=== PATIENT | female | born 1940 | race Caucasian/White ===

== ENCOUNTER → 2016-11-30 | Outpatient (CLI) | payer MEDICARE, OTHER ==
--- NOTE | 2016-12-02 19:01 | US ---
EXAMINATION TYPE: US MSK right foot DATE OF EXAM: 11/30/2016 1:47 PM COMPARISON: None available CLINICAL HISTORY: 76-year-old female, evaluate for Soft tissue mass M79.9. Additional history provided by the steam flattener: Golf ball sized obvious mass on the plantar surface of her foot, situated between the 2-4th MT. Pt states it has been there for 4 yrs and was drained abo ut 1 1/2 yrs ago. 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 TECHNIQUE: TARGETED SONOGRAPHIC EXAMINATION ALONG THE plantar aspect of the right forefoot midfoot ta rgeting the visible and palpable mass. FINDINGS: At the site of palpable abnormality centered within the subcutaneous tissues is a lobulated, heteroge neously hypoechoic lesion that shows some peripheral and internal vascularity extending from just lara p to the skin surface to the third flexor tendon. This measures up to 1.0 cm thick during transducer compression, 2.9 cm wide, and 3.0 cm AP dimension. Removing transducer pressure shows some internal c ystic spaces which obliterate with transducer pressure. The flexor tendon overlying moves freely of t his lesion. Extension from the overlying third MTP joint is not identified. IMPRESSION: Heterogeneous lobulated mass within the plantar subcutaneous tissues below the third MTP joint. This measures 2.9 x 3.0 cm and some internal cystic spaces flatten with transducer pressure. This extends to the level of the third flexor tendon which moves independently of this lesion. Internal vascularit y is present. The exact etiology is uncertain. Some benign differential considerations include giant cell tumor of the tendon sheath, nodular fasciitis, and inflammation-induced lesions. The possibilit y of a small sarcoma cannot entirely be excluded.
== END | disposition home or self-care (01) ==
LOC: RADUSWWP 12:59
PROVIDERS: ATTEND Podiatrist Foot & Ankle Surgery
DX: R22.42 Localized swelling, mass and lump, left lower limb (principal)

== ENCOUNTER 2016-12-22 16:46 | Inpatient (IN) | payer MEDICARE, OTHER ==
[~2016-12-22 16:46] MED LIST: METHOTREXATE SODIUM 2.5 MG TAB PO SCH
[2016-12-22] MEDS ORDERED: methylPREDNISolone SOD SUCCI 125 MG/2 ML VIAL IV STA (17:47)
[2016-12-22] MEDS ORDERED: LORazepam 2 MG/ML SYRINGE IV STA (17:47)
--- NOTE | 2016-12-22 17:50 | ED ---
SOB HPI - General Chief Complaint: Shortness of Breath Stated Complaint: Difficulty Breathing-Sent by Time Seen by Provider: 12/22/16 17:32 Source: patient, family, RN notes reviewed Mode of arrival: wheelchair Limitations: no limitations - History of Present Illness Initial Comments: This is a 76-year-old female with a history of bronchiectasis and chronic shortness of breath who states she went on a drive today with her in which he got back from 4:00 she started developing increasing shortness of breath. She denies any fevers chills or sweats. She feels dry she does complain some left-sided chest pain and increases with deep breathing or movements. She states she normally has exertional chest pain shortness of breath this is just worsening usual today. MD Complaint: shortness of breath - Related Data Home Medications Medication Instructions Recorded Confirmed ALPRAZolam [Xanax] 0.25 mg PO TID PRN 12/22/16 12/22/16 Acetaminophen Tab [Tylenol Tab] 650 mg PO Q6H PRN 12/22/16 12/22/16 Apixaban [Eliquis] 5 mg PO BID 12/22/16 12/22/16 Atenolol 100 mg PO DAILY 12/22/16 12/22/16 Atorvastatin [Lipitor] 20 mg PO DAILY 12/22/16 12/22/16 Benzonatate [Tessalon Perles] 100 mg PO TID PRN 12/22/16 12/22/16 Brinzolamide/Brimonidine Tart 1 drop BOTH EYES DAILY 12/22/16 12/22/16 [Simbrinza 1%-0.2% Eye Drops] Calcium Citrate 500 mg PO DAILY 12/22/16 12/22/16 Cholecalciferol [Vitamin D3] 1,000 unit PO DAILY 12/22/16 12/22/16 Citalopram Hydrobromide [CeleXA] 40 mg PO DAILY 12/22/16 12/22/16 Dicyclomine [Bentyl] 10 mg PO BID 12/22/16 12/22/16 Fluocinolone Body Oil 1 applic TOPICAL HS PRN 12/22/16 12/22/16 Folic Acid 1 mg PO BID 12/22/16 12/22/16 Levothyroxine Sodium [Synthroid] 75 mcg PO DAILY 12/22/16 12/22/16 Methotrexate Sodium [Methotrexate] 10 mg PO WE 12/22/16 12/22/16 Pantoprazole Sodium [Protonix] 40 mg PO AC-BID 12/22/16 12/22/16 Zolpidem [Ambien] 10 mg PO HS 12/22/16 12/22/16 hydrALAZINE HCL [Apresoline] 25 mg PO QAM 12/22/16 12/22/16 Allergies Allergy/AdvReac Type Severity Reaction Status Date / Time morphine AdvReac Hallucinati Verified 12/22/16 17:53 ons Review of Systems ROS Statement: Those systems with pertinent positive or pertinent negative responses have been documented in the HPI. ROS Other: All systems not noted in ROS Statement are negative. Past Medical History Past Medical History: Heart Failure, Hyperlipidemia, Hypertension, Rheumatoid Arthritis (RA), Thyroid Disorder Additional Past Medical History / Comment(s): lung disease History of Any Multi-Drug Resistant Organisms: None Reported Additional Past Surgical History / Comment(s): rt knee replacement AAA Past Psychological History: Anxiety Smoking Status: Never smoker Past Alcohol Use History: None Reported Past Drug Use History: None Reported General Exam - General Exam Comments Initial Comments: This a well up well-nourished alert and awake alert oriented history female she does appear to be hyperventilating. Limitations: no limitations General appearance: alert, anxious, in distress Head exam: Present: atraumatic, normocephalic, normal inspection Eye exam: Present: normal appearance, PERRL, EOMI. Absent: scleral icterus, conjunctival injection, periorbital swelling ENT exam: Present: normal exam, mucous membranes moist Neck exam: Present: normal inspection. Absent: tenderness, meningismus, lymphadenopathy Respiratory exam: Present: normal lung sounds bilaterally, accessory muscle use. Absent: respiratory distress, wheezes, rales, rhonchi, stridor Cardiovascular Exam: Present: regular rate, normal rhythm, normal heart sounds. Absent: systolic murmur, diastolic murmur, rubs, gallop, clicks GI/Abdominal exam: Present: soft, normal bowel sounds. Absent: distended, tenderness, guarding, rebound, rigid Extremities exam: Present: normal inspection, full ROM, normal capillary refill. Absent: tenderness, pedal edema, joint swelling, calf tenderness Back exam: Present: normal inspection Neurological exam: Present: alert, oriented X3, CN II-XII intact Psychiatric exam: Present: anxious Skin exam: Present: warm, dry, intact, normal color. Absent: rash Course Vital Signs 12/22/16 12/22/16 12/22/16 17:08 17:24 17:25 Temperature 97.6 F Pulse Rate 99 85 Respiratory 30 H 28 H 18 Rate Blood Pressure 139/62 130/60 O2 Sat by Pulse 94 L 99 Oximetry 12/22/16 12/22/16 12/22/16 18:05 18:44 20:21 Temperature 97.5 F L Pulse Rate 93 85 67 Respiratory 24 24 18 Rate Blood Pressure 138/58 131/81 147/90 O2 Sat by Pulse 100 100 97 Oximetry 12/22/16 12/22/16 12/22/16 20:58 21:10 21:34 Temperature Pulse Rate 91 93 100 Respiratory 24 Rate Blood Pressure 200/100 O2 Sat by Pulse 100 Oximetry Medical Decision Making - Medical Decision Making I did reevaluate patient several occasions she is feeling improved though still dyspneic. She does have an elevated d-dimer. She does have elevated creatinine I did discuss case and her and with Dr. Fleming. Patient be admitted with consultation by Dr. Smith. A VQ scan will be ordered. - Lab Data Result diagrams: 12/22/16 17:39 12/22/16 17:39 Lab Results 12/22/16 12/22/16 12/22/16 Range/Units 17:39 17:39 17:39 WBC 12.8 H (3.8-10.6) k/uL RBC 3.86 (3.80-5.40) m/uL Hgb 11.9 (11.4-16.0) gm/dL Hct 35.9 (34.0-46.0) % MCV 93.1 (80.0-100.0) fL MCH 30.9 (25.0-35.0) pg MCHC 33.2 (31.0-37.0) g/dL RDW 15.4 (11.5-15.5) % Plt Count 291 (150-450) k/uL Neutrophils % 75 % Lymphocytes % 15 % Monocytes % 5 % Eosinophils % 3 % Basophils % 0 % Neutrophils # 9.6 H (1.3-7.7) k/uL Lymphocytes # 1.9 (1.0-4.8) k/uL Monocytes # 0.6 (0-1.0) k/uL Eosinophils # 0.3 (0-0.7) k/uL Basophils # 0.1 (0-0.2) k/uL PT (9.0-12.0) sec INR (<1.1) APTT (22.0-30.0) sec D-Dimer (<0.60) mg/L FEU Sodium 138 (137-145) mmol/L Potassium 4.8 (3.5-5.1) mmol/L Chloride 108 H (98-107) mmol/L Carbon Dioxide 19 L (22-30) mmol/L Anion Gap 11 mmol/L BUN 36 H (7-17) mg/dL Creatinine 1.30 H (0.52-1.04) mg/dL Est GFR (MDRD) Af Amer 48 (>60 ml/min/1.73 sqM) Est GFR (MDRD) Non-Af 40 (>60 ml/min/1.73 sqM) Glucose 95 (74-99) mg/dL Calcium 10.1 (8.4-10.2) mg/dL Total Bilirubin 0.5 (0.2-1.3) mg/dL AST 31 (14-36) U/L ALT 22 (9-52) U/L Alkaline Phosphatase 132 H (38-126) U/L Total Creatine Kinase 27 L (30-135) U/L CK-MB (CK-2) 0.6 (0.0-2.4) ng/mL CK-MB (CK-2) Rel Index 2.2 Troponin I <0.012 (0.000-0.034) ng/mL NT-Pro-B Natriuret Pep pg/mL Total Protein 7.1 (6.3-8.2) g/dL Albumin 3.9 (3.5-5.0) g/dL 12/22/16 12/22/16 Range/Units 17:39 17:39 WBC (3.8-10.6) k/uL RBC (3.80-5.40) m/uL Hgb (11.4-16.0) gm/dL Hct (34.0-46.0) % MCV (80.0-100.0) fL MCH (25.0-35.0) pg MCHC (31.0-37.0) g/dL RDW (11.5-15.5) % Plt Count (150-450) k/uL Neutrophils % % Lymphocytes % % Monocytes % % Eosinophils % % Basophils % % Neutrophils # (1.3-7.7) k/uL Lymphocytes # (1.0-4.8) k/uL Monocytes # (0-1.0) k/uL Eosinophils # (0-0.7) k/uL Basophils # (0-0.2) k/uL PT 9.9 (9.0-12.0) sec INR 1.0 (<1.1) APTT 16.0 L (22.0-30.0) sec D-Dimer 1.16 H (<0.60) mg/L FEU Sodium (137-145) mmol/L Potassium (3.5-5.1) mmol/L Chloride (98-107) mmol/L Carbon Dioxide (22-30) mmol/L Anion Gap mmol/L BUN (7-17) mg/dL Creatinine (0.52-1.04) mg/dL Est GFR (MDRD) Af Amer (>60 ml/min/1.73 sqM) Est GFR (MDRD) Non-Af (>60 ml/min/1.73 sqM) Glucose (74-99) mg/dL Calcium (8.4-10.2) mg/dL Total Bilirubin (0.2-1.3) mg/dL AST (14-36) U/L ALT (9-52) U/L Alkaline Phosphatase (38-126) U/L Total Creatine Kinase (30-135) U/L CK-MB (CK-2) (0.0-2.4) ng/mL CK-MB (CK-2) Rel Index Troponin I (0.000-0.034) ng/mL NT-Pro-B Natriuret Pep 1540 pg/mL Total Protein (6.3-8.2) g/dL Albumin (3.5-5.0) g/dL - EKG Data -: EKG Interpreted by [facility] EKG shows normal: sinus rhythm (Sinus rhythm 80 LA interval 156 QRS 74 daily since QTC of 36 at 445 left exodeviation evidence of LVH.) - Radiology Data Radiology results: report reviewed (I did review all the imaging and reports no acute findings. Patient does demonstrate a hiatal hernia.), image reviewed Critical Care Time Critical Care Time: Yes Critical Care Time: 31 minutes of critical care time which includes initial History physical lab and x-rays on the patient. Multiple reevaluation of the patient. Discussion with patient family regarding findings discussed with the admitting physician documentation. Inpatient orders. Review of old charting. Disposition Clinical Impression: Acute exacerbation of chronic obstructive airways disease, Adult respiratory distress syndrome, Hyperventilation Disposition: ADMITTED IP TO THIS HOSP Condition: Stable Referrals: Gregg Kumar MD [Primary Care Provider] - 1-2 days
[2016-12-22 18:23] LABS: Calcium 10.1 mg/dL (8.4-10.2); Potassium 4.8 mmol/L (3.5-5.1); Total Bilirubin 0.5 mg/dL (0.2-1.3); Total Protein 7.1 g/dL (6.3-8.2)
--- NOTE | 2016-12-22 18:28 | XR ---
EXAMINATION TYPE: XR chest 2V DATE OF EXAM: 12/22/2016 COMPARISON: 05/10/2014. HISTORY: Shortness of breath TECHNIQUE: Frontal and lateral views of the chest are obtained. FINDINGS: Scattered senescent parenchymal changes noted. Hyperinflation compatible with COPD. No evidence for infiltrate. No evidence for atelectasis. Heart size is stable. Mediastinal structures are stable and grossly unremarkable. Large fixed hiatal hernia. No evidence for hilar prominence. Degenerative changes dorsal spine. IMPRESSION: 1. No evidence for acute pulmonary disease.
[2016-12-22 18:39] LABS: Prothrombin Time 9.9 sec (9.0-12.0)
[2016-12-22 18:46] LABS: Creatine Kinase 27 U/L (30-135)
[2016-12-22 18:59] LABS: Creatine Kinase MB 0.6 ng/mL (0.0-2.4); Troponin I <0.012 ng/mL (0.000-0.034)
[2016-12-22 19:03] LABS: Basophils # (A) 0.1 k/uL (0-0.2); Basophils % (A) 0 %; CH 29.9; CHCM 32.2; Eosinophils # (A) 0.3 k/uL (0-0.7); Eosinophils % (A) 3 %; HCT 35.9 % (34.0-46.0); HDW 2.49; HGB 11.9 gm/dL (11.4-16.0); Luc # (Auto) 0.21; Luc % (Auto) 2; Lymphocytes # (A) 1.9 k/uL (1.0-4.8); Lymphocytes % (A) 15 %; MCH 30.9 pg (25.0-35.0); MCHC 33.2 g/dL (31.0-37.0); MCV 93.1 fL (80.0-100.0); Mean Platelet Volume 8.7; Monocytes # (A) 0.6 k/uL (0-1.0); Monocytes % (A) 5 %; Neutrophils # (A) 9.6 k/uL (1.3-7.7); Neutrophils % (A) 75 %; RBC 3.86 m/uL (3.80-5.40); RDW 15.4 % (11.5-15.5); WBC 12.8 k/uL (3.8-10.6)
[2016-12-22] MEDS ORDERED: IPRATROPIUM-ALBUTEROL 3 ML NEB INHALATION STA (20:09)
[2016-12-22] MEDS ORDERED: DICYCLOMINE 10 MG CAP PO STA (21:36)
[2016-12-22] MEDS ORDERED: hydrALAZINE HCL 25 MG TAB PO STA (21:36)
[2016-12-22] MEDS ORDERED: ATENOLOL 50 MG TAB PO STA (21:37)
--- NOTE | 2016-12-22 22:01 | XR ---
EXAMINATION TYPE: XR chest 1V portable DATE OF EXAM: 12/22/2016 HISTORY: Shortness of breath. COMPARISON: 12/22/2016 TECHNIQUE: Single view of the chest is submitted. FINDINGS: Demonstrated are scattered senescent parenchymal change. There is no evidence for focal infiltrate. The heart is stable. Hilar and mediastinal structures are within normal limits. Fixed hiatal hernia is noted. Degenerative changes are seen of the dorsal spine. IMPRESSION: 1. Chronic changes without evidence for acute pulmonary disease.
--- NOTE | 2016-12-22 22:02 | XR ---
EXAMINATION TYPE: XR abdomen 1V DATE OF EXAM: 12/22/2016 COMPARISON: NONE HISTORY: Pain TECHNIQUE: Single supine KUB image of the abdomen is obtained FINDINGS: Small bowel demonstrates no evidence for dilatation or air fluid levels. Gas and fecal material is seen in non-distended colon. No convincing evidence for pneumoperitoneum. No unusual calcifications. The lung bases are clear. The osseous structures are intact. IMPRESSION: 1. Overall nonobstructive bowel gas pattern.
[2016-12-22] MEDS ORDERED: IPRATROPIUM-ALBUTEROL 3 ML NEB INHALATION PRN (22:44)
[2016-12-22] MEDS ORDERED: METHOTREXATE SODIUM 2.5 MG TAB PO SCH (23:00)
[2016-12-22] MEDS ORDERED: FLUOCINOLONE TOPICAL PRN (23:17)
[2016-12-22] MEDS ORDERED: BENZONATATE 100 MG CAP PO PRN (23:17)
[2016-12-23] MEDS ORDERED: IPRATROPIUM-ALBUTEROL 3 ML NEB INHALATION SCH
[2016-12-23] MEDS: ALPRAZolam 0.25 MG TAB PO PRN ×2 (00:25→22:33)
[2016-12-23] MEDS: methylPREDNISolone SOD SUCCI 125 MG/2 ML VIAL IV SCH ×3 (00:25→12:07)
[2016-12-23] MEDS ORDERED: ZOLPIDEM 10 MG TAB PO ONE (01:47)
[2016-12-23] MEDS: LEVOTHYROXINE 75 MCG TAB PO SCH (06:34)
[2016-12-23] MEDS: PANTOPRAZOLE 40 MG TABLET PO SCH ×2 (06:34→17:59)
[2016-12-23 07:10] LABS: Glucose,Whole Blood 157 mg/dL (75-99)
[2016-12-23 07:25] LABS: ALT 24 U/L (9-52); AST 32 U/L (14-36); Alkaline Phosphatase 104 U/L (38-126); Anion Gap 11 mmol/L; Blood Urea Nitrogen 54 mg/dL (7-17); Calcium 9.9 mg/dL (8.4-10.2); Carbon Dioxide 16 mmol/L (22-30); Chloride 109 mmol/L (98-107); Glucose 145 mg/dL (74-99); Non-African American GFR(MDRD) 53 (>60 ml/min/1.73 sqM); Sodium 136 mmol/L (137-145); Total Bilirubin 0.4 mg/dL (0.2-1.3); Total Protein 6.4 g/dL (6.3-8.2)
[2016-12-23 07:35] LABS: Basophils % (A) 0 %; CH 29.5; CHCM 32.6; Eosinophils % (A) 0 %; HCT 26.2 % (34.0-46.0); Luc # (Auto) 0.11; Luc % (Auto) 1; Lymphocytes # (A) 1.3 k/uL (1.0-4.8); Lymphocytes % (A) 12 %; MCH 29.8 pg (25.0-35.0); MCHC 32.8 g/dL (31.0-37.0); Mean Platelet Volume 7.5; Monocytes # (A) 0.1 k/uL (0-1.0); Monocytes % (A) 1 %; Neutrophils # (A) 9.7 k/uL (1.3-7.7); Neutrophils % (A) 86 %; RBC 2.88 m/uL (3.80-5.40); RDW 15.1 % (11.5-15.5); WBC 11.3 k/uL (3.8-10.6); WBC (Perox) 12.22
[2016-12-23 07:39] LABS: HGB 8.6 gm/dL (11.4-16.0)
[2016-12-23] MEDS ORDERED: BUDESONIDE 1 MG/2 ML NEBU INHALATION SCH (08:00)
[2016-12-23] MEDS: IPRATROPIUM-ALBUTEROL 3 ML NEB INHALATION SCH ×4 (08:04→19:36)
--- NOTE | 2016-12-23 08:21 | NM ---
EXAMINATION TYPE: NM pul vent and perfuse DATE OF EXAM: 12/23/2016 COMPARISON: NONE HISTORY: Chest pain and difficulty breathing TECHNIQUE: Utilizing inhalation of 70.8 mCi Tc 99m DTPA aerosol and intravenous injection of 5.2 mCi of Tc 99m MAA, ventilation and perfusion images are acquired post injection in multiple projections. FINDINGS: Normal radiotracer distribution is noted in the lungs. There is no evidence of mismatched defects. IMPRESSION: THIS EXAMINATION IS LOW PROBABILITY FOR PULMONARY EMBOLUS.
[2016-12-23 09:25] LABS: Hemoglobin A1C 5.5 % (4.2-6.1)
[2016-12-23] MEDS: INSULIN LISPRO (humaLOG) 300 UNIT/3 ML VIAL SQ SCH ×4 (09:30→20:58)
[2016-12-23] MEDS: ATENOLOL 50 MG TAB PO SCH (09:30)
[2016-12-23] MEDS: APIXABAN 5 MG TAB PO SCH ×2 (09:30→20:58)
[2016-12-23] MEDS: CHOLECALCIFEROL 1,000 UNIT TAB PO SCH (09:31)
[2016-12-23] MEDS: CALCIUM CARBONATE 500 MG CHEWABLE PO SCH (09:31)
[2016-12-23] MEDS: CITALOPRAM HYDROBROMIDE 20 MG TAB PO SCH (09:31)
[2016-12-23] MEDS: ATORVASTATIN 20 MG TAB PO SCH (09:31)
[2016-12-23] MEDS: FOLIC ACID 1 MG TAB PO SCH ×2 (09:32→20:58)
[2016-12-23] MEDS: DICYCLOMINE 10 MG CAP PO SCH ×2 (09:32→20:58)
[2016-12-23] MEDS: hydrALAZINE HCL 25 MG TAB PO SCH (09:32)
[2016-12-23 12:00] VITALS: BMI 26.0
[2016-12-23 12:08] LABS: Glucose,Whole Blood 168 mg/dL (75-99)
--- NOTE | 2016-12-23 13:44 | CT ---
EXAMINATION TYPE: CT chest wo con DATE OF EXAM: 12/23/2016 COMPARISON: Previous study dated 04/02/2015 HISTORY: ILD CT DLP: 468.6 mGycm Automated exposure control for dose reduction was used. FINDINGS: There is mild bronchiectatic change in both upper lobes and also in the left lower lobe. Th ere is some stable, subpleural nodularity in the upper lobes bilaterally. There is chronic airspace d isease in the right middle lobe and this may represent chronic atelectasis or scarring. There is more coarse fibrosis in the left lower lobe. This however appears improved from previous there is a 1.6 x 2.9 cm masslike density in the right apex seen only clearly in the supine views. This did not appear to be present previously. There are bilateral breast implants in place. There is no significant axillary, mediastinal or hilar adenopathy. The heart is upper limits of normal in size. There is a large hiatal hernia. Visualized portions of the upper abdomen are otherwise unremarkable. There is hypertrophic spondylosis in the dorsal spine. IMPRESSION: 1. MILD BRONCHIECTASIS DESCRIBED. 2. CHRONIC AIRSPACE DISEASE IN THE RIGHT MIDDLE LOBE MAY REPRESENT CHRONIC ATELECTASIS OR SCARRING. 3. COARSE INTERSTITIAL FIBROSIS IN THE LEFT LOWER LOBE WITH SCATTERED AREAS OF FIBROSIS ELSEWHERE. TH E LEFT LOWER LOBE FIBROSIS APPEARS IMPROVED FROM PREVIOUS. 4. MASSLIKE DENSITY IN THE RIGHT APEX SEEN ONLY ON THE SUPINE VIEWS. A STANDARD CT SCAN OF THE CHEST WOULD BE SUGGESTED FOR FURTHER ASSESSMENT. 5. MILD DEGENERATIVE CHANGE WITHIN THE SPINE.
--- NOTE | 2016-12-23 14:28 | P.HPIM ---
History of Present Illness H&P Date: 12/23/16 Chief Complaint: COPD exacerbation. This is a 76 Year-Old female one of with a previous medical history significant for hypertension and hypertensive cardiovascular disease, hyperlipidemia, RA, atrial fibrillation and asthma, patient was sent in by Dr. Kumar for evaluation of increased shortness of breath with elevated D-Dimer and she was admitted to the hospital for acute respiratory failure due to COPD exacerbation and possible thromboembolic disease and was started on nebulized treatment and IV ABX and will be seen in consultaion by Dr. Santiago and will undergo VQ scan. She states she went to lunch in [place] and wasn't feeling well afterwards when she was driving home and thought she may have eaten too much. Patient subsequently stopped at [facility] and she was seen in the ER and subsequent she was admitted as above. Patient underwent a VQ scan that was low probability for pulmonary and wasn't, however she was started on Solu-Medrol as well as nebulizer treatment and she is awaiting to see Dr. Santiago from pulmonary medicine for further recommendation. Patient is feeling generally weak, we will consult physical therapy for evaluation for possible extended care facility placement. Review of Systems Constitutional: Reports weakness, Reports weight gain, Denies anorexia, Denies chronic headaches, Denies lethargy, Denies malaise, Denies weight loss Eyes: denies blurred vision, denies bulging eye, denies decreased vision, denies diplopia Ears: deny: decreased hearing Ears, nose, mouth and throat: Denies dental pain, Denies dysphagia, Denies neck lump Cardiovascular: Reports decreased exercise tolerance, Reports dyspnea on exertion, Reports shortness of breath, Denies chest pain, Denies lightheadedness , Denies rapid heart beat, Denies syncope Respiratory: Reports cough, Reports sleep apnea, Reports wheezing, Denies congestion, Denies hemoptysis, Denies respiratory infections, Denies snoring Gastrointestinal: Reports nausea, Denies abdominal pain, Denies bloating, Denies BRBPR, Denies change in bowel habits, Denies heartburn, Denies hematemesis, Denies melena, Denies vomiting Genitourinary: Denies dysuria, Denies hematuria Menstruation: Reports postmenopausal Musculoskeletal: Denies myalgias Musculoskeletal: absent: ankle pain, ankle stiffness, ankle swelling, elbow pain , elbow stiffness, elbow swelling, foot pain, foot stiffness, foot swelling, hand pain, hand stiffness, hand swelling, hip pain, hip stiffness, hip swelling , knee pain, knee stiffness, knee swelling, shoulder pain, shoulder stiffness, shoulder swelling, wrist pain, wrist stiffness, wrist swelling Integumentary: Denies pruritus, Denies rash Neurological: Denies numbness, Denies weakness Psychiatric: Denies anxiety, Denies depression Endocrine: Denies fatigue, Denies weight change Past Medical History Past Medical History: Atrial Fibrillation, Asthma, Heart Failure, COPD, GERD/ Reflux, Hyperlipidemia, Hypertension, Osteoarthritis (OA), Rheumatoid Arthritis (RA), Sleep Apnea/CPAP/BIPAP, Thyroid Disorder Additional Past Medical History / Comment(s): lung disease History of Any Multi-Drug Resistant Organisms: None Reported Additional Past Surgical History / Comment(s): rt knee replacement, AAA repair Past Anesthesia/Blood Transfusion Reactions: No Reported Reaction Past Psychological History: Anxiety Smoking Status: Former smoker Past Alcohol Use History: None Reported Past Drug Use History: None Reported - Past Family History Father Family Medical History: Cancer Additional Family Medical History / Comment(s): at age 68 from lung cancer Mother Family Medical History: Cancer Additional Family Medical History / Comment(s): at age 83 from lung cancer Brother(s) Family Medical History: Cancer Additional Family Medical History / Comment(s): at age 63 from lung cancer. Son(s) Additional Family Medical History / Comment(s): She has 2 sons with no major medical problems. Medications and Allergies Home Medications Medication Instructions Recorded Confirmed Type ALPRAZolam [Xanax] 0.25 mg PO TID PRN 12/22/16 12/22/16 History Acetaminophen Tab [Tylenol Tab] 650 mg PO Q6H PRN 12/22/16 12/22/16 History Apixaban [Eliquis] 5 mg PO BID 12/22/16 12/22/16 History Atenolol 100 mg PO DAILY 12/22/16 12/22/16 History Atorvastatin [Lipitor] 20 mg PO DAILY 12/22/16 12/22/16 History Benzonatate [Tessalon Perles] 100 mg PO TID PRN 12/22/16 12/22/16 History Brinzolamide/Brimonidine Tart 1 drop BOTH EYES DAILY 12/22/16 12/22/16 History [Simbrinza 1%-0.2% Eye Drops] Calcium Citrate 500 mg PO DAILY 12/22/16 12/22/16 History Cholecalciferol [Vitamin D3] 1,000 unit PO DAILY 12/22/16 12/22/16 History Citalopram Hydrobromide [CeleXA] 40 mg PO DAILY 12/22/16 12/22/16 History Dicyclomine [Bentyl] 10 mg PO BID 12/22/16 12/22/16 History Fluocinolone Body Oil 1 applic TOPICAL HS PRN 12/22/16 12/22/16 History Folic Acid 1 mg PO BID 12/22/16 12/22/16 History Levothyroxine Sodium [Synthroid] 75 mcg PO DAILY 12/22/16 12/22/16 History Methotrexate Sodium [Methotrexate] 10 mg PO WE 12/22/16 12/22/16 History Pantoprazole Sodium [Protonix] 40 mg PO AC-BID 12/22/16 12/22/16 History Zolpidem [Ambien] 10 mg PO HS 12/22/16 12/22/16 History hydrALAZINE HCL [Apresoline] 25 mg PO QAM 12/22/16 12/22/16 History Allergies Allergy/AdvReac Type Severity Reaction Status Date / Time morphine AdvReac Hallucinati Verified 12/22/16 23:51 ons Physical Exam Vitals: Vital Signs Temp Pulse Resp BP Pulse Ox 12/22/16 22:51 90 18 150/65 97 12/22/16 22:30 98.0 F 98 22 164/70 99 12/22/16 22:09 103 H 24 185/76 99 12/22/16 21:34 100 24 200/100 100 12/22/16 21:10 93 12/22/16 20:58 91 12/22/16 20:21 97.5 F L 67 18 147/90 97 12/22/16 18:44 85 24 131/81 100 12/22/16 18:05 93 24 138/58 100 12/22/16 17:25 85 18 130/60 99 12/22/16 17:24 28 H 12/22/16 17:08 97.6 F 99 30 H 139/62 94 L Intake and Output 12/22/16 12/22/16 12/23/16 14:59 22:59 06:59 Other: # Voids 1 Weight 77.111 kg Patient Weight 12/23/16 06:59 Weight 77.111 kg - Constitutional General appearance: obese - EENT Eyes: anicteric sclerae, EOMI, PERRLA, no ptosis, normal appearance ENT: hearing grossly normal, NA/AT, normal oropharynx, no thrush Ears: bilateral: normal - Neck Neck: no lymphadenopathy, normal ROM, no rigidity, no stridor, no thyromegaly Carotids: bilateral: upstroke normal Thyroid: negative: normal size - Respiratory Respiratory: bilateral: diminished, prolonged expiration, negative: dullness, rales, rhonchi, wheezing - Cardiovascular Rhythm: irregularly irregular Heart sounds: normal: S1, S2 - Gastrointestinal General gastrointestinal: normal bowel sounds, soft, no tenderness, no umbilical hernia, no ventral hernia - Integumentary Integumentary: normal, normal turgor - Neurologic Neurologic: CNII-XII intact - Musculoskeletal Musculoskeletal: generalized weakness, strength equal bilaterally - Psychiatric Psychiatric: A&O x's 3, appropriate affect, intact judgment & insight Results CBC & Chem 7: 12/23/16 06:32 12/23/16 06:32 Labs: Abnormal Lab Results - Last 24 Hours (Table) 12/22/16 12/22/16 12/22/16 Range/Units 17:39 17:39 17:39 WBC 12.8 H (3.8-10.6) k/uL Neutrophils # 9.6 H (1.3-7.7) k/uL APTT (22.0-30.0) sec D-Dimer (<0.60) mg/L FEU Chloride 108 H (98-107) mmol/L Carbon Dioxide 19 L (22-30) mmol/L BUN 36 H (7-17) mg/dL Creatinine 1.30 H (0.52-1.04) mg/dL Alkaline Phosphatase 132 H (38-126) U/L Total Creatine Kinase 27 L (30-135) U/L 12/22/16 Range/Units 17:39 WBC (3.8-10.6) k/uL Neutrophils # (1.3-7.7) k/uL APTT 16.0 L (22.0-30.0) sec D-Dimer 1.16 H (<0.60) mg/L FEU Chloride (98-107) mmol/L Carbon Dioxide (22-30) mmol/L BUN (7-17) mg/dL Creatinine (0.52-1.04) mg/dL Alkaline Phosphatase (38-126) U/L Total Creatine Kinase (30-135) U/L Thrombosis Risk Factor Assmnt - DVT/VTE Prophylaxis DVT/VTE Prophylaxis: Pharmacologic Prophylaxis ordered, Mechanical Prophylaxis ordered - Choose All That Apply Any of the Below Risk Factors Present?: Yes Each Factor Represents 1 point: Abnormal pulmonary function (COPD), Obesity ( BMI >25) Other Risk Factors: Yes Each Risk Factor Represents 3 Points: Age 75 years or older Other congenital or acquired thrombophilia - If yes, enter type in comment: No Thrombosis Risk Factor Assessment Total Risk Factor Score: 5 Thrombosis Risk Factor Assessment Level: High Risk Assessment and Plan Plan: Assessment and plan: 1. Acute respiratory insufficiency due to COPD exacerbation with right upper lobe mass with bronchiectasis with fibrotic changes. will start Nebulized treatmentDuoneb 3 ml QID and pulmicort 1 mg BID, IVABx in the form of Levaquin 500 mg IV piggyback every 24 hours., Solu-Medrol 60 mg IVP Q 6 H ,pulmonary consult , 2. Hypertension and hypertensive cardiovascular disease. will continue with Atenolol 100 mg orally daily and Hydralazine 25 mg orally daily. 3. Hyperlipidemia.will continue with Lipitor 20 mg orally daily. 4. Rheumatoid arthritis.will continue with MTX 10 mg orally once q Tue. 5. Atrial Fibrillation. will continue with Atenolol 100 mg orally daily and Eliquis 5 mg po bid. 6. Obesity with possible SONIDO and OGS will need sleep study as an outpatient if not done already. 7. Hypothyroidism. will continue with synthroid 75 mcg orally daily. 8. Anxiety . will continue with XAnax as needed. 9. Depression. will continue with Citalopram 10 mg orally daily. 10. DVT prophylaxis. will continue with Eliquis 5 mg orally bid. 11. GI prophylaxis. will continue with Protonix 40 mg orally BID. 12. Admit to inpatient. estimated length of stay 2 midnights. 13. Full code.
[2016-12-23 16:37] LABS: Glucose,Whole Blood 155 mg/dL (75-99)
--- NOTE | 2016-12-23 17:22 | CONS ---
DATE OF CONSULTATION: This patient is a 76-year-old female whom I have seen in the past. I do not recall why I saw her. I suspect she has some underlying COPD. Anyway, she sees Dr. Gregg Kumar now and apparently was sent to the emergency room yesterday because of increasing shortness of breath. Apparently it had been going on for about a day or so prior to admission and had been progressive in nature. The patient states that she had no fever or chills. No sweats. She apparently had some left-sided chest discomfort, worsened on deep breathing or certain body movements. She usually has dyspnea on exertion, but apparently the shortness of breath that brought her into the emergency room was much more severe. No fever. No chills. No nausea, vomiting or diarrhea. Again, I have not seen her for a number of years. She is friends with a woman who lives in the same area that I live in. Again, I have not seen her in the office or at this other woman's house in quite some time. Anyway, the patient now sees Dr. Kumar. I do not recall who her primary doctor was prior. Her medications at home include: 1. Xanax. 2. Tylenol. 3. Eliquis. 4. Atenolol. 5. Lipitor. 6. Tessalon Perles. 7. Eye drops. 8. Calcium. 9. Vitamin D3. 10. Celexa. 11. Bentyl. 12. Body oil. 13. Folic acid. 14. Levothyroxine. 15. Methotrexate. 16. Protonix. 17. Ambien. 18. Hydralazine. ALLERGIES: MORPHINE. Medical history is apparently positive for: 1. Heart failure. 2. Hyperlipidemia. 3. Hypertension. 4. Rheumatoid arthritis. 5. Hypothyroidism. 6. 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 I do not have my office notes in front of me and it has been such a long time that she has been in the office that the paper charts are not available. She cannot recall what I told her, either. Surgical history includes, among other things: 1. Right knee replacement. 2. AAA repair. Social history is significant in that she is a lifelong nonsmoker. Family history is not too remarkable. There is no illicit drug history. Occupational history is noncontributory. REVIEW OF SYSTEMS: CONSTITUTIONAL: Negative. NEUROLOGIC: Negative. HEENT: Negative. CARDIOVASCULAR: Chest pain, somewhat pleuritic in nature. PULMONARY: Shortness of breath. GI/: Negative. RHEUMATOLOGIC/IMMUNOLOGIC: Negative. ENDOCRINOLOGIC: Negative. DERMATOLOGIC: Negative. Vital signs include temperature 96.7, heart rate 84, respiratory rate 18, blood pressure 138/63, mean 88, room-air saturation 100%. Appears in no acute distress. She really does not look ill, although she does have sort of an audible breathing pattern; she seems like she breathes more heavily than normal. HEENT examination is grossly unremarkable. Mucous membranes are moist. Neck is supple. Full range of motion. No adenopathy or thyromegaly. Cardiovascular examination reveals regular rhythm and rate. Lungs reveal a few scattered rhonchi. Breath sounds diminished. No wheezes or crackles. ABDOMEN: Soft. Bowel sounds are heard. EXTREMITIES: Intact. No cyanosis, clubbing or edema. Skin without rash. Neurological examination is nonfocal. The patient had a chest x-ray which showed no acute disease. This was done twice. In addition, she had a pulmonary perfusion scan which was low probability for pulmonary embolism. Labs are reviewed. White count 11.3, hemoglobin 8.6, hematocrit 26.2, platelet count 279,000. PT, INR normal. PTT is 16. D-dimer 1.16. Sodium 136, potassium 5, chloride 109. CO2 is 16. Anion gap is 11. BUN and creatinine were 54 and 1.01. The rest of the labs look okay. N-terminal proBNP is 1540, troponin less than 0.012. Electrolytes are consistent with a non-anion gap metabolic acidosis, probably a hyperchloremic non-anion gap metabolic acidosis. There is some prerenal azotemia or early acute kidney injury noted. Medications are reviewed. ASSESSMENT: 1. Shortness of breath, of unclear etiology. The patient's BUN and creatinine preclude a CT angiogram. Her ventilation perfusion lung scan was low probability. 2. 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 3. History of heart failure. 4. History of hyperlipidemia. 5. Hypertension. 6. Hypothyroidism. PLAN: Will review all her medical records and charts. Will see in the office whether or not I can retrieve any additional information on her, including pulmonary function tests. Additional recommendations and suggestions are forthcoming. The medications will be reviewed. It does not appear that she needs all these breathing medications at this time. Some will be discontinued. Will continue to follow. Prognosis is guarded.
[2016-12-23] MEDS: LEVOFLOXACIN 500MG-D5W PMX 500 MG in DEXTROSE/WATER 1 100ML.BAG IVPB SCH (17:58)
[2016-12-23 20:55] LABS: Glucose,Whole Blood 178 mg/dL (75-99)
[2016-12-23] MEDS: ZOLPIDEM 10 MG TAB PO SCH (20:58)
[2016-12-24 06:26] LABS: Glucose,Whole Blood 191 mg/dL (75-99)
[2016-12-24] MEDS: INSULIN LISPRO (humaLOG) 300 UNIT/3 ML VIAL SQ SCH ×4 (06:29→23:36)
[2016-12-24] MEDS: LEVOTHYROXINE 75 MCG TAB PO SCH (06:31)
[2016-12-24] MEDS: PANTOPRAZOLE 40 MG TABLET PO SCH (06:31)
[2016-12-24 07:06] LABS: CH 29.6; CHCM 31.6; HDW 2.59; Hypochromasia Slight; MCH 29.7 pg (25.0-35.0); MCHC 31.5 g/dL (31.0-37.0); MCV 94.2 fL (80.0-100.0); Mean Platelet Volume 7.6; RBC 1.89 m/uL (3.80-5.40); RDW 15.9 % (11.5-15.5); WBC 23.2 k/uL (3.8-10.6)
[2016-12-24 07:19] LABS: Calcium 9.9 mg/dL (8.4-10.2); Potassium 4.7 mmol/L (3.5-5.1); Total Bilirubin 0.4 mg/dL (0.2-1.3); Total Protein 5.6 g/dL (6.3-8.2)
[2016-12-24 07:41] LABS: HCT 17.8 % (34.0-46.0); HGB 5.6 gm/dL (11.4-16.0)
[2016-12-24] MEDS: IPRATROPIUM-ALBUTEROL 3 ML NEB INHALATION SCH ×4 (08:41→19:30)
[2016-12-24 09:00] LABS: Basophils % (A) 0 %; CH 29.5; CHCM 30.6; Eosinophils % (A) 0 %; HDW 2.46; Hypochromasia Moderate; Luc # (Auto) 0.18; Luc % (Auto) 1; Lymphocytes # (A) 1.7 k/uL (1.0-4.8); Lymphocytes % (A) 8 %; MCH 29.5 pg (25.0-35.0); MCHC 30.4 g/dL (31.0-37.0); MCV 96.9 fL (80.0-100.0); Macrocytosis Slight; Mean Platelet Volume 7.9; Monocytes # (A) 0.9 k/uL (0-1.0); Monocytes % (A) 4 %; Neutrophils # (A) 18.1 k/uL (1.3-7.7); Neutrophils % (A) 87 %; RBC 1.83 m/uL (3.80-5.40); WBC 20.9 k/uL (3.8-10.6); WBC (Perox) 21.09
[2016-12-24 09:06] LABS: HCT 17.7 % (34.0-46.0); HGB 5.4 gm/dL (11.4-16.0)
[2016-12-24 09:09] LABS: Calcium 9.7 mg/dL (8.4-10.2); Potassium 4.6 mmol/L (3.5-5.1); Total Bilirubin 0.4 mg/dL (0.2-1.3); Total Protein 5.5 g/dL (6.3-8.2)
[2016-12-24] MEDS: APIXABAN 5 MG TAB PO SCH (10:40)
[2016-12-24] MEDS: CALCIUM CARBONATE 500 MG CHEWABLE PO SCH (11:07)
[2016-12-24] MEDS: ATORVASTATIN 20 MG TAB PO SCH (11:07)
[2016-12-24] MEDS: CHOLECALCIFEROL 1,000 UNIT TAB PO SCH (11:07)
[2016-12-24] MEDS: DICYCLOMINE 10 MG CAP PO SCH ×2 (11:08→19:50)
[2016-12-24] MEDS: FOLIC ACID 1 MG TAB PO SCH ×2 (11:08→19:51)
[2016-12-24] MEDS: CITALOPRAM HYDROBROMIDE 20 MG TAB PO SCH (11:08)
[2016-12-24 12:11] LABS: Glucose,Whole Blood 147 mg/dL (75-99)
--- NOTE | 2016-12-24 12:59 | P.CONS ---
History of Present Illness - Reason for Consult Consult date: 12/24/16 GI bleed anemia hematemesis Requesting physician: Eduardo Fleming - History of Present Illness 76-year-old female with a history of atrial fibrillation with Eliquis maintenance, abdominal aortic aneurysm, remote peptic ulcer disease, hiatal hernia, asthma, heart failure, COPD, RA, hypertension, hyperlipidemia. Patient presents with shortness of breath for the last 5 months but exacerbated over the last week. Upon admission patient was found to have a low hemoglobin of 5.6. MCV 94. Platelet 331. BUN 83. creatinine 1.2. Intermittent black colored stool since July which she has notified her PCP about. Last colonoscopy several years ago. Last EGD fall at [facility] for evaluation of abdominal pain with findings of hiatal hernia. Denies fever, chills, gross melena hematochezia. Patient had a small to moderate dark red emesis with some clots earlier this afternoon. Intermittent abdominal discomfort. Receiving 1 unit of blood. Hemoglobin this morning was 5.4. No NSAIDs or aspirin. No alcohol. Presently hemodynamically stable. Sinus rhythm. Small passage of black stool. Last dose of Eliquis yesterday evening. CT chest negative for pulmonary embolism. Right apex masslike density. VQ scan low probability for PE. Review of Systems Constitutional: Denies fever, chills, sweats, weight gain, or loss. HEENT: Negative for migraines, blurred vision or loss, earaches, drainage, tinnitus, oral mucosal lesions, dysphagia, or odynophagia. CARDIAC: Atrial fibrillation. Hypertension. CHF. Hyperlipidemia. Negative for chest pain, arrhythmias, or palpitation. RESPIRATORY: Negative for shortness of breath, hemoptysis, cough, or sputum production. GI: See HPI for pertinent findings. : Negative for hematuria, urgency, frequency, polyuria, or dysuria. GYNc: Negative vaginal discharge. MUSCULOSKELETAL: Rheumatoid arthritis. Osteoarthritis. Negative for muscle aches, swelling, arthritis, and arthralgias. NEUROLOGIC: Negative for stroke or TIA. ENDOCRINE: Negative for thyroid problems. SKIN: Negative for rash or itching. PSYCHIATRIC: History of anxiety. Denies depression. All systems: negative (See HPI) Past Medical History Past Medical History: Atrial Fibrillation, Asthma, Heart Failure, COPD, GERD/ Reflux, Hyperlipidemia, Hypertension, Osteoarthritis (OA), Rheumatoid Arthritis (RA), Sleep Apnea/CPAP/BIPAP, Thyroid Disorder Additional Past Medical History / Comment(s): lung disease History of Any Multi-Drug Resistant Organisms: None Reported Additional Past Surgical History / Comment(s): rt knee replacement, AAA repair Past Anesthesia/Blood Transfusion Reactions: No Reported Reaction Past Psychological History: Anxiety Smoking Status: Former smoker Past Alcohol Use History: None Reported Past Drug Use History: None Reported - Past Family History Father Family Medical History: Cancer Additional Family Medical History / Comment(s): at age 68 from lung cancer Mother Family Medical History: Cancer Additional Family Medical History / Comment(s): at age 83 from lung cancer Brother(s) Family Medical History: Cancer Additional Family Medical History / Comment(s): at age 63 from lung cancer. Son(s) Additional Family Medical History / Comment(s): She has 2 sons with no major medical problems. Medications and Allergies Home Medications Medication Instructions Recorded Confirmed Type ALPRAZolam [Xanax] 0.25 mg PO TID PRN 12/22/16 12/22/16 History Acetaminophen Tab [Tylenol Tab] 650 mg PO Q6H PRN 12/22/16 12/22/16 History Apixaban [Eliquis] 5 mg PO BID 12/22/16 12/22/16 History Atenolol 100 mg PO DAILY 12/22/16 12/22/16 History Atorvastatin [Lipitor] 20 mg PO DAILY 12/22/16 12/22/16 History Benzonatate [Tessalon Perles] 100 mg PO TID PRN 12/22/16 12/22/16 History Brinzolamide/Brimonidine Tart 1 drop BOTH EYES DAILY 12/22/16 12/22/16 History [Simbrinza 1%-0.2% Eye Drops] Calcium Citrate 500 mg PO DAILY 12/22/16 12/22/16 History Cholecalciferol [Vitamin D3] 1,000 unit PO DAILY 12/22/16 12/22/16 History Citalopram Hydrobromide [CeleXA] 40 mg PO DAILY 12/22/16 12/22/16 History Dicyclomine [Bentyl] 10 mg PO BID 12/22/16 12/22/16 History Fluocinolone Body Oil 1 applic TOPICAL HS PRN 12/22/16 12/22/16 History Folic Acid 1 mg PO BID 12/22/16 12/22/16 History Levothyroxine Sodium [Synthroid] 75 mcg PO DAILY 12/22/16 12/22/16 History Methotrexate Sodium [Methotrexate] 10 mg PO WE 12/22/16 12/22/16 History Pantoprazole Sodium [Protonix] 40 mg PO AC-BID 12/22/16 12/22/16 History Zolpidem [Ambien] 10 mg PO HS 12/22/16 12/22/16 History hydrALAZINE HCL [Apresoline] 25 mg PO QAM 12/22/16 12/22/16 History Allergies Allergy/AdvReac Type Severity Reaction Status Date / Time morphine AdvReac Hallucinati Verified 12/22/16 23:51 ons Physical Exam Vitals: Vital Signs Temp Pulse Pulse Resp BP BP Pulse Ox 12/24/16 12:20 100 32 H 140/51 98 12/24/16 12:10 98.1 F 96 34 H 140/51 100 12/24/16 12:06 102 H 90 L 12/24/16 11:51 98.0 F 93 18 136/62 12/24/16 11:38 88 12/24/16 11:29 93 12/24/16 11:26 98.0 F 93 18 136/62 99 12/24/16 08:43 87 96 12/24/16 08:15 98.8 F 91 16 114/72 99 12/24/16 04:00 97.0 F L 87 20 122/77 100 12/24/16 00:00 97.8 F 87 20 141/65 100 12/23/16 20:00 97.6 F 84 20 127/57 100 12/23/16 19:46 88 12/23/16 19:36 84 12/23/16 16:09 88 12/23/16 16:00 77 18 148/67 100 12/23/16 15:58 88 Intake and Output 12/23/16 12/24/16 12/24/16 22:59 06:59 14:59 Intake Total 180 0 Output Total 400 200 Balance -220 -200 Intake: Oral 180 Blood Product 0 Rc As-1 Unit 0 [id number] Output: Urine 400 200 Other: Voiding Method Toilet Toilet Toilet # Voids 2 1 Weight 76.6 kg General appearance: The patient is alert, oriented, in no acute distress. HET: Head is normocephalic and atraumatic. Pupils are equal and reactive. Oropharynx is clear without lesions. Neck: Supple without lymphadenopathy. Trachea midline. Heart: S1 S2. Regular rate and rhythm. Lungs: No crackles or wheezes are heard. Abdomen: Soft, very mild midepigastric discomfort, nondistended with bowel sounds. No peritoneal signs. No palpable organomegaly or masses. Extremities: Normal skin color and turgor. No cyanosis, rash, ulceration, clubbing, or edema. Radial and pedal pulses are 2/4 bilaterally. Neurological: No focal deficits. Strength and sensation are grossly intact. Rectal: Black stool. Results CBC & Chem 7: 12/24/16 08:41 12/24/16 08:41 Labs: Abnormal Lab Results - Last 24 Hours (Table) 12/23/16 12/23/16 12/24/16 Range/Units 16:33 20:53 05:44 WBC 23.2 H (3.8-10.6) k/uL RBC 1.89 L (3.80-5.40) m/uL Hgb 5.6 L* D (11.4-16.0) gm/dL Hct 17.8 L* (34.0-46.0) % MCHC (31.0-37.0) g/dL RDW 15.9 H (11.5-15.5) % Neutrophils # (1.3-7.7) k/uL Sodium (137-145) mmol/L Chloride (98-107) mmol/L Carbon Dioxide (22-30) mmol/L BUN (7-17) mg/dL Creatinine (0.52-1.04) mg/dL Glucose (74-99) mg/dL POC Glucose (mg/dL) 155 H 178 H (75-99) mg/dL Total Protein (6.3-8.2) g/dL Albumin (3.5-5.0) g/dL Crossmatch 12/24/16 12/24/16 12/24/16 Range/Units 05:44 06:25 08:41 WBC 20.9 H (3.8-10.6) k/uL RBC 1.83 L (3.80-5.40) m/uL Hgb 5.4 L* (11.4-16.0) gm/dL Hct 17.7 L* (34.0-46.0) % MCHC 30.4 L (31.0-37.0) g/dL RDW 16.0 H (11.5-15.5) % Neutrophils # 18.1 H (1.3-7.7) k/uL Sodium (137-145) mmol/L Chloride 109 H (98-107) mmol/L Carbon Dioxide 17 L (22-30) mmol/L BUN 83 H* (7-17) mg/dL Creatinine 1.23 H (0.52-1.04) mg/dL Glucose 136 H (74-99) mg/dL POC Glucose (mg/dL) 191 H (75-99) mg/dL Total Protein 5.6 L (6.3-8.2) g/dL Albumin 3.1 L (3.5-5.0) g/dL Crossmatch 12/24/16 12/24/16 12/24/16 Range/Units 08:41 08:45 12:09 WBC (3.8-10.6) k/uL RBC (3.80-5.40) m/uL Hgb (11.4-16.0) gm/dL Hct (34.0-46.0) % MCHC (31.0-37.0) g/dL RDW (11.5-15.5) % Neutrophils # (1.3-7.7) k/uL Sodium 136 L (137-145) mmol/L Chloride 111 H (98-107) mmol/L Carbon Dioxide 16 L (22-30) mmol/L BUN 88 H* (7-17) mg/dL Creatinine 1.28 H (0.52-1.04) mg/dL Glucose 133 H (74-99) mg/dL POC Glucose (mg/dL) 147 H (75-99) mg/dL Total Protein 5.5 L (6.3-8.2) g/dL Albumin 2.9 L (3.5-5.0) g/dL Crossmatch See Detail Assessment and Plan (1) Acute GI bleeding Narrative/Plan: Acute upper GI bleed with hematemesis and melena possible peptic ulcer disease possible bleeding angiectasia exacerbated by antiplatelet medications. Status: Acute (2) Hematemesis Status: Acute (3) Melena Status: Acute (4) Atrial fibrillation Status: Acute (5) Acute blood loss anemia Status: Acute (6) Dyspnea Status: Acute (7) History of rheumatoid arthritis Status: Acute Plan: 1. EGD evaluation. 2. Nothing by mouth except medications. 3. IV Protonix 40 mg twice daily. 4. CBC monitoring every 6 hours. 5. Blood transfusion as clinically necessary. 6. Hold antiplatelet medications. No aspirin or NSAIDs. The rhic systems safety engineer has discussed the risks, benefits and alternative therapies for the above-mentioned procedure and for both sedation/analgesia as well as necessary blood product administration, if indicated, as they pertain to this patient. The patient has indicated understanding and acceptance of the risks and procedures discussed. Thank you for this kind referral and the opportunity to participate in the care of your patient. This consultation was discussed with Dr. Serrano. The impression and plan of care have been directed as dictated.
[2016-12-24] MEDS: PANTOPRAZOLE 40 MG/10 ML VIAL IVP SCH ×2 (13:15→19:51)
[2016-12-24] MEDS: ATENOLOL 50 MG TAB PO SCH (13:15)
--- NOTE | 2016-12-24 14:18 | PN ---
This is a 76-year-old female who we saw yesterday in consultation for some shortness of breath. She has chronic dyspnea on exertion related to underlying bronchiectasis and pulmonary fibrosis. She was doing relatively well yesterday when we saw her. I ordered a CAT scan which confirmed the bronchiectasis and pulmonary fibrosis. I had apparently not seen in the office for a number of years. More recently, she apparently had been having some issues with black, tarry stools and vomiting of coffee-ground emesis. Her hemoglobin dropped from somewhere above 11 to close to 5.1 today. She was transferred to the ICU for closer monitoring. GI was called to evaluate her. She may end up with an EGD/colonoscopy, She is getting a couple units of PRBCs. Some of her shortness of breath could relate to anemia. Again, I had not seen her for a number of years. Her primary doctor is now Dr. Kumar. She use to see somebody else that I do not recall. In addition, she has a history of heart failure, hyperlipidemia, hypertension, rheumatoid arthritis, hypothyroidism. Her pulmonary issues may relate to rheumatoid lung. Again, I do not have all her office notes or any of her office notes since I have not seen him for some time in the office and we have gone paperless and the paper charts are not available to me. Anyway, she is here in the ICU resting comfortably. No apparent distress. She is a bit pale. Current vital signs are reviewed. Temperature is 98.1, heart rate 87, respiratory rate 22, blood pressure 154/9, mean 112, room air saturation 98% to 100%. Appears in no acute distress. Is a little pale. HEENT examination is grossly unremarkable. Mucous membranes are moist. NECK: Supple. Cardiovascular examination regular rhythm and rate. Lungs reveal a few scattered coarse rhonchi. There are some bibasilar crackles. No wheezes. ABDOMEN: Soft. Extremities are intact. No cyanosis, clubbing, or edema. Skin is pale. No rashes. Neurologic examination is nonfocal. Labs are reviewed. White count 20.9, hemoglobin of 5.4, hematocrit 17.7, platelet count 333,000. Her PTT is 16. D-dimer is 1.16. Sodium 136, potassium 4.6, chloride 111, CO2 of 16, anion gap 9. BUN and creatinine were 88 and 1.28 suggesting prerenal azotemia and active bleeding. Albumin 2.9. Chest CT was reviewed yesterday. Pulmonary perfusion study was consistent with an indeterminate scan. Medications are reviewed. I reviewed them yesterday when I did the consultation. Everything seems appropriate. ASSESSMENT: 1. Active gastrointestinal bleed, likely from the upper gastrointestinal tract, with profound anemia. 2. Shortness of breath, probably related to the patient's underlying chronic lung disease, which may in fact represent rheumatoid lung as she has both bronchiectasis and pulmonary fibrosis. In addition, the shortness of breath could relate to developing anemia. 3. 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 4. History of heart failure, inactive. 5. History of hyperlipidemia. 6. Essential hypertension. 7. Hypothyroidism. PLAN: The patient is here in the ICU. I will continue to monitor her here. She needs further evaluation of her chronic lung disease with a followup in my office. She will need a 6 minute walk distance and a PFT. I have not seen her for years. Additional recommendations and suggestions are forthcoming. Prognosis is guarded.
--- NOTE | 2016-12-24 15:03 | P.PN ---
Subjective This is a 76 Year-Old female one of with a previous medical history significant for hypertension and hypertensive cardiovascular disease, hyperlipidemia, RA, atrial fibrillation and asthma, patient was sent in by Dr. Kumar for evaluation of increased shortness of breath with elevated D-Dimer and she was admitted to the hospital for acute respiratory failure due to COPD exacerbation and possible thromboembolic disease and was started on nebulized treatment and IV ABX and will be seen in consultaion by Dr. Santiago and will undergo VQ scan. She states she went to lunch in [place] and wasn't feeling well afterwards when she was driving home and thought she may have eaten too much. Patient subsequently stopped at [facility] and she was seen in the ER and subsequent she was admitted as above. Patient underwent a VQ scan that was low probability for pulmonary and wasn't, however she was started on Solu-Medrol as well as nebulizer treatment and she is awaiting to see Dr. Santiago from pulmonary medicine for further recommendation. Patient is feeling generally weak, we will consult physical therapy for evaluation for possible extended care facility placement. 12/24: The patient had a drop in her hemoglobin down to 5.6. Apparently, patient had black formed stools yesterday. BUN is up to 83. Patient will be transferred to the intensive care unit, 2 units of packed RBCs ordered, nothing by mouth status, consult with GI. She has been evaluated by physical therapy with recommendations for home but will need to be reevaluated once stable. Objective - Vital Signs Vital signs: Vital Signs Temp 97.0 F L 12/24/16 04:00 Pulse 87 12/24/16 08:43 Resp 20 12/24/16 04:00 BP 122/77 12/24/16 04:00 Pulse Ox 96 12/24/16 08:43 Intake & Output 12/23/16 12/24/16 12/24/16 18:59 06:59 18:59 Intake Total 180 Output Total 1300 Balance -1120 Weight 77.7 kg 76.6 kg Intake: Oral 180 Output: Urine 1300 Other: Voiding Method Toilet Toilet # Voids 2 1 - Exam General appearance: obese - EENT Eyes: anicteric sclerae, EOMI, PERRLA, no ptosis, normal appearance ENT: hearing grossly normal, NA/AT, normal oropharynx, no thrush Ears: bilateral: normal - Neck Neck: no lymphadenopathy, normal ROM, no rigidity, no stridor, no thyromegaly Carotids: bilateral: upstroke normal Thyroid: negative: normal size - Respiratory Respiratory: bilateral: diminished, prolonged expiration, negative: dullness, rales, rhonchi, wheezing - Cardiovascular Rhythm: irregularly irregular Heart sounds: normal: S1, S2 - Gastrointestinal General gastrointestinal: normal bowel sounds, soft, no tenderness, no umbilical hernia, no ventral hernia - Integumentary Integumentary: normal, normal turgor - Neurologic Neurologic: CNII-XII intact - Musculoskeletal Musculoskeletal: generalized weakness, strength equal bilaterally - Psychiatric Psychiatric: A&O x's 3, appropriate affect, intact judgment & insight - Labs CBC & Chem 7: 12/24/16 08:41 12/24/16 08:41 Labs: Abnormal Lab Results - Last 24 Hours (Table) 12/23/16 12/23/16 12/23/16 Range/Units 11:39 16:33 20:53 WBC (3.8-10.6) k/uL RBC (3.80-5.40) m/uL Hgb (11.4-16.0) gm/dL Hct (34.0-46.0) % MCHC (31.0-37.0) g/dL RDW (11.5-15.5) % Neutrophils # (1.3-7.7) k/uL Sodium (137-145) mmol/L Chloride (98-107) mmol/L Carbon Dioxide (22-30) mmol/L BUN (7-17) mg/dL Creatinine (0.52-1.04) mg/dL Glucose (74-99) mg/dL POC Glucose (mg/dL) 168 H 155 H 178 H (75-99) mg/dL Total Protein (6.3-8.2) g/dL Albumin (3.5-5.0) g/dL 12/24/16 12/24/16 12/24/16 Range/Units 05:44 05:44 06:25 WBC 23.2 H (3.8-10.6) k/uL RBC 1.89 L (3.80-5.40) m/uL Hgb 5.6 L* D (11.4-16.0) gm/dL Hct 17.8 L* (34.0-46.0) % MCHC (31.0-37.0) g/dL RDW 15.9 H (11.5-15.5) % Neutrophils # (1.3-7.7) k/uL Sodium (137-145) mmol/L Chloride 109 H (98-107) mmol/L Carbon Dioxide 17 L (22-30) mmol/L BUN 83 H* (7-17) mg/dL Creatinine 1.23 H (0.52-1.04) mg/dL Glucose 136 H (74-99) mg/dL POC Glucose (mg/dL) 191 H (75-99) mg/dL Total Protein 5.6 L (6.3-8.2) g/dL Albumin 3.1 L (3.5-5.0) g/dL 12/24/16 12/24/16 Range/Units 08:41 08:41 WBC 20.9 H (3.8-10.6) k/uL RBC 1.83 L (3.80-5.40) m/uL Hgb 5.4 L* (11.4-16.0) gm/dL Hct 17.7 L* (34.0-46.0) % MCHC 30.4 L (31.0-37.0) g/dL RDW 16.0 H (11.5-15.5) % Neutrophils # 18.1 H (1.3-7.7) k/uL Sodium 136 L (137-145) mmol/L Chloride 111 H (98-107) mmol/L Carbon Dioxide 16 L (22-30) mmol/L BUN 88 H* (7-17) mg/dL Creatinine 1.28 H (0.52-1.04) mg/dL Glucose 133 H (74-99) mg/dL POC Glucose (mg/dL) (75-99) mg/dL Total Protein 5.5 L (6.3-8.2) g/dL Albumin 2.9 L (3.5-5.0) g/dL Assessment and Plan Plan: 1. Acute respiratory insufficiency due to COPD exacerbation with right upper lobe mass with bronchiectasis with fibrotic changes. will start Nebulized treatmentDuoneb 3 ml QID and pulmicort 1 mg BID, IVABx in the form of Levaquin 500 mg IV piggyback every 24 hours., Solu-Medrol 60 mg IVP Q 6 H ,pulmonary consult , 2. Acute GI bleed with acute blood loss anemia. Plan transfusion 2 units of packed RBCs, nothing by mouth status, GI consult. Patient will be transferred to the intensive care unit. Patient is followed by Dr. Santiago. 3. Hypertension and hypertensive cardiovascular disease. will continue with Atenolol 100 mg orally daily and Hydralazine 25 mg orally daily. 4. Hyperlipidemia.will continue with Lipitor 20 mg orally daily. 5. Rheumatoid arthritis.will continue with MTX 10 mg orally once q Tue. 6. Atrial Fibrillation. will continue with Atenolol 100 mg orally daily and Eliquis 5 mg po bid. 7. Obesity with possible SONIDO and OGS will need sleep study as an outpatient if not done already. 8. Hypothyroidism. will continue with synthroid 75 mcg orally daily. 9. Anxiety . will continue with XAnax as needed. 10. Depression. will continue with Citalopram 10 mg orally daily. 11. DVT prophylaxis. will continue with Eliquis 5 mg orally bid. 12. GI prophylaxis. will continue with Protonix 40 mg orally BID. 13. Admit to inpatient. estimated length of stay 2 midnights. 14. Full code. Discharge plan: Most likely home with homecare Impression and plan of care have been directed as dictated by the signing physician. Marina Cervantes nurse practitioner acting as scribe for signing physician.
[2016-12-24] MEDS: hydrALAZINE HCL 25 MG TAB PO SCH (16:42)
[2016-12-24 16:56] LABS: Glucose,Whole Blood 119 mg/dL (75-99)
[2016-12-24 18:09] LABS: Anisocytosis Slight; CH 28.5; CHCM 31.4; HCT 27.1 % (34.0-46.0); HDW 2.77; Hypochromasia Slight; MCH 28.7 pg (25.0-35.0); MCHC 31.4 g/dL (31.0-37.0); Mean Platelet Volume 7.8; RBC 2.97 m/uL (3.80-5.40); RDW 16.3 % (11.5-15.5); WBC 18.9 k/uL (3.8-10.6)
[2016-12-24 18:12] LABS: HGB 8.5 gm/dL (11.4-16.0); MCV 91.3 fL (80.0-100.0)
[2016-12-24] MEDS: LEVOFLOXACIN 500MG-D5W PMX 500 MG in DEXTROSE/WATER 1 100ML.BAG IVPB SCH (19:50)
[2016-12-24] MEDS: ACETAMINOPHEN TAB 325 MG TAB PO PRN (19:50)
[2016-12-24] MEDS: ZOLPIDEM 10 MG TAB PO SCH (19:53)
[2016-12-24 22:00] LABS: Glucose,Whole Blood 125 mg/dL (75-99)
[2016-12-24 22:12] LABS: Anisocytosis Slight; CH 28.8; CHCM 32.1; HCT 24.9 % (34.0-46.0); HDW 2.94; Hypochromasia Slight; MCHC 32.1 g/dL (31.0-37.0); MCV 90.5 fL (80.0-100.0); Mean Platelet Volume 7.9; RBC 2.75 m/uL (3.80-5.40); RDW 16.3 % (11.5-15.5)
[2016-12-25 04:44] LABS: Anisocytosis Slight; CHCM 33.1; HCT 24.3 % (34.0-46.0); HDW 3.17; HGB 8.1 gm/dL (11.4-16.0); MCH 29.4 pg (25.0-35.0); MCHC 33.4 g/dL (31.0-37.0); MCV 88.2 fL (80.0-100.0); Mean Platelet Volume 7.8; RBC 2.76 m/uL (3.80-5.40); RDW 16.2 % (11.5-15.5)
[2016-12-25 05:25] LABS: Potassium 4.3 mmol/L (3.5-5.1); Total Bilirubin 0.5 mg/dL (0.2-1.3); Total Protein 5.5 g/dL (6.3-8.2)
[2016-12-25 08:13] LABS: Glucose,Whole Blood 110 mg/dL (75-99)
[2016-12-25] MEDS: IPRATROPIUM-ALBUTEROL 3 ML NEB INHALATION SCH ×4 (08:14→20:37)
[2016-12-25] MEDS: INSULIN LISPRO (humaLOG) 300 UNIT/3 ML VIAL SQ SCH ×2 (08:21→12:47)
[2016-12-25] MEDS ORDERED: LIDOCAINE 1% INJ 10MG/ML (20 ML MDV) ONE (08:27)
[2016-12-25] MEDS ORDERED: LACTATED RINGERS 1,000 ML IV ONE (08:27)
[2016-12-25] MEDS ORDERED: PROPOFOL 10 MG/ML 20 ML VIAL IV ONE (08:27)
--- NOTE | 2016-12-25 09:01 | P.PCN ---
Date of Procedure: 12/25/16 Preoperative Diagnosis: Postoperative Diagnosis: Procedure(s) Performed: Procedure: Esophagogastroduodenoscopy and biopsy. Preoperative diagnosis: Upper GI bleeding and symptomatic anemia. Postoperative diagnosis: 1. Moderately sized hiatal hernia with gastritis and evidence of sites of recent bleeding in the proximal stomach at the level of the diaphragmatic impression. 2. No active bleeding at the time of this exam. Preparation and sedation: Were provided by anesthesia. Brief clinical history: The patient is a 76-year-old female with a history of atrial fibrillation, abdominal aortic aneurysm, remote history of peptic ulcer disease, hiatal hernia, asthma, heart failure, COPD, RA, hypertension, hyperlipidemia, presented with shortness of breath for the last 5 months that has gotten worse over the last week. Upon admission patient was found to have a low hemoglobin of 5.6. MCV 94. Platelet 331. BUN 83. creatinine 1.2. She reported intermittent black colored stool since July. Last colonoscopy several years ago. Last EGD fall at [facility] for evaluation of abdominal pain with findings of hiatal hernia. The details are summarized in the history and physical and dictated consultations and progress notes. This evaluation is to assess for a source of bleeding in the upper GI tract. Procedure: With the patient on her left lateral decubitus position and after informed consent and adequate sedation, I passed the Olympus-GIF 160 video upper endoscope through the cricopharyngeus down the esophagus. GE junction was around 34 cm from the incisors. The esophagus did not show any obvious erosions, ulcers, strictures, Self's esophagus or any mucosal tears, varices or bleeding. There was a moderately sized hiatal hernia, around 4-5 cm in size , then the endoscope was advanced to the rest of the stomach which was insufflated with air and inspected in detail including the retroflex view in the cardia. There was no active bleeding in the stomach and all secretions were bilious in color. There was diffuse mottling and erythema and in the proximal stomach at the level of the diaphragmatic impression there was circumferential band-like area of erythema and friability and isolated erosions consistent with areas of recent bleeding but not actively bleeding at the time of this exam. Pyloric channel, duodenal bulb, post bulbar area and descending duodenum appeared within normal limits. I obtained biopsies from the antrum then the endoscope was withdrawn. The patient tolerated the procedure well. Plan: The patient was reassured. The area of irritation in the stomach secondary to the local trauma from diaphragmatic contractions related to her breathing, is the most likely cause of her GI bleeding and anemia. This obviously would have been made worse by her being on eliquis. I will add Carafate to her regimen and continue to monitor blood counts closely. She will probably continue to have issues in the future if she is on anticoagulants, especially when she has exacerbation of her COPD and heart failure with breathing difficulties resulting in trauma to her stomach at the level of the diaphragmatic impression. I would discuss with you and follow with interest. Implants: Indications for Procedure: Operative Findings: Description of Procedure:
[2016-12-25] MEDS: LEVOTHYROXINE 75 MCG TAB PO SCH (09:16)
[2016-12-25] MEDS: CITALOPRAM HYDROBROMIDE 20 MG TAB PO SCH (09:16)
[2016-12-25] MEDS: ATORVASTATIN 20 MG TAB PO SCH (09:16)
[2016-12-25] MEDS: CHOLECALCIFEROL 1,000 UNIT TAB PO SCH (09:16)
[2016-12-25] MEDS: CALCIUM CARBONATE 500 MG CHEWABLE PO SCH (09:16)
[2016-12-25] MEDS: ATENOLOL 50 MG TAB PO SCH (09:16)
[2016-12-25] MEDS: DICYCLOMINE 10 MG CAP PO SCH ×2 (09:16→20:22)
[2016-12-25] MEDS: FOLIC ACID 1 MG TAB PO SCH ×2 (09:17→20:22)
[2016-12-25] MEDS: hydrALAZINE HCL 25 MG TAB PO SCH (09:17)
[2016-12-25] MEDS: PANTOPRAZOLE 40 MG/10 ML VIAL IVP SCH (09:17)
--- NOTE | 2016-12-25 10:47 | P.PN ---
Subjective This is a 76 Year-Old female one of with a previous medical history significant for hypertension and hypertensive cardiovascular disease, hyperlipidemia, RA, atrial fibrillation and asthma, patient was sent in by Dr. Kumar for evaluation of increased shortness of breath with elevated D-Dimer and she was admitted to the hospital for acute respiratory failure due to COPD exacerbation and possible thromboembolic disease and was started on nebulized treatment and IV ABX and will be seen in consultaion by Dr. Santiago and will undergo VQ scan. She states she went to lunch in [place] and wasn't feeling well afterwards when she was driving home and thought she may have eaten too much. Patient subsequently stopped at [facility] and she was seen in the ER and subsequent she was admitted as above. Patient underwent a VQ scan that was low probability for pulmonary and wasn't, however she was started on Solu-Medrol as well as nebulizer treatment and she is awaiting to see Dr. Santiago from pulmonary medicine for further recommendation. Patient is feeling generally weak, we will consult physical therapy for evaluation for possible extended care facility placement. 12/24: The patient had a drop in her hemoglobin down to 5.6. Apparently, patient had black formed stools yesterday. BUN is up to 83. Patient will be transferred to the intensive care unit, 2 units of packed RBCs ordered, nothing by mouth status, consult with GI. She has been evaluated by physical therapy with recommendations for home but will need to be reevaluated once stable. 12/25: Patient remains in the intensive care unit. She is status post 2 units packed RBCs. Hemoglobin currently 8.1. EGD done by Dr. Tobar reveals moderate size hiatal hernia with gastritis and evidence of sites of recent bleeding in the proximal stomach at the level of the diaphragmatic impression. No active bleeding at this time. Patient's states that she has been taking Aleve along with eliquis. Objective - Vital Signs Vital signs: Vital Signs Temp 98.0 F 12/25/16 00:00 Pulse 66 12/25/16 06:00 Resp 14 12/25/16 04:00 BP 158/67 12/25/16 06:00 Pulse Ox 97 12/25/16 06:00 Intake & Output 12/24/16 12/25/16 12/25/16 18:59 06:59 18:59 Intake Total 350 550 Output Total 850 0 Balance -500 550 Weight 78 kg Intake: IV 40 240 0.9 40 240 Blood Product 310 310 Rc As-1 Unit 310 [id number] Rc As-1 Unit 0 310 [id number] Output: Urine 850 0 Other: Voiding Method Bedpan Bedpan # Voids 1 1 - Exam General appearance: obese - EENT Eyes: anicteric sclerae, EOMI, PERRLA, no ptosis, normal appearance ENT: hearing grossly normal, NA/AT, normal oropharynx, no thrush Ears: bilateral: normal - Neck Neck: no lymphadenopathy, normal ROM, no rigidity, no stridor, no thyromegaly Carotids: bilateral: upstroke normal Thyroid: negative: normal size - Respiratory Respiratory: bilateral: diminished, prolonged expiration, negative: dullness, rales, rhonchi, wheezing - Cardiovascular Rhythm: irregularly irregular Heart sounds: normal: S1, S2 - Gastrointestinal General gastrointestinal: normal bowel sounds, soft, no tenderness, no umbilical hernia, no ventral hernia - Integumentary Integumentary: normal, normal turgor - Neurologic Neurologic: CNII-XII intact - Musculoskeletal Musculoskeletal: generalized weakness, strength equal bilaterally - Psychiatric Psychiatric: A&O x's 3, appropriate affect, intact judgment & insight - Labs CBC & Chem 7: 12/25/16 04:22 12/25/16 04:22 Labs: Abnormal Lab Results - Last 24 Hours (Table) 12/24/16 12/24/16 12/24/16 Range/Units 08:41 08:41 08:45 WBC 20.9 H (3.8-10.6) k/uL RBC 1.83 L (3.80-5.40) m/uL Hgb 5.4 L* (11.4-16.0) gm/dL Hct 17.7 L* (34.0-46.0) % MCHC 30.4 L (31.0-37.0) g/dL RDW 16.0 H (11.5-15.5) % Neutrophils # 18.1 H (1.3-7.7) k/uL Sodium 136 L (137-145) mmol/L Chloride 111 H (98-107) mmol/L Carbon Dioxide 16 L (22-30) mmol/L BUN 88 H* (7-17) mg/dL Creatinine 1.28 H (0.52-1.04) mg/dL Glucose 133 H (74-99) mg/dL POC Glucose (mg/dL) (75-99) mg/dL Total Protein 5.5 L (6.3-8.2) g/dL Albumin 2.9 L (3.5-5.0) g/dL Crossmatch See Detail 12/24/16 12/24/16 12/24/16 Range/Units 12:09 16:55 17:13 WBC 18.9 H (3.8-10.6) k/uL RBC 2.97 L (3.80-5.40) m/uL Hgb 8.5 L D (11.4-16.0) gm/dL Hct 27.1 L (34.0-46.0) % MCHC (31.0-37.0) g/dL RDW 16.3 H (11.5-15.5) % Neutrophils # (1.3-7.7) k/uL Sodium (137-145) mmol/L Chloride (98-107) mmol/L Carbon Dioxide (22-30) mmol/L BUN (7-17) mg/dL Creatinine (0.52-1.04) mg/dL Glucose (74-99) mg/dL POC Glucose (mg/dL) 147 H 119 H (75-99) mg/dL Total Protein (6.3-8.2) g/dL Albumin (3.5-5.0) g/dL Crossmatch 12/24/16 12/24/16 12/25/16 Range/Units 21:26 21:58 04:22 WBC 19.0 H 17.0 H (3.8-10.6) k/uL RBC 2.75 L 2.76 L (3.80-5.40) m/uL Hgb 8.0 L 8.1 L (11.4-16.0) gm/dL Hct 24.9 L 24.3 L (34.0-46.0) % MCHC (31.0-37.0) g/dL RDW 16.3 H 16.2 H (11.5-15.5) % Neutrophils # (1.3-7.7) k/uL Sodium (137-145) mmol/L Chloride (98-107) mmol/L Carbon Dioxide (22-30) mmol/L BUN (7-17) mg/dL Creatinine (0.52-1.04) mg/dL Glucose (74-99) mg/dL POC Glucose (mg/dL) 125 H (75-99) mg/dL Total Protein (6.3-8.2) g/dL Albumin (3.5-5.0) g/dL Crossmatch 12/25/16 Range/Units 04:22 WBC (3.8-10.6) k/uL RBC (3.80-5.40) m/uL Hgb (11.4-16.0) gm/dL Hct (34.0-46.0) % MCHC (31.0-37.0) g/dL RDW (11.5-15.5) % Neutrophils # (1.3-7.7) k/uL Sodium (137-145) mmol/L Chloride 112 H (98-107) mmol/L Carbon Dioxide 17 L (22-30) mmol/L BUN 69 H (7-17) mg/dL Creatinine 1.20 H (0.52-1.04) mg/dL Glucose (74-99) mg/dL POC Glucose (mg/dL) (75-99) mg/dL Total Protein 5.5 L (6.3-8.2) g/dL Albumin 3.1 L (3.5-5.0) g/dL Crossmatch Assessment and Plan Plan: 1. Acute respiratory insufficiency due to COPD exacerbation with right upper lobe mass with bronchiectasis with fibrotic changes. will start Nebulized treatmentDuoneb 3 ml QID and pulmicort 1 mg BID, IVABx in the form of Levaquin 500 mg IV piggyback every 24 hours., Solu-Medrol 60 mg IVP Q 6 H ,pulmonary consult , 2. Acute GI bleed with acute blood loss anemia. status post transfusion 2 units of packed RBCs, GI consult. EGD as above. Patient is followed by Dr. Santiago. 3. Hypertension and hypertensive cardiovascular disease. will continue with Atenolol 100 mg orally daily and Hydralazine 25 mg orally daily. 4. Hyperlipidemia.will continue with Lipitor 20 mg orally daily. 5. Rheumatoid arthritis.will continue with MTX 10 mg orally once q Tue. 6. Atrial Fibrillation. will continue with Atenolol 100 mg orally daily and Eliquis 5 mg po bid. 7. Obesity with possible SONIDO and OGS will need sleep study as an outpatient if not done already. 8. Hypothyroidism. will continue with synthroid 75 mcg orally daily. 9. Anxiety . will continue with XAnax as needed. 10. Depression. will continue with Citalopram 10 mg orally daily. 11. DVT prophylaxis. will continue with Eliquis 5 mg orally bid. 12. GI prophylaxis. will continue with Protonix 40 mg orally BID. 13. Admit to inpatient. estimated length of stay 2 midnights. 14. Full code. Discharge plan: Most likely home with homecare Impression and plan of care have been directed as dictated by the signing physician. Marina Cervantes nurse practitioner acting as scribe for signing physician.
--- NOTE | 2016-12-25 11:19 | P.PN ---
Subjective Principal diagnosis: This is a very pleasant 76-year-old female patient who follows with Dr. Kumar as her primary care physician. She also follows in our office for bronchiectasis and pulmonary fibrosis. However, she had not been there in quite some time. 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 She remains on methotrexate. She's been having increasing exertional shortness of breath. She was admitted here on 12/22 with increasing shortness of breath, cough and congestion. She been treated for an acute exacerbation. She did develop black tarry stools and hematemesis yesterday and was brought into the intensive care unit. She had undergone an EGD today that revealed moderately sized hiatal hernia with gastritis and evidence of sites of recent bleeding in the proximal stomach at the level of the diaphragmatic impression. No active bleeding noted. No intervention. Currently she is resting quite comfortably in bed. She is awake and alert in no acute distress. She's had no further black tarry stools or hematemesis. She had received a total of 2 units of packed red blood cells. Current hemoglobin 8.1. She's been hemodynamically stable. She remains on Protonix 40 mg IV twice a day. Objective - Vital Signs Vital signs: Vital Signs Temp 98.2 F 12/25/16 08:00 Pulse 68 12/25/16 10:00 Resp 15 12/25/16 10:00 BP 143/55 12/25/16 10:00 Pulse Ox 99 12/25/16 10:00 Intake & Output 12/24/16 12/25/16 12/25/16 18:59 06:59 18:59 Intake Total 350 550 240 Output Total 850 0 325 Balance -500 550 -85 Weight 78 kg Intake: IV 40 240 240 0.9 40 240 40 Blood Product 310 310 Rc As-1 Unit 310 [id number] Rc As-1 Unit 0 310 [id number] Output: Urine 850 0 325 Other: Voiding Method Bedpan Bedpan Bedpan Diaper Incontinent # Voids 1 1 - Exam GENERAL EXAM: Alert, comfortable in no apparent distress. HEAD: Normocephalic. EYES: Normal reaction of pupils, equal size. NOSE: Clear with pink turbinates. THROAT: No erythema or exudates. NECK: No masses, no JVD. CHEST: No chest wall deformity. LUNGS: Equal air entry with crackles in the bilateral posterior bases. Diminished. CVS: S1 and S2 normal with no audible murmurs, irregular rhythm. ABDOMEN: No hepatosplenomegaly, normal bowel sounds, no guarding or rigidity. SPINE: No scoliosis or deformity SKIN: No rashes CENTRAL NERVOUS SYSTEM: No focal deficits, tone is normal in all 4 extremities. Extremities: There is trace peripheral edema. No clubbing, no cyanosis. Peripheral pulses are intact. - Labs CBC & Chem 7: 12/25/16 04:22 12/25/16 04:22 Labs: Abnormal Lab Results - Last 24 Hours (Table) 12/24/16 12/24/16 12/24/16 Range/Units 08:45 12:09 16:55 WBC (3.8-10.6) k/uL RBC (3.80-5.40) m/uL Hgb (11.4-16.0) gm/dL Hct (34.0-46.0) % RDW (11.5-15.5) % Chloride (98-107) mmol/L Carbon Dioxide (22-30) mmol/L BUN (7-17) mg/dL Creatinine (0.52-1.04) mg/dL POC Glucose (mg/dL) 147 H 119 H (75-99) mg/dL Total Protein (6.3-8.2) g/dL Albumin (3.5-5.0) g/dL Crossmatch See Detail 12/24/16 12/24/16 12/24/16 Range/Units 17:13 21:26 21:58 WBC 18.9 H 19.0 H (3.8-10.6) k/uL RBC 2.97 L 2.75 L (3.80-5.40) m/uL Hgb 8.5 L D 8.0 L (11.4-16.0) gm/dL Hct 27.1 L 24.9 L (34.0-46.0) % RDW 16.3 H 16.3 H (11.5-15.5) % Chloride (98-107) mmol/L Carbon Dioxide (22-30) mmol/L BUN (7-17) mg/dL Creatinine (0.52-1.04) mg/dL POC Glucose (mg/dL) 125 H (75-99) mg/dL Total Protein (6.3-8.2) g/dL Albumin (3.5-5.0) g/dL Crossmatch 12/25/16 12/25/16 12/25/16 Range/Units 04:22 04:22 08:10 WBC 17.0 H (3.8-10.6) k/uL RBC 2.76 L (3.80-5.40) m/uL Hgb 8.1 L (11.4-16.0) gm/dL Hct 24.3 L (34.0-46.0) % RDW 16.2 H (11.5-15.5) % Chloride 112 H (98-107) mmol/L Carbon Dioxide 17 L (22-30) mmol/L BUN 69 H (7-17) mg/dL Creatinine 1.20 H (0.52-1.04) mg/dL POC Glucose (mg/dL) 110 H (75-99) mg/dL Total Protein 5.5 L (6.3-8.2) g/dL Albumin 3.1 L (3.5-5.0) g/dL Crossmatch Assessment and Plan Plan: Impression: #1 Acute gastrointestinal bleeding with a drop of hemoglobin to 5.4. Received 2 units of packed red blood cells. Current hemoglobin 8.1. Status post EGD which revealed evidence of moderate size hiatal hernia with gastritis and evidence of sites of recent bleeding in the proximal stomach at the level of the diaphragmatic impression. No active bleeding was noted and no intervention. 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 #3 Rheumatoid arthritis, maintained on methotrexate. #4 History of heart failure. #5 Hyperlipidemia. #6 Hypertension. #7 Hypothyroidism. Plan: The patient was seen and evaluated by Dr. Santiago. She is stable from the pulmonary and critical care standpoint and can be transferred out of the intensive care unit today. We'll continue to monitor her hemoglobin. We'll continue with her current pulmonary medications. Will increase her activity as tolerated. We'll continue to follow.
[2016-12-25] MEDS: SUCRALFATE 1 GM TAB PO SCH ×2 (12:50→18:03)
[2016-12-25] MEDS: ALPRAZolam 0.25 MG TAB PO PRN (18:04)
[2016-12-25] MEDS: LEVOFLOXACIN 500MG-D5W PMX 500 MG in DEXTROSE/WATER 1 100ML.BAG IVPB SCH ×2 (18:23→18:53)
[2016-12-25] MEDS: ACETAMINOPHEN TAB 325 MG TAB PO PRN (18:46)
[2016-12-25] MEDS: LEVOFLOXACIN 500 MG TAB PO SCH (18:46)
[2016-12-25] MEDS: PANTOPRAZOLE 40 MG TABLET PO SCH (20:21)
[2016-12-25] MEDS: ZOLPIDEM 10 MG TAB PO SCH (20:21)
[2016-12-26] MEDS: LEVOTHYROXINE 75 MCG TAB PO SCH (06:31)
[2016-12-26] MEDS: IPRATROPIUM-ALBUTEROL 3 ML NEB INHALATION SCH ×4 (07:21→20:09)
[2016-12-26] MEDS: CALCIUM CARBONATE 500 MG CHEWABLE PO SCH (07:50)
[2016-12-26] MEDS: FOLIC ACID 1 MG TAB PO SCH ×2 (07:50→20:08)
[2016-12-26] MEDS: CHOLECALCIFEROL 1,000 UNIT TAB PO SCH (07:50)
[2016-12-26] MEDS: ATENOLOL 50 MG TAB PO SCH (07:50)
[2016-12-26] MEDS: PANTOPRAZOLE 40 MG TABLET PO SCH ×2 (07:50→18:14)
[2016-12-26] MEDS: SUCRALFATE 1 GM TAB PO SCH ×3 (07:50→17:04)
[2016-12-26] MEDS: DICYCLOMINE 10 MG CAP PO SCH ×2 (07:51→20:08)
[2016-12-26] MEDS: ATORVASTATIN 20 MG TAB PO SCH (07:51)
[2016-12-26] MEDS: hydrALAZINE HCL 25 MG TAB PO SCH (07:51)
[2016-12-26] MEDS: CITALOPRAM HYDROBROMIDE 20 MG TAB PO SCH (07:51)
[2016-12-26] MEDS: ALPRAZolam 0.25 MG TAB PO PRN ×2 (08:00→23:57)
[2016-12-26 08:12] LABS: Calcium 9.6 mg/dL (8.4-10.2); Potassium 4.1 mmol/L (3.5-5.1); Total Bilirubin 0.6 mg/dL (0.2-1.3); Total Protein 5.4 g/dL (6.3-8.2)
[2016-12-26 08:43] LABS: Anisocytosis Slight; Basophils % (A) 0 %; CH 28.9; CHCM 32.9; Eosinophils # (A) 0.1 k/uL (0-0.7); Eosinophils % (A) 1 %; HCT 22.7 % (34.0-46.0); HDW 3.02; HGB 7.5 gm/dL (11.4-16.0); Luc # (Auto) 0.16; Luc % (Auto) 2; Lymphocytes # (A) 1.9 k/uL (1.0-4.8); Lymphocytes % (A) 19 %; MCH 29.3 pg (25.0-35.0); MCHC 33.1 g/dL (31.0-37.0); MCV 88.5 fL (80.0-100.0); Monocytes # (A) 0.5 k/uL (0-1.0); Monocytes % (A) 5 %; Neutrophils # (A) 7.4 k/uL (1.3-7.7); Neutrophils % (A) 74 %; RBC 2.57 m/uL (3.80-5.40); RDW 16.5 % (11.5-15.5); WBC (Perox) 10.63
--- NOTE | 2016-12-26 09:26 | P.PN ---
Subjective This is a 76 Year-Old female one of with a previous medical history significant for hypertension and hypertensive cardiovascular disease, hyperlipidemia, RA, atrial fibrillation and asthma, patient was sent in by Dr. Kumar for evaluation of increased shortness of breath with elevated D-Dimer and she was admitted to the hospital for acute respiratory failure due to COPD exacerbation and possible thromboembolic disease and was started on nebulized treatment and IV ABX and will be seen in consultaion by Dr. Santiago and will undergo VQ scan. She states she went to lunch in [place] and wasn't feeling well afterwards when she was driving home and thought she may have eaten too much. Patient subsequently stopped at [facility] and she was seen in the ER and subsequent she was admitted as above. Patient underwent a VQ scan that was low probability for pulmonary and wasn't, however she was started on Solu-Medrol as well as nebulizer treatment and she is awaiting to see Dr. Santiago from pulmonary medicine for further recommendation. Patient is feeling generally weak, we will consult physical therapy for evaluation for possible extended care facility placement. 12/24: The patient had a drop in her hemoglobin down to 5.6. Apparently, patient had black formed stools yesterday. BUN is up to 83. Patient will be transferred to the intensive care unit, 2 units of packed RBCs ordered, nothing by mouth status, consult with GI. She has been evaluated by physical therapy with recommendations for home but will need to be reevaluated once stable. 12/25: Patient remains in the intensive care unit. She is status post 2 units packed RBCs. Hemoglobin currently 8.1. EGD done by Dr. Tobar reveals moderate size hiatal hernia with gastritis and evidence of sites of recent bleeding in the proximal stomach at the level of the diaphragmatic impression. No active bleeding at this time. Patient's states that she has been taking Aleve along with eliquis. 12/26: Repeat hemoglobin is 7.5. Patient states she did have a bowel movement 5 this morning with darkness to it. She is complaining of feeling anxious this morning. She relates that she was recently started on Xanax about one month ago for anxiety attacks. Patient is feeling very weak and is having difficulty ambulating and getting out of bed. We will ask for reevaluation from physical therapy for subacute rehab. Possible discharge by tomorrow. Patient prefers [facility] if she is appropriate for rehab. Patient wishes to be a DO NOT RESUSCITATE. Objective - Vital Signs Vital signs: Vital Signs Temp 98.7 F 12/25/16 23:00 Pulse 76 12/26/16 07:21 Resp 18 12/25/16 23:00 BP 123/57 12/25/16 23:00 Pulse Ox 98 12/25/16 23:00 Intake & Output 12/25/16 12/26/16 12/26/16 18:59 06:59 18:59 Intake Total 1436 550 Output Total 325 Balance 1111 550 Weight 78.471 kg Intake: IV 240 0.9 40 Oral 1196 550 Output: Urine 325 Other: Voiding Method Bedpan Bedpan Diaper Diaper Incontinent Incontinent # Voids 3 1 - Exam General appearance: obese - EENT Eyes: anicteric sclerae, EOMI, PERRLA, no ptosis, normal appearance ENT: hearing grossly normal, NA/AT, normal oropharynx, no thrush Ears: bilateral: normal - Neck Neck: no lymphadenopathy, normal ROM, no rigidity, no stridor, no thyromegaly Carotids: bilateral: upstroke normal Thyroid: negative: normal size - Respiratory Respiratory: bilateral: diminished, prolonged expiration, negative: dullness, rales, rhonchi, wheezing - Cardiovascular Rhythm: irregularly irregular Heart sounds: normal: S1, S2 - Gastrointestinal General gastrointestinal: normal bowel sounds, soft, no tenderness, no umbilical hernia, no ventral hernia - Integumentary Integumentary: normal, normal turgor - Neurologic Neurologic: CNII-XII intact - Musculoskeletal Musculoskeletal: generalized weakness, strength equal bilaterally - Psychiatric Psychiatric: A&O x's 3, appropriate affect, intact judgment & insight - Labs CBC & Chem 7: 12/26/16 07:29 12/26/16 07:29 Labs: Abnormal Lab Results - Last 24 Hours (Table) 12/25/16 Range/Units 08:10 POC Glucose (mg/dL) 110 H (75-99) mg/dL Assessment and Plan Plan: 1. Acute respiratory insufficiency due to COPD exacerbation with right upper lobe mass with bronchiectasis with fibrotic changes. Continue Duoneb 3 ml QID and Levaquin 500 mg every 24 hours, pulmonary consult , 2. Acute GI bleed with acute blood loss anemia. status post transfusion 2 units of packed RBCs, GI consult. EGD as above. 3. Hypertension and hypertensive cardiovascular disease. will continue with Atenolol 100 mg orally daily and Hydralazine 25 mg orally daily. 4. Hyperlipidemia.will continue with Lipitor 20 mg orally daily. 5. Rheumatoid arthritis.will continue with MTX 10 mg orally once q Tue. 6. Atrial Fibrillation. will continue with Atenolol 100 mg orally daily and Eliquis is on hold. 7. Obesity with possible SONIDO and OGS will need sleep study as an outpatient if not done already. 8. Hypothyroidism. Contnue synthroid 75 mcg orally daily. 9. Anxiety generalized with panic attacks. Continue XAnax as needed. 10. Depression recurrent. Continue Citalopram 10 mg orally daily. 11. DVT prophylaxis. PHILIP coleman and SCDs. 12. GI prophylaxis. will continue with Protonix 40 mg orally BID. 13. No code. Discharge plan: Possibly on Tuesday Impression and plan of care have been directed as dictated by the signing physician. Marina Cervantes nurse practitioner acting as scribe for signing physician.
[2016-12-26] MEDS: NON-FORMULARY DRUG (Brinzolamide/Brimonidine Tart [Simbrinza 1%-0.2% Eye Drops] 1 DROP) BOTH EYES SCH ×2 (13:39→13:40)
[2016-12-26] MEDS: LEVOFLOXACIN 500 MG TAB PO SCH (18:16)
--- NOTE | 2016-12-26 19:55 | PN ---
This is a 76-year-old female who was admitted initially with an acute GI bleed. She had EGD which revealed evidence of moderate sized hiatal hernia with gastritis and evidence of ( ) recent bleeding, but no active bleeding at that time. The patient is doing relatively well. She received 2 units of PRBCs. 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 She also has a bit of bronchiectasis and pulmonary fibrosis, likely related to her underlying rheumatoid disease. I have not seen her in the office in some time. She looks reasonably well today. Think she might go home tomorrow. Not sure. She did have some black, tarry stools today. Temperature 97.6, heart rate 78, respiratory rate 20, blood pressure 129/68, mean 88, room air saturation 98%. Appears in no acute distress. HEENT examination is grossly unremarkable. Mucous membranes are moist. No oral lesions. Neck is supple. Full range of motion. No adenopathy or thyromegaly. Neck veins are flat. Cardiovascular examination reveals regular rhythm and rate. Lungs reveal diminished breath sounds. A few scattered crackles. Breath sounds are and equal bilaterally. No wheezes. ABDOMEN: Soft. Bowel sounds are heard. No masses or tenderness. EXTREMITIES: Intact. No cyanosis, clubbing, or edema. Skin is without rash. NEUROLOGICAL: Examination is nonfocal. Labs are reviewed. White count 10, hemoglobin 7.5 down from 8.1, hematocrit 22.7, white count 249,000. Sodium, potassium normal. Chloride is 111, CO2 of 20, BUN and creatinine 38 and 1.26. The rest of the labs look okay. No recent x-rays to report. ASSESSMENT: 1. Acute gastrointestinal bleed second secondary to gastritis. The patient did have an EGD which showed evidence of hiatal hernia as well as gastritis. There was no active bleeding, but there was stigmata of recent bleeding. The patient did receive 2 units of PRBCs. 2. Dyspnea, likely related to underlying anemia as well as bronchiectasis, and pulmonary fibrosis, both from the patient's known history of rheumatoid lung. 3. History of rheumatoid arthritis. 4. History of heart failure. 5. Hyperlipidemia. 6. Hypertension. 7. Hypothyroidism. PLAN: The patient is doing reasonably well. Did have a black, tarry stool today. Will continue to be followed. Likely will not be discharged today. Possibly tomorrow. No additional recommendations are made. Prognosis is guarded.
[2016-12-26] MEDS: SIMBRINZA LEFT EYE SCH (20:08)
[2016-12-26] MEDS: ZOLPIDEM 10 MG TAB PO SCH (20:08)
[2016-12-27] MEDS: LEVOTHYROXINE 75 MCG TAB PO SCH (06:35)
[2016-12-27] MEDS: IPRATROPIUM-ALBUTEROL 3 ML NEB INHALATION SCH ×4 (07:28→19:14)
[2016-12-27] MEDS: DICYCLOMINE 10 MG CAP PO SCH ×2 (08:12→21:50)
[2016-12-27] MEDS: ATORVASTATIN 20 MG TAB PO SCH (08:13)
[2016-12-27] MEDS: CHOLECALCIFEROL 1,000 UNIT TAB PO SCH (08:13)
[2016-12-27] MEDS: CALCIUM CARBONATE 500 MG CHEWABLE PO SCH (08:13)
[2016-12-27] MEDS: ATENOLOL 50 MG TAB PO SCH (08:13)
[2016-12-27] MEDS: SUCRALFATE 1 GM TAB PO SCH ×3 (08:13→17:59)
[2016-12-27] MEDS: PANTOPRAZOLE 40 MG TABLET PO SCH ×2 (08:13→17:59)
[2016-12-27] MEDS: CITALOPRAM HYDROBROMIDE 20 MG TAB PO SCH (08:13)
[2016-12-27] MEDS: FOLIC ACID 1 MG TAB PO SCH ×2 (08:13→21:50)
[2016-12-27] MEDS: SIMBRINZA LEFT EYE SCH ×2 (08:14→21:50)
[2016-12-27] MEDS: hydrALAZINE HCL 25 MG TAB PO SCH (08:14)
[2016-12-27] MEDS: ALPRAZolam 0.25 MG TAB PO PRN (08:29)
[2016-12-27 09:30] LABS: Calcium 9.5 mg/dL (8.4-10.2); Potassium 4.2 mmol/L (3.5-5.1); Total Bilirubin 0.6 mg/dL (0.2-1.3); Total Protein 5.5 g/dL (6.3-8.2)
[2016-12-27 12:55] LABS: Anisocytosis Slight; CH 28.5; HCT 23.5 % (34.0-46.0); HDW 2.75; HGB 7.5 gm/dL (11.4-16.0); Hypochromasia Slight; MCH 29.4 pg (25.0-35.0); MCHC 31.8 g/dL (31.0-37.0); MCV 92.7 fL (80.0-100.0); Mean Platelet Volume 8.9; RBC 2.54 m/uL (3.80-5.40); RDW 16.8 % (11.5-15.5); WBC 12.7 k/uL (3.8-10.6)
[2016-12-27] MEDS: ACETAMINOPHEN TAB 325 MG TAB PO PRN (13:48)
--- NOTE | 2016-12-27 15:32 | P.PN ---
Subjective This is a 76 Year-Old female one of with a previous medical history significant for hypertension and hypertensive cardiovascular disease, hyperlipidemia, RA, atrial fibrillation and asthma, patient was sent in by Dr. Kumar for evaluation of increased shortness of breath with elevated D-Dimer and she was admitted to the hospital for acute respiratory insufficiency due to COPD exacerbation and possible thromboembolic disease and was started on nebulized treatment and IV ABX and will be seen in consultaion by Dr. Santiago and will undergo VQ scan. She states she went to lunch in [place] and wasn't feeling well afterwards when she was driving home and thought she may have eaten too much. Patient subsequently stopped at [facility] and she was seen in the ER and subsequent she was admitted as above. Patient underwent a VQ scan that was low probability for pulmonary and wasn't, however she was started on Solu-Medrol as well as nebulizer treatment and she is awaiting to see Dr. Santiago from pulmonary medicine for further recommendation. Patient is feeling generally weak, we will consult physical therapy for evaluation for possible extended care facility placement. 12/24: The patient had a drop in her hemoglobin down to 5.6. Apparently, patient had black formed stools yesterday. BUN is up to 83. Patient will be transferred to the intensive care unit, 2 units of packed RBCs ordered, nothing by mouth status, consult with GI. She has been evaluated by physical therapy with recommendations for home but will need to be reevaluated once stable. 12/25: Patient remains in the intensive care unit. She is status post 2 units packed RBCs. Hemoglobin currently 8.1. EGD done by Dr. Tobar reveals moderate size hiatal hernia with gastritis and evidence of sites of recent bleeding in the proximal stomach at the level of the diaphragmatic impression. No active bleeding at this time. Patient's states that she has been taking Aleve along with eliquis. 12/26: Repeat hemoglobin is 7.5. Patient states she did have a bowel movement 5 this morning with darkness to it. She is complaining of feeling anxious this morning. She relates that she was recently started on Xanax about one month ago for anxiety attacks. Patient is feeling very weak and is having difficulty ambulating and getting out of bed. We will ask for reevaluation from physical therapy for subacute rehab. Possible discharge by tomorrow. Patient prefers [facility] if she is appropriate for rehab. Patient wishes to be a DO NOT RESUSCITATE. 12/27: Hemoglobin is stable today at 7.5. She denies any black stools. BUN 33 and creatinine 1.55. We will plan to advance her diet to soft for supper. Plan to monitor overnight and most likely discharge to rehab tomorrow. Objective - Vital Signs Vital signs: Vital Signs Temp 96.8 F L 12/27/16 07:00 Pulse 76 12/27/16 11:22 Resp 14 12/27/16 07:00 BP 116/76 12/27/16 07:00 Pulse Ox 98 12/27/16 07:00 Intake & Output 12/26/16 12/27/16 12/27/16 18:59 06:59 18:59 Output Total 200 Balance -200 Weight 79.5 kg Output: Urine 200 Other: Voiding Method Bedside Commode Bedside Commode Bedside Commode Diaper Incontinent # Voids 3 1 - Exam General appearance: obese - EENT Eyes: anicteric sclerae, EOMI, PERRLA, no ptosis, normal appearance ENT: hearing grossly normal, NA/AT, normal oropharynx, no thrush Ears: bilateral: normal - Neck Neck: no lymphadenopathy, normal ROM, no rigidity, no stridor, no thyromegaly Carotids: bilateral: upstroke normal Thyroid: negative: normal size - Respiratory Respiratory: bilateral: diminished, prolonged expiration, negative: dullness, rales, rhonchi, wheezing - Cardiovascular Rhythm: irregularly irregular Heart sounds: normal: S1, S2 - Gastrointestinal General gastrointestinal: normal bowel sounds, soft, no tenderness, no umbilical hernia, no ventral hernia - Integumentary Integumentary: normal, normal turgor - Neurologic Neurologic: CNII-XII intact - Musculoskeletal Musculoskeletal: generalized weakness, strength equal bilaterally - Psychiatric Psychiatric: A&O x's 3, appropriate affect, intact judgment & insight - Labs CBC & Chem 7: 12/27/16 07:15 12/27/16 07:15 Labs: Abnormal Lab Results - Last 24 Hours (Table) 12/27/16 Range/Units 07:15 Chloride 112 H (98-107) mmol/L Carbon Dioxide 17 L (22-30) mmol/L BUN 33 H (7-17) mg/dL Creatinine 1.55 H (0.52-1.04) mg/dL Total Protein 5.5 L (6.3-8.2) g/dL Albumin 2.9 L (3.5-5.0) g/dL Assessment and Plan Plan: 1. Acute respiratory insufficiency due to COPD exacerbation with right upper lobe mass with bronchiectasis with fibrotic changes. Continue Duoneb 3 ml QID and Levaquin 500 mg every 24 hours, pulmonary consult , 2. Acute GI bleed with acute blood loss anemia. status post transfusion 2 units of packed RBCs, GI consult. EGD as above. Diet advanced to soft. 3. Hypertension and hypertensive cardiovascular disease. will continue with Atenolol 100 mg orally daily and Hydralazine 25 mg orally daily. 4. Hyperlipidemia.will continue with Lipitor 20 mg orally daily. 5. Rheumatoid arthritis.will continue with MTX 10 mg orally once q Tue. 6. Paroxysmal Atrial Fibrillation. Continue with Atenolol 100 mg orally daily and Eliquis is on hold. 7. Obesity with possible SONIDO and OGS will need sleep study as an outpatient if not done already. 8. Hypothyroidism. Contnue synthroid 75 mcg orally daily. 9. Anxiety generalized with panic attacks. Continue XAnax as needed. 10. Depression recurrent. Continue Citalopram 10 mg orally daily. 11. DVT prophylaxis. PHILIP hendersone and SCDs. 12. GI prophylaxis. will continue with Protonix 40 mg orally BID. 13. No code. Discharge plan: Possibly [facility] on Tuesday Impression and plan of care have been directed as dictated by the signing physician. Marina Cervantes nurse practitioner acting as scribe for signing physician.
--- NOTE | 2016-12-27 16:41 | P.PN ---
Subjective This is a 76 Year-Old female one of with a previous medical history significant for hypertension and hypertensive cardiovascular disease, hyperlipidemia, RA, atrial fibrillation and asthma, patient was sent in by Dr. Kumar for evaluation of increased shortness of breath with elevated D-Dimer and she was admitted to the hospital for acute respiratory insufficiency due to COPD exacerbation and possible thromboembolic disease and was started on nebulized treatment and IV ABX and will be seen in consultaion by Dr. Santiago and will undergo VQ scan. On 5016, the patient is doing better. She is is not having any significant shortness of breath. She is gradually advancing her diet as tolerated. No nausea. No vomiting. No abdominal pain or distention. She is having is stable hemoglobin of 7.5. She remains a bit anxious. She is still feeling weak. The patient underwent a EGD by Dr. Wall and she was found to have a moderate-sized hiatal hernia and some gastritis and evidence of sites of recent bleeding in the proximal stomach at the level of the diaphragmatic impression. No active bleeding was identified. She is off the nonsteroidal anti- inflammatory medication for now. Noted the patient is also on long-term anticoagulation. Objective - Vital Signs Vital signs: Vital Signs Temp 96.2 F L 12/27/16 15:00 Pulse 73 12/27/16 15:00 Resp 16 12/27/16 15:00 BP 151/87 12/27/16 15:00 Pulse Ox 100 12/27/16 15:00 Intake & Output 12/26/16 12/27/16 12/27/16 18:59 06:59 18:59 Output Total 200 Balance -200 Weight 79.5 kg Output: Urine 200 Other: Voiding Method Bedside Commode Bedside Commode Bedside Commode Diaper Incontinent # Voids 3 1 4 - Exam The patient appeared well nourished and normally developed. Vital signs as documented. Head exam is unremarkable. No scleral icterus or corneal arcus noted. Neck is without jugular venous distension, thyromegaly, or carotid bruits. Carotid upstrokes are brisk bilaterally. Lungs are diminished bilaterally along with some few scattered expiratory Wheezes.. Cardiac exam reveals the PMI to be normally sized and situated. Rhythm is regular. First and second heart sounds normal. No murmurs, rubs or gallops. Abdominal exam reveals normal bowel sounds, no masses, no organomegaly and no aortic enlargement. Extremities are nonedematous and both femoral and pedal pulses are normal. - Labs CBC & Chem 7: 12/27/16 07:15 12/27/16 07:15 Labs: Abnormal Lab Results - Last 24 Hours (Table) 12/27/16 12/27/16 Range/Units 07:15 07:15 WBC 12.7 H (3.8-10.6) k/uL RBC 2.54 L (3.80-5.40) m/uL Hgb 7.5 L (11.4-16.0) gm/dL Hct 23.5 L (34.0-46.0) % RDW 16.8 H (11.5-15.5) % Chloride 112 H (98-107) mmol/L Carbon Dioxide 17 L (22-30) mmol/L BUN 33 H (7-17) mg/dL Creatinine 1.55 H (0.52-1.04) mg/dL Total Protein 5.5 L (6.3-8.2) g/dL Albumin 2.9 L (3.5-5.0) g/dL Assessment and Plan Plan: Assessment 1. Acute COPD exacerbation , improving. The patient also is known to have mild bronchiectasis involving the upper lobes and some in the lower lobe on the left. The patient also has some coarse fibrosis and left lung base and a masslike scarring in the right apex measuring 1.6 x 2.5 cm in size. 2. Acute GI bleed with acute blood loss anemia. status post transfusion 2 units of packed RBCs, and EGD showing gastritis and a hiatal hernia. The patient was taking nonsteroidal anti-inflammatory medications while being on anticoagulation.. 3. Hypertension and hypertensive cardiovascular disease. 4. Hyperlipidemia. 5. Rheumatoid arthritis.will continue with MTX 10 mg orally once q Tue. 6. Paroxysmal Atrial Fibrillation. Continue with Atenolol 100 mg orally daily and Eliquis is on hold. 7. Obesity with possible SONIDO 8. Hypothyroidism. Contnue synthroid 75 mcg orally daily. 9. Anxiety generalized with panic attacks. 10. Depression recurrent. Continue Citalopram 10 mg orally daily. Plan CAT scan of the chest was reviewed. The patient has chronic findings are there any malignancy. Continue treating the COPD exacerbation. Avoid nonsteroidal anti-inflammatory medications. Monitor hemoglobin. Watch for any GI bleeding. Gradually advance her diet as tolerated. We'll continue to follow.
[2016-12-27] MEDS: LEVOFLOXACIN 250 MG TAB PO SCH (17:59)
[2016-12-27] MEDS: ZOLPIDEM 10 MG TAB PO SCH (21:50)
[2016-12-28] MEDS: LEVOTHYROXINE 75 MCG TAB PO SCH (06:23)
[2016-12-28] MEDS: PANTOPRAZOLE 40 MG TABLET PO SCH ×2 (08:01→16:25)
[2016-12-28] MEDS: ATORVASTATIN 20 MG TAB PO SCH (08:01)
[2016-12-28] MEDS: ATENOLOL 50 MG TAB PO SCH (08:01)
[2016-12-28] MEDS: FOLIC ACID 1 MG TAB PO SCH ×2 (08:02→21:53)
[2016-12-28] MEDS: SUCRALFATE 1 GM TAB PO SCH ×3 (08:02→16:25)
[2016-12-28] MEDS: CHOLECALCIFEROL 1,000 UNIT TAB PO SCH (08:02)
[2016-12-28] MEDS: hydrALAZINE HCL 25 MG TAB PO SCH (08:03)
[2016-12-28] MEDS: CALCIUM CARBONATE 500 MG CHEWABLE PO SCH (08:03)
[2016-12-28] MEDS: CITALOPRAM HYDROBROMIDE 20 MG TAB PO SCH (08:03)
[2016-12-28] MEDS: SIMBRINZA LEFT EYE SCH ×2 (08:04→21:53)
[2016-12-28] MEDS: DICYCLOMINE 10 MG CAP PO SCH ×2 (08:04→21:53)
[2016-12-28 08:09] LABS: Anisocytosis Slight; CHCM 31.8; HCT 23.3 % (34.0-46.0); HDW 2.86; HGB 7.6 gm/dL (11.4-16.0); Hypochromasia Slight; MCH 29.8 pg (25.0-35.0); MCHC 32.4 g/dL (31.0-37.0); MCV 91.9 fL (80.0-100.0); Mean Platelet Volume 7.5; RBC 2.54 m/uL (3.80-5.40); RDW 17.6 % (11.5-15.5); WBC 9.8 k/uL (3.8-10.6)
[2016-12-28 08:36] LABS: Calcium 9.6 mg/dL (8.4-10.2); Potassium 4.4 mmol/L (3.5-5.1)
[2016-12-28] MEDS: ALPRAZolam 0.25 MG TAB PO PRN ×2 (08:48→21:55)
[2016-12-28] MEDS: IPRATROPIUM-ALBUTEROL 3 ML NEB INHALATION SCH ×4 (11:02→21:09)
[2016-12-28] MEDS: ACETAMINOPHEN TAB 325 MG TAB PO PRN ×2 (11:28→20:00)
--- NOTE | 2016-12-28 13:00 | P.PN ---
Subjective This is a 76 Year-Old female one of with a previous medical history significant for hypertension and hypertensive cardiovascular disease, hyperlipidemia, RA, atrial fibrillation and asthma, patient was sent in by Dr. Kumar for evaluation of increased shortness of breath with elevated D-Dimer and she was admitted to the hospital for acute respiratory insufficiency due to COPD exacerbation and possible thromboembolic disease and was started on nebulized treatment and IV ABX and will be seen in consultaion by Dr. Santiago and will undergo VQ scan. She states she went to lunch in [place] and wasn't feeling well afterwards when she was driving home and thought she may have eaten too much. Patient subsequently stopped at [facility] and she was seen in the ER and subsequent she was admitted as above. Patient underwent a VQ scan that was low probability for pulmonary and wasn't, however she was started on Solu-Medrol as well as nebulizer treatment and she is awaiting to see Dr. Santiago from pulmonary medicine for further recommendation. Patient is feeling generally weak, we will consult physical therapy for evaluation for possible extended care facility placement. 12/24: The patient had a drop in her hemoglobin down to 5.6. Apparently, patient had black formed stools yesterday. BUN is up to 83. Patient will be transferred to the intensive care unit, 2 units of packed RBCs ordered, nothing by mouth status, consult with GI. She has been evaluated by physical therapy with recommendations for home but will need to be reevaluated once stable. 12/25: Patient remains in the intensive care unit. She is status post 2 units packed RBCs. Hemoglobin currently 8.1. EGD done by Dr. Tobar reveals moderate size hiatal hernia with gastritis and evidence of sites of recent bleeding in the proximal stomach at the level of the diaphragmatic impression. No active bleeding at this time. Patient's states that she has been taking Aleve along with eliquis. 12/26: Repeat hemoglobin is 7.5. Patient states she did have a bowel movement 5 this morning with darkness to it. She is complaining of feeling anxious this morning. She relates that she was recently started on Xanax about one month ago for anxiety attacks. Patient is feeling very weak and is having difficulty ambulating and getting out of bed. We will ask for reevaluation from physical therapy for subacute rehab. Possible discharge by tomorrow. Patient prefers [facility] if she is appropriate for rehab. Patient wishes to be a DO NOT RESUSCITATE. 12/27: Hemoglobin is stable today at 7.5. She denies any black stools. BUN 33 and creatinine 1.55. We will plan to advance her diet to soft for supper. Plan to monitor overnight and most likely discharge to rehab tomorrow. 12/28: Patient is feeling a bit better today she slept well last night and she is complaining of some dyspnea without any coughing, there is no chest pain, no abdominal pain, no nausea, vomiting, or diarrhea. Objective - Vital Signs Vital signs: Vital Signs Temp 96.9 F L 12/28/16 07:00 Pulse 78 12/28/16 11:13 Resp 16 12/28/16 08:00 BP 129/58 12/28/16 07:00 Pulse Ox 100 12/28/16 07:00 Intake & Output 12/27/16 12/28/16 12/28/16 18:59 06:59 18:59 Weight 78.5 kg Other: Voiding Method Bedside Commode Bedside Commode # Voids 4 2 - Exam - Exam General appearance: obese - EENT Eyes: anicteric sclerae, EOMI, PERRLA, no ptosis, normal appearance ENT: hearing grossly normal, NA/AT, normal oropharynx, no thrush Ears: bilateral: normal - Neck Neck: no lymphadenopathy, normal ROM, no rigidity, no stridor, no thyromegaly Carotids: bilateral: upstroke normal Thyroid: negative: normal size - Respiratory Respiratory: bilateral: diminished, prolonged expiration, negative: dullness, rales, rhonchi, wheezing - Cardiovascular Rhythm: irregularly irregular Heart sounds: normal: S1, S2 - Gastrointestinal General gastrointestinal: normal bowel sounds, soft, no tenderness, no umbilical hernia, no ventral hernia - Integumentary Integumentary: normal, normal turgor - Neurologic Neurologic: CNII-XII intact - Musculoskeletal Musculoskeletal: generalized weakness, strength equal bilaterally - Psychiatric Psychiatric: A&O x's 3, appropriate affect, intact judgment & insight - Labs CBC & Chem 7: 12/28/16 07:38 12/28/16 07:38 Labs: Abnormal Lab Results - Last 24 Hours (Table) 12/27/16 12/28/16 12/28/16 Range/Units 07:15 07:38 07:38 WBC 12.7 H (3.8-10.6) k/uL RBC 2.54 L 2.54 L (3.80-5.40) m/uL Hgb 7.5 L 7.6 L (11.4-16.0) gm/dL Hct 23.5 L 23.3 L (34.0-46.0) % RDW 16.8 H 17.6 H (11.5-15.5) % Chloride 109 H (98-107) mmol/L Carbon Dioxide 19 L (22-30) mmol/L BUN 28 H (7-17) mg/dL Creatinine 1.67 H (0.52-1.04) mg/dL Assessment and Plan Plan: Assessment and Plan Plan: 1. Acute respiratory insufficiency due to COPD exacerbation with right upper lobe mass with bronchiectasis with fibrotic changes. Continue Duoneb 3 ml QID and Levaquin 500 mg every 24 hours, pulmonary consult , 2. Acute GI bleed with acute blood loss anemia. status post transfusion 2 units of packed RBCs, GI consult. EGD as above. Diet advanced to soft. 3. Hypertension and hypertensive cardiovascular disease. will continue with Atenolol 100 mg orally daily and Hydralazine 25 mg orally daily. 4. Hyperlipidemia.will continue with Lipitor 20 mg orally daily. 5. Rheumatoid arthritis.will continue with MTX 10 mg orally once q Tue. 6. Paroxysmal Atrial Fibrillation. Continue with Atenolol 100 mg orally daily and Eliquis is on hold. 7. Obesity with possible SONIDO and OGS will need sleep study as an outpatient if not done already. 8. Hypothyroidism. Contnue synthroid 75 mcg orally daily. 9. Anxiety generalized with panic attacks. Continue XAnax as needed. 10. Depression recurrent. Continue Citalopram 10 mg orally daily. 11. DVT prophylaxis. PHILIP coleman and SCDs. 12. GI prophylaxis. will continue with Protonix 40 mg orally BID. 13. No code. Discharge plan: Possibly [facility] on Tuesday.
--- NOTE | 2016-12-28 13:57 | P.PN ---
Subjective This is a very pleasant 76-year-old female patient who follows with Dr. Kumar as her primary care physician. She also follows in our office for bronchiectasis and pulmonary fibrosis. However, she had not been there in quite some time. 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 She remains on methotrexate. She's been having increasing exertional shortness of breath. She was admitted here on 12/22 with increasing shortness of breath, cough and congestion. She been treated for an acute exacerbation. She did develop black tarry stools and hematemesis yesterday and was brought into the intensive care unit. She had undergone an EGD today that revealed moderately sized hiatal hernia with gastritis and evidence of sites of recent bleeding in the proximal stomach at the level of the diaphragmatic impression. No active bleeding noted. No intervention. Currently she is resting quite comfortably in bed. She is awake and alert in no acute distress. She's had no further black tarry stools or hematemesis. She had received a total of 2 units of packed red blood cells. Current hemoglobin 8.1. She's been hemodynamically stable. She remains on Protonix 40 mg IV twice a day. On , the patient is doing better. She is is not having any significant shortness of breath. She is gradually advancing her diet as tolerated. No nausea. No vomiting. No abdominal pain or distention. She is having is stable hemoglobin of 7.5. She remains a bit anxious. She is still feeling weak. The patient underwent a EGD by Dr. Wall and she was found to have a moderate-sized hiatal hernia and some gastritis and evidence of sites of recent bleeding in the proximal stomach at the level of the diaphragmatic impression. No active bleeding was identified. She is off the nonsteroidal anti- inflammatory medication for now. Noted the patient is also on long-term anticoagulation. The patient is seen again today 12/28/2016 in follow-up on the regular medical floor. She is awake and alert in no acute distress. She denies any worsening shortness of breath, cough or congestion. She is maintaining good O2 saturations in the upper 90s on room air. She is afebrile. No leukocytosis. She still has some abdominal discomfort and has not had a bowel movement. She is still anemic with a hemoglobin of 7.6 today. Creatinine continues to climb at 1.67. Objective - Vital Signs Vital signs: Vital Signs Temp 96.9 F L 12/28/16 07:00 Pulse 78 12/28/16 11:13 Resp 16 12/28/16 08:00 BP 129/58 12/28/16 07:00 Pulse Ox 100 12/28/16 07:00 Intake & Output 12/27/16 12/28/16 12/28/16 18:59 06:59 18:59 Intake Total 0 Balance 0 Weight 78.5 kg Intake: IV 0 0.9 0 Other: Voiding Method Bedside Commode Bedside Commode # Voids 4 2 - Exam GENERAL EXAM: Alert, comfortable in no apparent distress. HEAD: Normocephalic. EYES: Normal reaction of pupils, equal size. NOSE: Clear with pink turbinates. THROAT: No erythema or exudates. NECK: No masses, no JVD. CHEST: No chest wall deformity. LUNGS: Equal air entry with crackles in the bilateral posterior bases. Diminished. CVS: S1 and S2 normal with no audible murmurs, irregular rhythm. ABDOMEN: No hepatosplenomegaly, normal bowel sounds, no guarding or rigidity. SPINE: No scoliosis or deformity SKIN: No rashes CENTRAL NERVOUS SYSTEM: No focal deficits, tone is normal in all 4 extremities. Extremities: There is trace peripheral edema. No clubbing, no cyanosis. Peripheral pulses are intact. - Labs CBC & Chem 7: 12/28/16 07:38 12/28/16 07:38 Labs: Abnormal Lab Results - Last 24 Hours (Table) 12/28/16 12/28/16 Range/Units 07:38 07:38 RBC 2.54 L (3.80-5.40) m/uL Hgb 7.6 L (11.4-16.0) gm/dL Hct 23.3 L (34.0-46.0) % RDW 17.6 H (11.5-15.5) % Chloride 109 H (98-107) mmol/L Carbon Dioxide 19 L (22-30) mmol/L BUN 28 H (7-17) mg/dL Creatinine 1.67 H (0.52-1.04) mg/dL Assessment and Plan Plan: Impression: #1 Acute gastrointestinal bleeding with a drop of hemoglobin to 5.4. Received 2 units of packed red blood cells. Current hemoglobin 7.6. Status post EGD which revealed evidence of moderate size hiatal hernia with gastritis and evidence of sites of recent bleeding in the proximal stomach at the level of the diaphragmatic impression. No active bleeding was noted and no intervention. 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 #3 Rheumatoid arthritis, maintained on methotrexate. #4 History of heart failure. #5 Hyperlipidemia. #6 Hypertension. #7 Hypothyroidism. Plan: The patient was seen and evaluated by Dr. Tilley. She is currently stable from the pulmonary standpoint. We'll continue with her medications. We'll continue to monitor her hemoglobin. Will increase her activity as tolerated. The plan is for possible inpatient rehabilitation following her medical debility and prolonged hospitalization. We'll continue to follow.
[2016-12-28] MEDS: LEVOFLOXACIN 250 MG TAB PO SCH (18:04)
[2016-12-28] MEDS: ZOLPIDEM 10 MG TAB PO SCH (21:55)
[2016-12-29 00:32] VITALS: RESP 18
[2016-12-29] MEDS: LEVOTHYROXINE 75 MCG TAB PO SCH (06:44)
[2016-12-29] MEDS: IPRATROPIUM-ALBUTEROL 3 ML NEB INHALATION SCH ×2 (07:20→11:15)
[2016-12-29] MEDS: ATORVASTATIN 20 MG TAB PO SCH (07:36)
[2016-12-29] MEDS: ATENOLOL 50 MG TAB PO SCH (07:36)
[2016-12-29] MEDS: CALCIUM CARBONATE 500 MG CHEWABLE PO SCH (07:36)
[2016-12-29] MEDS: CITALOPRAM HYDROBROMIDE 20 MG TAB PO SCH (07:36)
[2016-12-29] MEDS: PANTOPRAZOLE 40 MG TABLET PO SCH (07:36)
[2016-12-29] MEDS: SUCRALFATE 1 GM TAB PO SCH ×2 (07:36→12:41)
[2016-12-29] MEDS: hydrALAZINE HCL 25 MG TAB PO SCH (07:37)
[2016-12-29] MEDS: DICYCLOMINE 10 MG CAP PO SCH (07:37)
[2016-12-29] MEDS: CHOLECALCIFEROL 1,000 UNIT TAB PO SCH (07:37)
[2016-12-29] MEDS: SIMBRINZA LEFT EYE SCH (07:37)
[2016-12-29] MEDS: FOLIC ACID 1 MG TAB PO SCH (07:37)
[2016-12-29 07:55] VITALS: BP 152/78; TEMP 97.5
[2016-12-29 08:41] LABS: Anisocytosis Slight; Basophils % (A) 0 %; CHCM 31.1; Eosinophils # (A) 0.5 k/uL (0-0.7); Eosinophils % (A) 4 %; HCT 25.1 % (34.0-46.0); HDW 2.71; HGB 7.8 gm/dL (11.4-16.0); Hypochromasia Slight; Luc # (Auto) 0.14; Luc % (Auto) 1; Lymphocytes # (A) 1.8 k/uL (1.0-4.8); Lymphocytes % (A) 17 %; MCH 29.2 pg (25.0-35.0); MCHC 31.2 g/dL (31.0-37.0); MCV 93.6 fL (80.0-100.0); Monocytes # (A) 0.5 k/uL (0-1.0); Monocytes % (A) 5 %; Neutrophils # (A) 7.7 k/uL (1.3-7.7); Neutrophils % (A) 72 %; RBC 2.68 m/uL (3.80-5.40); RDW 17.3 % (11.5-15.5); WBC 10.6 k/uL (3.8-10.6); WBC (Perox) 11.55
[2016-12-29 11:28] VITALS: PULSE 78
--- NOTE | 2016-12-29 12:11 | P.DS ---
Providers Date of admission: 12/22/16 21:59 Expected date of discharge: 12/29/16 Attending physician: Eduardo Fleming Consults: 12/22/16 21:59 Consult Physician Routine Consulting Provider: Denice Tilley Consult Reason/Comments: COPD exacerbation, elevated d-dimer Do you want consulting provider notified?: Yes Primary care physician: Gregg Kumar [place] [facility] Course: This is a 76 Year-Old female one of with a previous medical history significant for hypertension and hypertensive cardiovascular disease, hyperlipidemia, RA, atrial fibrillation and asthma, patient was sent in by Dr. Kumra for evaluation of increased shortness of breath with elevated D-Dimer and she was admitted to the hospital for acute respiratory insufficiency due to COPD exacerbation and possible thromboembolic disease and was started on nebulized treatment and IV ABX and will be seen in consultaion by Dr. Santiago and will undergo VQ scan. She states she went to lunch in [place] and wasn't feeling well afterwards when she was driving home and thought she may have eaten too much. Patient subsequently stopped at [facility] and she was seen in the ER and subsequent she was admitted as above. Patient underwent a VQ scan that was low probability for pulmonary and wasn't, however she was started on Solu-Medrol as well as nebulizer treatment and she is awaiting to see Dr. Santiago from pulmonary medicine for further recommendation. Patient is feeling generally weak, we will consult physical therapy for evaluation for possible extended care facility placement. 12/24: The patient had a drop in her hemoglobin down to 5.6. Apparently, patient had black formed stools yesterday. BUN is up to 83. Patient will be transferred to the intensive care unit, 2 units of packed RBCs ordered, nothing by mouth status, consult with GI. She has been evaluated by physical therapy with recommendations for home but will need to be reevaluated once stable. 12/25: Patient remains in the intensive care unit. She is status post 2 units packed RBCs. Hemoglobin currently 8.1. EGD done by Dr. Tobar reveals moderate size hiatal hernia with gastritis and evidence of sites of recent bleeding in the proximal stomach at the level of the diaphragmatic impression. No active bleeding at this time. Patient's states that she has been taking Aleve along with eliquis. 12/26: Repeat hemoglobin is 7.5. Patient states she did have a bowel movement 5 this morning with darkness to it. She is complaining of feeling anxious this morning. She relates that she was recently started on Xanax about one month ago for anxiety attacks. Patient is feeling very weak and is having difficulty ambulating and getting out of bed. We will ask for reevaluation from physical therapy for subacute rehab. Possible discharge by tomorrow. Patient prefers [facility] if she is appropriate for rehab. Patient wishes to be a DO NOT RESUSCITATE. 12/27: Hemoglobin is stable today at 7.5. She denies any black stools. BUN 33 and creatinine 1.55. We will plan to advance her diet to soft for supper. Plan to monitor overnight and most likely discharge to rehab tomorrow. 12/28: Patient is feeling a bit better today she slept well last night and she is complaining of some dyspnea without any coughing, there is no chest pain, no abdominal pain, no nausea, vomiting, or diarrhea. 12/29: Patient is being prepared for discharge to [facility] today in stable condition. Her repeat hemoglobin is 7.8. She denies any bowel movements today. Discharge diagnoses: 1. Acute respiratory insufficiency due to COPD exacerbation with right upper lobe mass with bronchiectasis with fibrotic changes. 2. Acute GI bleed with acute blood loss anemia. status post transfusion 2 units of packed RBC 3. Hypertension and hypertensive cardiovascular disease. 4. Hyperlipidemia. 5. Rheumatoid arthritis. 6. Paroxysmal Atrial Fibrillation. 7. Obesity with possible SONIDO and OGS will need sleep study as an outpatient if not done already. 8. Hypothyroidism. 9. Anxiety generalized with panic attacks. 10. Depression recurrent. Discharge plan: [facility] under the care of Dr. Fleming. Impression and plan of care have been directed as dictated by the signing physician. Marina Cervantes nurse practitioner acting as scribe for signing physician. Patient Condition at Discharge: Good Plan - Discharge Summary New Discharge Prescriptions: New Ipratropium-Albuterol Nebulize [Duoneb 0.5 mg-3 mg/3 ml Soln] 3 ml INHALATION RT-QID PRN neb PRN Reason: Wheezing Levofloxacin [Levaquin] 250 mg PO 1900 #5 tab Sucralfate [Carafate] 1 gm PO AC-TID tab Continue Cholecalciferol [Vitamin D3] 1,000 unit PO DAILY Folic Acid 1 mg PO BID Methotrexate Sodium [Methotrexate] 10 mg PO WE Brinzolamide/Brimonidine Tart [Simbrinza 1%-0.2% Eye Drops] 1 drop BOTH EYES DAILY Acetaminophen Tab [Tylenol] 650 mg PO Q6H PRN PRN Reason: Pain hydrALAZINE HCL [Apresoline] 25 mg PO QAM Benzonatate [Tessalon Perles] 100 mg PO TID PRN PRN Reason: Cough Pantoprazole Sodium [Protonix] 40 mg PO AC-BID Dicyclomine [Bentyl] 10 mg PO BID Levothyroxine Sodium [Synthroid] 75 mcg PO DAILY Citalopram Hydrobromide [CeleXA] 40 mg PO DAILY Atorvastatin [Lipitor] 20 mg PO DAILY Atenolol 100 mg PO DAILY Fluocinolone Body Oil 1 applic TOPICAL HS PRN PRN Reason: Skin Irritation Calcium Citrate 500 mg PO DAILY ALPRAZolam [Xanax] 0.25 mg PO TID PRN #90 PRN Reason: Anxiety Zolpidem [Ambien] 10 mg PO HS #30 Discontinued Apixaban [Eliquis] 5 mg PO BID Discharge Medication List Acetaminophen Tab [Tylenol] 650 mg PO Q6H PRN 12/22/16 [History] Atenolol 100 mg PO DAILY 12/22/16 [History] Atorvastatin [Lipitor] 20 mg PO DAILY 12/22/16 [History] Benzonatate [Tessalon Perles] 100 mg PO TID PRN 12/22/16 [History] Brinzolamide/Brimonidine Tart [Simbrinza 1%-0.2% Eye Drops] 1 drop BOTH EYES DAILY 12/22/16 [History] Calcium Citrate 500 mg PO DAILY 12/22/16 [History] Cholecalciferol [Vitamin D3] 1,000 unit PO DAILY 12/22/16 [History] Citalopram Hydrobromide [CeleXA] 40 mg PO DAILY 12/22/16 [History] Dicyclomine [Bentyl] 10 mg PO BID 12/22/16 [History] Fluocinolone Body Oil 1 applic TOPICAL HS PRN 12/22/16 [History] Folic Acid 1 mg PO BID 12/22/16 [History] Levothyroxine Sodium [Synthroid] 75 mcg PO DAILY 12/22/16 [History] Methotrexate Sodium [Methotrexate] 10 mg PO WE 12/22/16 [History] Pantoprazole Sodium [Protonix] 40 mg PO AC-BID 12/22/16 [History] hydrALAZINE HCL [Apresoline] 25 mg PO QAM 12/22/16 [History] ALPRAZolam [Xanax] 0.25 mg PO TID PRN #90 12/29/16 [Rx] Ipratropium-Albuterol Nebulize [Duoneb 0.5 mg-3 mg/3 ml Soln] 3 ml INHALATION RT -QID PRN neb 12/29/16 [Rx] Levofloxacin [Levaquin] 250 mg PO 1900 #5 tab 12/29/16 [Rx] Sucralfate [Carafate] 1 gm PO AC-TID tab 12/29/16 [Rx] Zolpidem [Ambien] 10 mg PO HS #30 12/29/16 [Rx] Follow up Appointment(s)/Referral(s): Myles Bejarano, [NON-STAFF] - 1 Week Gregg Kumar MD [Primary Care Provider] - 1-2 days Patient Instructions/Handouts: COPD (Chronic Obstructive Pulmonary Disease) (DC ) Activity/Diet/Wound Care/Special Instructions: Activity as tolerated, up with assist, fall precautions. Cardiac diet. Discharge Disposition: TRANSFER TO SNF/ECF
--- NOTE | 2016-12-29 14:14 | P.PN ---
Subjective Principal diagnosis: This is a very pleasant 76-year-old female patient who follows with Dr. Kumar as her primary care physician. She also follows in our office for bronchiectasis and pulmonary fibrosis. However, she had not been there in quite some time. 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 She remains on methotrexate. She's been having increasing exertional shortness of breath. She was admitted here on 12/22 with increasing shortness of breath, cough and congestion. She been treated for an acute exacerbation. She did develop black tarry stools and hematemesis yesterday and was brought into the intensive care unit. She had undergone an EGD today that revealed moderately sized hiatal hernia with gastritis and evidence of sites of recent bleeding in the proximal stomach at the level of the diaphragmatic impression. No active bleeding noted. No intervention. Currently she is resting quite comfortably in bed. She is awake and alert in no acute distress. She's had no further black tarry stools or hematemesis. She had received a total of 2 units of packed red blood cells. Current hemoglobin 8.1. She's been hemodynamically stable. She remains on Protonix 40 mg IV twice a day. This is a very pleasant 76-year-old female patient who follows with Dr. Kumar as her primary care physician. She also follows in our office for bronchiectasis and pulmonary fibrosis. However, she had not been there in quite some time. 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 She remains on methotrexate. She's been having increasing exertional shortness of breath. She was admitted here on 12/22 with increasing shortness of breath, cough and congestion. She been treated for an acute exacerbation. She did develop black tarry stools and hematemesis yesterday and was brought into the intensive care unit. She had undergone an EGD today that revealed moderately sized hiatal hernia with gastritis and evidence of sites of recent bleeding in the proximal stomach at the level of the diaphragmatic impression. No active bleeding noted. No intervention. Currently she is resting quite comfortably in bed. She is awake and alert in no acute distress. She's had no further black tarry stools or hematemesis. She had received a total of 2 units of packed red blood cells. Current hemoglobin 8.1. She's been hemodynamically stable. She remains on Protonix 40 mg IV twice a day. On , the patient is doing better. She is is not having any significant shortness of breath. She is gradually advancing her diet as tolerated. No nausea. No vomiting. No abdominal pain or distention. She is having is stable hemoglobin of 7.5. She remains a bit anxious. She is still feeling weak. The patient underwent a EGD by Dr. Wall and she was found to have a moderate-sized hiatal hernia and some gastritis and evidence of sites of recent bleeding in the proximal stomach at the level of the diaphragmatic impression. No active bleeding was identified. She is off the nonsteroidal anti- inflammatory medication for now. Noted the patient is also on long-term anticoagulation. The patient is seen again today 12/28/2016 in follow-up on the regular medical floor. She is awake and alert in no acute distress. She denies any worsening shortness of breath, cough or congestion. She is maintaining good O2 saturations in the upper 90s on room air. She is afebrile. No leukocytosis. She still has some abdominal discomfort and has not had a bowel movement. She is still anemic with a hemoglobin of 7.6 today. Creatinine continues to climb at 1.67. She is seen again today 12/29/2016 in follow-up on the regular medical floor. She is awake and alert in no acute distress. She's been up ambulating in the room. Doing well on room air. She denies any worsening abdominal discomfort. No active bleeding. Hemoglobin stable at 7.8. She does have some continued weakness of the lower extremities. Objective - Vital Signs Vital signs: Vital Signs Temp 97.5 F L 12/29/16 07:00 Pulse 78 12/29/16 11:31 Resp 18 12/29/16 07:00 BP 152/78 12/29/16 07:00 Pulse Ox 99 12/29/16 07:00 Intake & Output 12/28/16 12/29/16 12/29/16 18:59 06:59 18:59 Intake Total 0 875 200 Balance 0 875 200 Weight 79.5 kg Intake: IV 0 0.9 0 Oral 875 200 Other: Voiding Method Bedside Commode # Voids 1 - Exam GENERAL EXAM: Alert, comfortable in no apparent distress. HEAD: Normocephalic. EYES: Normal reaction of pupils, equal size. NOSE: Clear with pink turbinates. THROAT: No erythema or exudates. NECK: No masses, no JVD. CHEST: No chest wall deformity. LUNGS: Equal air entry with crackles in the bilateral posterior bases. Diminished. CVS: S1 and S2 normal with no audible murmurs, irregular rhythm. ABDOMEN: No hepatosplenomegaly, normal bowel sounds, no guarding or rigidity. SPINE: No scoliosis or deformity SKIN: No rashes CENTRAL NERVOUS SYSTEM: No focal deficits, tone is normal in all 4 extremities. Extremities: There is trace peripheral edema. No clubbing, no cyanosis. Peripheral pulses are intact. - Labs CBC & Chem 7: 12/29/16 07:58 12/28/16 07:38 Labs: Abnormal Lab Results - Last 24 Hours (Table) 12/29/16 Range/Units 07:58 RBC 2.68 L (3.80-5.40) m/uL Hgb 7.8 L (11.4-16.0) gm/dL Hct 25.1 L (34.0-46.0) % RDW 17.3 H (11.5-15.5) % Assessment and Plan Plan: Impression: #1 Acute gastrointestinal bleeding with a drop of hemoglobin to 5.4. Received 2 units of packed red blood cells. Current hemoglobin 7.6. Status post EGD which revealed evidence of moderate size hiatal hernia with gastritis and evidence of sites of recent bleeding in the proximal stomach at the level of the diaphragmatic impression. No active bleeding was noted and no intervention. 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 #3 Rheumatoid arthritis, maintained on methotrexate. #4 History of heart failure. #5 Hyperlipidemia. #6 Hypertension. #7 Hypothyroidism. Plan: The patient was seen and evaluated by Dr. Tilley. She is currently stable from the pulmonary standpoint. She is cleared for discharge to an extended care facility for further rehabilitation. She'll follow-up in our office in 1- 2 weeks' time. She and her are both encouraged to call sooner with any recurrence of symptoms or other questions or concerns.
[2016-12-29] MEDS ORDERED: FERROUS SULFATE 325 MG TAB PO SCH (17:30)
== END 2016-12-29 13:27 | DRG 190 ==
LOC: EC 16:46 → 6SEL 21:59 → 6ICU 12-24 12:04 → 4MS4W 12-25 13:01
PROVIDERS: ADMIT Internal Medicine; ATTEND Internal Medicine
PROC: 30233N1 Transfusion of Nonautologous Red Blood Cells into Peripheral Vein, Percutaneous Approach (ICD-10-PCS; principal; 2016-12-24)
PROC: 0DB78ZX Excision of Stomach, Pylorus, Via Natural or Artificial Opening Endoscopic, Diagnostic (ICD-10-PCS; 2016-12-25)
DX: J44.1 Chronic obstructive pulmonary disease with (acute) exacerbation (principal); J96.00 Acute respiratory failure, unspecified whether with hypoxia or hypercapnia; K92.0 Hematemesis; E87.2 Acidosis; D62 Acute posthemorrhagic anemia; J84.10 Pulmonary fibrosis, unspecified; I50.9 Heart failure, unspecified; I11.0 Hypertensive heart disease with heart failure; E87.8 Other disorders of electrolyte and fluid balance, not elsewhere classified; K92.2 Gastrointestinal hemorrhage, unspecified; F33.9 Major depressive disorder, recurrent, unspecified; I48.0 Paroxysmal atrial fibrillation; Z66 Do not resuscitate; K44.9 Diaphragmatic hernia without obstruction or gangrene; K21.9 Gastro-esophageal reflux disease without esophagitis; G47.33 Obstructive sleep apnea (adult) (pediatric); E03.9 Hypothyroidism, unspecified; J47.9 Bronchiectasis, uncomplicated; K29.70 Gastritis, unspecified, without bleeding; T45.515A Adverse effect of anticoagulants, initial encounter; E78.5 Hyperlipidemia, unspecified; R91.8 Other nonspecific abnormal finding of lung field; F41.0 Panic disorder [episodic paroxysmal anxiety]; F41.1 Generalized anxiety disorder; M06.9 Rheumatoid arthritis, unspecified; R26.2 Difficulty in walking, not elsewhere classified; R53.1 Weakness; M19.90 Unspecified osteoarthritis, unspecified site; E66.9 Obesity, unspecified; Z79.01 Long term (current) use of anticoagulants; Z79.899 Other long term (current) drug therapy; Z80.1 Family history of malignant neoplasm of trachea, bronchus and lung; Z87.891 Personal history of nicotine dependence; Z96.651 Presence of right artificial knee joint; Z86.79 Personal history of other diseases of the circulatory system; Z87.11 Personal history of peptic ulcer disease; Z88.5 Allergy status to narcotic agent; Z79.1 Long term (current) use of non-steroidal anti-inflammatories (NSAID); Z68.26 Body mass index [BMI] 26.0-26.9, adult; Z71.3 Dietary counseling and surveillance
CPT/HCPCS: 36415; 43239; 71010; 71020; 71250; 74000; 78582; 80048; 80053; 82550; 82553; 83036; 83735; 83880; 84484; 85025; 85027; 85379; 85610; 85730; 86850; 86900; 86901; 86920; 88305; 88342; 93005; 94640; 94760; 96374; 96375; 99291

== ENCOUNTER 2016-12-31 16:28 | Emergency (ER) | payer MEDICARE, OTHER ==
[2016-12-31] MEDS ORDERED: PANTOPRAZOLE 40 MG/10 ML VIAL IVP STA (17:23)
[2016-12-31] MEDS ORDERED: IPRATROPIUM-ALBUTEROL 3 ML NEB INHALATION STA (17:26)
--- NOTE | 2016-12-31 17:29 | ED ---
General Adult HPI - General Chief complaint: Recheck/Abnormal Lab/Rx Stated complaint: SOB Time Seen by Provider: 12/31/16 17:08 Source: patient, RN notes reviewed Mode of arrival: wheelchair Limitations: no limitations - History of Present Illness Initial comments: Patient is a pleasant 76-year-old female presenting to the emergency department with concerns for low hemoglobin. Patient was recently discharged from the hospital with concerns with GI bleed. Patient also had COPD. Patient feels fine unless however does complain of fatigue and dyspnea with exertion. Patient had hemoglobin checked twice today at 6.8. Dr. Fleming was notified and recommended transfer. - Related Data Home Medications Medication Instructions Recorded Confirmed Acetaminophen Tab [Tylenol] 650 mg PO Q6H PRN 12/22/16 12/31/16 Atenolol 100 mg PO QAM 12/22/16 12/31/16 Atorvastatin [Lipitor] 20 mg PO QAM 12/22/16 12/31/16 Benzonatate [Tessalon Perles] 100 mg PO TID PRN 12/22/16 12/31/16 Brinzolamide/Brimonidine Tart 1 drop BOTH EYES QA 12/22/16 12/31/16 [Simbrinza 1%-0.2% Eye Drops] Calcium Citrate 500 mg PO DAILY 12/22/16 12/31/16 Cholecalciferol [Vitamin D3] 1,000 unit PO DAILY 12/22/16 12/31/16 Citalopram Hydrobromide [CeleXA] 40 mg PO QAM 12/22/16 12/31/16 Dicyclomine [Bentyl] 10 mg PO BID@0800,1700 12/22/16 12/31/16 Fluocinolone Body Oil 1 applic TOPICAL HS PRN 12/22/16 12/31/16 Folic Acid 1 mg PO BID@0800,1700 12/22/16 12/31/16 Levothyroxine Sodium [Synthroid] 75 mcg PO QAM 12/22/16 12/31/16 Methotrexate Sodium [Methotrexate] 10 mg PO WE 12/22/16 12/31/16 Pantoprazole Sodium [Protonix] 40 mg PO BID@0600,1600 12/22/16 12/31/16 hydrALAZINE HCL [Apresoline] 25 mg PO QAM 12/22/16 12/31/16 Bisacodyl [Dulcolax] 10 mg RECTAL DAILY PRN 12/31/16 12/31/16 Ferrous Sulfate [Iron] 325 mg PO BID@0800,1700 12/31/16 12/31/16 Levofloxacin [Levaquin] 250 mg PO DAILY@1700 12/31/16 12/31/16 Magnesium Hydroxide [Milk of 2,400 mg PO DAILY PRN 12/31/16 12/31/16 Magnesia] Na Phos,M-B/Na Phos,Di-Ba [Fleet 133 ml RECTAL DAILY PRN 12/31/16 12/31/16 Adult] Previous Rx's Medication Instructions Recorded ALPRAZolam [Xanax] 0.25 mg PO TID PRN #90 12/29/16 Ipratropium-Albuterol Nebulize 3 ml INHALATION RT-QID PRN neb 12/29/16 [Duoneb 0.5 mg-3 mg/3 ml Soln] Sucralfate [Carafate] 1 gm PO AC-TID tab 12/29/16 Zolpidem [Ambien] 10 mg PO HS #30 12/29/16 Allergies Allergy/AdvReac Type Severity Reaction Status Date / Time morphine AdvReac Hallucinati Verified 12/31/16 16:53 ons Review of Systems ROS Statement: Those systems with pertinent positive or pertinent negative responses have been documented in the HPI. ROS Other: All systems not noted in ROS Statement are negative. Constitutional: Denies: fever Eyes: Denies: eye pain ENT: Denies: ear pain Respiratory: Reports: dyspnea (With exertion). Denies: cough Cardiovascular: Denies: chest pain Endocrine: Reports: fatigue Gastrointestinal: Denies: abdominal pain Genitourinary: Denies: urgency Musculoskeletal: Denies: back pain Skin: Denies: rash Neurological: Denies: headache Past Medical History Past Medical History: Atrial Fibrillation, Asthma, Heart Failure, COPD, GERD/ Reflux, GI Bleed, Hyperlipidemia, Hypertension, Osteoarthritis (OA), Rheumatoid Arthritis (RA), Sleep Apnea/CPAP/BIPAP, Thyroid Disorder Additional Past Medical History / Comment(s): lung disease History of Any Multi-Drug Resistant Organisms: None Reported Additional Past Surgical History / Comment(s): rt knee replacement, AAA repair Past Anesthesia/Blood Transfusion Reactions: No Reported Reaction Past Psychological History: Anxiety Smoking Status: Former smoker Past Alcohol Use History: None Reported Past Drug Use History: None Reported - Past Family History Father Family Medical History: Cancer Additional Family Medical History / Comment(s): at age 68 from lung cancer Mother Family Medical History: Cancer Additional Family Medical History / Comment(s): at age 83 from lung cancer Brother(s) Family Medical History: Cancer Additional Family Medical History / Comment(s): at age 63 from lung cancer. Son(s) Additional Family Medical History / Comment(s): She has 2 sons with no major medical problems. General Exam Limitations: no limitations General appearance: alert, in no apparent distress Head exam: Present: atraumatic Eye exam: Present: normal appearance, PERRL ENT exam: Present: normal oropharynx Neck exam: Present: normal inspection Respiratory exam: Present: normal lung sounds bilaterally Cardiovascular Exam: Present: regular rate, irregular rhythm GI/Abdominal exam: Present: soft. Absent: distended, tenderness Extremities exam: Present: normal inspection Neurological exam: Present: alert Psychiatric exam: Present: normal affect, normal mood Skin exam: Present: normal color Course Vital Signs 12/31/16 12/31/16 12/31/16 16:34 17:34 17:47 Temperature 97.4 F L Pulse Rate 82 68 66 Respiratory 18 18 Rate Blood Pressure 139/65 168/75 O2 Sat by Pulse 85 L 95 Oximetry 12/31/16 12/31/16 17:53 18:00 Temperature 98.6 F Pulse Rate 73 79 Respiratory 20 Rate Blood Pressure 137/63 O2 Sat by Pulse 100 Oximetry - Reevaluation(s) Reevaluation #1: 12/31/16 17:27 Case was discussed in detail with Dr. Cam who recommends recheck and hemoglobin. She states if hemoglobin is between 6 and 7 patient Received one unit of blood and be discharged. If hemoglobin is greater than 7 patient can be discharged without blood. If hemoglobin is less than six then call back. 12/31/16 18:13 Pulse ox 95% on room air. Medical Decision Making - Medical Decision Making Patient reexamined and resting comfortably in bed. Patient and updated on results and need for close follow-up and continued monitoring of hemoglobin. Patient states overall she has been feeling better and is relieved to be discharged. - Lab Data Result diagrams: 12/31/16 17:15 Lab Results 12/31/16 Range/Units 17:15 WBC 8.5 (3.8-10.6) k/uL RBC 2.54 L (3.80-5.40) m/uL Hgb 7.5 L (11.4-16.0) gm/dL Hct 23.7 L (34.0-46.0) % MCV 93.1 (80.0-100.0) fL MCH 29.6 (25.0-35.0) pg MCHC 31.8 (31.0-37.0) g/dL RDW 16.1 H (11.5-15.5) % Plt Count 305 (150-450) k/uL Neutrophils % 69 % Lymphocytes % 19 % Monocytes % 6 % Eosinophils % 3 % Basophils % 1 % Neutrophils # 5.9 (1.3-7.7) k/uL Lymphocytes # 1.6 (1.0-4.8) k/uL Monocytes # 0.5 (0-1.0) k/uL Eosinophils # 0.2 (0-0.7) k/uL Basophils # 0.0 (0-0.2) k/uL Hypochromasia Slight Anisocytosis Slight Disposition Clinical Impression: Anemia, Acute exacerbation of chronic obstructive airways disease Disposition: HOME SELF-CARE Condition: Stable Instructions: Anemia (ED), COPD (Chronic Obstructive Pulmonary Disease) (ED), Gastrointestinal Bleeding (ED) Additional Instructions: Please follow-up with Dr. Fleming for Dr. Kumar in the next day or 2 for recheck. Please have her hemoglobin rechecked in the next couple of days. Return for weakness, difficulty breathing, bleeding, worsening symptoms or any other concerns. Referrals: Gregg Kumar MD [Primary Care Provider] - 1-2 days Time of Disposition: 18:46
[2016-12-31 17:57] LABS: Anisocytosis Slight; Basophils % (A) 1 %; CH 28.8; CHCM 31.1; Eosinophils # (A) 0.2 k/uL (0-0.7); Eosinophils % (A) 3 %; HCT 23.7 % (34.0-46.0); HDW 2.78; HGB 7.5 gm/dL (11.4-16.0); Hypochromasia Slight; Luc # (Auto) 0.18; Luc % (Auto) 2; Lymphocytes # (A) 1.6 k/uL (1.0-4.8); Lymphocytes % (A) 19 %; MCH 29.6 pg (25.0-35.0); MCHC 31.8 g/dL (31.0-37.0); MCV 93.1 fL (80.0-100.0); Mean Platelet Volume 7.6; Monocytes # (A) 0.5 k/uL (0-1.0); Monocytes % (A) 6 %; Neutrophils # (A) 5.9 k/uL (1.3-7.7); Neutrophils % (A) 69 %; RBC 2.54 m/uL (3.80-5.40); RDW 16.1 % (11.5-15.5); WBC 8.5 k/uL (3.8-10.6); WBC (Perox) 8.69
[2016-12-31 18:16] VITALS: RESP 20; TEMP 98.6
[2016-12-31] MEDS ORDERED: ACETAMINOPHEN TAB 500 MG TAB PO STA (18:19)
[2016-12-31] MEDS ORDERED: ALPRAZolam 0.25 MG TAB PO STA (18:19)
[2016-12-31 18:52] VITALS: BP 140/87; PULSE 70
== END 2016-12-31 18:56 | disposition home or self-care (01) ==
LOC: EC 16:28
DX: J44.1 Chronic obstructive pulmonary disease with (acute) exacerbation (principal); D64.9 Anemia, unspecified; E78.5 Hyperlipidemia, unspecified; I11.0 Hypertensive heart disease with heart failure; M06.9 Rheumatoid arthritis, unspecified; E07.9 Disorder of thyroid, unspecified; K21.9 Gastro-esophageal reflux disease without esophagitis; Z87.891 Personal history of nicotine dependence; Z79.899 Other long term (current) drug therapy; Z88.5 Allergy status to narcotic agent; Z87.19 Personal history of other diseases of the digestive system; Z80.1 Family history of malignant neoplasm of trachea, bronchus and lung
CPT/HCPCS: 36415; 94640; 85025; 99285; 96374; C9113

== ENCOUNTER 2017-01-03 20:20 | Inpatient (IN) | payer MEDICARE, OTHER ==
[2017-01-03 21:57] LABS: ALT 39 U/L (9-52); AST 26 U/L (14-36); Alkaline Phosphatase 101 U/L (38-126); Anion Gap 8 mmol/L; Blood Urea Nitrogen 28 mg/dL (7-17); Calcium 9.2 mg/dL (8.4-10.2); Carbon Dioxide 20 mmol/L (22-30); Chloride 110 mmol/L (98-107); Glucose 85 mg/dL (74-99); Iron 141 ug/dL (37-170); Non-African American GFR(MDRD) 44 (>60 ml/min/1.73 sqM); Potassium 4.3 mmol/L (3.5-5.1); Sodium 138 mmol/L (137-145); Total Bilirubin <0.1 mg/dL (0.2-1.3); Total Protein 5.4 g/dL (6.3-8.2)
[2017-01-03 22:02] LABS: Anisocytosis Slight; Basophils % (A) 0 %; CHCM 32.3; Eosinophils # (A) 0.1 k/uL (0-0.7); Eosinophils % (A) 2 %; HDW 3.14; Hypochromasia Slight; Luc # (Auto) 0.12; Luc % (Auto) 3; Lymphocytes # (A) 1.2 k/uL (1.0-4.8); Lymphocytes % (A) 25 %; MCH 29.2 pg (25.0-35.0); MCHC 32.4 g/dL (31.0-37.0); MCV 90.1 fL (80.0-100.0); Mean Platelet Volume 8.6; Monocytes # (A) 0.2 k/uL (0-1.0); Monocytes % (A) 4 %; Neutrophils % (A) 65 %; RBC 1.84 m/uL (3.80-5.40); RDW 17.3 % (11.5-15.5); WBC 4.7 k/uL (3.8-10.6); WBC (Perox) 5.05
[2017-01-03 22:05] LABS: HCT 16.6 % (34.0-46.0); HGB 5.4 gm/dL (11.4-16.0)
[2017-01-03 22:06] LABS: % Iron Saturation 38.6 % (20-50); Total Iron Binding Capacity 365 ug/dL (265-497)
[2017-01-03 22:10] LABS: Appearance,Urine Clear (Clear); Bilirubin,Urine Negative (Negative); Glucose,Urine (UA) Negative (Negative); Ketones,Urine Negative (Negative); Leukocyte Esterase,Urine Negative (Negative); Nitrite,Urine Negative (Negative); PH, Urine 5.5 (5.0-8.0); Protein,Urine Negative (Negative); Specific Gravity,Urine 1.007 (1.001-1.035); UA Billing (MACRO vs. MICRO) CHEM; Urobilinogen,Urine <2.0 mg/dL (<2.0)
[2017-01-03] MEDS ORDERED: NALOXONE 0.4 MG/ML 1 ML VIAL IV PRN (22:10)
--- NOTE | 2017-01-03 22:10 | ED ---
General Adult HPI - General Chief complaint: Recheck/Abnormal Lab/Rx Stated complaint: blood transfusion-sent by Dr. Fleming Time Seen by Provider: 01/03/17 21:09 Source: patient, family Mode of arrival: wheelchair Limitations: no limitations - History of Present Illness Initial comments: Patient presents with lightheadedness, shortness of breath. She has a history of GI bleed. She was told she has a low hemoglobin. She has no fevers or chills. She has no chest pain. She has no belly pain. She has no back pain. She has no focal weakness or deficits. - Related Data Home Medications Medication Instructions Recorded Confirmed Acetaminophen Tab [Tylenol] 650 mg PO Q6H PRN 12/22/16 01/03/17 Atenolol 100 mg PO QAM 12/22/16 01/03/17 Atorvastatin [Lipitor] 20 mg PO QAM 12/22/16 01/03/17 Benzonatate [Tessalon Perles] 100 mg PO TID PRN 12/22/16 01/03/17 Brinzolamide/Brimonidine Tart 1 drop BOTH EYES QA 12/22/16 01/03/17 [Simbrinza 1%-0.2% Eye Drops] Cholecalciferol [Vitamin D3] 1,000 unit PO DAILY 12/22/16 01/03/17 Citalopram Hydrobromide [CeleXA] 40 mg PO QAM 12/22/16 01/03/17 Dicyclomine [Bentyl] 10 mg PO BID@0800,1700 12/22/16 01/03/17 Fluocinolone Body Oil 1 applic TOPICAL HS PRN 12/22/16 01/03/17 Folic Acid 1 mg PO SUMOTUTHFRSA@0800,17 12/22/16 01/03/17 Levothyroxine Sodium [Synthroid] 75 mcg PO QAM 12/22/16 01/03/17 Methotrexate Sodium [Methotrexate] 10 mg PO WE 12/22/16 01/03/17 Pantoprazole Sodium [Protonix] 40 mg PO BID@0600,1600 12/22/16 01/03/17 hydrALAZINE HCL [Apresoline] 25 mg PO QAM 12/22/16 01/03/17 Bisacodyl [Dulcolax] 10 mg RECTAL DAILY PRN 12/31/16 01/03/17 Ferrous Sulfate [Iron] 325 mg PO BID@0800,1700 12/31/16 01/03/17 Magnesium Hydroxide [Milk of 2,400 mg PO DAILY PRN 12/31/16 01/03/17 Magnesia] Na Phos,M-B/Na Phos,Di-Ba [Fleet 133 ml RECTAL DAILY PRN 12/31/16 01/03/17 Adult] Calcium Carbonate 500 mg PO DAILY 01/03/17 01/03/17 Sucralfate [Carafate] 1 gm PO TID@0600,1100,1600 01/03/17 01/03/17 Previous Rx's Medication Instructions Recorded ALPRAZolam [Xanax] 0.25 mg PO TID PRN #90 12/29/16 Ipratropium-Albuterol Nebulize 3 ml INHALATION RT-QID PRN neb 12/29/16 [Duoneb 0.5 mg-3 mg/3 ml Soln] Zolpidem [Ambien] 10 mg PO HS #30 12/29/16 Allergies Allergy/AdvReac Type Severity Reaction Status Date / Time morphine AdvReac Hallucinati Verified 01/03/17 20:40 ons Review of Systems ROS Statement: Those systems with pertinent positive or pertinent negative responses have been documented in the HPI. ROS Other: All systems not noted in ROS Statement are negative. Past Medical History Past Medical History: Atrial Fibrillation, Asthma, Heart Failure, COPD, GERD/ Reflux, GI Bleed, Hyperlipidemia, Hypertension, Osteoarthritis (OA), Rheumatoid Arthritis (RA), Sleep Apnea/CPAP/BIPAP, Thyroid Disorder Additional Past Medical History / Comment(s): lung disease History of Any Multi-Drug Resistant Organisms: None Reported Additional Past Surgical History / Comment(s): rt knee replacement, AAA repair Past Anesthesia/Blood Transfusion Reactions: No Reported Reaction Past Psychological History: Anxiety Smoking Status: Former smoker Past Alcohol Use History: None Reported Past Drug Use History: None Reported - Past Family History Father Family Medical History: Cancer Additional Family Medical History / Comment(s): at age 68 from lung cancer Mother Family Medical History: Cancer Additional Family Medical History / Comment(s): at age 83 from lung cancer Brother(s) Family Medical History: Cancer Additional Family Medical History / Comment(s): at age 63 from lung cancer. Son(s) Additional Family Medical History / Comment(s): She has 2 sons with no major medical problems. General Exam Limitations: no limitations General appearance: alert, in no apparent distress Head exam: Present: atraumatic, normocephalic, normal inspection Eye exam: Present: normal appearance, PERRL, EOMI. Absent: scleral icterus, conjunctival injection, periorbital swelling ENT exam: Present: normal exam, mucous membranes moist Neck exam: Present: normal inspection. Absent: tenderness, meningismus, lymphadenopathy Respiratory exam: Present: normal lung sounds bilaterally. Absent: respiratory distress, wheezes, rales, rhonchi, stridor Cardiovascular Exam: Present: regular rate, normal rhythm, normal heart sounds. Absent: systolic murmur, diastolic murmur, rubs, gallop, clicks GI/Abdominal exam: Present: soft, normal bowel sounds. Absent: distended, tenderness, guarding, rebound, rigid Extremities exam: Present: normal inspection, full ROM, normal capillary refill. Absent: tenderness, pedal edema, joint swelling, calf tenderness Back exam: Present: normal inspection Neurological exam: Present: alert, oriented X3, CN II-XII intact Psychiatric exam: Present: normal affect, normal mood Skin exam: Present: warm, dry, intact, normal color. Absent: rash Course Vital Signs 01/03/17 01/03/17 20:24 21:02 Temperature 97.3 F L Pulse Rate 71 Respiratory 20 20 Rate Blood Pressure 135/61 O2 Sat by Pulse 99 Oximetry Medical Decision Making - Medical Decision Making Patient presents with anemia. I have ordered transfusion of 2 units packed red blood cells. I consult the GI. She will be admitted to the hospital. - Lab Data Result diagrams: 01/03/17 20:50 01/03/17 20:50 Lab Results 01/03/17 01/03/17 Range/Units 20:50 20:50 WBC 4.7 (3.8-10.6) k/uL RBC 1.84 L (3.80-5.40) m/uL Hgb 5.4 L* (11.4-16.0) gm/dL Hct 16.6 L* (34.0-46.0) % MCV 90.1 (80.0-100.0) fL MCH 29.2 (25.0-35.0) pg MCHC 32.4 (31.0-37.0) g/dL RDW 17.3 H (11.5-15.5) % Plt Count 100 L D (150-450) k/uL Neutrophils % 65 % Lymphocytes % 25 % Monocytes % 4 % Eosinophils % 2 % Basophils % 0 % Neutrophils # 3.0 (1.3-7.7) k/uL Lymphocytes # 1.2 (1.0-4.8) k/uL Monocytes # 0.2 (0-1.0) k/uL Eosinophils # 0.1 (0-0.7) k/uL Basophils # 0.0 (0-0.2) k/uL Hypochromasia Slight Anisocytosis Slight Sodium 138 (137-145) mmol/L Potassium 4.3 (3.5-5.1) mmol/L Chloride 110 H (98-107) mmol/L Carbon Dioxide 20 L (22-30) mmol/L Anion Gap 8 mmol/L BUN 28 H (7-17) mg/dL Creatinine 1.20 H (0.52-1.04) mg/dL Est GFR (MDRD) Af Amer 53 (>60 ml/min/1.73 sqM) Est GFR (MDRD) Non-Af 44 (>60 ml/min/1.73 sqM) Glucose 85 (74-99) mg/dL Calcium 9.2 (8.4-10.2) mg/dL Magnesium 2.0 (1.6-2.3) mg/dL Iron 141 (37-170) ug/dL TIBC 365 (265-497) ug/dL % Saturation 38.6 (20-50) % Total Bilirubin <0.1 L (0.2-1.3) mg/dL AST 26 (14-36) U/L ALT 39 (9-52) U/L Alkaline Phosphatase 101 (38-126) U/L Total Protein 5.4 L (6.3-8.2) g/dL Albumin 3.1 L (3.5-5.0) g/dL Disposition Clinical Impression: Acute GI bleeding Disposition: ADMITTED IP TO THIS [facility] Condition: Serious Referrals: Gregg Kumar MD [Primary Care Provider] - 1-2 days Time of Disposition: 22:10
[2017-01-03] MEDS ORDERED: MAGNESIUM HYDROXIDE 2,400 MG/10 ML CUP PO PRN (22:12)
[2017-01-03] MEDS ORDERED: BISACODYL 10 MG SUPP RECTAL PRN (22:12)
[2017-01-03] MEDS ORDERED: IPRATROPIUM-ALBUTEROL 3 ML NEB INHALATION PRN (22:12)
[2017-01-03] MEDS ORDERED: BENZONATATE 100 MG CAP PO PRN (22:12)
[2017-01-03 22:18] LABS: INR 0.9 (<1.1); Prothrombin Time 9.6 sec (9.0-12.0)
[2017-01-03 22:44] LABS: Partial Thromboplastin Time 17.7 sec (22.0-30.0)
[2017-01-03 23:39] LABS: Reticulocyte % 3.9 % (0.5-2.0)
[2017-01-04] MEDS ORDERED: ZOLPIDEM 10 MG TAB PO ONE (00:22)
[2017-01-04] MEDS: SODIUM CHLORIDE 0.9% 1,000 ML IV SCH ×2 (00:57→20:07)
[2017-01-04] MEDS: PANTOPRAZOLE 40 MG TABLET PO SCH ×2 (06:42→17:19)
[2017-01-04] MEDS: SUCRALFATE 1 GM TAB PO SCH ×3 (06:43→17:19)
[2017-01-04] MEDS ORDERED: DICYCLOMINE 10 MG CAP PO SCH (08:00)
[2017-01-04 08:06] LABS: Anisocytosis Slight; CH 29.1; HCT 28.7 % (34.0-46.0); HDW 3.29; Hypochromasia Slight; MCH 28.6 pg (25.0-35.0); MCHC 32.2 g/dL (31.0-37.0); MCV 88.8 fL (80.0-100.0); Mean Platelet Volume 7.2; RBC 3.23 m/uL (3.80-5.40); RDW 16.6 % (11.5-15.5); WBC 9.5 k/uL (3.8-10.6)
[2017-01-04 08:16] LABS: HGB 9.2 gm/dL (11.4-16.0)
[2017-01-04] MEDS: LEVOTHYROXINE 75 MCG TAB PO SCH (08:39)
[2017-01-04] MEDS: FERROUS SULFATE 325 MG TAB PO SCH ×2 (08:39→17:20)
[2017-01-04] MEDS: ATENOLOL 50 MG TAB PO SCH (08:39)
[2017-01-04] MEDS: hydrALAZINE HCL 25 MG TAB PO SCH (08:40)
[2017-01-04] MEDS: ATORVASTATIN 20 MG TAB PO SCH (08:40)
[2017-01-04] MEDS: CALCIUM CARBONATE 500 MG CHEWABLE PO SCH (08:40)
[2017-01-04] MEDS: CITALOPRAM HYDROBROMIDE 20 MG TAB PO SCH (08:40)
[2017-01-04] MEDS: CHOLECALCIFEROL 1,000 UNIT TAB PO SCH (08:40)
[2017-01-04] MEDS: ALPRAZolam 0.25 MG TAB PO PRN ×2 (08:52→20:27)
[2017-01-04] MEDS ORDERED: BISACODYL 5 MG TABLET.DR PO STA (09:52)
--- NOTE | 2017-01-04 09:56 | P.CONS ---
History of Present Illness - Reason for Consult Consult date: 01/04/17 GI bleed Requesting physician: Samara Cam - History of Present Illness 76-year-old female with a history of atrial fibrillation, abdominal aortic aneurysm, remote peptic ulcer disease, hiatal hernia, asthma, heart failure, COPD and bronchiectasis/pulmonary fibrosis, RA, hypertension, and hyperlipidemia. Presents with concerns of possible GI bleed with low hemoglobin and shortness of breath. Recent hospitalization Dec 22 2016 for upper GI bleeding hematemesis symptomatic iron deficiency anemia shortness of breath. At that time she was on Eliquis for atrial fibrillation maintenance since discontinued. Hemoglobin dropped from 8.6 to 5.4 received 2 units of blood and discharge hemoglobin was 7.5. EGD performed 12/23/[address] Tobar with findings of moderate size hiatal hernia with gastritis and evidence of recent bleeding in the proximal stomach at the level of the diaphragmatic impression with no active bleeding at time of the exam. Last colonoscopy several years ago. Evaluated in the emergency room on 12/31/2016 with concerns of low hemoglobin as well as fatigue and mild shortness of breath hemoglobin was 6.5 repeated 6.8 ; she was discharged back to [facility]. Return to the emergency room yesterday with same complaints. Hemoglobin 6.6 decreased to 5.4. Received 2 units of blood. MCV 90. Platelet 363 decreased to 100,000. Reticulocyte count 3.9. BUN 27. Creatinine 1.7. INR 0.9. Denies overt bleeding such as hematemesis hematochezia melena. Denies abdominal pain. Afebrile. Bowel movement this morning that looked more brown in color. Review of Systems Constitutional: Denies fever, chills, sweats, weight gain, or loss. HEENT: Negative for migraines, blurred vision or loss, earaches, drainage, tinnitus, oral mucosal lesions, dysphagia, or odynophagia. CARDIAC: Atrial fibrillation. Hypertension. CHF. Hyperlipidemia. Negative for chest pain, arrhythmias, or palpitation. RESPIRATORY: Negative for shortness of breath, hemoptysis, cough, or sputum production. GI: See HPI for pertinent findings. : Negative for hematuria, urgency, frequency, polyuria, or dysuria. GYNc: Negative vaginal discharge. MUSCULOSKELETAL: Rheumatoid arthritis. Osteoarthritis. Negative for muscle aches, swelling, arthritis, and arthralgias. NEUROLOGIC: Negative for stroke or TIA. ENDOCRINE: Negative for thyroid problems. SKIN: Negative for rash or itching. PSYCHIATRIC: History of anxiety. Denies depression. All systems: negative (See HPI) Past Medical History Past Medical History: Atrial Fibrillation, Asthma, Heart Failure, COPD, GERD/ Reflux, GI Bleed, Hyperlipidemia, Hypertension, Osteoarthritis (OA), Rheumatoid Arthritis (RA), Sleep Apnea/CPAP/BIPAP, Thyroid Disorder Additional Past Medical History / Comment(s): lung disease, anemia, EGD-ulcer found. History of Any Multi-Drug Resistant Organisms: None Reported Additional Past Surgical History / Comment(s): rt knee replacement, AAA repair Past Anesthesia/Blood Transfusion Reactions: No Reported Reaction Past Psychological History: Anxiety Smoking Status: Former smoker Past Alcohol Use History: None Reported Past Drug Use History: None Reported - Past Family History Father Family Medical History: Cancer Additional Family Medical History / Comment(s): at age 68 from lung cancer Mother Family Medical History: Cancer Additional Family Medical History / Comment(s): at age 83 from lung cancer Brother(s) Family Medical History: Cancer Additional Family Medical History / Comment(s): at age 63 from lung cancer. Son(s) Additional Family Medical History / Comment(s): She has 2 sons with no major medical problems. Medications and Allergies Home Medications Medication Instructions Recorded Confirmed Type Acetaminophen Tab [Tylenol] 650 mg PO Q6H PRN 12/22/16 01/03/17 History Atenolol 100 mg PO QAM 12/22/16 01/03/17 History Atorvastatin [Lipitor] 20 mg PO QAM 12/22/16 01/03/17 History Benzonatate [Tessalon Perles] 100 mg PO TID PRN 12/22/16 01/03/17 History Brinzolamide/Brimonidine Tart 1 drop BOTH EYES QAM 12/22/16 01/03/17 History [Simbrinza 1%-0.2% Eye Drops] Cholecalciferol [Vitamin D3] 1,000 unit PO DAILY 12/22/16 01/03/17 History Citalopram Hydrobromide [CeleXA] 40 mg PO QAM 12/22/16 01/03/17 History Dicyclomine [Bentyl] 10 mg PO BID@0800,1700 12/22/16 01/03/17 History Fluocinolone Body Oil 1 applic TOPICAL HS PRN 12/22/16 01/03/17 History Folic Acid 1 mg PO SUMOTUTHFRSA@0800,17 12/22/16 01/03/17 History Levothyroxine Sodium [Synthroid] 75 mcg PO QAM 12/22/16 01/03/17 History Methotrexate Sodium [Methotrexate] 10 mg PO WE 12/22/16 01/03/17 History Pantoprazole Sodium [Protonix] 40 mg PO BID@0600,1600 12/22/16 01/03/17 History hydrALAZINE HCL [Apresoline] 25 mg PO QAM 12/22/16 01/03/17 History Bisacodyl [Dulcolax] 10 mg RECTAL DAILY PRN 12/31/16 01/03/17 History Ferrous Sulfate [Iron] 325 mg PO BID@0800,1700 12/31/16 01/03/17 History Magnesium Hydroxide [Milk of 2,400 mg PO DAILY PRN 12/31/16 01/03/17 History Magnesia] Na Phos,M-B/Na Phos,Di-Ba [Fleet 133 ml RECTAL DAILY PRN 12/31/16 01/03/17 History Adult] Calcium Carbonate 500 mg PO DAILY 01/03/17 01/03/17 History Sucralfate [Carafate] 1 gm PO TID@0600,1100,1600 01/03/17 01/03/17 History Allergies Allergy/AdvReac Type Severity Reaction Status Date / Time morphine AdvReac Hallucinati Verified 01/03/17 20:40 ons Physical Exam Vitals: Vital Signs Temp Pulse Pulse Resp BP BP Pulse Ox 01/04/17 06:34 97.3 F L 71 16 137/87 95 01/04/17 05:01 96.4 F L 82 17 134/70 100 01/04/17 04:31 96.7 F L 75 16 145/65 98 01/04/17 04:21 97.1 F L 77 17 145/64 97 01/04/17 04:00 97.1 F L 70 16 174/72 98 01/04/17 03:30 97.1 F L 70 17 174/72 98 01/04/17 01:32 96.7 F L 77 17 137/62 98 01/04/17 01:02 96.6 F L 71 17 124/76 100 01/04/17 00:52 96.7 F L 74 18 141/67 100 01/04/17 00:00 97.0 F L 67 17 149/67 100 01/03/17 22:32 97.7 F 69 18 169/80 98 01/03/17 21:02 20 01/03/17 20:24 97.3 F L 71 20 135/61 99 Intake and Output 01/03/17 01/04/17 01/04/17 22:59 06:59 14:59 Intake Total 520 Balance 520 Intake: IV 20 Sodium Chloride 0.9% 1, 20 000 ml @ 20 mls/hr IV . Q24H [facility] Rx#:[id number] Blood Product 500 Rc Cpda-1 Unit 250 [id number] Rc Cpda-1 Unit 250 [id number] Other: Voiding Method Toilet # Voids 1 Weight 76.657 kg 78.1 kg General appearance: The patient is alert, oriented, in no acute distress. HET: Head is normocephalic and atraumatic. Pupils are equal and reactive. Oropharynx is clear without lesions. Neck: Supple without lymphadenopathy. Trachea midline. Heart: S1 S2. Regular rate and rhythm. Lungs: No crackles or wheezes are heard. Abdomen: Soft, nontender, nondistended with bowel sounds. No peritoneal signs. No palpable organomegaly or masses. Extremities: Normal skin color and turgor. No cyanosis, rash, ulceration, clubbing, or edema. Radial and pedal pulses are 2/4 bilaterally. Neurological: No focal deficits. Strength and sensation are grossly intact. Results CBC & Chem 7: 01/04/17 07:14 01/03/17 20:50 Labs: Abnormal Lab Results - Last 24 Hours (Table) 01/03/17 01/03/17 01/03/17 Range/Units 20:50 20:50 20:50 RBC 1.84 L (3.80-5.40) m/uL Hgb 5.4 L* (11.4-16.0) gm/dL Hct 16.6 L* (34.0-46.0) % RDW 17.3 H (11.5-15.5) % Plt Count 100 L D (150-450) k/uL Retic Count 3.9 H (0.5-2.0) % APTT (22.0-30.0) sec Chloride 110 H (98-107) mmol/L Carbon Dioxide 20 L (22-30) mmol/L BUN 28 H (7-17) mg/dL Creatinine 1.20 H (0.52-1.04) mg/dL Total Bilirubin <0.1 L (0.2-1.3) mg/dL Total Protein 5.4 L (6.3-8.2) g/dL Albumin 3.1 L (3.5-5.0) g/dL Crossmatch See Detail 01/03/17 Range/Units 21:55 RBC (3.80-5.40) m/uL Hgb (11.4-16.0) gm/dL Hct (34.0-46.0) % RDW (11.5-15.5) % Plt Count (150-450) k/uL Retic Count (0.5-2.0) % APTT 17.7 L (22.0-30.0) sec Chloride (98-107) mmol/L Carbon Dioxide (22-30) mmol/L BUN (7-17) mg/dL Creatinine (0.52-1.04) mg/dL Total Bilirubin (0.2-1.3) mg/dL Total Protein (6.3-8.2) g/dL Albumin (3.5-5.0) g/dL Crossmatch Assessment and Plan (1) Symptomatic anemia Narrative/Plan: Iron deficiency Status: Acute (2) Acute blood loss anemia Narrative/Plan: Suspected acute blood loss anemia Status: Acute (3) GI bleed Narrative/Plan: Suspected GI bleed Status: Acute (4) History of esophagogastroduodenoscopy (EGD) Status: Acute Plan: 1. Colonoscopy evaluation possible small bowel capsule endoscopy based on lower endoscopy findings. 2. CBC monitoring. 3. Protonix 40 mg IV twice daily. The wood processing worker has discussed the risks, benefits and alternative therapies for the above-mentioned procedure and for both sedation/analgesia as well as necessary blood product administration, if indicated, as they pertain to this patient. The patient has indicated understanding and acceptance of the risks and procedures discussed. Thank you for this kind referral and the opportunity to participate in the care of your patient. This consultation was discussed with Dr. Serrano. The impression and plan of care have been directed as dictated.
[2017-01-04 10:43] VITALS: BMI 26.2
[2017-01-04] MEDS ORDERED: ALPRAZolam 0.25 MG TAB PO STA (12:18)
--- NOTE | 2017-01-04 13:37 | P.HPIM ---
History of Present Illness H&P Date: 01/04/17 This is a 76 Year-Old female patient of with a previous medical history significant for hypertension and hypertensive cardiovascular disease,hyperlipidemia, RA, paroxysmal atrial fibrillation, obesity with possible SONIDO, hypothyroidism, generalized anxiety and panic attacks. She had a recent hospitalization December 22 through 12/29/2016 which time she was treated for acute exacerbation of COPD with right upper lobe mass and bronchiectasis with fibrotic changes, acute GI bleed with acute blood loss anemia status post 2 units packed RBCs due to use of eliquis and Aleve. She was discharge to [facility]. On December 31 she was sent to the emergency center due to low hemoglobin of 6.8. Repeat hemoglobin was 7.5 and patient was sent back to [facility]. Patient now presents again to the emergency center on January 03 with complaints of lightheadedness and shortness of breath and hemoglobin was 5.4. Patient was transfused 2 units of packed RBCs with repeat hemoglobin of 9. She remains off eliquis. She was admitted to the selective care unit and consult with GI requested. Patient is scheduled for colonoscopy tomorrow with Dr. Ibarra. She is currently on clear liquid diet. Patient states that she has recently lost 10 pounds. She does complain of black stools and mid abdominal pain after eating. She denies any hematuria. She has had no recent emesis the last one was during her previous hospitalization. Review of Systems All systems: negative Constitutional: Reports poor appetite, Reports weakness, Reports weight loss, Denies chills, Denies fever Eyes: denies blurred vision, denies pain Ears, nose, mouth and throat: Denies headache, Denies sore throat Cardiovascular: Reports shortness of breath, Denies chest pain Respiratory: Denies cough, Denies cough with sputum, Denies excessive sputum, Denies hemoptysis, Denies home oxygen Gastrointestinal: Reports abdominal pain, Reports loss of appetite, Reports melena, Denies diarrhea, Denies nausea, Denies vomiting Genitourinary: Denies dysuria, Denies hematuria Musculoskeletal: Denies myalgias Integumentary: Denies pruritus, Denies rash Neurological: Denies numbness, Denies weakness Psychiatric: Denies anxiety, Denies depression Endocrine: Denies fatigue, Denies weight change Past Medical History Past Medical History: Atrial Fibrillation, Asthma, Heart Failure, COPD, GERD/ Reflux, GI Bleed, Hyperlipidemia, Hypertension, Osteoarthritis (OA), Rheumatoid Arthritis (RA), Sleep Apnea/CPAP/BIPAP, Thyroid Disorder Additional Past Medical History / Comment(s): lung disease, anemia, EGD-ulcer found. History of Any Multi-Drug Resistant Organisms: None Reported Additional Past Surgical History / Comment(s): rt knee replacement, AAA repair Past Anesthesia/Blood Transfusion Reactions: No Reported Reaction Past Psychological History: Anxiety Smoking Status: Former smoker Past Alcohol Use History: None Reported Past Drug Use History: None Reported - Past Family History Father Family Medical History: Cancer Additional Family Medical History / Comment(s): at age 68 from lung cancer Mother Family Medical History: Cancer Additional Family Medical History / Comment(s): at age 83 from lung cancer Brother(s) Family Medical History: Cancer Additional Family Medical History / Comment(s): at age 63 from lung cancer. Son(s) Additional Family Medical History / Comment(s): She has 2 sons with no major medical problems. Medications and Allergies Home Medications Medication Instructions Recorded Confirmed Type Acetaminophen Tab [Tylenol] 650 mg PO Q6H PRN 12/22/16 01/03/17 History Atenolol 100 mg PO QAM 12/22/16 01/03/17 History Atorvastatin [Lipitor] 20 mg PO QAM 12/22/16 01/03/17 History Benzonatate [Tessalon Perles] 100 mg PO TID PRN 12/22/16 01/03/17 History Brinzolamide/Brimonidine Tart 1 drop BOTH EYES QAM 12/22/16 01/03/17 History [Simbrinza 1%-0.2% Eye Drops] Cholecalciferol [Vitamin D3] 1,000 unit PO DAILY 12/22/16 01/03/17 History Citalopram Hydrobromide [CeleXA] 40 mg PO QAM 12/22/16 01/03/17 History Dicyclomine [Bentyl] 10 mg PO BID@0800,1700 12/22/16 01/03/17 History Fluocinolone Body Oil 1 applic TOPICAL HS PRN 12/22/16 01/03/17 History Folic Acid 1 mg PO SUMOTUTHFRSA@0800,17 12/22/16 01/03/17 History Levothyroxine Sodium [Synthroid] 75 mcg PO QAM 12/22/16 01/03/17 History Methotrexate Sodium [Methotrexate] 10 mg PO WE 12/22/16 01/03/17 History Pantoprazole Sodium [Protonix] 40 mg PO BID@0600,1600 12/22/16 01/03/17 History hydrALAZINE HCL [Apresoline] 25 mg PO QAM 12/22/16 01/03/17 History Bisacodyl [Dulcolax] 10 mg RECTAL DAILY PRN 12/31/16 01/03/17 History Ferrous Sulfate [Iron] 325 mg PO BID@0800,1700 12/31/16 01/03/17 History Magnesium Hydroxide [Milk of 2,400 mg PO DAILY PRN 12/31/16 01/03/17 History Magnesia] Na Phos,M-B/Na Phos,Di-Ba [Fleet 133 ml RECTAL DAILY PRN 12/31/16 01/03/17 History Adult] Calcium Carbonate 500 mg PO DAILY 01/03/17 01/03/17 History Sucralfate [Carafate] 1 gm PO TID@0600,1100,1600 01/03/17 01/03/17 History Allergies Allergy/AdvReac Type Severity Reaction Status Date / Time morphine AdvReac Hallucinati Verified 01/03/17 20:40 ons Physical Exam Vitals: Vital Signs Temp Pulse Pulse Resp BP BP Pulse Ox 01/04/17 08:32 18 01/04/17 08:31 97.3 F L 73 18 146/67 99 01/04/17 06:34 97.3 F L 71 16 137/87 95 01/04/17 05:01 96.4 F L 82 17 134/70 100 01/04/17 04:31 96.7 F L 75 16 145/65 98 01/04/17 04:21 97.1 F L 77 17 145/64 97 01/04/17 04:00 97.1 F L 70 16 174/72 98 01/04/17 03:30 97.1 F L 70 17 174/72 98 01/04/17 01:32 96.7 F L 77 17 137/62 98 01/04/17 01:02 96.6 F L 71 17 124/76 100 01/04/17 00:52 96.7 F L 74 18 141/67 100 01/04/17 00:00 97.0 F L 67 17 149/67 100 01/03/17 22:32 97.7 F 69 18 169/80 98 01/03/17 21:02 20 01/03/17 20:24 97.3 F L 71 20 135/61 99 Intake and Output 01/03/17 01/04/17 01/04/17 22:59 06:59 14:59 Intake Total 520 0 Balance 520 0 Intake: IV 20 0 Sodium Chloride 0.9% 1, 20 0 000 ml @ 20 mls/hr IV . Q24H [facility] Rx#:[id number] Blood Product 500 Rc Cpda-1 Unit 250 [id number] Rc Cpda-1 Unit 250 [id number] Other: Voiding Method Toilet Toilet # Voids 1 Weight 76.657 kg 78.1 kg General appearance: obese - EENT Eyes: anicteric sclerae, EOMI, PERRLA, no ptosis, normal appearance ENT: hearing grossly normal, NA/AT, normal oropharynx, no thrush Ears: bilateral: normal - Neck Neck: no lymphadenopathy, normal ROM, no rigidity, no stridor, no thyromegaly Carotids: bilateral: upstroke normal Thyroid: negative: normal size - Respiratory Respiratory: bilateral: diminished, prolonged expiration, negative: dullness, rales, rhonchi, wheezing - Cardiovascular Rhythm: irregularly irregular Heart sounds: normal: S1, S2 - Gastrointestinal General gastrointestinal: normal bowel sounds, soft, no tenderness, no umbilical hernia, no ventral hernia - Integumentary Integumentary: normal, normal turgor - Neurologic Neurologic: CNII-XII intact - Musculoskeletal Musculoskeletal: generalized weakness, strength equal bilaterally - Psychiatric Psychiatric: A&O x's 3, appropriate affect, intact judgment & insight Results CBC & Chem 7: 01/04/17 07:14 01/03/17 20:50 Labs: Abnormal Lab Results - Last 24 Hours (Table) 01/03/17 01/03/17 01/03/17 Range/Units 20:50 20:50 20:50 RBC 1.84 L (3.80-5.40) m/uL Hgb 5.4 L* (11.4-16.0) gm/dL Hct 16.6 L* (34.0-46.0) % RDW 17.3 H (11.5-15.5) % Plt Count 100 L D (150-450) k/uL Retic Count 3.9 H (0.5-2.0) % APTT (22.0-30.0) sec Chloride 110 H (98-107) mmol/L Carbon Dioxide 20 L (22-30) mmol/L BUN 28 H (7-17) mg/dL Creatinine 1.20 H (0.52-1.04) mg/dL Total Bilirubin <0.1 L (0.2-1.3) mg/dL Total Protein 5.4 L (6.3-8.2) g/dL Albumin 3.1 L (3.5-5.0) g/dL Crossmatch See Detail 01/03/17 01/04/17 Range/Units 21:55 07:14 RBC 3.23 L (3.80-5.40) m/uL Hgb 9.2 L D (11.4-16.0) gm/dL Hct 28.7 L (34.0-46.0) % RDW 16.6 H (11.5-15.5) % Plt Count (150-450) k/uL Retic Count (0.5-2.0) % APTT 17.7 L (22.0-30.0) sec Chloride (98-107) mmol/L Carbon Dioxide (22-30) mmol/L BUN (7-17) mg/dL Creatinine (0.52-1.04) mg/dL Total Bilirubin (0.2-1.3) mg/dL Total Protein (6.3-8.2) g/dL Albumin (3.5-5.0) g/dL Crossmatch Thrombosis Risk Factor Assmnt - DVT/VTE Prophylaxis DVT/VTE Prophylaxis: Mechanical Prophylaxis ordered - Choose All That Apply Any of the Below Risk Factors Present?: Yes Each Factor Represents 1 point: Abnormal pulmonary function (COPD), Obesity ( BMI >25) Each Risk Factor Represents 3 Points: Age 75 years or older Thrombosis Risk Factor Assessment Total Risk Factor Score: 5 Thrombosis Risk Factor Assessment Level: High Risk Assessment and Plan Plan: 1. Acute GI bleed and acute blood loss anemia status post transfusion of 2 units packed RBCs. Patient's been seen by GI with plan for colonoscopy tomorrow with Dr. Ibarra. Continue to monitor hemoglobin. Eliquis remains on hold. 2. Hypertension and hypertensive cardiovascular disease. Continue Atenolol 100 mg orally daily and Hydralazine 25 mg orally daily. 3. Hyperlipidemia. Continue Lipitor 20 mg orally daily. 4. Rheumatoid arthritis. MTX 10 mg orally once q Tue. 5. Paroxysmal Atrial Fibrillation. Continue Atenolol 100 mg orally daily and Eliquis is on hold 6. Obesity with possible SONIDO and OGS will need sleep study as an outpatient if not done already. 7. Hypothyroidism. Continue synthroid 75 mcg orally daily. 8. Generalized anxiety disorder with panic attacks. Continue XAnax as needed. 9. Depression, recurrent. Continue Citalopram 10 mg orally daily. 10. DVT prophylaxis. PHILIP hose and SCDs. 11. GI prophylaxis. will continue with Protonix 40 mg orally BID. 12. Admit to inpatient. estimated length of stay 2 midnights. 13. Full code. Discharge plan: Return to [facility] Impression and plan of care have been directed as dictated by the signing physician. Marina Cervantes nurse practitioner acting as scribe for signing physician.
[2017-01-04] MEDS ORDERED: PEG 3350-NA SULF,BICARB,CL/KCL 4,000 ML BOTTLE PO ONE (15:00)
[2017-01-04] MEDS: FOLIC ACID 1 MG TAB PO SCH (18:43)
[2017-01-04] MEDS: LACTATED RINGERS 1,000 ML IV SCH (20:24)
[2017-01-04] MEDS: ZOLPIDEM 10 MG TAB PO SCH (22:33)
[2017-01-05] MEDS: PANTOPRAZOLE 40 MG TABLET PO SCH ×2 (05:52→16:24)
[2017-01-05] MEDS: SUCRALFATE 1 GM TAB PO SCH ×3 (05:52→16:24)
[2017-01-05] MEDS: LEVOTHYROXINE 75 MCG TAB PO SCH (05:52)
[2017-01-05] MEDS: hydrALAZINE HCL 25 MG TAB PO SCH (07:40)
[2017-01-05] MEDS: ATENOLOL 50 MG TAB PO SCH (07:40)
[2017-01-05 09:05] LABS: Anisocytosis Slight; CH 29.1; CHCM 33.3; HCT 31.1 % (34.0-46.0); HDW 3.58; Hypochromasia Slight; MCH 28.5 pg (25.0-35.0); MCHC 32.3 g/dL (31.0-37.0); MCV 88.1 fL (80.0-100.0); Mean Platelet Volume 6.8; Poikilocytosis Slight; RBC 3.53 m/uL (3.80-5.40); RDW 16.9 % (11.5-15.5)
[2017-01-05 09:14] LABS: Anion Gap 8 mmol/L; Blood Urea Nitrogen 13 mg/dL (7-17); Calcium 9.5 mg/dL (8.4-10.2); Carbon Dioxide 21 mmol/L (22-30); Chloride 111 mmol/L (98-107); Glucose 81 mg/dL (74-99); Non-African American GFR(MDRD) 57 (>60 ml/min/1.73 sqM); Potassium 4.1 mmol/L (3.5-5.1); Sodium 140 mmol/L (137-145)
[2017-01-05] MEDS ORDERED: SODIUM CHLORIDE 0.9% 1,000 ML IV ONE (09:39)
[2017-01-05] MEDS ORDERED: LIDOCAINE 1% INJ 10MG/ML (20 ML MDV) ONE (09:42)
[2017-01-05] MEDS ORDERED: PROPOFOL 10 MG/ML 20 ML VIAL IV ONE (09:42)
--- NOTE | 2017-01-05 09:55 | P.PCN ---
Date of Procedure: 01/05/17 Preoperative Diagnosis: Postoperative Diagnosis: Procedure(s) Performed: BRIEF HISTORY: Patient is a 76-year-old pleasant white female, scheduled for an elective colonoscopy as a part of evaluation of iron deficiency anemia. She was recently admitted hospital 2 weeks ago with anemia and DrAicha schreiber and had an upper endoscopy done by Dr. Tobar that showed evidence of moderate size hiatal hernia, gastritis and duodenitis. She was admitted back again with a low hemoglobin of 5.4 requiring 2 units of blood transfusion. She is hence scheduled for colonoscopy to evaluate further. PROCEDURE PERFORMED: Colonoscopy with snare polypectomy. PREOPERATIVE DIAGNOSIS: Severe symptomatic anemia and recent negative upper endoscopy. IV sedation per Anesthesia. PROCEDURE: After informed consent was obtained, the patient, was brought into the endoscopy unit. IV sedation was administered by Anesthesia under continuous monitoring. Digital rectal examination was normal. Initially the Olympus CF- 160 flexible video colonoscope was then inserted in the rectum, gradually advanced into the cecum without any difficulty. Careful examination was performed as the scope was gradually being withdrawn. Ileocecal valve and the appendiceal orifice were visualized and appeared normal. Prep was excellent. Mucosa of the cecum, ascending colon, transverse colon, descending colon, sigmoid colon, and rectum appeared normal. In the mid rectum there was a 1 cm polyp that was removed by snare polypectomy. Scattered sigmoid diverticulosis seen. Retroflexion was performed in the rectum and no lesions were seen. The patient tolerated the procedure well. IMPRESSION: 1 cm mid rectal polyp status post polypectomy Scattered sigmoid diverticulosis RECOMMENDATIONS: Findings of this examination were discussed with the patient as well as a family. She was advised to follow with the biopsy results. She will be scheduled for a small bowel capsule endoscopy to evaluate for symptomatic anemia.. Implants: Indications for Procedure: Operative Findings: Description of Procedure:
[2017-01-05] MEDS ORDERED: SIMETHICONE 40 MG/0.6 ML DROPS 2,000 MG/30 ML BOTTLE PO ONE (11:33)
[2017-01-05] MEDS ORDERED: METHOTREXATE SODIUM 2.5 MG TAB PO SCH (12:00)
[2017-01-05] MEDS: BRIMONIDINE TARTRATE 0.2% DROPS 5 ML BTL BOTH EYES SCH (12:21)
[2017-01-05] MEDS: DORZOLAMIDE HCL 2% DROPS 10 ML BTL BOTH EYES SCH (12:22)
[2017-01-05] MEDS ORDERED: DARBEPOETIN ALFA 40 MCG/0.4 ML SYRINGE SQ SCH (13:00)
[2017-01-05] MEDS: CHOLECALCIFEROL 1,000 UNIT TAB PO SCH (14:17)
[2017-01-05] MEDS: CITALOPRAM HYDROBROMIDE 20 MG TAB PO SCH (14:17)
[2017-01-05] MEDS: ATORVASTATIN 20 MG TAB PO SCH (14:17)
[2017-01-05] MEDS: CALCIUM CARBONATE 500 MG CHEWABLE PO SCH (14:17)
[2017-01-05] MEDS: FERROUS SULFATE 325 MG TAB PO SCH ×2 (14:17→16:24)
--- NOTE | 2017-01-05 14:17 | P.PN ---
Subjective This is a 76 Year-Old female patient of with a previous medical history significant for hypertension and hypertensive cardiovascular disease,hyperlipidemia, RA, paroxysmal atrial fibrillation, obesity with possible SONIDO, hypothyroidism, generalized anxiety and panic attacks. She had a recent hospitalization December 22 through 12/29/2016 which time she was treated for acute exacerbation of COPD with right upper lobe mass and bronchiectasis with fibrotic changes, acute GI bleed with acute blood loss anemia status post 2 units packed RBCs due to use of eliquis and Aleve. She was discharge to [facility]. On December 31 she was sent to the emergency center due to low hemoglobin of 6.8. Repeat hemoglobin was 7.5 and patient was sent back to [facility]. Patient now presents again to the emergency center on January 03 with complaints of lightheadedness and shortness of breath and hemoglobin was 5.4. Patient was transfused 2 units of packed RBCs with repeat hemoglobin of 9. She remains off eliquis. She was admitted to the selective care unit and consult with GI requested. Patient is scheduled for colonoscopy tomorrow with Dr. Ibarra. She is currently on clear liquid diet. Patient states that she has recently lost 10 pounds. She does complain of black stools and mid abdominal pain after eating. She denies any hematuria. She has had no recent emesis the last one was during her previous hospitalization. 01/05: Patient underwent colonoscopy and snare polypectomy with Dr. Chel Serrano. There was scattered sigmoid diverticulosis. Patient will be scheduled for small bowel capsule endoscopy. Repeat hemoglobin is 10.0. Benjie started. Patient does state that she is to be on Protonix. Objective - Vital Signs Vital signs: Vital Signs Temp 97.0 F L 01/05/17 10:09 Pulse 62 01/05/17 10:09 Resp 16 01/05/17 10:09 BP 153/75 01/05/17 10:09 Pulse Ox 99 01/05/17 10:09 Intake & Output 01/04/17 01/05/17 01/05/17 18:59 06:59 18:59 Intake Total 0 200 Balance 0 200 Weight 78.1 kg Intake: IV 0 200 Sodium Chloride 0.9% 1, 0 000 ml @ 20 mls/hr IV . Q24H [facility] Rx#:[id number] Other: Voiding Method Toilet # Voids 2 # Bowel Movements 5 - Exam General appearance: obese - EENT Eyes: anicteric sclerae, EOMI, PERRLA, no ptosis, normal appearance ENT: hearing grossly normal, NA/AT, normal oropharynx, no thrush Ears: bilateral: normal - Neck Neck: no lymphadenopathy, normal ROM, no rigidity, no stridor, no thyromegaly Carotids: bilateral: upstroke normal Thyroid: negative: normal size - Respiratory Respiratory: bilateral: diminished, prolonged expiration, negative: dullness, rales, rhonchi, wheezing - Cardiovascular Rhythm: irregularly irregular Heart sounds: normal: S1, S2 - Gastrointestinal General gastrointestinal: normal bowel sounds, soft, no tenderness, no umbilical hernia, no ventral hernia - Integumentary Integumentary: normal, normal turgor - Neurologic Neurologic: CNII-XII intact - Musculoskeletal Musculoskeletal: generalized weakness, strength equal bilaterally - Psychiatric Psychiatric: A&O x's 3, appropriate affect, intact judgment & insight - Labs CBC & Chem 7: 01/05/17 08:29 01/05/17 08:29 Labs: Abnormal Lab Results - Last 24 Hours (Table) 01/05/17 01/05/17 Range/Units 08:29 08:29 RBC 3.53 L (3.80-5.40) m/uL Hgb 10.0 L (11.4-16.0) gm/dL Hct 31.1 L (34.0-46.0) % RDW 16.9 H (11.5-15.5) % Chloride 111 H (98-107) mmol/L Carbon Dioxide 21 L (22-30) mmol/L Assessment and Plan Plan: 1. Acute GI bleed and acute blood loss anemia status post transfusion of 2 units packed RBCs. Patient's been seen by GI status post colonoscopy with Dr. Serrano. Continue to monitor hemoglobin. Eliquis remains on hold. Small bowel capsule endoscopy. 2. Hypertension and hypertensive cardiovascular disease. Continue Atenolol 100 mg orally daily and Hydralazine 25 mg orally daily. 3. Hyperlipidemia. Continue Lipitor 20 mg orally daily. 4. Rheumatoid arthritis. MTX 10 mg orally once q Tue. 5. Paroxysmal Atrial Fibrillation. Continue Atenolol 100 mg orally daily and Eliquis is on hold 6. Obesity with possible SONIDO and OGS will need sleep study as an outpatient if not done already. 7. Hypothyroidism. Continue synthroid 75 mcg orally daily. 8. Generalized anxiety disorder with panic attacks. Continue XAnax as needed. 9. Depression, recurrent. Continue Citalopram 10 mg orally daily. 10. DVT prophylaxis. PHILIP coleman and SCDs. 11. GI prophylaxis. will continue with Protonix 40 mg orally BID. 12. Admit to inpatient. estimated length of stay 2 midnights. 13. Full code. Discharge plan: Return to [facility] Impression and plan of care have been directed as dictated by the signing physician. Marina Cervantes nurse practitioner acting as scribe for signing physician.
[2017-01-05] MEDS: LACTATED RINGERS 1,000 ML IV SCH (18:23)
[2017-01-05] MEDS: ALPRAZolam 0.25 MG TAB PO PRN (20:43)
[2017-01-05] MEDS: ZOLPIDEM 10 MG TAB PO SCH (21:31)
[2017-01-05] MEDS: SODIUM CHLORIDE 0.9% 1,000 ML IV SCH (21:32)
[2017-01-06] MEDS: SUCRALFATE 1 GM TAB PO SCH ×2 (06:02→10:39)
[2017-01-06] MEDS: LEVOTHYROXINE 75 MCG TAB PO SCH (06:03)
[2017-01-06] MEDS: PANTOPRAZOLE 40 MG TABLET PO SCH (06:03)
[2017-01-06 07:44] VITALS: BP 162/88; PULSE 64; RESP 16; TEMP 97.4
[2017-01-06 08:53] LABS: Anisocytosis Slight; CH 28.7; CHCM 31.2; HCT 32.3 % (34.0-46.0); HDW 3.14; HGB 10.1 gm/dL (11.4-16.0); Hypochromasia Moderate; MCH 28.8 pg (25.0-35.0); MCHC 31.1 g/dL (31.0-37.0); MCV 92.6 fL (80.0-100.0); Mean Platelet Volume 7.1; RBC 3.49 m/uL (3.80-5.40); RDW 16.6 % (11.5-15.5); WBC 8.2 k/uL (3.8-10.6)
[2017-01-06] MEDS: CALCIUM CARBONATE 500 MG CHEWABLE PO SCH (08:55)
[2017-01-06] MEDS: ATENOLOL 50 MG TAB PO SCH (08:56)
[2017-01-06] MEDS: ALPRAZolam 0.25 MG TAB PO PRN ×2 (08:56→14:08)
[2017-01-06] MEDS: FERROUS SULFATE 325 MG TAB PO SCH (08:57)
[2017-01-06] MEDS: FOLIC ACID 1 MG TAB PO SCH (08:57)
[2017-01-06] MEDS: hydrALAZINE HCL 25 MG TAB PO SCH (08:57)
[2017-01-06] MEDS: CITALOPRAM HYDROBROMIDE 20 MG TAB PO SCH (08:57)
[2017-01-06] MEDS: BRIMONIDINE TARTRATE 0.2% DROPS 5 ML BTL BOTH EYES SCH (08:58)
[2017-01-06] MEDS: CHOLECALCIFEROL 1,000 UNIT TAB PO SCH (08:58)
[2017-01-06] MEDS: ATORVASTATIN 20 MG TAB PO SCH (08:58)
[2017-01-06] MEDS: DORZOLAMIDE HCL 2% DROPS 10 ML BTL BOTH EYES SCH (08:59)
--- NOTE | 2017-01-06 11:30 | P.PN ---
Subjective Principal diagnosis: Anemia Status post colonoscopy yesterday for evaluation of anemia 1 cm mid rectal polyp status post polypectomy was scattered sigmoid diverticulosis. Small bowel capsule endoscopy completed yesterday. Preliminary capsule read this morning; no evidence of bleeding seen. Feels well. Denies hematemesis hematochezia or melena. Tolerating liquid diet requesting advancement. Afebrile. Hemoglobin 10.1. Objective - Vital Signs Vital signs: Vital Signs Temp 97.4 F L 01/06/17 07:00 Pulse 64 01/06/17 07:00 Resp 16 01/06/17 07:00 BP 162/88 01/06/17 07:00 Pulse Ox 96 01/06/17 07:00 Intake & Output 01/05/17 01/06/17 01/06/17 18:59 06:59 18:59 Intake Total 200 400 Balance 200 400 Weight 71.5 kg Intake: IV 200 Intake, IV Titration 160 Amount Lactated Ringers 1,000 ml 160 @ 20 mls/hr IV .Q24H [facility] Rx#:[id number] Oral 240 Other: # Voids 1 2 1 # Bowel Movements 0 1 - Exam General appearance: The patient is alert, oriented, in no acute distress. HET: Head is normocephalic and atraumatic. Pupils are equal and reactive. Oropharynx is clear without lesions. Neck: Supple without lymphadenopathy. Trachea midline. Heart: S1 S2. Regular rate and rhythm. Lungs: No crackles or wheezes are heard. Abdomen: Soft, nontender, nondistended with bowel sounds. No peritoneal signs. No palpable organomegaly or masses. Extremities: Normal skin color and turgor. No cyanosis, rash, ulceration, clubbing, or edema. Radial and pedal pulses are 2/4 bilaterally. Neurological: No focal deficits. Strength and sensation are grossly intact. - Labs CBC & Chem 7: 01/06/17 08:15 01/05/17 08:29 Labs: Abnormal Lab Results - Last 24 Hours (Table) 01/06/17 Range/Units 08:15 RBC 3.49 L (3.80-5.40) m/uL Hgb 10.1 L (11.4-16.0) gm/dL Hct 32.3 L (34.0-46.0) % RDW 16.6 H (11.5-15.5) % Assessment and Plan (1) GI bleed Narrative/Plan: Etiology unclear possible small bowel pathology resolved prior to capsule endoscopy evaluation. Status post colonoscopy with rectal polypectomy and sigmoid diverticulosis. Possible chronic obscure blood loss from diverticular disease. EGD 2 weeks ago unremarkable. Status: Acute (2) Symptomatic anemia Status: Acute (3) Acute blood loss anemia Status: Acute (4) History of esophagogastroduodenoscopy (EGD) Status: Acute Plan: 1. Agreeable for discharge per medicine to [facility]. 2. Avoid NSAIDs or aspirin antiplatelet medications if possible. 3. Iron supplementation/Procrit. 4. Follow with PCP with repeat CBC within a week close outpatient monitoring. Blood transfusion as necessary. Assessment and plan a care discussed with Dr. Tobar
--- NOTE | 2017-01-06 14:00 | P.DS ---
Providers Date of admission: 01/03/17 22:10 Expected date of discharge: 01/06/17 Attending physician: Samara Cam Consults: 01/03/17 21:28 Consult Physician Routine Consulting Provider: Chapito Tobar Consult Reason/Comments: gi bleed Do you want consulting provider notified?: Yes Primary care physician: Gregg Kumar [facility] Course: This is a 76 Year-Old female patient of with a previous medical history significant for hypertension and hypertensive cardiovascular disease,hyperlipidemia, RA, paroxysmal atrial fibrillation, obesity with possible SONIDO, hypothyroidism, generalized anxiety and panic attacks. She had a recent hospitalization December 22 through 12/29/2016 which time she was treated for acute exacerbation of COPD with right upper lobe mass and bronchiectasis with fibrotic changes, acute GI bleed with acute blood loss anemia status post 2 units packed RBCs due to use of eliquis and Aleve. She was discharge to [facility]. On December 31 she was sent to the emergency center due to low hemoglobin of 6.8. Repeat hemoglobin was 7.5 and patient was sent back to [facility]. Patient now presents again to the emergency center on January 03 with complaints of lightheadedness and shortness of breath and hemoglobin was 5.4. Patient was transfused 2 units of packed RBCs with repeat hemoglobin of 9. She remains off eliquis. She was admitted to the selective care unit and consult with GI requested. Patient is scheduled for colonoscopy tomorrow with Dr. Ibarra. She is currently on clear liquid diet. Patient states that she has recently lost 10 pounds. She does complain of black stools and mid abdominal pain after eating. She denies any hematuria. She has had no recent emesis the last one was during her previous hospitalization. 01/05: Patient underwent colonoscopy and snare polypectomy with Dr. Chel Serrano. There was scattered sigmoid diverticulosis. Patient will be scheduled for small bowel capsule endoscopy. Repeat hemoglobin is 10.0. Aranesp started. Patient does state that she is to be on Protonix. 01/06: Hemoglobin this morning is 10.1. Preliminary report for small bowel capsule endoscopy is negative. Patient will be transferred back to [facility] today in stable condition. Patient will follow up with Dr. Alvarez as an outpatient. CBC twice weekly will be ordered at the longterm. Discharge diagnoses: 1. Acute GI bleed and acute blood loss anemia status post transfusion of 2 units packed RBCs. 2. Hypertension and hypertensive cardiovascular disease. 3. Hyperlipidemia. 4. Rheumatoid arthritis. 5. Paroxysmal Atrial Fibrillation. 6. Obesity with possible SONIDO and OGS will need sleep study as an outpatient if not done already. 7. Hypothyroidism. 8. Generalized anxiety disorder with panic attacks. 9. Depression, recurrent. Discharge plan: Return to [facility] Impression and plan of care have been directed as dictated by the signing physician. Marina Cervantes nurse practitioner acting as scribe for signing physician. Patient Condition at Discharge: Good Plan - Discharge Summary New Discharge Prescriptions: Continue Cholecalciferol [Vitamin D3] 1,000 unit PO DAILY Folic Acid 1 mg PO SUMOTUTHFRSA@0800,17 Methotrexate Sodium [Methotrexate] 10 mg PO WE Brinzolamide/Brimonidine Tart [Simbrinza 1%-0.2% Eye Drops] 1 drop BOTH EYES QAM Acetaminophen Tab [Tylenol] 650 mg PO Q6H PRN PRN Reason: Fever And/ Or Pain hydrALAZINE HCL [Apresoline] 25 mg PO QAM Benzonatate [Tessalon Perles] 100 mg PO TID PRN PRN Reason: Cough Pantoprazole Sodium [Protonix] 40 mg PO BID@0600,1600 Levothyroxine Sodium [Synthroid] 75 mcg PO QAM Citalopram Hydrobromide [CeleXA] 40 mg PO QAM Atorvastatin [Lipitor] 20 mg PO QAM Atenolol 100 mg PO QAM Fluocinolone Body Oil 1 applic TOPICAL HS PRN PRN Reason: Skin Irritation Ipratropium-Albuterol Nebulize [Duoneb 0.5 mg-3 mg/3 ml Soln] 3 ml INHALATION RT-QID PRN neb PRN Reason: Wheezing Bisacodyl [Dulcolax] 10 mg RECTAL DAILY PRN PRN Reason: Constipation Ferrous Sulfate [Iron] 325 mg PO BID@0800,1700 Magnesium Hydroxide [Milk of Magnesia] 2,400 mg PO DAILY PRN PRN Reason: Constipation Na Phos,M-B/Na Phos,Di-Ba [Fleet Adult] 133 ml RECTAL DAILY PRN PRN Reason: Constipation Sucralfate [Carafate] 1 gm PO TID@0600,1100,1600 Calcium Carbonate 500 mg PO DAILY ALPRAZolam [Xanax] 0.25 mg PO TID PRN #90 PRN Reason: Anxiety Zolpidem [Ambien] 10 mg PO HS #30 Changed Dicyclomine [Bentyl] 10 mg PO BID@0800,1700 PRN #0 PRN Reason: Diarrhea Discharge Medication List Acetaminophen Tab [Tylenol] 650 mg PO Q6H PRN 12/22/16 [History] Atenolol 100 mg PO QAM 12/22/16 [History] Atorvastatin [Lipitor] 20 mg PO QAM 12/22/16 [History] Benzonatate [Tessalon Perles] 100 mg PO TID PRN 12/22/16 [History] Brinzolamide/Brimonidine Tart [Simbrinza 1%-0.2% Eye Drops] 1 drop BOTH EYES QA 12/22/16 [History] Cholecalciferol [Vitamin D3] 1,000 unit PO DAILY 12/22/16 [History] Citalopram Hydrobromide [CeleXA] 40 mg PO QAM 12/22/16 [History] Fluocinolone Body Oil 1 applic TOPICAL HS PRN 12/22/16 [History] Folic Acid 1 mg PO SUMOTUTHFRSA@0800,17 12/22/16 [History] Levothyroxine Sodium [Synthroid] 75 mcg PO QAM 12/22/16 [History] Methotrexate Sodium [Methotrexate] 10 mg PO WE 12/22/16 [History] Pantoprazole Sodium [Protonix] 40 mg PO BID@0600,1600 12/22/16 [History] hydrALAZINE HCL [Apresoline] 25 mg PO QAM 12/22/16 [History] Ipratropium-Albuterol Nebulize [Duoneb 0.5 mg-3 mg/3 ml Soln] 3 ml INHALATION RT -QID PRN neb 12/29/16 [Rx] Bisacodyl [Dulcolax] 10 mg RECTAL DAILY PRN 12/31/16 [History] Ferrous Sulfate [Iron] 325 mg PO BID@0800,1700 12/31/16 [History] Magnesium Hydroxide [Milk of Magnesia] 2,400 mg PO DAILY PRN 12/31/16 [History] Na Phos,M-B/Na Phos,Di-Ba [Fleet Adult] 133 ml RECTAL DAILY PRN 12/31/16 [ History] Calcium Carbonate 500 mg PO DAILY 01/03/17 [History] Sucralfate [Carafate] 1 gm PO TID@0600,1100,1600 01/03/17 [History] ALPRAZolam [Xanax] 0.25 mg PO TID PRN #90 01/06/17 [Rx] Dicyclomine [Bentyl] 10 mg PO BID@0800,1700 PRN #0 01/06/17 [Rx] Zolpidem [Ambien] 10 mg PO HS #30 01/06/17 [Rx] Follow up Appointment(s)/Referral(s): Gregg Kumar MD [Primary Care Provider] - 1 Week (After discharge from [facility].) Ramesh Alvarez MD [STAFF PHYSICIAN] - 3 Weeks Candace Serrano MD [STAFF PHYSICIAN] - 2 Weeks Ambulatory/Diagnostic Orders: Complete Blood Count w/diff [LAB.AMB] Location: Determined By Patient Discharge Disposition: TRANSFER TO SNF/ECF
== END 2017-01-06 14:13 | DRG 378 ==
LOC: EC 20:20 → 6SEL 22:10 → 4MS4W 01-04 16:08
PROVIDERS: ADMIT Family Medicine; ATTEND Family Medicine
PROC: 30233N1 Transfusion of Nonautologous Red Blood Cells into Peripheral Vein, Percutaneous Approach (ICD-10-PCS; principal; 2017-01-03)
PROC: 0DBP8ZZ Excision of Rectum, Via Natural or Artificial Opening Endoscopic (ICD-10-PCS; 2017-01-05)
DX: K92.2 Gastrointestinal hemorrhage, unspecified (principal); D62 Acute posthemorrhagic anemia; I11.0 Hypertensive heart disease with heart failure; I50.9 Heart failure, unspecified; J84.10 Pulmonary fibrosis, unspecified; I48.0 Paroxysmal atrial fibrillation; E61.1 Iron deficiency; K62.1 Rectal polyp; E03.9 Hypothyroidism, unspecified; E66.9 Obesity, unspecified; E78.5 Hyperlipidemia, unspecified; F32.9 Major depressive disorder, single episode, unspecified; F41.0 Panic disorder [episodic paroxysmal anxiety]; F41.1 Generalized anxiety disorder; G47.30 Sleep apnea, unspecified; J44.9 Chronic obstructive pulmonary disease, unspecified; K21.9 Gastro-esophageal reflux disease without esophagitis; K29.70 Gastritis, unspecified, without bleeding; K44.9 Diaphragmatic hernia without obstruction or gangrene; K57.30 Diverticulosis of large intestine without perforation or abscess without bleeding; Z96.651 Presence of right artificial knee joint; M06.9 Rheumatoid arthritis, unspecified; Z79.899 Other long term (current) drug therapy; Z86.79 Personal history of other diseases of the circulatory system; Z87.891 Personal history of nicotine dependence; G47.33 Obstructive sleep apnea (adult) (pediatric)
CPT/HCPCS: 36415; 45385; 80048; 80053; 81003; 83540; 83550; 83735; 84484; 85025; 85027; 85045; 85610; 85730; 86850; 86900; 86901; 86920; 88305; 91110; 93005; 99285

== ENCOUNTER → 2017-04-05 | Outpatient (CLI) | payer MEDICARE, OTHER ==
--- NOTE | 2017-04-05 14:54 | CT ---
EXAMINATION TYPE: CT chest wo con DATE OF EXAM: 04/05/2017 COMPARISON: 12/23/2016 HISTORY: nodule CT DLP: 542 mGycm. Automated Exposure Control for Dose Reduction was Utilized. TECHNIQUE: CT scan of the thorax is performed without IV contrast. FINDINGS: LUNGS: Previous described apical densities appear to be related to apical pleural thickening. Additio nal chronic pleural. Thickening noted bilaterally along the chest wall. Underlying COPD noted and the re is evidence of bronchiectasis. Previous surgery involving the breasts is noted. Subsegmental consolidation most typical of atelectas is or scar. There is a pulmonary nodule within the lingular segment of the left upper lobe axial imag e 33 measuring 1.1 cm. Large hiatal hernia noted. Surgical clips in the periaortic region noted and there is severe atrophy of the left kidney. Hypertr ophic and degenerative disc disease noted. Underlying COPD seen. Interlobular septal thickening sugge st a degree of chronic interstitial lung disease. 5 mm nodule right upper lobe stable from previous. Subcarinal lymph node calcifications are seen. Extensive coronary artery calcification. Atherosclerotic change aorta. Chronic appearing endplate def ormity at the lowest level included of the vertebral column likely at the level of L2. IMPRESSION: 1. There is a new 11 mm nodule left upper lobe lingular segment. 2. COPD, pulmonary fibrotic changes and findings suggestive of bronchiectasis. 3. Chronic based pleural thickening bilaterally. Previously described apical lung mass appears more t ypical of apical pleural scarring or pleural thickening. Findings stable. 4. L2 vertebral body partially included which demonstrates a compression deformity of indeterminate a ge but likely chronic. Correlate clinically.
== END | disposition home or self-care (01) ==
LOC: RADCTMAIN 14:13
PROVIDERS: ATTEND Internal Medicine Hematology & Oncology
DX: R91.1 Solitary pulmonary nodule (principal); J44.9 Chronic obstructive pulmonary disease, unspecified; J84.10 Pulmonary fibrosis, unspecified; J92.9 Pleural plaque without asbestos; Z88.5 Allergy status to narcotic agent
CPT/HCPCS: 71250

== ENCOUNTER → 2017-05-04 | Outpatient (CLI) | payer MEDICARE, OTHER ==
--- NOTE | 2017-05-04 16:00 | CT ---
EXAMINATION TYPE: CT foot RT wo/w con DATE OF EXAM: 05/04/2017 COMPARISON: NONE HISTORY: Mass bottom right foot CT DLP: 563.3 mGycm Automated exposure control for dose reduction was used. CONTRAST: Performed without and with IV Contrast, patient injected with 80 mL of Visipaque 320. FINDINGS: Metallic BB is placed at level of palpable abnormality right forefoot along plantar surface. This is at the level of the third metatarsal head at this level there is 2.2 x 1.7 x 1.3 cm soft tissue lesio n on axial image 76 and coronal image 6 extending to the skin surface and inferior margin of the thir d metatarsal head. A similar type lesion is seen at level of fifth metatarsal head extending to skin surface measuring 1.6 x 1.5 x 1.3 cm on axial image 77 and coronal image 33. There is suggestion of p erhaps subtle cortical erosion on sagittal image 9. There is mild ill-defined fluid and fat stranding along plantar surface not focally more prominent surrounding these lesions. Osseous structures are demineralized. There is hammertoe type deformity of second through fifth toes seen. There is joint space loss first interphalangeal joint. There is subluxation or superior displac ement third and fourth metacarpal phalangeal joints with joint space loss. There is joint space loss throughout the toes. Normal sinus tarsi fat is seen. Midfoot and hindfoot structures are fairly well-maintained. IMPRESSION: SOFT TISSUE LESION AT AREA OF PALPABLE ABNORMALITY THIRD METATARSAL HEAD PLANTAR SURFACE WITH SIMILAR LESION NOTED PLANTAR SURFACE AT LEVEL OF FIFTH METATARSAL HEAD. ETIOLOGY UNCERTAIN. DIFFERENTIAL INC LUDES CALLUS, FIBROMATOSIS, AND INFECTIOUS ETIOLOGY. INSTRUCTOR NURSE REFERRAL ADVISED TO FURTHER EVAL UATE.
== END | disposition home or self-care (01) ==
LOC: RADCTMAIN 14:01
PROVIDERS: ATTEND Internal Medicine Hematology & Oncology
DX: M89.8X7 Other specified disorders of bone, ankle and foot (principal); R22.41 Localized swelling, mass and lump, right lower limb
CPT/HCPCS: 82565; 84520; 36415; 73702; Q9967

== ENCOUNTER → 2017-06-01 | Outpatient (CLI) | payer MEDICARE, OTHER ==
--- NOTE | 2017-06-08 13:52 | P.ARTDOP ---
Arterial Doppler LOWER EXTREMITY ARTERIAL DOPPLER: DATE OF SERVICE: 06/01/2017 Reason for study: Bilateral chronic leg pain. Doppler waveforms: Multiphasic bilaterally throughout. Pulse volume recording: Some distal blunting.. Pressure gradients: Minimal gradient at the foot level. Ankle-brachial indices: Greater than 1 bilaterally. Toe pressures: 78 on the right, 71 on the left Impression: Normal study proximally. Decreased toe pressures and waveforms suspicious for vasospastic phenomenon given clinical situation. Distal disease is less likely. Clinical correlation recommended..
== END | disposition home or self-care (01) ==
LOC: RADUSWWP 10:20
PROVIDERS: ATTEND Podiatrist Foot & Ankle Surgery
DX: I73.9 Peripheral vascular disease, unspecified (principal)
CPT/HCPCS: 93923

== ENCOUNTER → 2017-08-16 | Outpatient (CLI) | payer MEDICARE ==
[2017-08-16 12:11] LABS: INR 1.1 (<1.2); Prothrombin Time 10.4 sec (9.0-12.0)
[2017-08-16 12:14] LABS: Potassium 5.1 mmol/L (3.5-5.1); Total Bilirubin 0.6 mg/dL (0.2-1.3)
[2017-08-16 12:15] LABS: HCT 41.1 % (34.0-46.0); HGB 12.4 gm/dL (11.4-16.0); Hypochromasia Slight; MCH 29.4 pg (25.0-35.0); MCHC 30.1 g/dL (31.0-37.0); MCV 97.8 fL (80.0-100.0); Mean Platelet Volume 8.9; Platelet Count 554 k/uL (150-450); RDW 14.2 % (11.5-15.5); WBC 14.4 k/uL (3.8-10.6)
[2017-08-16 13:12] LABS: Appearance,Urine Cloudy (Clear); Bacteria,Urine Few /hpf; Bilirubin,Urine Negative (Negative); Blood,Urine Small (Negative); Color,Urine Yellow; Glucose,Urine (UA) Negative (Negative); Hyaline Casts,Urine 8 /lpf (0-2); Ketones,Urine 1+ (Negative); Leukocyte Esterase,Urine Trace (Negative); Mucus,Urine Rare /hpf; Nitrite,Urine Negative (Negative); PH, Urine 5.5 (5.0-8.0); Protein,Urine Trace (Negative); RBC,Urine 5 /hpf (0-5); Squamous Epithelial Cell,Urine 3 /hpf (0-4); WBC,Urine 3 /hpf (0-5)
== END | disposition home or self-care (01) ==
LOC: LABPAT 10:39
PROVIDERS: ATTEND Orthopaedic Surgery
DX: Z01.812 Encounter for preprocedural laboratory examination (principal); Z01.818 Encounter for other preprocedural examination; Z51.81 Encounter for therapeutic drug level monitoring; Z79.01 Long term (current) use of anticoagulants
CPT/HCPCS: 36415; 80053; 81001; 85027; 85610; 85730; 87070; 93005

== ENCOUNTER 2017-09-05 11:49 | Inpatient (IN) | payer MEDICARE ==
[2017-08-22 16:23] VITALS: BMI 25.0
[~2017-09-05 11:49] MED LIST changes: +ACETAMINOPHEN TAB 500 MG TAB PO ONE; +BISACODYL 10 MG SUPP RECTAL PRN; +DIAZEPAM 5 MG TAB PO PRN; +HYDROcodone/APAP 7.5-325MG 1 EACH TAB PO PRN; +HYDROmorphone 0.5 MG/0.5 ML SYRINGE IVP PRN; +LIDOCAINE 1% 20 ML VIAL (10MG/ML) FOR IV START INTRADERMA PRN; +MAGNESIUM HYDROXIDE 2,400 MG/10 ML CUP PO PRN; +MELOXICAM 7.5 MG TAB PO ONE; -METHOTREXATE SODIUM 2.5 MG TAB PO SCH; +MIDAZOLAM 2 MG/2 ML VIAL IV PRN; +NA PHOS,M-B/NA PHOS,DI-BA 133 ML ENEMA RECTAL PRN; +NALOXONE 0.4 MG/ML 1 ML VIAL IV PRN; +ONDANSETRON 4 MG/2 ML VIAL IVP ONE; +ONDANSETRON 4 MG/2 ML VIAL IVP PRN; +ROPIVACAINE 246.25 MG, EPINEPHrine 0.5 MG, KETOROLAC 30 MG, cloNIDine HCL/PF 80 MCG, WA... MISCELLANE ONE; +TRANEXAMIC ACID 1,000 MG in SODIUM CHLORIDE 0.9% 50 ML IVPB ONE; +ceFAZolin IN SWFI 2 GM/20 ML SYRINGE IVP ONE; +fentaNYL (PF) 50 MCG/ML 20 ML VIAL IVP PRN; +hydrOXYzine PAMOATE 25 MG CAP PO PRN
[2017-09-05] MEDS: LACTATED RINGERS 1,000 ML IV SCH (12:31)
[2017-09-05] MEDS ORDERED: MIDAZOLAM 2 MG/2 ML VIAL IVP ONE (12:50)
[2017-09-05] MEDS ORDERED: MIDAZOLAM 2 MG/2 ML VIAL ONE (13:36)
[2017-09-05] MEDS ORDERED: hydrALAZINE HCL 20 MG/ML 1 ML VIAL ONE (13:36)
[2017-09-05] MEDS ORDERED: PROPOFOL 10 MG/ML 20 ML VIAL IV ONE (13:36)
[2017-09-05] MEDS ORDERED: fentaNYL (PF) 50 MCG/ML 2 ML AMP ONE (13:36)
[2017-09-05] MEDS ORDERED: LACTATED RINGERS 1,000 ML IV ONE ×3 (14:42)
[2017-09-05] MEDS ORDERED: ROPIVACAINE 1,100 MG, SODIUM CHLORIDE 0.9% 330 ML MISCELLANE PRN ×2 (14:53)
--- NOTE | 2017-09-05 15:07 | P.OP ---
Date of Procedure: 09/05/17 Preoperative Diagnosis: Severe osteoarthritis left knee Postoperative Diagnosis: Severe osteoarthritis left knee Procedure(s) Performed: Left total knee arthroplasty Implants: Baldwin and Nephew Oxinium femoral component size 5, left Baldwin & Nephew Kacey II left nonporous tibial baseplate size 5 Baldwin & Nephew size 11 mm Legion XLPE high flexion articular insert, size 5-6 Baldwin & Nephew Kacey II resurfacing patellar component, 32 mm 7.5mm All components were cemented using Anna bone cement.. The articulation is Oxinium on polyethylene. Anesthesia: spinal Surgeon: Ney Plasencia Winder Tender #1: Ninfa Brink Estimated Blood Loss (ml): 50 Pathology: other (Bone and cartilage) Condition: stable Disposition: PACU Indications for Procedure: After failure of conservative treatment we discussed the surgical and nonsurgical treatment options at length. Patient wishes to proceed with a total knee arthroplasty. Complications specific to this procedure were discussed at length, including but not limited to infection, bleeding, stiffness , and nerve injury. Patient is aware of all these complications and informed consent was obtained Operative Findings: The operative findings are consistent with severe osteoarthritis of the left knee Description of Procedure: Patient was seen in the preoperative area consent was reviewed and operative site was marked with a skin marker. An adductor canal pain catheter was placed by anesthesia in the preoperative area. Patient was then brought to the operating room and given preoperative antibiotics intravenously. A spinal anesthetic was administered by the anesthesia department. A tourniquet was placed on the upper thigh and the lower extremity was prepped and draped in usual sterile fashion. A gram of transexamic acid was given. A universal timeout was then performed which confirmed the patient's name, surgical site, ALLERGIES, and consent. The lower extremity was then exsanguinated and tourniquet was inflated to 250 mmHg. A standard and anterior midline approach to the knee was performed. The skin and subcutaneous tissue was dissected down to the patellar tendon. A medial parapatellar arthrotomy was then performed. The knee was then extended, the patellar was everted, and the knee was again flexed. Anterior horns of both menisci were excised, and a release was performed to the posterior medial aspect of the knee. On gross visual inspection, there was complete loss of articular cartilage in the medial and patellofemoral joint spaces. There was also significant cartilage damage in the lateral compartment. There were multiple periarticular osteophytes which were then removed with a Ronguer. The femoral canal was then opened with the appropriate drill, and the intramedullary femoral cutting guide was then placed and set for 4 of valgus. The distal femoral cutting block was then pinned in place, and the distal femur was then cut. The cutting block was then removed and the cut was checked for flatness. Next, the sizing guide was then placed and set for 3 external rotation based off of the epicondylar axis and Whitesides line. After the femur was sized, the appropriate 4-in-1 cutting block was then pinned in place. The anterior condyles were cut without notching. The posterior and chamfer cuts were performed while protecting the collateral ligaments. The cutting block was then removed, and the femoral canal was plugged with autologous bone. Attention was then directed to the tibia. The remaining ACL was removed with a Ronguer, and the tibia was then gently subluxed forward with a large bent knee retractor. Any remaining menisci was excised. The posterior lateral corner was cauterized in order to cauterize the lateral geniculate artery. The extra medullary tibial cutting guide was then placed, set for the appropriate rotation , slope, and depth of resection. The proximal tibia cutting guide was then pinned in place. Proximal tibia was then cut and sized. Next trials were then placed with the appropriate-sized insert. The knee was able to fully extend and flex to 130 and was stable throughout all range of motion. The knee was then extended, patella everted. Patella was then measured, and then using an osteotomy guide, the patella was cut at the appropriate level. The patella was then measured and drilled and the patella trial was then placed. The knee was then taken through range of motion with the patella trial and the patella tracked normally. The knee was then extended patella trial was then removed and the patella was everted. Knee was then flexed and lug holes were drilled through the femoral trial and the femoral trial was then removed. The tibial was then exposed, and the tibial broach guide was then pinned in place after it was set for the appropriate rotation to allow for the most coverage without overhang. The tibia was then reamed and broached. The cut surfaces of bone were then irrigated with pulsatile lavage. The posterior structures were injected with the ropivacaine solution. The knee was also irrigated with Irrisept solution. The components were then opened, the cement was mixed, and the components were then cemented in place. The cement was allowed to harden with the knee in full extension. While the cement was hardening, the remaining soft tissues were then injected with a ropivacaine solution, which consisted of 246.25 mg of ropivacaine, 0.5 mg of epinephrine, 30 mg of Toradol, 80 g of clonidine, and 48.45 mL of sterile water, for a total of 100 mL of fluid injected. After the cemented hardened. The tourniquet was released, and hemostasis was obtained. A second gram of transexamic acid was given. The knee was again irrigated. The knee was again taken through range of motion and found to be stable throughout all range of motion of 0-130 , and the patella tracked normally. The fascia was then closed with #2 strata fix suture. The subcutaneous tissue was closed with 3-0 Vicryl and 3-0 strata fix. Dermabond glue was used for the skin and placed with the knee in flexion. The patient was placed in a sterile silver dressing. Patient was then transferred to recovery room in stable condition. The first assistant manager MARYSOL Marshall was required due the complexity surgery and the need for a skilled office assistant receptionist. She assisted in positioning, draping, retraction, and closure of the wound.
[2017-09-05] MEDS: fentaNYL (PF) 50 MCG/ML 2 ML AMP IV PRN ×2 (15:45→15:53)
[2017-09-05] MEDS ORDERED: diphenhydrAMINE 50 MG/ML 1 ML VIAL IVP ONE (15:57)
--- NOTE | 2017-09-05 16:36 | XR ---
EXAMINATION TYPE: XR knee limited LT DATE OF EXAM: 09/05/2017 COMPARISON: NONE HISTORY: Postop left knee TECHNIQUE: 2 view left knee FINDINGS: Tibial and femoral components of in place. Surgical skin boom have been removed. No acut e fractures are evident. Exam is compared with 04/05/2011. IMPRESSION: 1. No acute fractures post left knee revision
[2017-09-05] MEDS: HYDROmorphone 0.5 MG/0.5 ML SYRINGE IVP PRN (20:20)
--- NOTE | 2017-09-05 21:06 | P.ONQ ---
Anesthesiology Proc Note - PNB - Peripheral Nerve Block Performed Left Adductor Canal Infusion Time Out Performed: Yes Procedure Start Time: 12:49 Procedure Stop Time: 12:55 Indication: Acute Post-Operative Pain, Requested by physician Sedation Type: Sedate with meaningful contact maintained Preparation: Sterile Dressing Position: Supine Catheter: Indwelling Needle Types: On-Q Needle Size: 100mm (4") Needle Gauge: 21 Technique: Ultrasound Injectate: 0.5% Ropivacaine (see comment for volume) (ropi .5% 20cc) Blood Aspirated: No Pain Paresthesia on Injection Noted: No Resistance on Injection: Normal Events: Uneventful and Well Tolerated
[2017-09-05] MEDS ORDERED: PANTOPRAZOLE 40 MG TABLET PO PRN (21:18)
[2017-09-05] MEDS ORDERED: ALBUTEROL NEBULIZED 2.5 MG/3 ML INHALATION PRN (21:18)
[2017-09-05] MEDS ORDERED: hydrALAZINE HCL 20 MG/ML 1 ML VIAL IVP PRN (21:20)
[2017-09-05] MEDS: ASPIRIN 325 MG TAB PO SCH (22:14)
[2017-09-05] MEDS: ceFAZolin IN SWFI 2 GM/20 ML SYRINGE IVP SCH (22:14)
[2017-09-05] MEDS: ZOLPIDEM 10 MG TAB PO SCH (22:15)
[2017-09-05] MEDS: SENNOSIDES-DOCUSATE SODIUM 1 EACH TAB PO SCH (22:15)
[2017-09-06] MEDS: SODIUM CHLORIDE 0.9% 1,000 ML IV SCH ×3 (02:29→08:48)
[2017-09-06] MEDS: LACTATED RINGERS 1,000 ML IV SCH (02:30)
[2017-09-06] MEDS: HYDROmorphone 0.5 MG/0.5 ML SYRINGE IVP PRN (03:00)
[2017-09-06] MEDS: ceFAZolin IN SWFI 2 GM/20 ML SYRINGE IVP SCH (05:28)
[2017-09-06] MEDS: LEVOTHYROXINE 75 MCG TAB PO SCH (05:52)
--- NOTE | 2017-09-06 07:43 | P.PN ---
Progress Note - Text 09/06 727am 76-year-old female status post total knee replacement by Dr. Plasencia. Patient has an On-Q pump running at 8 mL an hour, she was seen and evaluated this morning for postop pain control. She has a VAS of 3 comfortable.
[2017-09-06 07:53] LABS: Basophils # (A) 0.1 k/uL (0-0.2); Basophils % (A) 0 %; Eosinophils # (A) 0.2 k/uL (0-0.7); Eosinophils % (A) 2 %; HCT 33.6 % (34.0-46.0); HGB 10.4 gm/dL (11.4-16.0); Lymphocytes % (A) 8 %; MCH 30.1 pg (25.0-35.0); MCHC 31.1 g/dL (31.0-37.0); MCV 96.9 fL (80.0-100.0); Mean Platelet Volume 7.1; Monocytes # (A) 0.6 k/uL (0-1.0); Monocytes % (A) 5 %; Neutrophils % (A) 84 %; Platelet Count 336 k/uL (150-450); RBC 3.47 m/uL (3.80-5.40); RDW 14.3 % (11.5-15.5); WBC 11.9 k/uL (3.8-10.6)
[2017-09-06] MEDS: HYDROcodone/APAP 7.5-325MG 1 EACH TAB PO PRN ×3 (08:44→21:13)
[2017-09-06] MEDS: BRIMONIDINE TARTRATE 0.2% DROPS 5 ML BTL BOTH EYES SCH (08:45)
[2017-09-06] MEDS: DORZOLAMIDE HCL 2% DROPS 10 ML BTL BOTH EYES SCH (08:46)
[2017-09-06] MEDS: ASPIRIN 325 MG TAB PO SCH ×2 (08:46→21:12)
[2017-09-06] MEDS: MELOXICAM 7.5 MG TAB PO SCH (08:46)
[2017-09-06] MEDS: FOLIC ACID 1 MG TAB PO SCH ×2 (08:46→16:12)
[2017-09-06] MEDS: ATENOLOL 50 MG TAB PO SCH (08:47)
[2017-09-06] MEDS: FERROUS SULFATE 325 MG TAB PO SCH (08:47)
--- NOTE | 2017-09-06 09:40 | P.PN ---
Subjective Progress Note Date: 09/06/17 This is a 76-year-old female who is status post left total knee arthroplasty. This is postoperative day #1. Patient is seen and evaluated at bedside with Dr. Ney Plasencia. Patient states her pain is under control, but she has not been out of bed yet. Patient denies any fever/chills, chest pain, shortness breath, abdominal pain, numbness, weakness or tingling. Objective - Vital Signs Vital signs: Vital Signs Temp 98.1 F 09/06/17 08:43 Pulse 70 09/06/17 08:43 Resp 16 09/06/17 08:43 BP 141/80 09/06/17 08:43 Pulse Ox 98 09/06/17 08:43 Intake & Output 09/05/17 09/06/17 09/06/17 18:59 06:59 18:59 Intake Total 1550 1350 Output Total 50 Balance 1500 1350 Weight 74.843 kg Intake: IV 1550 Intake, IV Titration 650 Amount Sodium Chloride 0.9% 1, 650 000 ml @ 65 mls/hr IV . [id number] SERGIO Rx#:[id number] Oral 700 Output: Estimated Blood Loss 50 Other: # Voids 1 - Exam Vital signs are stable. Patient is in no acute distress and is alert and oriented 3. Calf is soft and nontender to palpation. Dressing is clean, dry, and intact. Patient has full foot and ankle motion without pain or difficulty. Neurovascular status and circulatory status are intact. - Labs CBC & Chem 7: 09/06/17 07:22 Labs: Abnormal Lab Results - Last 24 Hours (Table) 09/06/17 Range/Units 07:22 WBC 11.9 H (3.8-10.6) k/uL RBC 3.47 L (3.80-5.40) m/uL Hgb 10.4 L (11.4-16.0) gm/dL Hct 33.6 L (34.0-46.0) % Neutrophils # 10.0 H (1.3-7.7) k/uL Assessment and Plan (1) Primary osteoarthritis of left knee Current Visit: Yes Status: Acute Code(s): M17.12 - UNILATERAL PRIMARY OSTEOARTHRITIS, LEFT KNEE SNOMED Code(s): 037925857375072 (2) S/P total knee arthroplasty Current Visit: Yes Status: Acute Code(s): Z96.659 - PRESENCE OF UNSPECIFIED ARTIFICIAL KNEE JOINT SNOMED Code(s): 1944848889536 Plan: #1 Continue with routine postoperative care, leave dressing in place for one week. #2 Anticoagulation with aspirin. #3 Physical therapy and CPM today. #4 Appreciate input from medicine. #5 Anticipate discharge home to rehab .
--- NOTE | 2017-09-06 11:48 | XR ---
EXAMINATION TYPE: XR chest 1V DATE OF EXAM: 09/06/2017 COMPARISON: Prior chest x-ray 12/22/2016 HISTORY: Rehabilitation placement TECHNIQUE: Single frontal view of the chest is obtained. FINDINGS: Retrocardiac density with central lucency compatible with hiatal hernia is stable. Biapica l pleural thickening again noted, patient is rotated. Cardiac mediastinal silhouette, pulmonary vascu larity and wilma are unchanged. Clips present in the upper abdomen. Strand-like increased density at t he lung bases are stable and may reflect atelectasis or scar. IMPRESSION: Suspect findings are chronic, follow-up as indicated.
--- NOTE | 2017-09-06 13:51 | P.CONS ---
History of Present Illness - Reason for Consult Consult date: 09/06/17 Medical management - History of Present Illness This is a 76 -Year-Old female patient of with a previous medical history significant for hypertension and hypertensive cardiovascular disease, hyperlipidemia, RA, paroxysmal atrial fibrillation, obesity with possible SONIDO, hypothyroidism, generalized anxiety and panic attacks. Her last hospitalization here was in December 2016 for acute GI bleed and acute blood loss anemia status post transfusion, colonoscopy and snare polypectomy and small capsule endoscopy. She also has had workup with Dr. Alvarez for anemia. She is currently off Procrit. She states she has lost about 20 pounds since June. She did see her departmental shipping clerk, Dr. Ibarra prior to surgery and underwent echocardiogram. She is planning to go to [facility] for rehab. Patient is now admitted under the care of Dr. Plasencia status post left total knee arthroplasty. She is currently on Q pump for pain control. Hemoglobin is stable at 10.4. Her preop hemoglobin was 12.4. She has been afebrile, vital signs stable. Pulse ox 98% on room air. Review of Systems All systems: negative Constitutional: Reports poor appetite, Denies chills, Denies fatigue, Denies fever, Denies weakness Eyes: denies blurred vision, denies pain Ears, nose, mouth and throat: Denies dental pain, Denies dysphagia, Denies headache, Denies mouth pain (90), Denies sore throat Cardiovascular: Denies chest pain, Denies decreased exercise tolerance, Denies dyspnea on exertion, Denies edema, Denies leg edema, Denies lightheadedness, Denies shortness of breath, Denies syncope Respiratory: Denies cough, Denies cough with sputum, Denies dyspnea, Denies excessive sputum, Denies hemoptysis, Denies home oxygen, Denies wheezing Gastrointestinal: Denies abdominal pain, Denies diarrhea, Denies nausea, Denies vomiting Genitourinary: Denies dysuria, Denies hematuria Musculoskeletal: Denies myalgias Musculoskeletal: left: knee pain Integumentary: Denies pruritus, Denies rash Neurological: Denies numbness, Denies weakness Psychiatric: Denies anxiety, Denies depression Endocrine: Denies fatigue, Denies weight change Past Medical History Past Medical History: Atrial Fibrillation, Asthma, Heart Failure, COPD, GERD/ Reflux, GI Bleed, Hyperlipidemia, Hypertension, Osteoarthritis (OA), Rheumatoid Arthritis (RA), Sleep Apnea/CPAP/BIPAP, Thyroid Disorder Additional Past Medical History / Comment(s): lung disease, brief hx. a-fib, anemia due to use of eliquis & bleeding ulcer in December 2016 resulting in transfusion, denies sleep apnea, only has one functioning kidney, very thin skin History of Any Multi-Drug Resistant Organisms: None Reported Past Surgical History: Hysterectomy, Joint Replacement, Orthopedic Surgery Additional Past Surgical History / Comment(s): rt knee replacement, AAA repair, arm surg. left total knee arthroplasty Past Anesthesia/Blood Transfusion Reactions: No Reported Reaction Past Psychological History: Anxiety Smoking Status: Former smoker Past Alcohol Use History: None Reported Additional Past Alcohol Use History / Comment(s): quit smoking 2000, smoked for 20 yrs-didn't smoke every day-social smoker Past Drug Use History: None Reported - Past Family History Father Family Medical History: Cancer Additional Family Medical History / Comment(s): at age 68 from lung cancer Mother Family Medical History: Cancer Additional Family Medical History / Comment(s): at age 83 from lung cancer Brother(s) Family Medical History: Cancer Additional Family Medical History / Comment(s): at age 63 from lung cancer. Son(s) Additional Family Medical History / Comment(s): She has 2 sons with no major medical problems. Medications and Allergies Home Medications Medication Instructions Recorded Confirmed Type Atenolol 100 mg PO QAM 12/22/16 09/05/17 History Brinzolamide/Brimonidine Tart 1 drop BOTH EYES QA 12/22/16 09/05/17 History [Simbrinza 1%-0.2% Eye Drops] Citalopram Hydrobromide [CeleXA] 40 mg PO HS 12/22/16 09/05/17 History Folic Acid 1 mg PO SUMOTUTHFRSA@0800,17 12/22/16 09/05/17 History Levothyroxine Sodium [Synthroid] 75 mcg PO QAM 12/22/16 09/05/17 History Methotrexate Sodium [Methotrexate] 10 mg PO WE 12/22/16 09/05/17 History Pantoprazole Sodium [Protonix] 40 mg PO BID PRN 12/22/16 09/05/17 History Ferrous Sulfate [Iron] 325 mg PO DAILY 12/31/16 09/05/17 History Dicyclomine [Bentyl] 10 mg PO BID@0800,1700 PRN #0 01/06/17 09/05/17 Rx Zolpidem [Ambien] 10 mg PO HS #30 01/06/17 09/05/17 Rx Albuterol Inhaler [Ventolin Hfa 1 - 2 puff INHALATION Q6HR PRN 08/22/17 History Inhaler] Diazepam [Valium] 10 mg PO BID PRN 08/22/17 09/05/17 History HYDROcodone/APAP 7.5-325MG [Oracle 1 tab PO Q6HR PRN 08/22/17 09/05/17 History 7.5-325] Acetaminophen Tab [Tylenol Tab] 1,000 mg PO Q6HR PRN 09/05/17 09/05/17 History Allergies Allergy/AdvReac Type Severity Reaction Status Date / Time morphine AdvReac Hallucinati Verified 08/22/17 16:14 ons Physical Exam Vitals: Vital Signs Temp Pulse Resp BP Pulse Ox 09/06/17 08:43 98.1 F 70 16 141/80 98 09/06/17 01:56 98.2 F 70 18 154/69 97 09/05/17 22:06 96.7 F L 62 16 165/73 98 09/05/17 17:30 105 H 16 161/79 92 L 09/05/17 17:15 91 16 137/74 94 L 09/05/17 17:00 100 16 152/85 95 09/05/17 16:45 103 H 16 159/93 95 09/05/17 16:30 72 16 143/70 99 09/05/17 16:15 73 16 139/73 85 L 09/05/17 16:03 64 16 154/70 99 09/05/17 16:00 93 16 155/83 90 L 09/05/17 15:45 86 16 147/83 90 L 09/05/17 15:31 97.0 F L 67 16 133/60 100 09/05/17 15:30 77 16 146/85 92 L 09/05/17 13:17 63 18 149/76 100 09/05/17 12:10 97.4 F L 63 18 186/99 100 Intake and Output 09/05/17 09/06/17 09/06/17 22:59 06:59 14:59 Intake Total 750 1150 Output Total 50 Balance 700 1150 Intake: IV 550 Intake, IV Titration 650 Amount Sodium Chloride 0.9% 1, 650 000 ml @ 65 mls/hr IV . [id number] SERGIO Rx#:[id number] Oral 200 500 Output: Estimated Blood Loss 50 Other: # Voids 1 Weight 74.843 kg Gen: This is a 76-year-old female. HEENT: Head is atraumatic, normocephalic. Pupils equal, round. Sclerae is anicteric. NECK: Supple. No JVD. No lymphadenopathy. No thyromegaly. LUNGS: Clear to auscultation. No wheezes or rhonchi. No intercostal retractions. HEART: Regular rate and rhythm. No murmur. ABDOMEN: Soft. Bowel sounds are present. No masses. No tenderness. EXTREMITIES: No pedal edema. No calf tenderness. NEUROLOGICAL: Patient is awake, alert and oriented x3. Cranial nerves 2 through 12 are grossly intact. Results CBC & Chem 7: 09/06/17 07:22 Labs: Abnormal Lab Results - Last 24 Hours (Table) 09/06/17 Range/Units 07:22 WBC 11.9 H (3.8-10.6) k/uL RBC 3.47 L (3.80-5.40) m/uL Hgb 10.4 L (11.4-16.0) gm/dL Hct 33.6 L (34.0-46.0) % Neutrophils # 10.0 H (1.3-7.7) k/uL Assessment and Plan Plan: 1. Osteoarthritis status post left total knee arthroplasty. Continue current pain management. Continue PT OT per orthopedics. Incentive spirometry to reduce incidence of atelectasis and hospital-acquired pneumonia. 2. History of acute GI bleed and acute blood loss anemia status post transfusion of 2 units packed RBCs secondary to eliquis and ulcer. 2. Hypertension and hypertensive cardiovascular disease. Continue Atenolol 100 mg orally daily and Hydralazine IV when necessary. 3. Hyperlipidemia. Patient is not currently on statin. 4. Rheumatoid arthritis. MTX 10 mg orally once q Tue. 5. Paroxysmal Atrial Fibrillation. Continue Atenolol 100 mg orally daily and Eliquis is on hold 6. Obesity with possible SONIDO and OGS will need sleep study as an outpatient if not done already. 7. Hypothyroidism. Continue synthroid 75 mcg orally daily. 8. Generalized anxiety disorder with panic attacks. 9. Depression, recurrent. Continue Citalopram 40 mg orally daily. 10. DVT prophylaxis. PHILIP hose and SCDs. 11. GI prophylaxis. will continue with Protonix 40 mg orally BID. 12. Full code. Discharge plan: [facility] under the care of Dr. Fleming Impression and plan of care have been directed as dictated by the signing physician. Marina Cervantes nurse practitioner acting as scribe for signing physician.
[2017-09-06] MEDS: CITALOPRAM HYDROBROMIDE 20 MG TAB PO SCH (21:13)
[2017-09-06] MEDS: ZOLPIDEM 10 MG TAB PO SCH (21:13)
[2017-09-06] MEDS: SENNOSIDES-DOCUSATE SODIUM 1 EACH TAB PO SCH (21:13)
[2017-09-07] MEDS: HYDROcodone/APAP 7.5-325MG 1 EACH TAB PO PRN ×4 (02:24→19:42)
[2017-09-07] MEDS: LACTATED RINGERS 1,000 ML IV SCH (03:16)
[2017-09-07] MEDS: LEVOTHYROXINE 75 MCG TAB PO SCH (05:36)
--- NOTE | 2017-09-07 08:22 | P.PN ---
Subjective Progress Note Date: 09/07/17 This is a 76-year-old female who is status post left total knee arthroplasty. This is postoperative day #2. Patient is seen and evaluated at bedside with Dr. Ney Plasencia. Patient states she had problems with high blood pressure last night. Patient states her pain is under control. Patient denies any fever/ chills, chest pain, shortness breath, abdominal pain, numbness, weakness or tingling. Objective - Vital Signs Vital signs: Vital Signs Temp 97.8 F 09/07/17 02:20 Pulse 83 09/07/17 02:20 Resp 19 09/07/17 02:20 BP 161/78 09/07/17 02:20 Pulse Ox 93 L 09/07/17 02:20 Intake & Output 09/06/17 09/07/17 09/07/17 18:59 06:59 18:59 Other: Voiding Method Diaper # Voids 1 1 # Bowel Movements 1 - Exam Vital signs are stable. Patient is in no acute distress and is alert and oriented 3. Calf is soft and nontender to palpation. Dressing is intact with moderate drainage. Patient has full foot and ankle motion without pain or difficulty. Neurovascular status and circulatory status are intact. - Labs CBC & Chem 7: 09/06/17 07:22 Assessment and Plan (1) Primary osteoarthritis of left knee Current Visit: Yes Status: Acute Code(s): M17.12 - UNILATERAL PRIMARY OSTEOARTHRITIS, LEFT KNEE SNOMED Code(s): 725724633810697 (2) S/P total knee arthroplasty Current Visit: Yes Status: Acute Code(s): Z96.659 - PRESENCE OF UNSPECIFIED ARTIFICIAL KNEE JOINT SNOMED Code(s): 0487798649879 Plan: #1 Continue with routine postoperative care, leave dressing in place. #2 Anticoagulation with aspirin. #3 Physical therapy and CPM today. #4 Appreciate input from medicine. #5 Anticipate discharge home to rehab .
[2017-09-07 08:34] VITALS: RESP 16
[2017-09-07] MEDS: MELOXICAM 7.5 MG TAB PO SCH (08:35)
[2017-09-07] MEDS: FERROUS SULFATE 325 MG TAB PO SCH (08:35)
[2017-09-07] MEDS: ATENOLOL 50 MG TAB PO SCH (08:36)
[2017-09-07] MEDS: DORZOLAMIDE HCL 2% DROPS 10 ML BTL BOTH EYES SCH (08:36)
[2017-09-07] MEDS: BRIMONIDINE TARTRATE 0.2% DROPS 5 ML BTL BOTH EYES SCH (08:37)
[2017-09-07] MEDS: ASPIRIN 325 MG TAB PO SCH ×2 (08:51→21:15)
[2017-09-07] MEDS: SODIUM CHLORIDE 0.9% 1,000 ML IV SCH ×2 (08:51→21:16)
--- NOTE | 2017-09-07 14:59 | P.PN ---
Subjective Progress Note Date: 09/07/17 This is a 76 -Year-Old female patient of with a previous medical history significant for hypertension and hypertensive cardiovascular disease, hyperlipidemia, RA, paroxysmal atrial fibrillation, obesity with possible SONIDO, hypothyroidism, generalized anxiety and panic attacks. Her last hospitalization here was in December 2016 for acute GI bleed and acute blood loss anemia status post transfusion, colonoscopy and snare polypectomy and small capsule endoscopy. She also has had workup with Dr. Alvarez for anemia. She is currently off Procrit. She states she has lost about 20 pounds since June. She did see her tubular products fabricator, Dr. Ibarra prior to surgery and underwent echocardiogram. She is planning to go to [facility] for rehab. Patient is now admitted under the care of Dr. Plasencia status post left total knee arthroplasty. She is currently on Q pump for pain control. Hemoglobin is stable at 10.4. Her preop hemoglobin was 12.4. She has been afebrile, vital signs stable. Pulse ox 98% on room air. 09/07: Patient states that she has been up and walked in the hallway but has difficulty lifting her leg in bed. She has some drying drainage on her dressing. She did require IV hydralazine in the evening and blood pressures improved this morning. She has had 2 bowel movements. Plan is for discharge to [facility] tomorrow. Objective - Vital Signs Vital signs: Vital Signs Temp 98.2 F 09/07/17 07:00 Pulse 74 09/07/17 07:00 Resp 16 09/07/17 07:00 BP 108/68 09/07/17 07:00 Pulse Ox 100 09/07/17 07:00 Intake & Output 09/06/17 09/07/17 09/07/17 18:59 06:59 18:59 Other: Voiding Method Diaper # Voids 1 1 # Bowel Movements 1 - Exam Gen: This is a 76-year-old female. She is sitting up in bed and appears to be comfortable and in no acute distress. HEENT: Head is atraumatic, normocephalic. Pupils equal, round. Sclerae is anicteric. NECK: Supple. No JVD. No lymphadenopathy. No thyromegaly. LUNGS: Clear to auscultation. No wheezes or rhonchi. No intercostal retractions. HEART: Regular rate and rhythm. No murmur. ABDOMEN: Soft. Bowel sounds are present. No masses. No tenderness. EXTREMITIES: No pedal edema. No calf tenderness. Dressing in place to the left knee. Dorsalis pedis palpable bilaterally. NEUROLOGICAL: Patient is awake, alert and oriented x3. Cranial nerves 2 through 12 are grossly intact. - Labs CBC & Chem 7: 09/06/17 07:22 Assessment and Plan Plan: 1. Osteoarthritis status post left total knee arthroplasty. Continue current pain management. Continue PT OT per orthopedics. Incentive spirometry to reduce incidence of atelectasis and hospital-acquired pneumonia. 2. History of acute GI bleed and acute blood loss anemia status post transfusion of 2 units packed RBCs secondary to eliquis and ulcer. 2. Hypertension and hypertensive cardiovascular disease. Continue Atenolol 100 mg orally daily and Hydralazine IV when necessary. 3. Hyperlipidemia. Patient is not currently on statin. 4. Rheumatoid arthritis. MTX 10 mg orally once q Tue. 5. Paroxysmal Atrial Fibrillation. Continue Atenolol 100 mg orally daily and Eliquis is on hold 6. Obesity with possible SONIDO and OGS will need sleep study as an outpatient if not done already. 7. Hypothyroidism. Continue synthroid 75 mcg orally daily. 8. Generalized anxiety disorder with panic attacks. 9. Depression, recurrent. Continue Citalopram 40 mg orally daily. 10. DVT prophylaxis. PHILIP santiagoe and SCDs. 11. GI prophylaxis. will continue with Protonix 40 mg orally BID. 12. Full code. Discharge plan: [facility] under the care of Dr. Fleming Impression and plan of care have been directed as dictated by the signing physician. Marina Cervantes nurse practitioner acting as scribe for signing physician.
[2017-09-07] MEDS: CITALOPRAM HYDROBROMIDE 20 MG TAB PO SCH (21:11)
[2017-09-07] MEDS: SENNOSIDES-DOCUSATE SODIUM 1 EACH TAB PO SCH (21:11)
[2017-09-07] MEDS: ZOLPIDEM 10 MG TAB PO SCH (21:11)
[2017-09-08] MEDS: LACTATED RINGERS 1,000 ML IV SCH (05:49)
[2017-09-08] MEDS: LEVOTHYROXINE 75 MCG TAB PO SCH (06:19)
[2017-09-08 07:18] LABS: Basophils # (A) 0.1 k/uL (0-0.2); Basophils % (A) 0 %; Eosinophils # (A) 0.3 k/uL (0-0.7); Eosinophils % (A) 2 %; HCT 31.5 % (34.0-46.0); HGB 9.7 gm/dL (11.4-16.0); Lymphocytes # (A) 1.3 k/uL (1.0-4.8); Lymphocytes % (A) 11 %; MCHC 30.9 g/dL (31.0-37.0); MCV 97.3 fL (80.0-100.0); Mean Platelet Volume 7.7; Monocytes # (A) 0.7 k/uL (0-1.0); Monocytes % (A) 5 %; Neutrophils # (A) 9.9 k/uL (1.3-7.7); Neutrophils % (A) 81 %; Platelet Count 340 k/uL (150-450); RBC 3.24 m/uL (3.80-5.40); RDW 14.3 % (11.5-15.5); WBC 12.2 k/uL (3.8-10.6)
[2017-09-08] MEDS: HYDROcodone/APAP 7.5-325MG 1 EACH TAB PO PRN (07:26)
--- NOTE | 2017-09-08 08:39 | P.DS ---
Providers Date of admission: 09/05/17 11:49 Expected date of discharge: 09/08/17 Attending physician: Ney Plasencia Consults: 09/05/17 09:10 Consult Physician Routine Consulting Provider: Eduardo Fleming Consult Reason/Comments: medical management Do you want consulting provider notified?: Yes Primary care physician: Gregg Rosenthal Kut - Discharge Diagnosis(es) (1) Primary osteoarthritis of left knee Current Visit: Yes Status: Acute (2) S/P total knee arthroplasty Current Visit: Yes Status: Acute Hospital Course: This is a 76-year-old female with known history of degenerative arthritis of the left knee. The patient presents for evaluation. After discussion and consideration patient elects to proceed with total knee arthroplasty. The patient is seen preoperatively by Dr. Plasencia and cleared for surgery. Patient is admitted to [facility] on 09/05/2017 for total knee arthroplasty. The procedures performed without complication or sequelae. The patient is doing well postoperatively. Labs and vital signs are stable on day of discharge. On day of discharge patient's knee incision is healing well. There is minimal erythema. There is no drainage noted at this time. There is minimal soft tissue swelling to the knee. Patient has full foot and ankle motion without difficulty or pain. Neurovascular status to the left lower extremity is intact. Patient is discharged to rehab in good condition. Please see med rec for accurate list of home medications. Plan - Discharge Summary Discharge Rx Participant: No New Discharge Prescriptions: New Aspirin 325 mg PO BID #60 tab HYDROcodone/APAP 7.5-325MG [Eastern 7.5-325] 1 - 2 tab PO Q4-6H PRN #90 tab PRN Reason: Pain Sennosides [Senokot] 1 tab PO BID #60 tablet No Action Folic Acid 1 mg PO SUMOTUTHFRSA@0800,17 Methotrexate Sodium [Methotrexate] 10 mg PO WE Brinzolamide/Brimonidine Tart [Simbrinza 1%-0.2% Eye Drops] 1 drop BOTH EYES QAM Pantoprazole Sodium [Protonix] 40 mg PO BID PRN PRN Reason: Dyspepsia Levothyroxine Sodium [Synthroid] 75 mcg PO QAM Citalopram Hydrobromide [CeleXA] 40 mg PO HS Atenolol 100 mg PO QAM Ferrous Sulfate [Iron] 325 mg PO DAILY Dicyclomine [Bentyl] 10 mg PO BID@0800,1700 PRN #0 PRN Reason: Diarrhea Zolpidem [Ambien] 10 mg PO HS #30 HYDROcodone/APAP 7.5-325MG [Eastern 7.5-325] 1 tab PO Q6HR PRN PRN Reason: Pain Albuterol Inhaler [Ventolin Hfa Inhaler] 1 - 2 puff INHALATION Q6HR PRN PRN Reason: Dyspnea Diazepam [Valium] 10 mg PO BID PRN PRN Reason: Pain Acetaminophen Tab [Tylenol Tab] 1,000 mg PO Q6HR PRN PRN Reason: Pain Discharge Medication List Atenolol 100 mg PO QAM 12/22/16 [History] Brinzolamide/Brimonidine Tart [Simbrinza 1%-0.2% Eye Drops] 1 drop BOTH EYES QAM 12/22/16 [History] Citalopram Hydrobromide [CeleXA] 40 mg PO HS 12/22/16 [History] Folic Acid 1 mg PO SUMOTUTHFRSA@0800,17 12/22/16 [History] Levothyroxine Sodium [Synthroid] 75 mcg PO QAM 12/22/16 [History] Methotrexate Sodium [Methotrexate] 10 mg PO WE 12/22/16 [History] Pantoprazole Sodium [Protonix] 40 mg PO BID PRN 12/22/16 [History] Ferrous Sulfate [Iron] 325 mg PO DAILY 12/31/16 [History] Dicyclomine [Bentyl] 10 mg PO BID@0800,1700 PRN #0 01/06/17 [Rx] Zolpidem [Ambien] 10 mg PO HS #30 01/06/17 [Rx] Albuterol Inhaler [Ventolin Hfa Inhaler] 1 - 2 puff INHALATION Q6HR PRN [History] Diazepam [Valium] 10 mg PO BID PRN 08/22/17 [History] HYDROcodone/APAP 7.5-325MG [Eastern 7.5-325] 1 tab PO Q6HR PRN 08/22/17 [History] Acetaminophen Tab [Tylenol Tab] 1,000 mg PO Q6HR PRN 09/05/17 [History] Aspirin 325 mg PO BID #60 tab 09/08/17 [Rx] HYDROcodone/APAP 7.5-325MG [Eastern 7.5-325] 1 - 2 tab PO Q4-6H PRN #90 tab [Rx] Sennosides [Senokot] 1 tab PO BID #60 tablet 09/08/17 [Rx] Follow up Appointment(s)/Referral(s): Gregg Kumar MD [Primary Care Provider] - 1 Week (after discharge from [facility] ) Ney Plasencia DO [Doctor of Osteopathic Medicine] - 1 Week Ambulatory/Diagnostic Orders: Continuous Passive Motion (CPM) Machine [DME.AMB1] Time Frame: 3 Weeks, Location : Determined By Patient Activity/Diet/Wound Care/Special Instructions: Weightbearing as tolerated with a walker CPM 5-6h daily Leave dressing intact. May be removed by home care nurse in 7 days, 07/12/2018. May shower with dressing on. [facility] with questions or concerns [phone] Discharge Disposition: TRANSFER TO SNF/ECF
[2017-09-08 08:59] VITALS: BP 129/60; PULSE 75; TEMP 98.8
[2017-09-08] MEDS: FERROUS SULFATE 325 MG TAB PO SCH (09:00)
[2017-09-08] MEDS: BRIMONIDINE TARTRATE 0.2% DROPS 5 ML BTL BOTH EYES SCH (09:00)
[2017-09-08] MEDS: ATENOLOL 50 MG TAB PO SCH (09:00)
[2017-09-08] MEDS: DORZOLAMIDE HCL 2% DROPS 10 ML BTL BOTH EYES SCH (09:00)
[2017-09-08] MEDS: FOLIC ACID 1 MG TAB PO SCH (09:00)
[2017-09-08] MEDS: ASPIRIN 325 MG TAB PO SCH (09:00)
[2017-09-08] MEDS: MELOXICAM 7.5 MG TAB PO SCH (09:01)
[2017-09-08] MEDS: SODIUM CHLORIDE 0.9% 1,000 ML IV SCH (09:01)
--- NOTE | 2017-09-08 15:12 | P.PN ---
Subjective Progress Note Date: 09/08/17 This is a 76 -Year-Old female patient of with a previous medical history significant for hypertension and hypertensive cardiovascular disease, hyperlipidemia, RA, paroxysmal atrial fibrillation, obesity with possible SONIDO, hypothyroidism, generalized anxiety and panic attacks. Her last hospitalization here was in December 2016 for acute GI bleed and acute blood loss anemia status post transfusion, colonoscopy and snare polypectomy and small capsule endoscopy. She also has had workup with Dr. Alvarez for anemia. She is currently off Procrit. She states she has lost about 20 pounds since June. She did see her heel builder, Dr. Ibarra prior to surgery and underwent echocardiogram. She is planning to go to [facility] for rehab. Patient is now admitted under the care of Dr. Plasencia status post left total knee arthroplasty. She is currently on Q pump for pain control. Hemoglobin is stable at 10.4. Her preop hemoglobin was 12.4. She has been afebrile, vital signs stable. Pulse ox 98% on room air. 09/07: Patient states that she has been up and walked in the hallway but has difficulty lifting her leg in bed. She has some drying drainage on her dressing. She did require IV hydralazine in the evening and blood pressures improved this morning. She has had 2 bowel movements. Plan is for discharge to [facility] tomorrow. 09/08: Patient has been discharged by orthopedics. Medication reconciliation will be completed. Patient will be followed [facility] Fleming [facility]. Objective - Vital Signs Vital signs: Vital Signs Temp 98.8 F 09/08/17 08:58 Pulse 75 09/08/17 08:58 Resp 16 09/08/17 08:58 BP 129/60 09/08/17 08:58 Pulse Ox 93 L 09/08/17 08:58 Intake & Output 09/07/17 09/08/17 09/08/17 18:59 06:59 18:59 Intake Total 1600 1920 120 Balance 1600 1920 120 Intake: Oral 1600 1920 120 Other: Voiding Method Toilet # Voids 1 2 1 - Exam Gen: This is a 76-year-old female. She is sitting up in bed and appears to be comfortable and in no acute distress. HEENT: Head is atraumatic, normocephalic. Pupils equal, round. Sclerae is anicteric. NECK: Supple. No JVD. No lymphadenopathy. No thyromegaly. LUNGS: Clear to auscultation. No wheezes or rhonchi. No intercostal retractions. HEART: Regular rate and rhythm. No murmur. ABDOMEN: Soft. Bowel sounds are present. No masses. No tenderness. EXTREMITIES: No pedal edema. No calf tenderness. Dressing in place to the left knee. Dorsalis pedis palpable bilaterally. NEUROLOGICAL: Patient is awake, alert and oriented x3. Cranial nerves 2 through 12 are grossly intact. - Labs CBC & Chem 7: 09/08/17 06:39 Labs: Abnormal Lab Results - Last 24 Hours (Table) 09/08/17 Range/Units 06:39 WBC 12.2 H (3.8-10.6) k/uL RBC 3.24 L (3.80-5.40) m/uL Hgb 9.7 L (11.4-16.0) gm/dL Hct 31.5 L (34.0-46.0) % MCHC 30.9 L (31.0-37.0) g/dL Neutrophils # 9.9 H (1.3-7.7) k/uL Assessment and Plan Plan: 1. Osteoarthritis status post left total knee arthroplasty. Continue current pain management. Continue PT OT per orthopedics. Incentive spirometry to reduce incidence of atelectasis and hospital-acquired pneumonia. 2. History of acute GI bleed and acute blood loss anemia status post transfusion of 2 units packed RBCs secondary to eliquis and ulcer. 2. Hypertension and hypertensive cardiovascular disease. Continue Atenolol 100 mg orally daily and Hydralazine IV when necessary. 3. Hyperlipidemia. Patient is not currently on statin. 4. Rheumatoid arthritis. MTX 10 mg orally once q Tue. 5. Paroxysmal Atrial Fibrillation. Continue Atenolol 100 mg orally daily and Eliquis is on hold 6. Obesity with possible SONIDO and OGS will need sleep study as an outpatient if not done already. 7. Hypothyroidism. Continue synthroid 75 mcg orally daily. 8. Generalized anxiety disorder with panic attacks. 9. Depression, recurrent. Continue Citalopram 40 mg orally daily. 10. DVT prophylaxis. PHILIP hose and SCDs. 11. GI prophylaxis. will continue with Protonix 40 mg orally BID. 12. Full code. Discharge plan: [facility] under the care of Dr. Fleming Impression and plan of care have been directed as dictated by the signing physician. Marina Cervantes nurse practitioner acting as scribe for signing physician.
== END 2017-09-08 13:45 | DRG 470 ==
LOC: 2ORMAIN 11:49 → 3SUR 17:37
PROVIDERS: ADMIT Orthopaedic Surgery; ATTEND Orthopaedic Surgery
PROC: 0SRD069 Replacement of Left Knee Joint with Oxidized Zirconium on Polyethylene Synthetic Substitute, Cemented, Open Approach (ICD-10-PCS; principal; 2017-09-05 13:30)
DX: M17.12 Unilateral primary osteoarthritis, left knee (principal); I13.0 Hypertensive heart and chronic kidney disease with heart failure and stage 1 through stage 4 chronic kidney disease, or unspecified chronic kidney disease; I50.9 Heart failure, unspecified; I48.0 Paroxysmal atrial fibrillation; J44.9 Chronic obstructive pulmonary disease, unspecified; E03.9 Hypothyroidism, unspecified; K21.9 Gastro-esophageal reflux disease without esophagitis; M25.762 Osteophyte, left knee; F32.9 Major depressive disorder, single episode, unspecified; R26.81 Unsteadiness on feet; N18.9 Chronic kidney disease, unspecified; M06.9 Rheumatoid arthritis, unspecified; F41.1 Generalized anxiety disorder; F41.0 Panic disorder [episodic paroxysmal anxiety]; H40.9 Unspecified glaucoma; H26.9 Unspecified cataract; Z96.651 Presence of right artificial knee joint; E78.5 Hyperlipidemia, unspecified; G47.33 Obstructive sleep apnea (adult) (pediatric); E66.9 Obesity, unspecified; Z68.25 Body mass index [BMI] 25.0-25.9, adult; Z86.010 Personal history of colon polyps; Z79.899 Other long term (current) drug therapy; Z87.11 Personal history of peptic ulcer disease; Z79.891 Long term (current) use of opiate analgesic; Z88.6 Allergy status to analgesic agent; Z83.3 Family history of diabetes mellitus; Z90.710 Acquired absence of both cervix and uterus; Z80.1 Family history of malignant neoplasm of trachea, bronchus and lung; Z86.79 Personal history of other diseases of the circulatory system; Z82.49 Family history of ischemic heart disease and other diseases of the circulatory system; Z87.891 Personal history of nicotine dependence
CPT/HCPCS: 71045; 85025; 88300

== ENCOUNTER → 2018-06-05 | Outpatient (CLI) | payer MEDICARE ==
--- NOTE | 2018-06-05 13:14 | FL ---
EXAMINATION TYPE: FL barium swallow w video DATE OF EXAM: 06/05/2018 COMPARISON: NONE HISTORY: Dysphasia, coughing TECHNIQUE: Fluoroscopy. FINDINGS: Fluoroscopic guidance was provided for the procedure performed in conjunction with the [facility] pathology department. Please see complete report forthcoming from the Speech Pathology departmen t. Various consistencies from thin liquid to solids were administered. Fluoroscopy time 1 minute 36 seconds Number of images: 0. No aspiration or penetration was evident with normal ingestion. Note was made of some transient penet ration with drinking with a straw thin liquids. No significant pooling was observed in the vallecula. There was normal propulsion of the bolus. IMPRESSION: 1. Some penetration with drinking thin liquids through a straw. Study was otherwise unremarkable.
== END | disposition home or self-care (01) ==
LOC: RADFLMAIN 11:13
PROVIDERS: ATTEND Student in an Organized Health Care Education/Training Program
DX: R93.89 Abnormal findings on diagnostic imaging of other specified body structures (principal); R13.10 Dysphagia, unspecified
CPT/HCPCS: 74230

== ENCOUNTER 2018-08-23 04:22 | Inpatient (IN) | payer MEDICARE ==
[2018-08-23 05:07] LABS: Basophils % (A) 0 %; Eosinophils # (A) 0.2 k/uL (0-0.7); Eosinophils % (A) 2 %; HCT 42.5 % (34.0-46.0); Lymphocytes % (A) 15 %; MCH 32.4 pg (25.0-35.0); MCHC 33.1 g/dL (31.0-37.0); MCV 98.1 fL (80.0-100.0); Mean Platelet Volume 8.3; Monocytes # (A) 0.4 k/uL (0-1.0); Monocytes % (A) 5 %; Neutrophils % (A) 74 %; Platelet Count 183 k/uL (150-450); RBC 4.33 m/uL (3.80-5.40); RDW 14.6 % (11.5-15.5); WBC 6.7 k/uL (3.8-10.6)
[2018-08-23 05:12] LABS: ALT 21 U/L (9-52); AST 32 U/L (14-36); Albumin 3.7 g/dL (3.5-5.0); Alkaline Phosphatase 149 U/L (38-126); Amylase 39 U/L (30-110); Anion Gap 8 mmol/L; Blood Urea Nitrogen 8 mg/dL (7-17); Carbon Dioxide 26 mmol/L (22-30); Chloride 106 mmol/L (98-107); Glucose 89 mg/dL (74-99); Lipase 52 U/L (23-300); Sodium 140 mmol/L (137-145); Total Bilirubin 1.1 mg/dL (0.2-1.3); Total Protein 7.1 g/dL (6.3-8.2)
--- NOTE | 2018-08-23 05:20 | XR ---
EXAMINATION TYPE: XR chest 2V DATE OF EXAM: 08/23/2018 COMPARISON: 05/16/2018 HISTORY: Asthma. Atrial fibrillation. Heart failure. Short of breath. TECHNIQUE: Frontal and lateral views of the chest are obtained. FINDINGS: There is blunting of the costophrenic angles. There is mild pulmonary vascular congestion. Heart is probably enlarged. There is coarse interstitial density in the lungs. IMPRESSION: There is probably congestive heart failure superimposed on pulmonary fibrosis. Bilateral pleural effusions. Pleural fluid increased compared to last exam.
--- NOTE | 2018-08-23 05:22 | XR ---
EXAMINATION TYPE: XR KUB DATE OF EXAM: 08/23/2018 COMPARISON: 12/22/2016 HISTORY: Abdominal pain short of breath TECHNIQUE: 2 views upright were obtained FINDINGS: There is no sign of intestinal obstruction or pneumoperitoneum. Fecal pattern is normal. Th ere are clips in the epigastrium. There is mild lumbar levoscoliosis. Abdominal aorta is atheromatous . There are bilateral pleural effusions. There are basilar pulmonary infiltrates. IMPRESSION: Pleural effusions. Pleural fluid increased compared to old exam. No bowel obstruction or free air.
[2018-08-23] MEDS ORDERED: DILTIAZEM DRIP BOLUS FROM BAG 1 MG SOLN IV ONE (05:40)
[2018-08-23 05:49] LABS: Appearance,Urine Clear (Clear); Bacteria,Urine Occasional /hpf; Bilirubin,Urine Negative (Negative); Blood,Urine Negative (Negative); Color,Urine Light Yellow; Glucose,Urine (UA) Negative (Negative); Ketones,Urine Negative (Negative); Leukocyte Esterase,Urine Large (Negative); Nitrite,Urine Positive (Negative); Protein,Urine Negative (Negative); RBC,Urine <1 /hpf (0-5); Renal Epithelial Cells,Urine <1 /hpf (0); Specific Gravity,Urine 1.004 (1.001-1.035); Squamous Epithelial Cell,Urine 12 /hpf (0-4); Urobilinogen,Urine <2.0 mg/dL (<2.0); WBC,Urine 51 /hpf (0-5)
[2018-08-23] MEDS: DILTIAZEM 50 MG in SODIUM CHLORIDE 0.9% 40 ML IV SCH ×2 (06:01→16:16)
[2018-08-23] MEDS ORDERED: SULFAMETHOX-TMP 800-160MG 1 EACH TAB PO STA (06:42)
[2018-08-23] MEDS ORDERED: NITROGLYCERIN SL TABS 0.4 MG TAB SUBLINGUAL PRN (07:57)
--- NOTE | 2018-08-23 08:14 | ED ---
Abdominal Pain HPI - General Chief Complaint: Abdominal Pain Stated Complaint: Abdominal Pain Time Seen by Provider: 08/23/18 05:07 Source: patient, EMS Mode of arrival: EMS Limitations: no limitations - History of Present Illness Initial Comments: This patient is a 77-year-old woman who presents to be evaluated for what she suspects his urinary tract infection. She indicates lower abdominal pain just to the side of the midline. She is not able to characterize it well. She states that at times it seems cramping and sometimes sharp. She states she has been urinating frequently as well and there is a little bit of dysuria. The patient states that the frequent urination is interfering with her sleep. The patient has not noted fever or chills. No chest pain. She is having dyspnea but states that she is always a little short of breath. The patient also notes a little bit of bilateral leg edema. On arrival patient's placed on a monitor showing atrial fibrillation with a rapid ventricular rate. The patient notes that she was diagnosed with this probably 6 months ago But she does not know what medications she is taking for this. She states that her manages her medications, and he is currently in the hospital. She states that she did briefly take a blood thinner, which she was taken off of this and she does not know the reason. MD Complaint: abdominal pain Onset/Timin -: days(s) Location: suprapubic Radiation: none Migration to: no migration Severity: moderate Quality: dull Consistency: constant Improves With: nothing Worsens With: nothing - Related Data Home Medications Medication Instructions Recorded Confirmed Atenolol 100 mg PO HS 12/22/16 08/23/18 Brinzolamide/Brimonidine Tart 1 drop BOTH EYES QAM 12/22/16 08/23/18 [Simbrinza 1%-0.2% Eye Drops] Folic Acid 1 mg PO SUMOTUTHFRSA 12/22/16 08/23/18 Levothyroxine Sodium [Synthroid] 75 mcg PO DAILY 12/22/16 08/23/18 Methotrexate Sodium [Methotrexate] 10 mg PO WE 12/22/16 08/23/18 Pantoprazole Sodium [Protonix] 40 mg PO BID 12/22/16 08/23/18 Furosemide [Lasix] 10 mg PO Q48H 11/03/17 08/23/18 Ascorbic Acid [Vitamin C] 500 mg PO DAILY 05/18/18 08/23/18 Acetaminophen Tab [Tylenol Tab] 325 mg PO Q4H PRN 08/23/18 08/23/18 Diazepam [Valium] 5 mg PO TID PRN 08/23/18 08/23/18 HYDROcodone/APAP 7.5-325MG [[place] 1 tab PO BID PRN 08/23/18 08/23/18 7.5-325] Iron 18 mg PO DAILY 08/23/18 08/23/18 Allergies Allergy/AdvReac Type Severity Reaction Status Date / Time morphine AdvReac Severe Hallucinati Verified 08/23/18 07:25 ons Review of Systems ROS Statement: Those systems with pertinent positive or pertinent negative responses have been documented in the HPI. ROS Other: All systems not noted in ROS Statement are negative. Constitutional: Denies: fever, chills, weakness Respiratory: Reports: cough, dyspnea. Denies: hemoptysis Cardiovascular: Reports: palpitations, orthopnea, edema. Denies: chest pain, syncope Gastrointestinal: Reports: as per HPI, abdominal pain. Denies: nausea, vomiting , diarrhea, constipation, melena, hematochezia Genitourinary: Reports: dysuria, frequency. Denies: hematuria Musculoskeletal: Denies: back pain Skin: Denies: rash Neurological: Denies: headache, weakness, numbness Psychiatric: Reports: anxiety Past Medical History Past Medical History: Atrial Fibrillation, Asthma, Heart Failure, COPD, GERD/ Reflux, GI Bleed, Hyperlipidemia, Hypertension, Osteoarthritis (OA), Rheumatoid Arthritis (RA), Sleep Apnea/CPAP/BIPAP, Thyroid Disorder Additional Past Medical History / Comment(s): lung disease, anemia, EGD-ulcer found. History of Any Multi-Drug Resistant Organisms: None Reported Past Surgical History: Hysterectomy, Joint Replacement, Orthopedic Surgery Additional Past Surgical History / Comment(s): rt knee replacement, AAA repair, arm surg. left total knee arthroplasty, Past Anesthesia/Blood Transfusion Reactions: No Reported Reaction Past Psychological History: Anxiety Smoking Status: Former smoker Past Alcohol Use History: None Reported Past Drug Use History: None Reported - Past Family History Father Family Medical History: Cancer Additional Family Medical History / Comment(s): at age 68 from lung cancer Mother Family Medical History: Cancer Additional Family Medical History / Comment(s): at age 83 from lung cancer Brother(s) Family Medical History: Cancer Additional Family Medical History / Comment(s): at age 63 from lung cancer. Son(s) Additional Family Medical History / Comment(s): She has 2 sons with no major medical problems. General Exam Limitations: no limitations General appearance: alert, in distress (Patient is in mild respiratory distress , being slightly tachypneic) Head exam: Present: normocephalic Eye exam: Present: normal appearance. Absent: scleral icterus, conjunctival injection Neck exam: Present: normal inspection Respiratory exam: Present: respiratory distress, rales (bilateral bases). Absent: wheezes, rhonchi, stridor, accessory muscle use, decreased breath sounds , prolonged expiratory Cardiovascular Exam: Present: tachycardia (Heart rate is in the 130s at my initial exam), irregular rhythm, normal heart sounds. Absent: systolic murmur, diastolic murmur, rubs, gallop GI/Abdominal exam: Present: soft. Absent: distended, tenderness, guarding, rebound, rigid, mass, pulsatile mass Extremities exam: Present: normal inspection, normal capillary refill. Absent: pedal edema, calf tenderness Back exam: Present: normal inspection. Absent: CVA tenderness (R), CVA tenderness (L) Neurological exam: Present: alert Skin exam: Present: warm, dry, intact, normal color Course Vital Signs 08/23/18 08/23/18 08/23/18 04:25 06:01 06:52 Temperature 97.9 F Pulse Rate 102 H 106 H 90 Respiratory 22 22 20 Rate Blood Pressure 194/138 153/138 172/96 O2 Sat by Pulse 92 L 98 98 Oximetry Medical Decision Making - Medical Decision Making Patient is a 77-year-old woman presenting to be evaluated for what she suspects his urinary tract infection. More concerning she does appear to be in atrial fibrillation with rapid ventricular rate and showing some respiratory distress. Patient started on Cardizem, and the heart rate initially decreased to The 90s up to 120s. I discussed her case with Dr. Marie, who is covering tonight and patient be admitted drip he did request that the rate be increased. I did go back to reevaluate the patient and her heart rate currently is running in the mid 70s up to 90s. - Lab Data Result diagrams: 08/23/18 04:40 08/23/18 04:40 Lab Results 08/23/18 08/23/18 08/23/18 Range/Units 04:40 04:40 04:40 WBC 6.7 (3.8-10.6) k/uL RBC 4.33 (3.80-5.40) m/uL Hgb 14.0 (11.4-16.0) gm/dL Hct 42.5 (34.0-46.0) % MCV 98.1 (80.0-100.0) fL MCH 32.4 (25.0-35.0) pg MCHC 33.1 (31.0-37.0) g/dL RDW 14.6 (11.5-15.5) % Plt Count 183 (150-450) k/uL Neutrophils % 74 % Lymphocytes % 15 % Monocytes % 5 % Eosinophils % 2 % Basophils % 0 % Neutrophils # 5.0 (1.3-7.7) k/uL Lymphocytes # 1.0 (1.0-4.8) k/uL Monocytes # 0.4 (0-1.0) k/uL Eosinophils # 0.2 (0-0.7) k/uL Basophils # 0.0 (0-0.2) k/uL Sodium 140 (137-145) mmol/L Potassium 4.0 (3.5-5.1) mmol/L Chloride 106 (98-107) mmol/L Carbon Dioxide 26 (22-30) mmol/L Anion Gap 8 mmol/L BUN 8 (7-17) mg/dL Creatinine 0.66 (0.52-1.04) mg/dL Est GFR (CKD-EPI)AfAm >90 (>60 ml/min/1.73 sqM) Est GFR (CKD-EPI)NonAf 86 (>60 ml/min/1.73 sqM) Glucose 89 (74-99) mg/dL Calcium 10.0 (8.4-10.2) mg/dL Total Bilirubin 1.1 (0.2-1.3) mg/dL AST 32 (14-36) U/L ALT 21 (9-52) U/L Alkaline Phosphatase 149 H (38-126) U/L Troponin I <0.012 (0.000-0.034) ng/mL Total Protein 7.1 (6.3-8.2) g/dL Albumin 3.7 (3.5-5.0) g/dL Amylase 39 (30-110) U/L Lipase 52 (23-300) U/L Urine Color Urine Appearance (Clear) Urine pH (5.0-8.0) Ur Specific [place] (1.001-1.035) Urine Protein (Negative) Urine Glucose (UA) (Negative) Urine Ketones (Negative) Urine Blood (Negative) Urine Nitrite (Negative) Urine Bilirubin (Negative) Urine Urobilinogen (<2.0) mg/dL Ur Leukocyte Esterase (Negative) Urine RBC (0-5) /hpf Urine WBC (0-5) /hpf Ur Squamous Epith Cells (0-4) /hpf Ur Renal Epithelial Cell (0) /hpf Urine Bacteria (None) /hpf 08/23/18 Range/Units 05:30 WBC (3.8-10.6) k/uL RBC (3.80-5.40) m/uL Hgb (11.4-16.0) gm/dL Hct (34.0-46.0) % MCV (80.0-100.0) fL MCH (25.0-35.0) pg MCHC (31.0-37.0) g/dL RDW (11.5-15.5) % Plt Count (150-450) k/uL Neutrophils % % Lymphocytes % % Monocytes % % Eosinophils % % Basophils % % Neutrophils # (1.3-7.7) k/uL Lymphocytes # (1.0-4.8) k/uL Monocytes # (0-1.0) k/uL Eosinophils # (0-0.7) k/uL Basophils # (0-0.2) k/uL Sodium (137-145) mmol/L Potassium (3.5-5.1) mmol/L Chloride (98-107) mmol/L Carbon Dioxide (22-30) mmol/L Anion Gap mmol/L BUN (7-17) mg/dL Creatinine (0.52-1.04) mg/dL Est GFR (CKD-EPI)AfAm (>60 ml/min/1.73 sqM) Est GFR (CKD-EPI)NonAf (>60 ml/min/1.73 sqM) Glucose (74-99) mg/dL Calcium (8.4-10.2) mg/dL Total Bilirubin (0.2-1.3) mg/dL AST (14-36) U/L ALT (9-52) U/L Alkaline Phosphatase (38-126) U/L Troponin I (0.000-0.034) ng/mL Total Protein (6.3-8.2) g/dL Albumin (3.5-5.0) g/dL Amylase (30-110) U/L Lipase (23-300) U/L Urine Color Light Yellow Urine Appearance Clear (Clear) Urine pH 7.0 (5.0-8.0) Ur Specific [place] 1.004 (1.001-1.035) Urine Protein Negative (Negative) Urine Glucose (UA) Negative (Negative) Urine Ketones Negative (Negative) Urine Blood Negative (Negative) Urine Nitrite Positive H (Negative) Urine Bilirubin Negative (Negative) Urine Urobilinogen <2.0 (<2.0) mg/dL Ur Leukocyte Esterase Large H (Negative) Urine RBC <1 (0-5) /hpf Urine WBC 51 H (0-5) /hpf Ur Squamous Epith Cells 12 H (0-4) /hpf Ur Renal Epithelial Cell <1 (0) /hpf Urine Bacteria Occasional H (None) /hpf Disposition Clinical Impression: Atrial fibrillation with rapid ventricular response, Urinary tract infection Disposition: ADMITTED IP TO THIS HOSP Condition: Fair Is patient prescribed a controlled substance at d/c from ED?: No Referrals: Melchor Rider MD [Primary Care Provider] - 1-2 days
[2018-08-23] MEDS ORDERED: ACETAMINOPHEN TAB 325 MG TAB PO PRN (08:42)
[2018-08-23] MEDS ORDERED: IOPAMIDOL-300 CONTRAST 30 ML VIAL (ORAL USE) PO PRN (08:50)
[2018-08-23] MEDS ORDERED: FUROSEMIDE 20 MG TAB PO SCH (09:00)
[2018-08-23] MEDS: AMPICILLIN-SULBACTAM 3 GM in SODIUM CHLORIDE 0.9% 100 ML IVPB SCH ×3 (10:13→23:47)
--- NOTE | 2018-08-23 11:29 | P.HPIM ---
History of Present Illness H&P Date: 08/23/18 Chief Complaint: Urinary tract infection and sepsis, A. fib with RVR, CAD, obstructive sleep 77-year-old female one of Dr. Rider's patient with the past medical history of A. fib, asthma, heart failure, GERD and previous history of GI bleed who has been treated for A. fib for long time has been doing well on atenolol with no rapid pulse. Patient apparently developed to have sign and symptom of UTI for the last few days become much worse last night developed to have burning discomfort irritation frequency and urgency with persistent symptoms low -grade temperature as well as. Patient also developed to have significant shortness of breath with rapid pulse running in the 150s to 160. She ended up coming to the emergency department at [facility] where was seen her UA was positive patient was started on IV antibiotics. Patient was in A. fib with RVR pulse rate running around 160 beats per minutes was started on Cardizem drip after bolus pulse rate remain high initially and then subtle down in the 80-90. Patient is not on any anticoagulation as an outpatient for history of GI bleed apparently from last time she was in the hospital. Patient will be admitted to the hospital further workup for possible right sided kidney stone with flank pain in the right side with CAT scan of the abdomen will be done also will be seen cardiology and further management in her A. fib and possible need for anticoagulation to be addressed by her assistant to the ceo and her PCP. Review of Systems CONSTITUTIONAL: Well-developed no acute respiratory distress. EYES: No icterus sclerae, no conjunctivitis. EARS, NOSE, MOUTH, THROAT, and FACE: No sore throat, lymphadenopathy, carotid bruits or deformity. RESPIRATORY: No SOB cough or wheezes. CARDIOVASCULAR: No chest pain or angina, positive palpitation positive PND GASTROINTESTINAL: Positive abdominal pain with nausea no vomiting no diarrhea no sign and symptom of GI bleed at this point. GENITOURINARY: Right-sided flank pain along with burning discomfort frequency urgency with no hematuria. INTEGUMENT/BREAST: Negative for any muscular injury with mild osteoarthritis.. HEMATOLOGIC/LYMPHATIC: Negative for bleed or purpura. MUSCULOSKELTAL: Negative for Myalgia or arthralgia. NEURLOGICAL: No LOC, Sz or syncope, blurred vision dizziness or abnormality.. BEHAVIORAL/PSYCH: Negative. ENDOCRINE: Negative. 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 History of Any Multi-Drug Resistant Organisms: None Reported Past Surgical History: Breast Surgery, Hysterectomy, Joint Replacement, Orthopedic Surgery Additional Past Surgical History / Comment(s): AAA repair in 2000, bilateral knee replacements, R arm wound with surgical repair, Egd, colonoscopies/benign polypectomy, breast augmentation, bilateral cataract removal with lens implants. Past Anesthesia/Blood Transfusion Reactions: No Reported Reaction Additional Past Anesthesia/Blood Transfusion Reaction / Comment(s): Pt has received blood in past without reaction. Smoking Status: Former smoker - Past Family History Father Family Medical History: Cancer Additional Family Medical History / Comment(s): at age 68 from lung cancer Mother Family Medical History: Cancer Additional Family Medical History / Comment(s): at age 83 from lung cancer Brother(s) Family Medical History: Cancer Additional Family Medical History / Comment(s): at age 63 from lung cancer. Son(s) Additional Family Medical History / Comment(s): She has 2 sons with no major medical problems. Medications and Allergies Home Medications Medication Instructions Recorded Confirmed Type Atenolol 100 mg PO HS 12/22/16 08/23/18 History Brinzolamide/Brimonidine Tart 1 drop BOTH EYES QAM 12/22/16 08/23/18 History [Simbrinza 1%-0.2% Eye Drops] Folic Acid 1 mg PO SUMOTUTHFRSA 12/22/16 08/23/18 History Levothyroxine Sodium [Synthroid] 75 mcg PO DAILY 12/22/16 08/23/18 History Methotrexate Sodium [Methotrexate] 10 mg PO WE 12/22/16 08/23/18 History Pantoprazole Sodium [Protonix] 40 mg PO BID 12/22/16 08/23/18 History Furosemide [Lasix] 10 mg PO Q48H 11/03/17 08/23/18 History Ascorbic Acid [Vitamin C] 500 mg PO DAILY 05/18/18 08/23/18 History Acetaminophen Tab [Tylenol Tab] 325 mg PO Q4H PRN 08/23/18 08/23/18 History Diazepam [Valium] 5 mg PO TID PRN 08/23/18 08/23/18 History HYDROcodone/APAP 7.5-325MG [[place] 1 tab PO BID PRN 08/23/18 08/23/18 History 7.5-325] Iron 18 mg PO DAILY 08/23/18 08/23/18 History Allergies Allergy/AdvReac Type Severity Reaction Status Date / Time morphine AdvReac Severe Hallucinati Verified 08/23/18 07:25 ons Physical Exam Vitals: Vital Signs Temp Pulse Resp BP Pulse Ox 08/23/18 06:52 90 20 172/96 98 08/23/18 06:01 106 H 22 153/138 98 08/23/18 04:25 97.9 F 102 H 22 194/138 92 L Intake and Output 08/22/18 08/23/18 08/23/18 22:59 06:59 14:59 Other: Weight 63.503 kg General Appearance: Alert, cooperative, no distress, appears stated age. Neck HEENT: Supple, no lymphadenopathy, no thyroid enlargement, no carotid bruits. Lungs: Clear to auscultation without crackles or wheezes no rhonchi, no deformity. Chest Wall: Chest wall normal expansion with deep inspiration no tenderness and no deformity was found on exam, no costochondral pain or discomfort. Heart: Irregular rhythm and rate is S2 positive S3 positive PVCs at 5 cm JVD Back: Symmetric, no curvature, ROM normal, no CVA tenderness. Abdomen: Soft positive bowel sounds slight tenderness in the right flank area and lower abdominal region area as well. Extremities: Extremities normal, atraumatic, no cyanosis or edema. Pulses: 2+ and symmetric. Skin: Skin color, texture, tugor normal, no rashes or lesions. Neurologic: Alert oriented x3 cranial nerves II through XII intact, no motor deficit, no abnormal balance or gait. Results CBC & Chem 7: 08/23/18 04:40 08/23/18 04:40 Labs: Abnormal Lab Results - Last 24 Hours (Table) 08/23/18 08/23/18 Range/Units 04:40 05:30 Alkaline Phosphatase 149 H (38-126) U/L Urine Nitrite Positive H (Negative) Ur Leukocyte Esterase Large H (Negative) Urine WBC 51 H (0-5) /hpf Ur Squamous Epith Cells 12 H (0-4) /hpf Urine Bacteria Occasional H (None) /hpf Thrombosis Risk Factor Assmnt - DVT/VTE Prophylaxis DVT/VTE Prophylaxis: Pharmacologic Prophylaxis ordered, Mechanical Prophylaxis ordered - Choose All That Apply Any of the Below Risk Factors Present?: Yes Each Factor Represents 1 point: Abnormal pulmonary function (COPD) Other Risk Factors: Yes Each Risk Factor Represents 3 Points: Age 75 years or older Other congenital or acquired thrombophilia - If yes, enter type in comment: No Thrombosis Risk Factor Assessment Total Risk Factor Score: 4 Thrombosis Risk Factor Assessment Level: Moderate Risk Assessment and Plan Plan: 1 sepsis with UTI: Blood culture and urine culture were done, repeat CT of the abdomen look for any foreign body including not limited to kidney stone or any abnormality if any finding patient will be seen urology. 2 urinary retention: Patient will have bladder scan every shift after she voided if she is having problem might benefit from doing self catheter few times a day. 3 A. fib with RVR: With history of A. fib patient will go back on her atenolol in the meanwhile was started on Cardizem drip will be seen cardiology anticoagulation to be addressed by cardiology and primary care patient has history of anemia with recurrent GI bleed in the past. 4 rheumatoid arthritis: Has been on methotrexate 10 mg a day with folic acid daily. 5 diastolic congestive heart failure: Has been on Lasix and atenolol. 6 hypothyroidism: Has been on levothyroxine 75 g daily. 7 GI prophylaxis/severe GERD: Continue patient on pantoprazole. 8 DVT prophylaxis: Patient will have early mobilization and knee-high PHILIP hose. CODE STATUS: Full code. Admit patient to inpatient status for more than 2 nights.
[2018-08-23 12:09] LABS: Creatine Kinase 22 U/L (30-135)
[2018-08-23 12:20] LABS: Creatine Kinase MB 0.7 ng/mL (0.0-2.4); Troponin I <0.012 ng/mL (0.000-0.034)
[2018-08-23] MEDS: ASCORBIC ACID 500 MG TAB PO SCH (12:44)
[2018-08-23] MEDS: FERROUS SULFATE 325 MG TAB PO SCH (12:44)
[2018-08-23] MEDS: LEVOTHYROXINE 75 MCG TAB PO SCH (12:46)
[2018-08-23] MEDS: PANTOPRAZOLE 40 MG TABLET PO SCH ×2 (12:46→18:11)
--- NOTE | 2018-08-23 13:47 | CT ---
EXAMINATION TYPE: CT abdomen pelvis w con DATE OF EXAM: 08/23/2018 COMPARISON: 11/03/2017 INDICATION: Frequent UTI. DLP: 657.9 mGycm, Automated exposure control for dose reduction was used. CONTRAST: 100 mL of Isovue 300. Study performed without Oral Contrast TECHNIQUE: Axial images were obtained from above the diaphragm to the pubic rami in the axial plane a t 5 mm thick sections. Reconstructed images are reviewed on the computer in the coronal plane. FINDINGS: Limited CT sections are obtained the lung bases. Bilateral breast prostheses are present. Small to mo derate bilateral pleural effusions are present.. Some compressive atelectasis is present at the lung bases adjacent to the pleural effusions. CT ABDOMEN: Liver: Normal Spleen: Normal Pancreas: Normal Adrenal glands: The adrenal glands are normal. Gallbladder: Normal Kidneys: Left kidney is atrophic. Right kidney appears normal without masses cysts or hydronephrosis. Aorta: Vascular calcification is within the aorta. There is mild fusiform prominence of the mid abdo la aorta measuring 2.9 cm greatest AP dimension. Inferior vena cava: Normal. CT PELVIS: Loops of bowel within the abdomen and pelvis are normal. There are loops of bowel which are incom pletely distended or lack oral contrast limiting their evaluation. Few diverticuli are within the sig moid colon Appendix: Normal as visualized. Urinary bladder: Normal. Genitourinary structures: Uterus is absent. Adnexal regions appear clear. Osseous structures: No suspicious lytic or sclerotic lesions. Scoliosis is present with convexity to the left. IMPRESSIONS: 1. No suspicious acute process within the abdomen or pelvis. 2. Small to moderate bilateral pleural effusions with mild adjacent compressive atelectasis.
--- NOTE | 2018-08-23 14:01 | P.CRDCN ---
History of Present Illness Consult date: 08/23/18 Chief complaint: Dysuria History of present illness: This is a pleasant 77-year-old female patient who follows with Dr. Serrano in the office as an outpatient with a past medical history significant for chronic persistent atrial fibrillation not on any oral anticoagulation in view of history of GI bleeding, intermediate nonobstructive coronary artery disease based on heart catheterization was performed in 2013, and preserved left ventricular systolic function based on echocardiogram was performed in 2014 , presented to the hospital not feeling well. The patient was struggling with urinary tract infection for the last several days. For the last 24 hours she has been experiencing more dysuria and frequent urination. No fever and no chills. No abdominal discomfort. No symptoms of chest pain or chest discomfort. But she was experiencing symptoms of progressive exertional dyspnea. She stated that she does have shortness of breath with exertion as a baseline and she does follow with a cold roll packer sheet iron and regular basis but for the last several days the shortness of breath has been progressed and she cannot even carry a conversation or eating even without being short of breath. She also she did develop bilateral lower extremities edema lately. The patient presented to the emergency room mainly because of the symptoms of dysuria. She was admitted to the hospital and getting treated for UTI. She was found to be tachycardic and she was found to be in atrial fibrillation with RVR. Currently she is on Cardizem drip. She is not on any anticoagulation because of history of GI bleeding in the past. As an outpatient she was receiving atenolol at 100 mg by mouth twice a day and she has been maintaining controlled heart rate on this dose of atenolol. The UA showed urinalysis. The chest x-ray showed findings consistent was mild CHF. The EKG showed atrial fibrillation with RVR. The echo from 2014 showed normal LV function with mild MR and mild TR. The heart catheterization from 2013 revealed intermediate nonobstructive coronary artery disease involving the left circumflex coronary artery. Please note that the patient does have a solitary kidney and she states also that she does have a stent in her kidney. 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 History of Any Multi-Drug Resistant Organisms: None Reported Past Surgical History: Breast Surgery, Hysterectomy, Joint Replacement, Orthopedic Surgery Additional Past Surgical History / Comment(s): AAA repair in 2000, bilateral knee replacements, R arm wound with surgical repair, Egd, colonoscopies/benign polypectomy, breast augmentation, bilateral cataract removal with lens implants. Past Anesthesia/Blood Transfusion Reactions: No Reported Reaction Additional Past Anesthesia/Blood Transfusion Reaction / Comment(s): Pt has received blood in past without reaction. Smoking Status: Former smoker - Past Family History Father Family Medical History: Cancer Additional Family Medical History / Comment(s): at age 68 from lung cancer Mother Family Medical History: Cancer Additional Family Medical History / Comment(s): at age 83 from lung cancer Brother(s) Family Medical History: Cancer Additional Family Medical History / Comment(s): at age 63 from lung cancer. Son(s) Additional Family Medical History / Comment(s): She has 2 sons with no major medical problems. Medications and Allergies Home Medications Medication Instructions Recorded Confirmed Type Atenolol 100 mg PO HS 12/22/16 08/23/18 History Brinzolamide/Brimonidine Tart 1 drop BOTH EYES QAM 12/22/16 08/23/18 History [Simbrinza 1%-0.2% Eye Drops] Folic Acid 1 mg PO SUMOTUTHFRSA 12/22/16 08/23/18 History Levothyroxine Sodium [Synthroid] 75 mcg PO DAILY 12/22/16 08/23/18 History Methotrexate Sodium [Methotrexate] 10 mg PO WE 12/22/16 08/23/18 History Pantoprazole Sodium [Protonix] 40 mg PO BID 12/22/16 08/23/18 History Furosemide [Lasix] 10 mg PO Q48H 11/03/17 08/23/18 History Ascorbic Acid [Vitamin C] 500 mg PO DAILY 05/18/18 08/23/18 History Acetaminophen Tab [Tylenol Tab] 325 mg PO Q4H PRN 08/23/18 08/23/18 History Diazepam [Valium] 5 mg PO TID PRN 08/23/18 08/23/18 History HYDROcodone/APAP 7.5-325MG [Treichlers 1 tab PO BID PRN 08/23/18 08/23/18 History 7.5-325] Iron 18 mg PO DAILY 08/23/18 08/23/18 History Allergies Allergy/AdvReac Type Severity Reaction Status Date / Time morphine AdvReac Severe Hallucinati Verified 08/23/18 07:25 ons Physical Exam Vitals: Vital Signs Temp Pulse Resp BP Pulse Ox 08/23/18 12:00 86 18 185/90 99 08/23/18 06:52 90 20 172/96 98 08/23/18 06:01 106 H 22 153/138 98 08/23/18 04:25 97.9 F 102 H 22 194/138 92 L Intake and Output 08/22/18 08/23/18 08/23/18 22:59 06:59 14:59 Intake Total 118 Balance 118 Intake: Oral 118 Other: Weight 63.503 kg - Constitutional General appearance: no acute distress - Respiratory Respiratory: bilateral: diminished, rales - Cardiovascular Rhythm: irregularly irregular Heart sounds: normal: S1, S2 Results 08/23/18 04:40 08/23/18 04:40 Cardiac Enzymes 08/23/18 08/23/18 08/23/18 Range/Units 04:40 04:40 11:20 AST 32 (14-36) U/L CK-MB (CK-2) 0.7 (0.0-2.4) ng/mL Troponin I <0.012 <0.012 (0.000-0.034) ng/mL CBC 08/23/18 Range/Units 04:40 WBC 6.7 (3.8-10.6) k/uL RBC 4.33 (3.80-5.40) m/uL Hgb 14.0 (11.4-16.0) gm/dL Hct 42.5 (34.0-46.0) % Plt Count 183 (150-450) k/uL Comprehensive Metabolic Panel 08/23/18 Range/Units 04:40 Sodium 140 (137-145) mmol/L Potassium 4.0 (3.5-5.1) mmol/L Chloride 106 (98-107) mmol/L Carbon Dioxide 26 (22-30) mmol/L BUN 8 (7-17) mg/dL Creatinine 0.66 (0.52-1.04) mg/dL Glucose 89 (74-99) mg/dL Calcium 10.0 (8.4-10.2) mg/dL AST 32 (14-36) U/L ALT 21 (9-52) U/L Alkaline Phosphatase 149 H (38-126) U/L Total Protein 7.1 (6.3-8.2) g/dL Albumin 3.7 (3.5-5.0) g/dL Current Medications Generic Name Dose Route Start Last Admin Trade Name Freq PRN Reason Stop Dose Admin Acetaminophen 325 mg 08/23/18 08:42 Tylenol Tab PO Q4H PRN Mild Pain Hydrocodone Bitart/Acetaminophen 1 each 08/23/18 08:42 Treichlers 7.5-325 PO BID PRN Moderate Pain Ascorbic Acid 500 mg 08/23/18 09:00 08/23/18 12:44 Vitamin C PO Not Given DAILY [facility] Aspirin 325 mg 08/24/18 09:00 Aspirin PO DAILY [facility] Atenolol 100 mg 08/23/18 21:00 Tenormin PO HS [facility] Brimonidine Tartrate 1 drops 08/23/18 09:00 Alphagan P 0.2% Ophth Soln BOTH EYES QAM [facility] Diazepam 5 mg 08/23/18 08:42 Valium PO TID PRN Anxiety Dorzolamide HCl 1 drops 08/23/18 09:00 Trusopt BOTH EYES QAM [facility] Ferrous Sulfate 325 mg 08/23/18 09:00 08/23/18 12:44 Feosol PO Not Given DAILY [facility] Folic Acid 1 mg 08/24/18 12:00 Folic Acid PO SuMoTuThFrSa@1200 [facility] Furosemide 10 mg 08/23/18 09:00 08/23/18 12:47 Lasix PO 10 mg Q48H [facility] Administration Diltiazem HCl 50 mg/ Sodium 50 mls @ 5 mls/hr 08/23/18 05:45 08/23/18 06:01 Chloride IV 5 mg/hr .Q10H [facility] 5 mls/hr Administration 5 MG/HR Ampicillin Sodium/Sulbactam 100 mls @ 200 mls/hr 08/23/18 09:15 08/23/18 10: 13 Sodium 3 gm/ Sodium Chloride IVPB 200 mls/hr Q8HR [facility] Administration Iopamidol 30 ml 08/23/18 08:50 Isovue-300 30 Ml (For Oral Use) PO 08/24/18 08:[address] Scan Levothyroxine Sodium 75 mcg 08/23/18 09:00 08/23/18 12:46 Synthroid PO 75 mcg DAILY@0630 [facility] Administration Nitroglycerin 0.4 mg 08/23/18 07:57 Nitrostat SUBLINGUAL Q5M PRN Chest Pain Pantoprazole Sodium 40 mg 08/23/18 09:00 08/23/18 12:46 Protonix PO 40 mg AC-BID [facility] Administration Intake and Output 08/22/18 08/23/18 08/23/18 22:59 06:59 14:59 Intake Total 118 Balance 118 Intake: Oral 118 Other: Weight 63.503 kg 08/23/18 04:40 08/23/18 04:40 Assessment and Plan Assessment: Assessment #1 atrial fibrillation with rapid ventricular response. This is likely to be triggered by the UTI/sepsis #2 known history of chronic persistent atrial fibrillation not on oral anticoagulation in view of history of GI bleeding #3 intermediate nonobstructive coronary artery disease #4 congestive heart failure exacerbation secondary to diastolic dysfunction #5 hypertension #6 dyslipidemia Plan #1 agree to keep the patient on the current dose of Cardizem IV. We'll try to wean her from it. #2 she was restarted on the home dose of beta nurys with atenolol #3 hold any kind of anticoagulation in view of the history of GI bleeding #4 obtain an echocardiogram with Doppler to assess LV function #6 DC Lasix by mouth on start the patient on Lasix IV gently. The patient seems to be in mild CHF #7 monitor the kidney function and electrolytes #8 follow-up with the patient Thank you for allowing us participate in her care
[2018-08-23] MEDS: BRIMONIDINE TARTRATE 0.2% DROPS 5 ML BTL BOTH EYES SCH (15:16)
[2018-08-23] MEDS: DORZOLAMIDE HCL 2% DROPS 10 ML BTL BOTH EYES SCH (15:17)
[2018-08-23 17:30] LABS: Creatine Kinase 22 U/L (30-135)
[2018-08-23 17:42] LABS: Creatine Kinase MB 0.7 ng/mL (0.0-2.4); Troponin I <0.012 ng/mL (0.000-0.034)
[2018-08-23] MEDS ORDERED: cloNIDine HCL 0.1 MG TAB PO PRN (18:24)
[2018-08-23] MEDS: ATENOLOL 50 MG TAB PO SCH (21:19)
[2018-08-23] MEDS: DIAZEPAM 5 MG TAB PO PRN (22:43)
[2018-08-24] MEDS: DILTIAZEM 50 MG in SODIUM CHLORIDE 0.9% 40 ML IV SCH ×3 (01:44→22:57)
[2018-08-24 04:31] LABS: Cholesterol 157 mg/dL (<200); HDL Cholesterol 62 mg/dL (40-60); LDL Cholesterol,Calculated 79 mg/dL (0-99); Triglycerides 81 mg/dL (<150)
[2018-08-24] MEDS: PANTOPRAZOLE 40 MG TABLET PO SCH ×2 (06:43→18:07)
[2018-08-24] MEDS: LEVOTHYROXINE 75 MCG TAB PO SCH (06:43)
[2018-08-24 07:24] LABS: Basophils # (A) 0.1 k/uL (0-0.2); Basophils % (A) 1 %; Eosinophils # (A) 0.2 k/uL (0-0.7); Eosinophils % (A) 3 %; HCT 41.3 % (34.0-46.0); HGB 13.1 gm/dL (11.4-16.0); Lymphocytes % (A) 16 %; MCH 31.7 pg (25.0-35.0); MCHC 31.7 g/dL (31.0-37.0); MCV 100.1 fL (80.0-100.0); Macrocytosis Slight; Mean Platelet Volume 7.6; Monocytes # (A) 0.4 k/uL (0-1.0); Monocytes % (A) 7 %; Neutrophils # (A) 4.6 k/uL (1.3-7.7); Neutrophils % (A) 73 %; Platelet Count 209 k/uL (150-450); RBC 4.13 m/uL (3.80-5.40); RDW 14.9 % (11.5-15.5); WBC 6.3 k/uL (3.8-10.6)
[2018-08-24 07:42] LABS: Potassium 3.8 mmol/L (3.5-5.1)
[2018-08-24 07:43] LABS: Calcium 9.7 mg/dL (8.4-10.2)
--- NOTE | 2018-08-24 08:17 | P.PN ---
Subjective Progress Note Date: 08/24/18 Principal diagnosis: Chronic persistent atrial fibrillation This is a pleasant 77-year-old female patient who follows with Dr. Serrano in the office as an outpatient with a past medical history significant for chronic persistent atrial fibrillation not on any oral anticoagulation in view of history of GI bleeding, intermediate nonobstructive coronary artery disease based on heart catheterization was performed in 2013, and preserved left ventricular systolic function based on echocardiogram was performed in 2014 , presented to the hospital not feeling well. The patient was struggling with urinary tract infection for the last several days. For the last 24 hours she has been experiencing more dysuria and frequent urination. No fever and no chills. No abdominal discomfort. No symptoms of chest pain or chest discomfort. But she was experiencing symptoms of progressive exertional dyspnea. She stated that she does have shortness of breath with exertion as a baseline and she does follow with a flare man and regular basis but for the last several days the shortness of breath has been progressed and she cannot even carry a conversation or eating even without being short of breath. She also she did develop bilateral lower extremities edema lately. The patient presented to the emergency room mainly because of the symptoms of dysuria. She was admitted to the hospital and getting treated for UTI. She was found to be tachycardic and she was found to be in atrial fibrillation with RVR. Currently she is on Cardizem drip. She is not on any anticoagulation because of history of GI bleeding in the past. As an outpatient she was receiving atenolol at 100 mg by mouth twice a day and she has been maintaining controlled heart rate on this dose of atenolol. The UA showed urinalysis. The chest x-ray showed findings consistent was mild CHF. The EKG showed atrial fibrillation with RVR. The echo from 2014 showed normal LV function with mild MR and mild TR. The heart catheterization from 2013 revealed intermediate nonobstructive coronary artery disease involving the left circumflex coronary artery. On follow-up with the patient today, August 242018, the patient initially was started on Cardizem drip but her heart rate has been controlled. Currently she is off Cardizem. She is on atenolol. The blood pressure and heart rate has been under good control. Overall she is feeling better. No chest pain or chest discomfort. I did start the patient on Lasix IV because I felt she was in mild congestive heart failure which she has been making good urine. The creatinine continues to be stable. I would recommend giving the patient on IV Lasix for additional 24 hours. Also she does have urinary tract infection and she is on antibiotic for that. Objective - Vital Signs Vital signs: Vital Signs Temp 98 F 08/24/18 03:34 Pulse 61 08/24/18 03:37 Resp 20 08/24/18 03:37 BP 145/77 08/24/18 03:34 Pulse Ox 97 08/24/18 03:34 Intake & Output 08/23/18 08/24/18 08/24/18 18:59 06:59 18:59 Intake Total 528 1220.083 Output Total 600 1207 Balance -72 13.083 Weight 63.1 kg 63.2 kg Intake: IV 80 normal saline 80 Intake, IV Titration 50 140.083 Amount Ampicillin-Sulbactam 3 gm 100 In Sodium Chloride 0.9% 100 ml @ 200 mls/hr IVPB Q8HR [facility] Rx#:[id number] Diltiazem 50 mg In Sodium 50 40.083 Chloride 0.9% 40 ml @ 5 MG/HR 5 mls/hr IV .Q10H [facility] Rx#:[id number] Oral 478 1000 Output: Urine 600 650 Straight 600 Post Void Residual 557 Other: Voiding Method Toilet Toilet # Voids 600 1 - Constitutional General appearance: Present: no acute distress - Respiratory Respiratory: bilateral: diminished - Cardiovascular Rhythm: irregularly irregular Heart sounds: normal: S1, S2 - Labs CBC & Chem 7: 08/24/18 06:41 08/24/18 06:41 Labs: Abnormal Lab Results - Last 24 Hours (Table) 08/23/18 08/23/18 08/23/18 Range/Units 04:40 11:20 16:40 MCV (80.0-100.0) fL Carbon Dioxide (22-30) mmol/L Total Creatine Kinase 22 L 22 L (30-135) U/L HDL Cholesterol 62 H (40-60) mg/dL 08/24/18 08/24/18 Range/Units 06:41 06:41 MCV 100.1 H (80.0-100.0) fL Carbon Dioxide 31 H (22-30) mmol/L Total Creatine Kinase (30-135) U/L HDL Cholesterol (40-60) mg/dL Microbiology - Last 24 Hours (Table) 08/23/18 05:30 Urine Culture - Preliminary Urine,Voided Assessment and Plan Assessment: Assessment #1 atrial fibrillation with rapid ventricular response. This is likely to be triggered by the UTI/sepsis #2 known history of chronic persistent atrial fibrillation not on oral anticoagulation in view of history of GI bleeding #3 intermediate nonobstructive coronary artery disease #4 congestive heart failure exacerbation secondary to diastolic dysfunction #5 hypertension #6 dyslipidemia Plan #1 continue the current dose of atenolol. The heart rate seems to be under good control. #2 follow-up on the echocardiogram which was performed #3 continue IV Lasix for additional 24 hours #4 follow-up with the patient
[2018-08-24] MEDS: ASCORBIC ACID 500 MG TAB PO SCH (08:47)
[2018-08-24] MEDS: FERROUS SULFATE 325 MG TAB PO SCH ×2 (08:48→08:51)
[2018-08-24] MEDS: ASPIRIN 325 MG TAB PO SCH ×2 (08:48→08:51)
[2018-08-24] MEDS: BRIMONIDINE TARTRATE 0.2% DROPS 5 ML BTL BOTH EYES SCH (08:49)
[2018-08-24] MEDS: FUROSEMIDE 10 MG/ML 4 ML VIAL IV SCH (08:50)
[2018-08-24] MEDS: DORZOLAMIDE HCL 2% DROPS 10 ML BTL BOTH EYES SCH (08:52)
[2018-08-24] MEDS: AMPICILLIN-SULBACTAM 3 GM in SODIUM CHLORIDE 0.9% 100 ML IVPB SCH ×3 (09:05→23:26)
[2018-08-24 11:31] VITALS: BMI 21.2
--- NOTE | 2018-08-24 12:21 | P.PN ---
Subjective Progress Note Date: 08/24/18 77-year-old female one of Dr. Rider's patient with the past medical history of A. fib, asthma, heart failure, GERD and previous history of GI bleed who has been treated for A. fib for long time has been doing well on atenolol with no rapid pulse. Patient apparently developed to have sign and symptom of UTI for the last few days become much worse last night developed to have burning discomfort irritation frequency and urgency with persistent symptoms low -grade temperature as well as. Patient also developed to have significant shortness of breath with rapid pulse running in the 150s to 160. She ended up coming to the emergency department at [facility] where was seen her UA was positive patient was started on IV antibiotics. Patient was in A. fib with RVR pulse rate running around 160 beats per minutes was started on Cardizem drip after bolus pulse rate remain high initially and then subtle down in the 80-90. Patient is not on any anticoagulation as an outpatient for history of GI bleed apparently from last time she was in the hospital. Patient will be admitted to the hospital further workup for possible right sided kidney stone with flank pain in the right side with CAT scan of the abdomen will be done also will be seen cardiology and further management in her A. fib and possible need for anticoagulation to be addressed by her adapted physical education teacher and her PCP. 08/24: Patient states she had to be straight cath twice during the night but in general is feeling much better from yesterday. We will add in a consult with Dr. Jeffrey and patient may need to be taught self cath. Urine culture is in progress. She has been afebrile, blood pressure 145/77, heart rate running in the 60s, pulse ox 97% on 2 L nasal cannula. Troponins came back negative on 3 draws, proBNP 4200, white count 6.3, hemoglobin 13.1, creatinine 0.76. Patient has been seen by Dr. Miller and recommends continuing IV Lasix for another 24 hours. Patient is off Cardizem drip and rate is well controlled. Review of Systems CONSTITUTIONAL: Well-developed no acute respiratory distress. EYES: No icterus sclerae, no conjunctivitis. EARS, NOSE, MOUTH, THROAT, and FACE: No sore throat, lymphadenopathy, carotid bruits or deformity. RESPIRATORY: No SOB cough or wheezes. CARDIOVASCULAR: No chest pain or angina, positive palpitation positive PND GASTROINTESTINAL: Positive abdominal pain with nausea no vomiting no diarrhea no sign and symptom of GI bleed at this point. GENITOURINARY: Right-sided flank pain along with burning discomfort frequency urgency-improved with no hematuria. INTEGUMENT/BREAST: Negative for any muscular injury with mild osteoarthritis.. HEMATOLOGIC/LYMPHATIC: Negative for bleed or purpura. MUSCULOSKELTAL: Negative for Myalgia or arthralgia. NEURLOGICAL: No LOC, Sz or syncope, blurred vision dizziness or abnormality.. BEHAVIORAL/PSYCH: Negative. ENDOCRINE: Negative. Objective - Vital Signs Vital signs: Vital Signs Temp 97.5 F L 08/24/18 08:30 Pulse 81 08/24/18 08:30 Resp 20 08/24/18 08:30 BP 150/90 08/24/18 08:30 Pulse Ox 99 08/24/18 08:30 Intake & Output 08/23/18 08/24/18 08/24/18 18:59 06:59 18:59 Intake Total 528 1220.083 240 Output Total 600 1207 100 Balance -72 13.083 140 Weight 63.1 kg 63.2 kg 63.2 kg Intake: IV 80 normal saline 80 Intake, IV Titration 50 140.083 Amount Ampicillin-Sulbactam 3 gm 100 In Sodium Chloride 0.9% 100 ml @ 200 mls/hr IVPB Q8HR [facility] Rx#:[id number] Diltiazem 50 mg In Sodium 50 40.083 Chloride 0.9% 40 ml @ 5 MG/HR 5 mls/hr IV .Q10H [facility] Rx#:[id number] Oral 478 1000 240 Output: Urine 600 650 100 Straight 600 Post Void Residual 557 Other: Voiding Method Toilet Toilet # Voids 600 1 # Bowel Movements 1 - Exam General Appearance: Alert, cooperative, no distress, appears stated age. Patient is resting in bed. Neck HEENT: Supple, no lymphadenopathy, no thyroid enlargement, no carotid bruits. Lungs: Clear to auscultation without crackles or wheezes no rhonchi, no deformity. Chest Wall: Chest wall normal expansion with deep inspiration no tenderness and no deformity was found on exam, no costochondral pain or discomfort. Heart: Irregular rhythm and rate is S2 positive S3 positive PVCs at 5 cm JVD Back: Symmetric, no curvature, ROM normal, no CVA tenderness. Abdomen: Soft positive bowel sounds slight tenderness in the right flank area and lower abdominal region area as well. Extremities: Extremities normal, atraumatic, no cyanosis or edema. Pulses: 2+ and symmetric. Skin: Skin color, texture, tugor normal, no rashes or lesions. Neurologic: Alert oriented x3 cranial nerves II through XII intact, no motor deficit, no abnormal balance or gait. - Labs CBC & Chem 7: 08/24/18 06:41 08/24/18 06:41 Labs: Abnormal Lab Results - Last 24 Hours (Table) 08/23/18 08/23/18 08/23/18 Range/Units 04:40 11:20 16:40 MCV (80.0-100.0) fL Carbon Dioxide (22-30) mmol/L Total Creatine Kinase 22 L 22 L (30-135) U/L HDL Cholesterol 62 H (40-60) mg/dL 08/24/18 08/24/18 Range/Units 06:41 06:41 MCV 100.1 H (80.0-100.0) fL Carbon Dioxide 31 H (22-30) mmol/L Total Creatine Kinase (30-135) U/L HDL Cholesterol (40-60) mg/dL Microbiology - Last 24 Hours (Table) 08/23/18 05:30 Urine Culture - Preliminary Urine,Voided Assessment and Plan Plan: 1 sepsis with UTI: Blood culture and urine culture were done, repeat CT of the abdomen look for any foreign body including not limited to kidney stone or any abnormality if any finding patient will be seen urology. 2 urinary retention: Patient will have bladder scan every shift after she voided if she is having problem might benefit from doing self catheter few times a day. 3 chronic atrial fibrillation presenting with A. fib with RVR. Patient is off Cardizem drip. Continue atenolol 100 mg at bedtime. 4 rheumatoid arthritis: Has been on methotrexate 10 mg a day with folic acid daily. 5 acute diastolic heart failure. Continue IV Lasix 40 mg daily and atenolol. 6 hypothyroidism: Has been on levothyroxine 75 g daily. 7 GI prophylaxis/severe GERD: Continue patient on pantoprazole. 8 DVT prophylaxis: Patient will have early mobilization and knee-high PHILIP hose. CODE STATUS: Full code. Discharge plan: Most likely return home Impression and plan of care have been directed as dictated by the signing physician. Marina Cervantes nurse practitioner acting as scribe for signing physician.
[2018-08-24] MEDS: FOLIC ACID 1 MG TAB PO SCH (18:07)
[2018-08-24] MEDS: DIAZEPAM 5 MG TAB PO PRN (21:03)
[2018-08-24] MEDS: ATENOLOL 50 MG TAB PO SCH (21:03)
--- NOTE | 2018-08-24 23:31 | P.GSCN ---
History of Present Illness Consult date: 08/24/18 Reason for Consult: Urinary Retention Requesting physician: Virgil Marie History of present illness: The patient is a 77-year-old white female who has been treated for recurrent UTIs for the past several years. Specifically, she states that she has been treated for 2-3 infections annually. However, she has been treated for 3 UTIs since 06/30/2018. She has been treated recently with both Keflex and Ceftin. She was admitted with cystitis symptoms. She was straight catheterized with return of 600 mL on one occasion. However, bladder scan postvoid residuals have otherwise been in the 472852 mL range. Review of Systems - Constitutional Reports fatigue, Reports weakness, Reports weight loss, Denies chills, Denies fever - Respiratory Reports cough - Gastrointestinal Reports nausea - Genitourinary Genitourinary: Reports dysuria, Denies hematuria Past Medical History Past Medical History: Atrial Fibrillation, Asthma, Heart Failure, COPD, Eye Disorder, GERD/Reflux, GI Bleed, Hyperlipidemia, Hypertension, Osteoarthritis ( OA), Pneumonia, Renal Disease, Respiratory Disorder, Rheumatoid Arthritis (RA), Sleep Apnea/CPAP/BIPAP, Thyroid Disorder Additional Past Medical History / Comment(s): Myobacterium avium comples, bronchitis, lower GI bleed, denies past gastric ulcer, hiatal hernia, anemia with blood transfusions and iron infusions, pt has L kidney that is functioning/ L kidney has atrophied, 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 History of Any Multi-Drug Resistant Organisms: None Reported Past Surgical History: Breast Surgery, Hysterectomy, Joint Replacement, Orthopedic Surgery Additional Past Surgical History / Comment(s): AAA repair in 2000, bilateral knee replacements, R arm wound with surgical repair, Egd, colonoscopies/benign polypectomy, breast augmentation, bilateral cataract removal with lens implants. Past Anesthesia/Blood Transfusion Reactions: No Reported Reaction Additional Past Anesthesia/Blood Transfusion Reaction / Comm: Pt has received blood in past without reaction. Smoking Status: Former smoker - Past Family History Father Family Medical History: Cancer Additional Family Medical History / Comment(s): at age 68 from lung cancer Mother Family Medical History: Cancer Additional Family Medical History / Comment(s): at age 83 from lung cancer Brother(s) Family Medical History: Cancer Additional Family Medical History / Comment(s): at age 63 from lung cancer. Son(s) Additional Family Medical History / Comment(s): She has 2 sons with no major medical problems. Medications and Allergies Home Medications Medication Instructions Recorded Confirmed Type Atenolol 100 mg PO HS 12/22/16 08/23/18 History Brinzolamide/Brimonidine Tart 1 drop BOTH EYES QAM 12/22/16 08/23/18 History [Simbrinza 1%-0.2% Eye Drops] Folic Acid 1 mg PO SUMOTUTHFRSA 12/22/16 08/23/18 History Levothyroxine Sodium [Synthroid] 75 mcg PO DAILY 12/22/16 08/23/18 History Methotrexate Sodium [Methotrexate] 10 mg PO WE 12/22/16 08/23/18 History Pantoprazole Sodium [Protonix] 40 mg PO BID 12/22/16 08/23/18 History Furosemide [Lasix] 10 mg PO Q48H 11/03/17 08/23/18 History Ascorbic Acid [Vitamin C] 500 mg PO DAILY 05/18/18 08/23/18 History Acetaminophen Tab [Tylenol Tab] 325 mg PO Q4H PRN 08/23/18 08/23/18 History Diazepam [Valium] 5 mg PO TID PRN 08/23/18 08/23/18 History HYDROcodone/APAP 7.5-325MG [[place]y Rose 1 tab PO BID PRN 08/23/18 08/23/18 History 7.5-325] Iron 18 mg PO DAILY 08/23/18 08/23/18 History Allergies Allergy/AdvReac Type Severity Reaction Status Date / Time morphine AdvReac Severe Hallucinati Verified 08/23/18 07:25 ons Surgical - Exam Vital Signs Temp Pulse Resp BP Pulse Ox 97.9 F 102 H 22 194/138 92 L 08/23/18 04:25 08/23/18 04:25 08/23/18 04:25 08/23/18 04:25 08/23/18 04:25 - General well developed, well nourished, no distress - Neck no masses, trachea midline - Respiratory normal respiratory effort - Abdomen Abdomen: soft, tender (Mild suprapubic tenderness), no masses, no guarding, no rigid, no rebound - Genitourinary normal external genitalia, normal perineum, other (Bladder well supported. No urethral hypermobility. No urethral or pelvic masses.) - Psychiatric oriented to time, oriented to person, oriented to place, speech is normal, memory intact Results - Labs 08/24/18 06:41 08/24/18 06:41 Abnormal Lab Results - Last 24 Hours (Table) 08/23/18 08/24/18 08/24/18 Range/Units 04:40 06:41 06:41 MCV 100.1 H (80.0-100.0) fL Carbon Dioxide 31 H (22-30) mmol/L HDL Cholesterol 62 H (40-60) mg/dL Microbiology - Last 24 Hours (Table) 08/23/18 05:30 Urine Culture - Preliminary Urine,Voided Gram Neg Bacilli Diabetes panel 08/23/18 08/24/18 Range/Units 04:40 06:41 Sodium 139 (137-145) mmol/L Potassium 3.8 (3.5-5.1) mmol/L Chloride 105 (98-107) mmol/L Carbon Dioxide 31 H (22-30) mmol/L BUN 8 (7-17) mg/dL Creatinine 0.76 (0.52-1.04) mg/dL Glucose 91 (74-99) mg/dL Calcium 9.7 (8.4-10.2) mg/dL Triglycerides 81 (<150) mg/dL HDL Cholesterol 62 H (40-60) mg/dL Calcium panel 08/24/18 Range/Units 06:41 Calcium 9.7 (8.4-10.2) mg/dL Pituitary panel 08/24/18 Range/Units 06:41 Sodium 139 (137-145) mmol/L Potassium 3.8 (3.5-5.1) mmol/L Chloride 105 (98-107) mmol/L Carbon Dioxide 31 H (22-30) mmol/L BUN 8 (7-17) mg/dL Creatinine 0.76 (0.52-1.04) mg/dL Glucose 91 (74-99) mg/dL Calcium 9.7 (8.4-10.2) mg/dL Adrenal panel 08/24/18 Range/Units 06:41 Sodium 139 (137-145) mmol/L Potassium 3.8 (3.5-5.1) mmol/L Chloride 105 (98-107) mmol/L Carbon Dioxide 31 H (22-30) mmol/L BUN 8 (7-17) mg/dL Creatinine 0.76 (0.52-1.04) mg/dL Glucose 91 (74-99) mg/dL Calcium 9.7 (8.4-10.2) mg/dL - Imaging CT scan - abdomen: report reviewed, image reviewed Assessment and Plan (1) Urinary tract infection Current Visit: Yes Status: Acute Code(s): N39.0 - URINARY TRACT INFECTION, SITE NOT SPECIFIED SNOMED Code(s): 96687444 (2) Incomplete bladder emptying Current Visit: Yes Status: Acute Code(s): R33.9 - RETENTION OF URINE, UNSPECIFIED SNOMED Code(s): 654589445 Plan: Mrs. Aaron is currently admitted with a UTI. A preliminary urine culture shows gram-negative bacilli. She is currently receiving Unasyn. She has been found to empty her bladder incompletely. I explained to her that incomplete bladder emptying increases the risk of UTIs. Unfortunately, she hopes to avoid intermittent self-catheterization. I suggested that an indwelling Mathews catheter is an alternative, but one that I do not favor. Only one post void residual was significant enough to warrant intermittent self-catheterization, as I would not be in favor of this unless her postvoid residuals were consistently over 400 mL. Postvoid residuals should continue to be monitored. Time with Patient: Greater than 30
[2018-08-25] MEDS: HYDROcodone/APAP 7.5-325MG 1 EACH TAB PO PRN ×2 (04:13→21:23)
[2018-08-25] MEDS: LEVOTHYROXINE 75 MCG TAB PO SCH (06:25)
[2018-08-25] MEDS: PANTOPRAZOLE 40 MG TABLET PO SCH ×2 (06:25→16:38)
[2018-08-25 07:28] LABS: Basophils # (A) 0.1 k/uL (0-0.2); Basophils % (A) 1 %; Eosinophils # (A) 0.2 k/uL (0-0.7); Eosinophils % (A) 2 %; HCT 43.9 % (34.0-46.0); HGB 13.2 gm/dL (11.4-16.0); Lymphocytes # (A) 1.4 k/uL (1.0-4.8); Lymphocytes % (A) 18 %; MCH 29.8 pg (25.0-35.0); MCHC 30.1 g/dL (31.0-37.0); MCV 98.9 fL (80.0-100.0); Monocytes # (A) 0.5 k/uL (0-1.0); Monocytes % (A) 6 %; Neutrophils # (A) 5.6 k/uL (1.3-7.7); Neutrophils % (A) 72 %; Platelet Count 221 k/uL (150-450); RBC 4.44 m/uL (3.80-5.40); RDW 14.3 % (11.5-15.5); WBC 7.8 k/uL (3.8-10.6)
[2018-08-25 07:40] LABS: Calcium 9.7 mg/dL (8.4-10.2); Potassium 3.8 mmol/L (3.5-5.1)
--- NOTE | 2018-08-25 08:34 | P.PN ---
Subjective Principal diagnosis: Chronic persistent atrial fibrillation This is a pleasant 77-year-old female patient who follows with Dr. Serrano in the office as an outpatient with a past medical history significant for chronic persistent atrial fibrillation not on any oral anticoagulation in view of history of GI bleeding, intermediate nonobstructive coronary artery disease based on heart catheterization was performed in 2013, and preserved left ventricular systolic function based on echocardiogram was performed in 2014 , presented to the hospital not feeling well. The patient was struggling with urinary tract infection for the last several days. For the last 24 hours she has been experiencing more dysuria and frequent urination. No fever and no chills. No abdominal discomfort. No symptoms of chest pain or chest discomfort. But she was experiencing symptoms of progressive exertional dyspnea. She stated that she does have shortness of breath with exertion as a baseline and she does follow with a group fitness manager and regular basis but for the last several days the shortness of breath has been progressed and she cannot even carry a conversation or eating even without being short of breath. She also she did develop bilateral lower extremities edema lately. The patient presented to the emergency room mainly because of the symptoms of dysuria. She was admitted to the hospital and getting treated for UTI. She was found to be tachycardic and she was found to be in atrial fibrillation with RVR. Currently she is on Cardizem drip. She is not on any anticoagulation because of history of GI bleeding in the past. As an outpatient she was receiving atenolol at 100 mg by mouth twice a day and she has been maintaining controlled heart rate on this dose of atenolol. The UA showed urinalysis. The chest x-ray showed findings consistent was mild CHF. The EKG showed atrial fibrillation with RVR. The echo from 2014 showed normal LV function with mild MR and mild TR. The heart catheterization from 2013 revealed intermediate nonobstructive coronary artery disease involving the left circumflex coronary artery. On follow-up with the patient today, 08/25/2018, the patient continues to be in atrial fibrillation which is chronic persistent with controlled heart rate on the current dose of atenolol which is 100 mg by mouth twice a day beach she is not on any oral anticoagulation because of history of GI bleeding in the past. The blood pressure has been out of control and I am going to add lisinopril at 5 mg by mouth daily for better blood pressure control. She is getting workup by the urology service. She continues to have crackles on examination and I would suggest to keep the Lasix IV for additional 24 hours. The creatinine continues to be stable. Objective - Vital Signs Vital signs: Vital Signs Temp 97.9 F 08/25/18 03:32 Pulse 86 08/25/18 03:32 Resp 18 08/25/18 03:32 BP 174/82 08/25/18 03:32 Pulse Ox 97 08/25/18 03:32 Intake & Output 08/24/18 08/25/18 08/25/18 18:59 06:59 18:59 Intake Total 600 400 Output Total 600 1210 Balance 0 -810 Weight 63.2 kg 62.3 kg Intake: Oral 600 400 Output: Urine 600 600 Post Void Residual 610 Other: Voiding Method Toilet Toilet # Voids 2 # Bowel Movements 1 - Constitutional General appearance: Present: no acute distress - Respiratory Respiratory: bilateral: rhonchi - Cardiovascular Rhythm: irregularly irregular Heart sounds: normal: S1, S2 - Labs CBC & Chem 7: 08/25/18 06:46 08/25/18 06:46 Labs: Abnormal Lab Results - Last 24 Hours (Table) 08/25/18 08/25/18 Range/Units 06:46 06:46 MCHC 30.1 L (31.0-37.0) g/dL Carbon Dioxide 33 H (22-30) mmol/L Glucose 104 H (74-99) mg/dL Microbiology - Last 24 Hours (Table) 08/23/18 05:30 Urine Culture - Preliminary Urine,Voided Gram Neg Bacilli Assessment and Plan Assessment: Assessment #1 atrial fibrillation with rapid ventricular response. This is likely to be triggered by the UTI/sepsis #2 known history of chronic persistent atrial fibrillation not on oral anticoagulation in view of history of GI bleeding #3 intermediate nonobstructive coronary artery disease #4 congestive heart failure exacerbation secondary to diastolic dysfunction #5 hypertension #6 dyslipidemia Plan #1 continue the current dose of atenolol. The heart rate seems to be under good control. #2 add lisinopril for better blood pressure control #3 continue IV Lasix for additional 24 hours #4 follow-up with the patient
[2018-08-25] MEDS: FERROUS SULFATE 325 MG TAB PO SCH ×2 (09:08→09:12)
[2018-08-25] MEDS: DORZOLAMIDE HCL 2% DROPS 10 ML BTL BOTH EYES SCH (09:08)
[2018-08-25] MEDS: ASCORBIC ACID 500 MG TAB PO SCH ×2 (09:08→09:12)
[2018-08-25] MEDS: FUROSEMIDE 10 MG/ML 4 ML VIAL IV SCH (09:08)
[2018-08-25] MEDS: BRIMONIDINE TARTRATE 0.2% DROPS 5 ML BTL BOTH EYES SCH (09:08)
[2018-08-25] MEDS: ASPIRIN 325 MG TAB PO SCH ×2 (09:08→09:10)
[2018-08-25] MEDS: AMPICILLIN-SULBACTAM 3 GM in SODIUM CHLORIDE 0.9% 100 ML IVPB SCH (09:56)
[2018-08-25 12:03] LABS: Glucose,Whole Blood 91 mg/dL (75-99)
[2018-08-25] MEDS: FOLIC ACID 1 MG TAB PO SCH (12:54)
[2018-08-25] MEDS: LISINOPRIL 5 MG TAB PO SCH (12:54)
--- NOTE | 2018-08-25 13:15 | P.PN ---
Subjective Progress Note Date: 08/25/18 77-year-old female one of Dr. Rider's patient with the past medical history of A. fib, asthma, heart failure, GERD and previous history of GI bleed who has been treated for A. fib for long time has been doing well on atenolol with no rapid pulse. Patient apparently developed to have sign and symptom of UTI for the last few days become much worse last night developed to have burning discomfort irritation frequency and urgency with persistent symptoms low -grade temperature as well as. Patient also developed to have significant shortness of breath with rapid pulse running in the 150s to 160. She ended up coming to the emergency department at [facility] where was seen her UA was positive patient was started on IV antibiotics. Patient was in A. fib with RVR pulse rate running around 160 beats per minutes was started on Cardizem drip after bolus pulse rate remain high initially and then subtle down in the 80-90. Patient is not on any anticoagulation as an outpatient for history of GI bleed apparently from last time she was in the hospital. Patient will be admitted to the hospital further workup for possible right sided kidney stone with flank pain in the right side with CAT scan of the abdomen will be done also will be seen cardiology and further management in her A. fib and possible need for anticoagulation to be addressed by her efficiency miner blasting and her PCP. 08/24: Patient states she had to be straight cath twice during the night but in general is feeling much better from yesterday. We will add in a consult with Dr. Jeffrey and patient may need to be taught self cath. Urine culture is in progress. She has been afebrile, blood pressure 145/77, heart rate running in the 60s, pulse ox 97% on 2 L nasal cannula. Troponins came back negative on 3 draws, proBNP 4200, white count 6.3, hemoglobin 13.1, creatinine 0.76. Patient has been seen by Dr. Miller and recommends continuing IV Lasix for another 24 hours. Patient is off Cardizem drip and rate is well controlled. 08/25: Patient has been evaluated by Dr. Ortiz with recommendations for self catheterization only if postvoid residuals are consistently over 400 ML's. Bladder scans are running between 2:30 and 380. The patient has been reevaluated by cardiology regarding her chronic A. fib currently a controlled rate and maintained on atenolol. Patient is on oral anticoagulation due to history of GI bleed. Lisinopril has been added by cardiology for improvement of blood pressure and recommends continuing IV Lasix for an additional 24 hours at 40 mg daily. Patient is requesting discharge to [facility]. PT and OT are following. Anticipate patient will be ready for discharge on Tuesday. Patient will be transferred to [facility] floor. Review of Systems CONSTITUTIONAL: Well-developed no acute respiratory distress. Denies fever, chills. EYES: No icterus sclerae, no conjunctivitis. EARS, NOSE, MOUTH, THROAT, and FACE: No sore throat, lymphadenopathy, carotid bruits or deformity. RESPIRATORY: No SOB cough or wheezes. CARDIOVASCULAR: No chest pain or angina, positive palpitation positive PND GASTROINTESTINAL: Positive abdominal pain with nausea no vomiting no diarrhea no sign and symptom of GI bleed at this point. GENITOURINARY: Right-sided flank pain along with burning discomfort frequency urgency-improved with no hematuria. INTEGUMENT/BREAST: Negative for any muscular injury with mild osteoarthritis.. HEMATOLOGIC/LYMPHATIC: Negative for bleed or purpura. MUSCULOSKELTAL: Negative for Myalgia or arthralgia. NEURLOGICAL: No LOC, Sz or syncope, blurred vision dizziness or abnormality.. BEHAVIORAL/PSYCH: Negative. ENDOCRINE: Negative. Objective - Vital Signs Vital signs: Vital Signs Temp 97.9 F 08/25/18 03:32 Pulse 86 08/25/18 03:32 Resp 18 08/25/18 03:32 BP 174/82 08/25/18 03:32 Pulse Ox 97 08/25/18 03:32 Intake & Output 08/24/18 08/25/18 08/25/18 18:59 06:59 18:59 Intake Total 600 400 240 Output Total 600 1210 Balance 0 -810 240 Weight 63.2 kg 62.3 kg Intake: Oral 600 400 240 Output: Urine 600 600 Post Void Residual 610 Other: Voiding Method Toilet Toilet # Voids 2 # Bowel Movements 1 - Exam General Appearance: Alert, cooperative, no distress, appears stated age. Patient is resting in bed. Neck HEENT: Supple, no lymphadenopathy, no thyroid enlargement, no carotid bruits. Lungs: Clear to auscultation without crackles or wheezes no rhonchi, no deformity. Chest Wall: Chest wall normal expansion with deep inspiration no tenderness and no deformity was found on exam, no costochondral pain or discomfort. Heart: Irregular rhythm and rate is S2 positive S3 positive PVCs at 5 cm JVD Back: Symmetric, no curvature, ROM normal, no CVA tenderness. Abdomen: Soft positive bowel sounds, no tenderness. Extremities: Extremities normal, atraumatic, no cyanosis or edema. Pulses: 2+ and symmetric. Skin: Skin color, texture, tugor normal, no rashes or lesions. Neurologic: Alert oriented x3 cranial nerves II through XII intact, no motor deficit, no abnormal balance or gait. - Labs CBC & Chem 7: 08/25/18 06:46 08/25/18 06:46 Labs: Abnormal Lab Results - Last 24 Hours (Table) 08/25/18 08/25/18 Range/Units 06:46 06:46 MCHC 30.1 L (31.0-37.0) g/dL Carbon Dioxide 33 H (22-30) mmol/L Glucose 104 H (74-99) mg/dL Microbiology - Last 24 Hours (Table) 08/23/18 05:30 Urine Culture - Preliminary Urine,Voided Gram Neg Bacilli Assessment and Plan Plan: [address] as above. Antibiotics changed to Levaquin. Consult with urology appreciated. 2 incomplete bladder emptying. Continue bladder scan for residuals. 3 chronic atrial fibrillation presenting with A. fib with RVR. Patient is off Cardizem drip. Continue atenolol 100 mg at bedtime. 4 rheumatoid arthritis: Has been on methotrexate 10 mg a day with folic acid daily. 5 acute diastolic heart failure. Continue IV Lasix 40 mg daily and atenolol. 6 hypothyroidism: Has been on levothyroxine 75 g daily. 7 GI prophylaxis/severe GERD: Continue patient on pantoprazole. 8 DVT prophylaxis: Patient will have early mobilization and knee-high PHILIP hose. CODE STATUS: Full code. Discharge plan: [facility] on Tuesday. Continue PT and OT. Impression and plan of care have been directed as dictated by the signing physician. Marina Cervantes nurse practitioner acting as scribe for signing physician.
[2018-08-25] MEDS: LEVOFLOXACIN 500 MG TAB PO SCH (16:38)
[2018-08-25] MEDS: DIAZEPAM 5 MG TAB PO PRN (16:38)
[2018-08-25] MEDS: DILTIAZEM 50 MG in SODIUM CHLORIDE 0.9% 40 ML IV SCH (17:22)
[2018-08-25] MEDS: ATENOLOL 50 MG TAB PO SCH (21:25)
[2018-08-26] MEDS: DIAZEPAM 5 MG TAB PO PRN ×2 (00:07→20:58)
[2018-08-26 05:15] LABS: Glucose,Whole Blood 78 mg/dL (75-99)
[2018-08-26] MEDS: LEVOTHYROXINE 75 MCG TAB PO SCH (05:56)
[2018-08-26] MEDS: FERROUS SULFATE 325 MG TAB PO SCH ×2 (08:55→09:00)
[2018-08-26] MEDS: ASPIRIN 325 MG TAB PO SCH ×2 (08:55→09:01)
[2018-08-26] MEDS: PANTOPRAZOLE 40 MG TABLET PO SCH ×2 (08:55→17:26)
[2018-08-26] MEDS: ASCORBIC ACID 500 MG TAB PO SCH ×2 (08:55→08:59)
[2018-08-26] MEDS: LISINOPRIL 5 MG TAB PO SCH (08:55)
[2018-08-26] MEDS: FUROSEMIDE 10 MG/ML 4 ML VIAL IV SCH (08:55)
[2018-08-26] MEDS: DORZOLAMIDE HCL 2% DROPS 10 ML BTL BOTH EYES SCH (09:40)
[2018-08-26] MEDS: BRIMONIDINE TARTRATE 0.2% DROPS 5 ML BTL BOTH EYES SCH (09:40)
[2018-08-26 11:03] LABS: HCT 46.4 % (34.0-46.0); HGB 14.7 gm/dL (11.4-16.0); MCH 31.2 pg (25.0-35.0); MCHC 31.7 g/dL (31.0-37.0); MCV 98.1 fL (80.0-100.0); Mean Platelet Volume 8.3; Platelet Count 250 k/uL (150-450); RBC 4.73 m/uL (3.80-5.40); RDW 14.4 % (11.5-15.5); WBC 6.3 k/uL (3.8-10.6)
[2018-08-26 11:15] LABS: Calcium 9.8 mg/dL (8.4-10.2); Potassium 3.9 mmol/L (3.5-5.1)
[2018-08-26] MEDS: FOLIC ACID 1 MG TAB PO SCH (11:59)
--- NOTE | 2018-08-26 12:48 | P.PN ---
Subjective 77-year-old female one of Dr. Rider's patient with the past medical history of A. fib, asthma, heart failure, GERD and previous history of GI bleed who has been treated for A. fib for long time has been doing well on atenolol with no rapid pulse. Patient apparently developed to have sign and symptom of UTI for the last few days become much worse last night developed to have burning discomfort irritation frequency and urgency with persistent symptoms low -grade temperature as well as. Patient also developed to have significant shortness of breath with rapid pulse running in the 150s to 160. She ended up coming to the emergency department at [facility] where was seen her UA was positive patient was started on IV antibiotics. Patient was in A. fib with RVR pulse rate running around 160 beats per minutes was started on Cardizem drip after bolus pulse rate remain high initially and then subtle down in the 80-90. Patient is not on any anticoagulation as an outpatient for history of GI bleed apparently from last time she was in the hospital. Patient will be admitted to the hospital further workup for possible right sided kidney stone with flank pain in the right side with CAT scan of the abdomen will be done also will be seen cardiology and further management in her A. fib and possible need for anticoagulation to be addressed by her therapeutic dietitian and her PCP. 08/24: Patient states she had to be straight cath twice during the night but in general is feeling much better from yesterday. We will add in a consult with Dr. Jeffrey and patient may need to be taught self cath. Urine culture is in progress. She has been afebrile, blood pressure 145/77, heart rate running in the 60s, pulse ox 97% on 2 L nasal cannula. Troponins came back negative on 3 draws, proBNP 4200, white count 6.3, hemoglobin 13.1, creatinine 0.76. Patient has been seen by Dr. Miller and recommends continuing IV Lasix for another 24 hours. Patient is off Cardizem drip and rate is well controlled. 08/25: Patient has been evaluated by Dr. Ortiz with recommendations for self catheterization only if postvoid residuals are consistently over 400 ML's. Bladder scans are running between 2:30 and 380. The patient has been reevaluated by cardiology regarding her chronic A. fib currently a controlled rate and maintained on atenolol. Patient is on oral anticoagulation due to history of GI bleed. Lisinopril has been added by cardiology for improvement of blood pressure and recommends continuing IV Lasix for an additional 24 hours at 40 mg daily. Patient is requesting discharge to [facility]. PT and OT are following. Anticipate patient will be ready for discharge on Tuesday. Patient will be transferred to [facility] floor. 08/26: Patient continues with straight catheterizations. Her atrial fibrillation is currently rate controlled on atenolol. She continues on IV Lasix 40 mg daily. She continues on Levaquin for the UTI. She is currently waiting for discharge for Tuesday to [facility]. Objective - Vital Signs Vital signs: Vital Signs Temp 97.4 F L 08/26/18 05:35 Pulse 74 08/26/18 05:35 Resp 24 08/26/18 05:35 BP 157/79 08/26/18 05:35 Pulse Ox 91 L 08/26/18 05:35 Intake & Output 08/25/18 08/26/18 08/26/18 18:59 06:59 18:59 Intake Total 340 Output Total 600 Balance -260 Weight 60.8 kg Intake: Intake, IV Titration 100 Amount Ampicillin-Sulbactam 3 gm 100 In Sodium Chloride 0.9% 100 ml @ 200 mls/hr IVPB Q8HR [facility] Rx#:[id number] Oral 240 Output: Urine 600 Other: Voiding Method Toilet Toilet Toilet Incontinent # Voids 3 - Exam General Appearance: Alert, cooperative, no distress, appears stated age. Patient is resting in bed. Neck HEENT: Supple, no lymphadenopathy, no thyroid enlargement, no carotid bruits. Lungs: Clear to auscultation without crackles or wheezes no rhonchi, no deformity. Chest Wall: Chest wall normal expansion with deep inspiration no tenderness and no deformity was found on exam, no costochondral pain or discomfort. Heart: Irregular rhythm and rate is S2 positive S3 positive PVCs Back: Symmetric, no curvature, ROM normal, no CVA tenderness Abdomen: Soft positive bowel sounds, no tenderness. Extremities: Extremities normal, atraumatic, no cyanosis or edema. Pulses: 2+ and symmetric. Skin: Skin color, texture, tugor normal, no rashes or lesions. Neurologic: Alert oriented x3 cranial nerves II through XII intact, no motor deficit, no abnormal balance or gait. - Labs CBC & Chem 7: 08/26/18 10:32 08/26/18 10:32 Labs: Abnormal Lab Results - Last 24 Hours (Table) 08/26/18 08/26/18 Range/Units 10:32 10:32 Hct 46.4 H (34.0-46.0) % Carbon Dioxide 32 H (22-30) mmol/L Microbiology - Last 24 Hours (Table) 08/23/18 05:30 Urine Culture - Final Urine,Voided Enterobacter aerogenes Assessment and Plan Plan: [address] as above. Continues on Levaquin. Consult with urology appreciated. 2 incomplete bladder emptying. Continue bladder scan for residuals and straight catheterization 3 chronic atrial fibrillation presenting with A. fib with RVR. Patient is off Cardizem drip. Continue atenolol 100 mg at bedtime. 4 rheumatoid arthritis: Has been on methotrexate 10 mg a day with folic acid daily. 5 acute diastolic heart failure. Continue IV Lasix 40 mg daily and atenolol. 6 hypothyroidism: Has been on levothyroxine 75 g daily. 7 GI prophylaxis/severe GERD: Continue patient on pantoprazole. 8 DVT prophylaxis: Patient will have early mobilization and knee-high PHILIP hose. CODE STATUS: Full code. Discharge plan: [facility] on Tuesday. Continue PT and OT. The above impression and plan of care have been discussed and directed by signing physician. Urmila Jose nurse practitioner acting as scribe for signing physician.
[2018-08-26] MEDS: LEVOFLOXACIN 500 MG TAB PO SCH (14:28)
[2018-08-26] MEDS: ATENOLOL 50 MG TAB PO SCH (20:58)
[2018-08-27] MEDS: HYDROcodone/APAP 7.5-325MG 1 EACH TAB PO PRN ×2 (03:07→23:43)
[2018-08-27] MEDS: LEVOTHYROXINE 75 MCG TAB PO SCH (05:54)
[2018-08-27] MEDS: FUROSEMIDE 10 MG/ML 4 ML VIAL IV SCH (08:04)
[2018-08-27] MEDS: LISINOPRIL 5 MG TAB PO SCH (08:04)
[2018-08-27] MEDS: PANTOPRAZOLE 40 MG TABLET PO SCH ×2 (08:04→17:26)
[2018-08-27] MEDS: BRIMONIDINE TARTRATE 0.2% DROPS 5 ML BTL BOTH EYES SCH (08:05)
[2018-08-27] MEDS: FERROUS SULFATE 325 MG TAB PO SCH (08:05)
[2018-08-27] MEDS: DORZOLAMIDE HCL 2% DROPS 10 ML BTL BOTH EYES SCH (08:05)
[2018-08-27] MEDS: ASCORBIC ACID 500 MG TAB PO SCH (08:05)
[2018-08-27] MEDS: ASPIRIN 325 MG TAB PO SCH (08:05)
[2018-08-27] MEDS: FOLIC ACID 1 MG TAB PO SCH (11:40)
--- NOTE | 2018-08-27 12:10 | P.PN ---
Subjective 77-year-old female one of Dr. Rider's patient with the past medical history of A. fib, asthma, heart failure, GERD and previous history of GI bleed who has been treated for A. fib for long time has been doing well on atenolol with no rapid pulse. Patient apparently developed to have sign and symptom of UTI for the last few days become much worse last night developed to have burning discomfort irritation frequency and urgency with persistent symptoms low -grade temperature as well as. Patient also developed to have significant shortness of breath with rapid pulse running in the 150s to 160. She ended up coming to the emergency department at [facility] where was seen her UA was positive patient was started on IV antibiotics. Patient was in A. fib with RVR pulse rate running around 160 beats per minutes was started on Cardizem drip after bolus pulse rate remain high initially and then subtle down in the 80-90. Patient is not on any anticoagulation as an outpatient for history of GI bleed apparently from last time she was in the hospital. Patient will be admitted to the hospital further workup for possible right sided kidney stone with flank pain in the right side with CAT scan of the abdomen will be done also will be seen cardiology and further management in her A. 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 08/24: Patient states she had to be straight cath twice during the night but in general is feeling much better from yesterday. We will add in a consult with Dr. Jeffrey and patient may need to be taught self cath. Urine culture is in progress. She has been afebrile, blood pressure 145/77, heart rate running in the 60s, pulse ox 97% on 2 L nasal cannula. Troponins came back negative on 3 draws, proBNP 4200, white count 6.3, hemoglobin 13.1, creatinine 0.76. Patient has been seen by Dr. Miller and recommends continuing IV Lasix for another 24 hours. Patient is off Cardizem drip and rate is well controlled. 08/25: Patient has been evaluated by Dr. Ortiz with recommendations for self catheterization only if postvoid residuals are consistently over 400 ML's. Bladder scans are running between 2:30 and 380. The patient has been reevaluated by cardiology regarding her chronic A. fib currently a controlled rate and maintained on atenolol. Patient is on oral anticoagulation due to history of GI bleed. Lisinopril has been added by cardiology for improvement of blood pressure and recommends continuing IV Lasix for an additional 24 hours at 40 mg daily. Patient is requesting discharge to [facility]. PT and OT are following. Anticipate patient will be ready for discharge on Tuesday. Patient will be transferred to [facility] floor. 08/26: Patient continues with straight catheterizations. Her atrial fibrillation is currently rate controlled on atenolol. She continues on IV Lasix 40 mg daily. She continues on Levaquin for the UTI. She is currently waiting for discharge for Tuesday to [facility]. 08/27: Patient resting in bed comfortably. Denies any dizziness, chest pain, shortness of breath, nausea or vomiting. Vital signs remain stable blood pressure 146/82, she is 96% on room air, maintaining afebrile heart rate 98. WBC 6.3, hemoglobin 14.4, sodium 138, BUN 12, creatinine 0.84. Urine culture positive for Enterobacter aerogenes, susceptible to the Levaquin. Patient will most likely be discharged Tuesday to [facility]. Objective - Vital Signs Vital signs: Vital Signs Temp 97.5 F L 08/27/18 06:32 Pulse 98 08/27/18 06:32 Resp 16 08/27/18 06:32 BP 146/82 08/27/18 06:32 Pulse Ox 96 08/27/18 06:32 Intake & Output 08/26/18 08/27/18 08/27/18 18:59 06:59 18:59 Intake Total 1000 Balance 1000 Intake: Oral 1000 Other: Voiding Method Toilet Toilet Incontinent Incontinent # Voids 3 2 - Exam General Appearance: Alert, cooperative, no distress, appears stated age. Patient is resting in bed. Neck HEENT: Supple, no lymphadenopathy, no thyroid enlargement, no carotid bruits. Lungs: Clear to auscultation without crackles or wheezes no rhonchi, no deformity. Chest Wall: Chest wall normal expansion with deep inspiration no tenderness and no deformity was found on exam, no costochondral pain or discomfort. Heart: Irregular rhythm and rate is S2 positive S3 positive PVCs Back: Symmetric, no curvature, ROM normal, no CVA tenderness Abdomen: Soft positive bowel sounds, no tenderness. Extremities: Extremities normal, atraumatic, no cyanosis or edema. Pulses: 2+ and symmetric. Skin: Skin color, texture, tugor normal, no rashes or lesions. Neurologic: Alert oriented x3 cranial nerves II through XII intact, no motor deficit, no abnormal balance or gait. - Constitutional General appearance: Present: average body habitus, cooperative, no acute distress - EENT Eyes: Present: EOMI, PERRLA ENT: Present: hearing grossly normal, normal oropharynx - Neck Neck: Present: normal ROM. Absent: lymphadenopathy, rigidity, thyromegaly - Respiratory Respiratory: bilateral: CTA, negative: dullness, rhonchi, wheezing - Cardiovascular Rhythm: irregularly irregular Heart sounds: normal: S1, S2 - Gastrointestinal General gastrointestinal: Present: normal bowel sounds, soft. Absent: distended , organomegaly, tenderness - Integumentary Integumentary: Absent: cellulitis, rash - Neurologic Neurologic: Present: CNII-XII intact. Absent: focal deficits - Musculoskeletal Musculoskeletal: Present: generalized weakness. Absent: right sided weakness, left sided weakness - Psychiatric Psychiatric: Present: A&O x's 3, appropriate affect - Labs CBC & Chem 7: 08/26/18 10:32 08/26/18 10:32 Labs: Abnormal Lab Results - Last 24 Hours (Table) 08/26/18 08/26/18 Range/Units 10:32 10:32 Hct 46.4 H (34.0-46.0) % Carbon Dioxide 32 H (22-30) mmol/L Assessment and Plan Plan: 1 sepsis [address] Enterobacter UTI. CT as above. Continues on Levaquin. Consult with urology appreciated. 2 incomplete bladder emptying. Continue bladder scan for residuals and straight catheterization. 3 chronic atrial fibrillation presenting with A. fib with RVR. Patient is off Cardizem drip. Continue atenolol 100 mg at bedtime, continues to be rate controlled 4 rheumatoid arthritis: Has been on methotrexate 10 mg a day with folic acid daily. 5 acute diastolic heart failure. Continue IV Lasix 40 mg daily and atenolol. 6 hypothyroidism: Has been on levothyroxine 75 g daily. 7 GI prophylaxis/severe GERD: Continue patient on pantoprazole. 8 DVT prophylaxis: Patient will have early mobilization and knee-high PHILIP hose. CODE STATUS: Full code. Discharge plan: [facility] on Tuesday. Continue PT and OT. The above impression and plan of care have been discussed and directed by signing physician. Urmila Jose nurse practitioner acting as scribe for signing physician.
[2018-08-27] MEDS: LEVOFLOXACIN 500 MG TAB PO SCH (13:14)
[2018-08-27] MEDS: ATENOLOL 50 MG TAB PO SCH (20:56)
[2018-08-27] MEDS: DIAZEPAM 5 MG TAB PO PRN (20:56)
[2018-08-28] MEDS: LEVOTHYROXINE 75 MCG TAB PO SCH (05:59)
[2018-08-28 06:24] VITALS: BP 167/85; PULSE 77; RESP 20; TEMP 97.4
[2018-08-28] MEDS: BRIMONIDINE TARTRATE 0.2% DROPS 5 ML BTL BOTH EYES SCH (08:38)
[2018-08-28] MEDS: LISINOPRIL 5 MG TAB PO SCH (08:38)
[2018-08-28] MEDS: FUROSEMIDE 10 MG/ML 4 ML VIAL IV SCH (08:38)
[2018-08-28] MEDS: ASPIRIN 325 MG TAB PO SCH ×2 (08:38→08:42)
[2018-08-28] MEDS: PANTOPRAZOLE 40 MG TABLET PO SCH (08:38)
[2018-08-28] MEDS: FERROUS SULFATE 325 MG TAB PO SCH (08:39)
[2018-08-28] MEDS: ASCORBIC ACID 500 MG TAB PO SCH (08:39)
[2018-08-28] MEDS: DORZOLAMIDE HCL 2% DROPS 10 ML BTL BOTH EYES SCH (08:42)
--- NOTE | 2018-08-28 09:39 | P.DS ---
Providers Date of admission: 08/23/18 07:59 Expected date of discharge: 08/28/18 Attending physician: Melchor Rider MD Consults: 08/23/18 07:57 Consult Physician Routine Consulting Provider: Yeyo Cabrales Consult Reason/Comments: Atrial fibrillation with rapid ventricular rate Do you want consulting provider notified?: Yes 08/24/18 09:58 Consult Physician Routine Consulting Provider: Cholo Jeffrey Consult Reason/Comments: urinary retention, poss need for cysto Do you want consulting provider notified?: Yes Primary care physician: Melchor Rider MD Hospital Course: 77-year-old female one of Dr. Rider's patient with the past medical history of A. fib, asthma, heart failure, GERD and previous history of GI bleed who has been treated for A. fib for long time has been doing well on atenolol with no rapid pulse. Patient apparently developed to have sign and symptom of UTI for the last few days become much worse last night developed to have burning discomfort irritation frequency and urgency with persistent symptoms low -grade temperature as well as. Patient also developed to have significant shortness of breath with rapid pulse running in the 150s to 160. She ended up coming to the emergency department at [facility] where was seen her UA was positive patient was started on IV antibiotics. Patient was in A. fib with RVR pulse rate running around 160 beats per minutes was started on Cardizem drip after bolus pulse rate remain high initially and then subtle down in the 80-90. Patient is not on any anticoagulation as an outpatient for history of GI bleed apparently from last time she was in the hospital. Patient will be admitted to the hospital further workup for possible right sided kidney stone with flank pain in the right side with CAT scan of the abdomen will be done also will be seen cardiology and further management in her A. 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 08/24: Patient states she had to be straight cath twice during the night but in general is feeling much better from yesterday. We will add in a consult with Dr. Jeffrey and patient may need to be taught self cath. Urine culture is in progress. She has been afebrile, blood pressure 145/77, heart rate running in the 60s, pulse ox 97% on 2 L nasal cannula. Troponins came back negative on 3 draws, proBNP 4200, white count 6.3, hemoglobin 13.1, creatinine 0.76. Patient has been seen by Dr. Miller and recommends continuing IV Lasix for another 24 hours. Patient is off Cardizem drip and rate is well controlled. 08/25: Patient has been evaluated by Dr. Ortiz with recommendations for self catheterization only if postvoid residuals are consistently over 400 ML's. Bladder scans are running between 230 and 380 ml. The patient has been reevaluated by cardiology regarding her chronic A. fib currently a controlled rate and maintained on atenolol. Patient is on oral anticoagulation due to history of GI bleed. Lisinopril has been added by cardiology for improvement of blood pressure and recommends continuing IV Lasix for an additional 24 hours at 40 mg daily. Patient is requesting discharge to [facility]. PT and OT are following. Anticipate patient will be ready for discharge on Tuesday. Patient will be transferred to [facility] floor. 08/26: Patient continues with straight catheterizations. Her atrial fibrillation is currently rate controlled on atenolol. She continues on IV Lasix 40 mg daily. She continues on Levaquin for the UTI. She is currently waiting for discharge for Tuesday to [facility]. 08/27: Patient resting in bed comfortably. Denies any dizziness, chest pain, shortness of breath, nausea or vomiting. Vital signs remain stable blood pressure 146/82, she is 96% on room air, maintaining afebrile heart rate 98. WBC 6.3, hemoglobin 14.4, sodium 138, BUN 12, creatinine 0.84. Urine culture positive for Enterobacter aerogenes, susceptible to the Levaquin. Patient will most likely be discharged Tuesday to [facility]. 08/28: Patient denies any new complaints. She denies any shortness of breath. Plan is for discharge to [facility] today. She has been afebrile, blood pressure 167/85, heart rate running between 80 and 97. White count remains normal, hemoglobin 14.7, platelet count 250, electrolytes within normal limits CO2 32, creatinine 0.84. Patient will be discharged to [facility] today once all arrangements are completed. Discharge diagnoses: 1 sepsis with Enterobacter UTI secondary to incomplete bladder emptying 2 incomplete bladder emptying 3 chronic atrial fibrillation presenting with A. fib with RVR. 4 rheumatoid arthritis 5 acute diastolic heart failure. 6 hypothyroidism 7 severe GERD. Discharge plan: [facility] under the care of Dr. Fleming Impression and plan of care have been directed as dictated by the signing physician. Marina Cervantes nurse practitioner acting as scribe for signing physician. Patient Condition at Discharge: Good Plan - Discharge Summary Discharge Rx Participant: No New Discharge Prescriptions: New Levofloxacin [Levaquin] 500 mg PO Q24H #4 tab Lisinopril [Zestril] 5 mg PO DAILY #30 tab Aspirin EC [Ecotrin Low Dose] 81 mg PO DAILY #30 tablet. Furosemide [Lasix] 40 mg PO DAILY #30 tablet Continue Folic Acid 1 mg PO SUMOTUTHFRSA Methotrexate Sodium [Methotrexate] 10 mg PO WE Brinzolamide/Brimonidine Tart [Simbrinza 1%-0.2% Eye Drops] 1 drop BOTH EYES QAM Pantoprazole Sodium [Protonix] 40 mg PO BID Levothyroxine Sodium [Synthroid] 75 mcg PO DAILY Atenolol 100 mg PO HS Ascorbic Acid [Vitamin C] 500 mg PO DAILY Acetaminophen Tab [Tylenol] 325 mg PO Q4H PRN PRN Reason: Pain Iron 18 mg PO DAILY Diazepam [Valium] 5 mg PO TID PRN #9 tab PRN Reason: Anxiety HYDROcodone/APAP 7.5-325MG [Williams 7.5-325] 1 tab PO BID PRN #6 tab PRN Reason: Pain Discontinued Furosemide [Lasix] 10 mg PO Q48H Discharge Medication List Atenolol 100 mg PO HS 12/22/16 [History] Brinzolamide/Brimonidine Tart [Simbrinza 1%-0.2% Eye Drops] 1 drop BOTH EYES QAM 12/22/16 [History] Folic Acid 1 mg PO SUMOTUTHFRSA 12/22/16 [History] Levothyroxine Sodium [Synthroid] 75 mcg PO DAILY 12/22/16 [History] Methotrexate Sodium [Methotrexate] 10 mg PO WE 12/22/16 [History] Pantoprazole Sodium [Protonix] 40 mg PO BID 12/22/16 [History] Ascorbic Acid [Vitamin C] 500 mg PO DAILY 05/18/18 [History] Acetaminophen Tab [Tylenol] 325 mg PO Q4H PRN 08/23/18 [History] Iron 18 mg PO DAILY 08/23/18 [History] Aspirin EC [Ecotrin Low Dose] 81 mg PO DAILY #30 tablet. 08/28/18 [Rx] Diazepam [Valium] 5 mg PO TID PRN #9 tab 08/28/18 [Rx] Furosemide [Lasix] 40 mg PO DAILY #30 tablet 08/28/18 [Rx] HYDROcodone/APAP 7.5-325MG [Williams 7.5-325] 1 tab PO BID PRN #6 tab 08/28/18 [Rx] Levofloxacin [Levaquin] 500 mg PO Q24H #4 tab 08/28/18 [Rx] Lisinopril [Zestril] 5 mg PO DAILY #30 tab 08/28/18 [Rx] Follow up Appointment(s)/Referral(s): Melchor Rider MD [Primary Care Provider] - 1 Week (after discharge from [facility] ) [facility], [NON-STAFF] - Cholo Jeffrey MD [STAFF PHYSICIAN] - 1 Week Discharge Disposition: TRANSFER TO SNF/ECF
[2018-08-28] MEDS: FOLIC ACID 1 MG TAB PO SCH (11:25)
[2018-08-28] MEDS: LEVOFLOXACIN 500 MG TAB PO SCH (11:25)
== END 2018-08-28 14:01 | DRG 871 ==
LOC: EC 04:22 → SUPCPDRO 04:22 → 3SCARD 07:59 → 4MS4W 08-25 16:53
PROVIDERS: ADMIT Internal Medicine; ATTEND Internal Medicine
DX: A41.59 Other Gram-negative sepsis (principal); I50.33 Acute on chronic diastolic (congestive) heart failure; N39.0 Urinary tract infection, site not specified; I48.1 Persistent atrial fibrillation; I11.0 Hypertensive heart disease with heart failure; J44.9 Chronic obstructive pulmonary disease, unspecified; I08.1 Rheumatic disorders of both mitral and tricuspid valves; M06.9 Rheumatoid arthritis, unspecified; R06.03 Acute respiratory distress; E03.9 Hypothyroidism, unspecified; E78.5 Hyperlipidemia, unspecified; G47.30 Sleep apnea, unspecified; H40.9 Unspecified glaucoma; I25.10 Atherosclerotic heart disease of native coronary artery without angina pectoris; K21.9 Gastro-esophageal reflux disease without esophagitis; F41.9 Anxiety disorder, unspecified; K57.90 Diverticulosis of intestine, part unspecified, without perforation or abscess without bleeding; M19.90 Unspecified osteoarthritis, unspecified site; R33.9 Retention of urine, unspecified; R32 Unspecified urinary incontinence; H54.62 Unqualified visual loss, left eye, normal vision right eye; Z79.890 Hormone replacement therapy; Z79.899 Other long term (current) drug therapy; Z98.42 Cataract extraction status, left eye; Z98.41 Cataract extraction status, right eye; Z96.1 Presence of intraocular lens; Z96.653 Presence of artificial knee joint, bilateral; Z90.710 Acquired absence of both cervix and uterus; Z87.891 Personal history of nicotine dependence; Z87.440 Personal history of urinary (tract) infections; Z87.01 Personal history of pneumonia (recurrent); Z86.79 Personal history of other diseases of the circulatory system; Z86.010 Personal history of colon polyps; Z88.5 Allergy status to narcotic agent; Z80.1 Family history of malignant neoplasm of trachea, bronchus and lung
CPT/HCPCS: 36415; 71046; 74018; 74177; 80048; 80053; 80061; 81001; 82150; 82550; 82553; 83690; 83880; 84484; 85025; 85027; 87077; 87086; 87186; 93005; 96365; 96366; 96368; 96376; 99285

== ENCOUNTER → 2018-12-20 | Outpatient (CLI) | payer MEDICARE ==
--- NOTE | 2018-12-20 18:10 | CT ---
EXAMINATION TYPE: CT chest w con DATE OF EXAM: 12/20/2018 COMPARISON: 06/27/[address] abdomen dated 11/03/2017 HISTORY: SOB. hx of pulmonary fibrosis and a-fib. CT DLP: 171.1 mGycm. Automated Exposure Control for Dose Reduction was Utilized. TECHNIQUE: CT scan of the thorax is performed following with IV Contrast, patient injected with 100 mL of Isovue 300. FINDINGS: LUNGS: Biapical pleural-parenchymal scarring is similar to the prior of 06/27/2017. Multifocal pleural thickening is present throughout the lungs, progressed from the prior. Scattered groundglass opaciti es in the lower lobes have worsened in the interim. Mucous plugging in the right middle lobe is stabl e from the prior. Peripheral basilar predominant fibrosis has advanced in the interim. Bibasilar cyli ndrical bronchiectasis is again noted. A small amount of intrafissural fluid is seen with development of small pleural effusions in the interim. No pneumothorax. MEDIASTINUM: There are no greater than 1 cm hilar or mediastinal lymph nodes. There is no central pul monary embolus. Mild enlargement of the right and left main pulmonary artery may clinically correlate with pulmonary artery hypertension. Heart is mildly enlarged without sizable pericardial effusion. M oderate to severe three-vessel coronary artery calcifications are seen. Severe atherosclerosis of the upper abdominal aorta is noted. OTHER: There are bilateral breast implants partially visualized. Wedge-shaped defect in the right kid altaf on the most inferior image on image 64 at the lateral aspect may represent infarct or pyelonephri tis. There is severe left renal atrophy. Phrygian cap is seen of the gallbladder. Small splenule is s een adjacent to the [place] spleen. There is a partial intrathoracic stomach and postsurgical change a t the gastroesophageal junction. There is diffuse thickening of the gastric folds. Stable compression deformities of the T12 and L2 vertebral bodies are seen. Moderate multilevel degenerative changes of the spine are noted. IMPRESSION: 1. Progressive pulmonary fibrosis with new basilar predominant groundglass opacities that may represe nt superimposed multifocal pneumonia or NSIP. 2. Redemonstration of distal bronchial mucus impaction in the right middle lobe as seen on the prior and bibasilar cylindrical bronchiectasis, likely postinfectious. 3. Development of small pleural effusions. 4. Correlate with urinalysis to exclude pyelonephritis as there is a wedge-shaped defect in the right kidney that alternatively could relate to a cortical infarct. Severe left renal atrophy is noted. 5. Partial intrathoracic stomach. Diffuse thickening of the gastric folds could relate to gastritis o r other etiology. 6. Severe three-vessel coronary artery calcifications, a marker of coronary artery disease. 7. Unchanged compression deformities of T12 and L2.
== END | disposition home or self-care (01) ==
LOC: RADCTMAIN 16:30
PROVIDERS: ATTEND Internal Medicine Critical Care Medicine
DX: J84.10 Pulmonary fibrosis, unspecified (principal); J47.9 Bronchiectasis, uncomplicated; J90 Pleural effusion, not elsewhere classified; I25.10 Atherosclerotic heart disease of native coronary artery without angina pectoris; Z88.5 Allergy status to narcotic agent
CPT/HCPCS: 82565; 84520; 71260; 36415; Q9967

== ENCOUNTER → 2018-12-22 | Outpatient (CLI) | payer MEDICARE ==
--- NOTE | 2018-12-22 15:49 | BD ---
EXAMINATION TYPE: Axial Bone Density DATE OF EXAM: 12/22/2018 COMPARISON: NONE CLINICAL HISTORY: Height: 67 Weight: 144.5 FRAX RISK QUESTIONS: Alcohol (3 or more units per day): no Family History (Parent hip fracture): no Glucocorticoids (More than 3mos): yes (Ex: prednisone, prednisolone, methylprednisolone, dexamethasone, and hydrocortisone). History of Fracture in Adulthood: no Secondary Osteoporosis: 1. Type 1 Diabetes: no 2. Hyperthyroidism: no 3. Menopause before 45: no 4. Malnutrition: no 5. Chronic liver disease: no Rheumatoid Arthritis: yes Current Tobacco Use: no RISK FACTORS HISTORY OF: Family History of Osteoporosis: no Active: no Diet low in dairy products/other sources of calcium: yes Postmenopausal woman: 46 years old Lost more than 2 inches in height since high school: yes Frequent falls: yes Poor Health: yes Hyperparathyroidism: MEDICATIONS: olumiant, simbrinza, atorvastatin, atenolol, folic acid, Prednisone or other steroids: prednisone How Lon year Additional History: EXAM MEASUREMENTS: Bone mineral densitometry was performed using the [employer] System. Bone mineral density as measured about the Lumbar spine is: ----- L1-L4(G/cm2): 1.088 T Score Values are as follows: ----- L2: -0.3 ----- L3: -0.2 ----- L4: -0.3 ----- L1-L4: -0.7 Bone mineral density : baseline Bone mineral density about the R hip (g/cm2): 0.645 Bone mineral density about the L hip (g/cm2): 0.638 T Score values are as follows: -----R Neck: -2.8 -----L Neck: -2.9 -----R Total: -2.8 -----L Total: -3.0 Bone mineral density : baseline IMPRESSION: Osteoporosis (T Score less than -2.5) overall in both hips. There is increased fracture risk and therapy is usually indicated based on age. Re-Screen 1-2 years. NOTE: T-SCORE=SD OF THE YOUNG ADULT MEAN.
--- NOTE | 2018-12-26 10:02 | MM ---
Reason for exam: screening (asymptomatic). Last mammogram was performed 7 years and 10 months ago. History: Patient is postmenopausal. Benign core biopsy of the left breast, 1999. Benign core biopsy of the left breast, 1998. Pre-pectoral saline implants in both breasts, 1984. Took estrogen for 22 years beginning at age 43. Physical Findings: A clinical breast exam by your physician is recommended on an annual basis and results should be correlated with mammographic findings. MG 3D Screen Mammo Imp/Cad Bilateral CC, MLO, and ID view(s) were taken. Prior study comparison: February 26, 2011, CAD bilateral diagnostic mammogram. The breast tissue is heterogeneously dense. This may lower the sensitivity of mammography. There are two new right upper outer quadrant posterior depth circumscribed round masses. Possible lymph nodes or cysts. Ultrasound will be performed. Benign appearing bilateral calcifications. There are bilateral saline prepectoral implants. ASSESSMENT: Incomplete: need additional imaging evaluation, BI-RAD 0 RECOMMENDATION: Ultrasound of the right breast. (upper outer quadrant) [facility] will attempt to contact patient to return for ultrasound.
== END | disposition home or self-care (01) ==
LOC: RADMAMWWP 13:33
PROVIDERS: ATTEND Internal Medicine
DX: Z12.31 Encounter for screening mammogram for malignant neoplasm of breast (principal); M81.0 Age-related osteoporosis without current pathological fracture
CPT/HCPCS: 77063; 77067; 77080

== ENCOUNTER → 2018-12-29 | Outpatient (CLI) | payer MEDICARE ==
--- NOTE | 2018-12-29 14:28 | USB ---
Reason for exam: additional evaluation requested from abnormal screening. History: Patient is postmenopausal. Benign core biopsy of the left breast, 1999. Benign core biopsy of the left breast, 1998. Pre-pectoral saline implants in both breasts, 1984. Took estrogen for 22 years beginning at age 43. Physical Findings: Nurse did not find any significant physical abnormalities on exam. US Breast Workup Limited RT Right limited breast ultrasound including focal area of concern, retroareolar and axilla demonstrates duct ectasia at the posterior nipple. 6 month follow up mammogram. No sonographic correlate. These results were verbally communicated with the patient and result sheet given to the patient on 12/29/18. ASSESSMENT: Probably benign, BI-RAD 3 RECOMMENDATION: Follow-up diagnostic mammogram of the right breast in 6 months.
== END | disposition home or self-care (01) ==
LOC: RADUSWWP 12:48
PROVIDERS: ATTEND Internal Medicine
DX: R92.8 Other abnormal and inconclusive findings on diagnostic imaging of breast (principal)

== ENCOUNTER 2019-01-01 10:36 | Day surgery (SDC) | payer MEDICARE ==
[2018-12-29 09:18] VITALS: BMI 22.1
[~2019-01-01 10:36] MED LIST changes: -ACETAMINOPHEN TAB 500 MG TAB PO ONE; +ALBUTEROL NEB (CONC) 2.5 MG/0.5 ML INHALATION ONE; -BISACODYL 10 MG SUPP RECTAL PRN; +DEXAMETHASONE SOD PHOSPHATE 10 MG/ML 1 ML VIAL IV ONE; -DIAZEPAM 5 MG TAB PO PRN; -HYDROcodone/APAP 7.5-325MG 1 EACH TAB PO PRN; +LACTATED RINGERS 1,000 ML IV SCH; -LIDOCAINE 1% 20 ML VIAL (10MG/ML) FOR IV START INTRADERMA PRN; +LIDOCAINE 2% (PF) 20 MG/ML 5 ML VIAL INHALATION ONE; +LIDOCAINE VISCOUS 300 MG/15 ML CUP MUCOUS MEM ONE; -MAGNESIUM HYDROXIDE 2,400 MG/10 ML CUP PO PRN; -MELOXICAM 7.5 MG TAB PO ONE; -MIDAZOLAM 2 MG/2 ML VIAL IV PRN; -NA PHOS,M-B/NA PHOS,DI-BA 133 ML ENEMA RECTAL PRN; -NALOXONE 0.4 MG/ML 1 ML VIAL IV PRN; -ONDANSETRON 4 MG/2 ML VIAL IVP PRN; -ROPIVACAINE 246.25 MG, EPINEPHrine 0.5 MG, KETOROLAC 30 MG, cloNIDine HCL/PF 80 MCG, WA... MISCELLANE ONE; +SCOPOLAMINE 1.5MG/72HR PATCH TRANSDERM ONE; +SODIUM CHLORIDE 0.9% 1,000 ML IV SCH; -TRANEXAMIC ACID 1,000 MG in SODIUM CHLORIDE 0.9% 50 ML IVPB ONE; -ceFAZolin IN SWFI 2 GM/20 ML SYRINGE IVP ONE; -fentaNYL (PF) 50 MCG/ML 20 ML VIAL IVP PRN; -hydrOXYzine PAMOATE 25 MG CAP PO PRN
[2019-01-01 11:02] VITALS: TEMP 97.7
[2019-01-01] MEDS ORDERED: LIDOCAINE 1% 20 ML VIAL (10MG/ML) FOR IV START SQ ONE (11:11)
[2019-01-01 11:13] LABS: Glucose,Whole Blood 77 mg/dL (75-99)
[2019-01-01] MEDS ORDERED: hydrALAZINE HCL 20 MG/ML 1 ML VIAL ONE (12:06)
[2019-01-01] MEDS ORDERED: MIDAZOLAM 2 MG/2 ML VIAL ONE (12:06)
[2019-01-01] MEDS ORDERED: PROPOFOL 10 MG/ML 20 ML VIAL IV ONE (12:06)
[2019-01-01] MEDS ORDERED: LIDOCAINE 1% INJ 10MG/ML (20 ML MDV) ONE (12:06)
--- NOTE | 2019-01-01 12:37 | P.PCN ---
Date of Procedure: 01/01/19 Preoperative Diagnosis: history of atypial mycobacterial infection of the lung, dyspnea, pulmonary infiltrates Postoperative Diagnosis: history of atypial mycobacterial infection of the lung Procedure(s) Performed: Flexible bronchoscopy, bronchioloalveolar lavage of the lingula Anesthesia: MAC Surgeon: Denice Tilley Estimated Blood Loss (ml): 0 Pathology: other Condition: stable Disposition: same day Operative Findings: This procedure was done on the sedation. The procedure was done in the endoscopy room. Preop diagnoses cough and dyspnea and previous history of atypical mycobacterial infection This procedure was done under conscious sedation. Anesthetic agents was administered by anesthesia the bedside. After achieving adequate sedation, the flexible bronchoscope was inserted through the left nostril was advanced upper airway. Examination of the posterior oropharynx larynx a note to the vocal cords was done. Doppler airway structures were within normal limits. Epiglottis was normal. Vocal cords were symmetrical in the midline. No lesions nodules or any other abnormalities noted. The vallecula and the arytenoids were also within normal limits. A total of 2 mL of 1% lidocaine was applied to the vocal cords and following that the bronchoscope was advanced with upper trachea. Examination tracheal bronchial tree was done. The visualized airways included the trachea, alyson, bilateral mainstem bronchi, right upper lobe bronchus regular lobe bronchus and right lower lobe bronchus left upper lobe bronchus and left lower lobe bronchus along with its various segments and subsegments. The airways were patent. 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 After completing the airway examination, the bronchoscope was wedged into the superior segment of the lingula. A BAL was done. A total of 80 mL of fluid was infused and 25 mL was suctioned back. The BAL was nonbloody. Therapeutic airway suctioning was done. Bronchoscope was removed and the patient was transferred recovery in stable condition. No bedside complications. No bleeding.
[2019-01-01 12:57] VITALS: BP 144/76; PULSE 89; RESP 20
== END 2019-01-01 13:14 | disposition home or self-care (01) ==
LOC: ORWHC2ENDO 10:36
PROVIDERS: ATTEND Internal Medicine Critical Care Medicine
DX: J44.9 Chronic obstructive pulmonary disease, unspecified (principal); J98.09 Other diseases of bronchus, not elsewhere classified; I11.0 Hypertensive heart disease with heart failure; I12.9 Hypertensive chronic kidney disease with stage 1 through stage 4 chronic kidney disease, or unspecified chronic kidney disease; N18.9 Chronic kidney disease, unspecified; I50.9 Heart failure, unspecified; E78.5 Hyperlipidemia, unspecified; I48.92 Unspecified atrial flutter; K21.9 Gastro-esophageal reflux disease without esophagitis; M06.9 Rheumatoid arthritis, unspecified; D64.9 Anemia, unspecified; I48.0 Paroxysmal atrial fibrillation; Z99.89 Dependence on other enabling machines and devices; G47.33 Obstructive sleep apnea (adult) (pediatric); Z79.52 Long term (current) use of systemic steroids; Z79.890 Hormone replacement therapy; Z79.899 Other long term (current) drug therapy; Z87.891 Personal history of nicotine dependence; Z88.5 Allergy status to narcotic agent
CPT/HCPCS: 94640; 87798 ×3; 87496; 87498; 87529; 88108; 88305; 87252; 87502; 87634; 87070; 87205; 87116; 87102; 87206; 31624; J2250; J0360; J2001 ×2; J2704

== ENCOUNTER 2019-01-29 11:15 | Inpatient (IN) | payer MEDICARE ==
[2019-01-29] MEDS ORDERED: SODIUM CHLORIDE 0.9% 1,000 ML IV STA (12:06)
[2019-01-29] MEDS ORDERED: PANTOPRAZOLE 40 MG/10 ML VIAL IVP STA (12:22)
[2019-01-29] MEDS ORDERED: ONDANSETRON 4 MG/2 ML VIAL IVP STA (12:22)
--- NOTE | 2019-01-29 13:06 | ED ---
Nausea/Vomiting/Diarrhea HPI - General Chief complaint: Nausea/Vomiting/Diarrhea Stated complaint: infection Time Seen by Provider: 01/29/19 11:46 Source: patient, RN notes reviewed, old records reviewed Mode of arrival: wheelchair Limitations: no limitations - History of Present Illness Initial comments: This is a 70-year-old female the ER for evaluation she presents today for evaluation regards to nausea vomiting and weakness. Patient has no significant pain but admits difficulty with speech difficulties. Difficulty breathing laying down difficulty breathing with exertion. No recent travel history no sick contacts denies fever. No current chest pain multiple history of similar complaint MD complaint: nausea, vomiting -: days(s) Associated Abdominal Pain: Yes Location: diffuse Radiation: none Severity: mild Severity scale (1-10): 3 Quality: aching Improves with: none Worsens with: none Associated Symptoms: chest pain, cough, shortness of breath, weakness - Related Data Home Medications Medication Instructions Recorded Confirmed Atenolol 50 mg PO HS 12/22/16 01/29/19 Brinzolamide/Brimonidine Tart 1 drop BOTH EYES QAM 12/22/16 01/29/19 [Simbrinza 1%-0.2% Eye Drops] Folic Acid 1 mg PO BID 12/22/16 01/29/19 Levothyroxine Sodium [Synthroid] 75 mcg PO DAILY 12/22/16 01/29/19 Pantoprazole Sodium [Protonix] 40 mg PO BID 12/22/16 01/29/19 Ascorbic Acid [Vitamin C] 500 mg PO DAILY 05/18/18 01/29/19 Atorvastatin [Lipitor] 40 mg PO DAILY 12/29/18 01/29/19 Baricitinib [Olumiant] 2 mg PO DAILY 12/29/18 01/29/19 Biotin 5,000 mcg PO DAILY 12/29/18 01/29/19 Cholecalciferol (Vitamin D3) 2,000 unit PO DAILY 12/29/18 01/29/19 [Vitamin D3] rOPINIRole HCL [Requip] 0.5 mg PO DAILY 12/29/18 01/29/19 Acetaminophen Tab [Tylenol Tab] 650 mg PO Q6H PRN 01/29/19 01/29/19 Benzonatate [Tessalon Perles] 100 mg PO TID PRN 01/29/19 01/29/19 Cephalexin [Keflex] 500 mg PO Q12HR 01/29/19 01/29/19 Triamcinolone 0.1% Cream [Kenalog 1 applic TOPICAL DAILY 01/29/19 01/29/19 0.1% Cream] traZODone HCL 100 mg PO HS 01/29/19 01/29/19 Allergies Allergy/AdvReac Type Severity Reaction Status Date / Time morphine AdvReac Severe Hallucinati Verified 01/29/19 11:57 ons Review of Systems ROS Statement: Those systems with pertinent positive or pertinent negative responses have been documented in the HPI. ROS Other: All systems not noted in ROS Statement are negative. 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 Past Anesthesia/Blood Transfusion Reactions: No Reported Reaction Additional Past Anesthesia/Blood Transfusion Reaction / Comment(s): Pt has received blood in past without reaction. Past Psychological History: No Psychological Hx Reported Smoking Status: Former smoker - Past Family History Father Family Medical History: Cancer Additional Family Medical History / Comment(s): at age 68 from lung cancer Mother Family Medical History: Cancer Additional Family Medical History / Comment(s): at age 83 from lung cancer Brother(s) Family Medical History: Cancer Additional Family Medical History / Comment(s): at age 63 from lung cancer. Son(s) Additional Family Medical History / Comment(s): She has 2 sons with no major medical problems. General Exam Limitations: no limitations General appearance: alert, in no apparent distress Head exam: Present: atraumatic, normocephalic, normal inspection Eye exam: Present: normal appearance, PERRL, EOMI. Absent: scleral icterus, conjunctival injection, periorbital swelling ENT exam: Present: normal exam, mucous membranes moist Neck exam: Present: normal inspection. Absent: tenderness, meningismus, lymphadenopathy Respiratory exam: Present: respiratory distress, rales, decreased breath sounds. Absent: wheezes, rhonchi, stridor Cardiovascular Exam: Present: regular rate, normal rhythm, normal heart sounds. Absent: systolic murmur, diastolic murmur, rubs, gallop, clicks GI/Abdominal exam: Present: soft, normal bowel sounds. Absent: distended, tenderness, guarding, rebound, rigid Extremities exam: Present: normal inspection, full ROM, normal capillary refill. Absent: tenderness, pedal edema, joint swelling, calf tenderness Back exam: Present: normal inspection Neurological exam: Present: alert, oriented X3, CN II-XII intact Psychiatric exam: Present: normal affect, normal mood Skin exam: Present: warm, dry, intact, normal color. Absent: rash Course Vital Signs 01/29/19 01/29/19 01/29/19 11:29 13:20 14:22 Temperature 97.9 F Pulse Rate 82 74 80 Respiratory 20 22 18 Rate Blood Pressure 181/95 174/85 177/85 O2 Sat by Pulse 98 100 99 Oximetry - Reevaluation(s) Reevaluation #1: 01/29/19 15:09 Medical record is reviewed Reevaluation #2: 01/29/19 15:09 Patient still significantly short of breath Medical Decision Making - Medical Decision Making 78 female the ER for evaluation of COPD and shortness of breath. Patient has CHF compounded. Patient will admit for breathing treatments, diuresis and cardiology and pulmonology to evaluate - Lab Data Result diagrams: 01/29/19 13:00 01/29/19 13:00 Lab Results 01/29/19 01/29/19 01/29/19 Range/Units 13:00 13:00 13:00 WBC 9.5 (3.8-10.6) k/uL RBC 4.22 (3.80-5.40) m/uL Hgb 13.1 (11.4-16.0) gm/dL Hct 41.1 (34.0-46.0) % MCV 97.4 (80.0-100.0) fL MCH 31.0 (25.0-35.0) pg MCHC 31.8 (31.0-37.0) g/dL RDW 13.5 (11.5-15.5) % Plt Count 136 L (150-450) k/uL Neutrophils % 72 % Lymphocytes % 19 % Monocytes % 6 % Eosinophils % 1 % Basophils % 1 % Neutrophils # 6.8 (1.3-7.7) k/uL Lymphocytes # 1.8 (1.0-4.8) k/uL Monocytes # 0.6 (0-1.0) k/uL Eosinophils # 0.1 (0-0.7) k/uL Basophils # 0.1 (0-0.2) k/uL PT (9.0-12.0) sec INR (<1.2) APTT (22.0-30.0) sec Sodium 138 (137-145) mmol/L Potassium 4.8 (3.5-5.1) mmol/L Chloride 105 (98-107) mmol/L Carbon Dioxide 22 (22-30) mmol/L Anion Gap 11 mmol/L BUN 18 H (7-17) mg/dL Creatinine 0.88 (0.52-1.04) mg/dL Est GFR (CKD-EPI)AfAm 73 (>60 ml/min/1.73 sqM) Est GFR (CKD-EPI)NonAf 64 (>60 ml/min/1.73 sqM) Glucose 94 (74-99) mg/dL Plasma Lactic Acid Zeyad 1.9 (0.7-2.0) mmol/L Calcium 10.1 (8.4-10.2) mg/dL Phosphorus 3.6 (2.5-4.5) mg/dL Magnesium 1.8 (1.6-2.3) mg/dL Total Bilirubin 0.8 (0.2-1.3) mg/dL AST 56 H (14-36) U/L ALT 46 (9-52) U/L Alkaline Phosphatase 161 H (38-126) U/L Creatine Kinase 26 L (30-135) U/L Troponin I (0.000-0.034) ng/mL NT-Pro-B Natriuret Pep pg/mL Total Protein 7.3 (6.3-8.2) g/dL Albumin 4.0 (3.5-5.0) g/dL TSH 2.780 (0.465-4.680) mIU/L Urine Color Urine Appearance (Clear) Urine pH (5.0-8.0) Ur Specific [place] (1.001-1.035) Urine Protein (Negative) Urine Glucose (UA) (Negative) Urine Ketones (Negative) Urine Blood (Negative) Urine Nitrite (Negative) Urine Bilirubin (Negative) Urine Urobilinogen (<2.0) mg/dL Ur Leukocyte Esterase (Negative) Urine RBC (0-5) /hpf Urine WBC (0-5) /hpf Ur Squamous Epith Cells (0-4) /hpf Urine Mucus (None) /hpf 01/29/19 01/29/19 01/29/19 Range/Units 13:00 13:00 13:00 WBC (3.8-10.6) k/uL RBC (3.80-5.40) m/uL Hgb (11.4-16.0) gm/dL Hct (34.0-46.0) % MCV (80.0-100.0) fL MCH (25.0-35.0) pg MCHC (31.0-37.0) g/dL RDW (11.5-15.5) % Plt Count (150-450) k/uL Neutrophils % % Lymphocytes % % Monocytes % % Eosinophils % % Basophils % % Neutrophils # (1.3-7.7) k/uL Lymphocytes # (1.0-4.8) k/uL Monocytes # (0-1.0) k/uL Eosinophils # (0-0.7) k/uL Basophils # (0-0.2) k/uL PT 10.8 (9.0-12.0) sec INR 1.0 (<1.2) APTT 23.7 (22.0-30.0) sec Sodium (137-145) mmol/L Potassium (3.5-5.1) mmol/L Chloride (98-107) mmol/L Carbon Dioxide (22-30) mmol/L Anion Gap mmol/L BUN (7-17) mg/dL Creatinine (0.52-1.04) mg/dL Est GFR (CKD-EPI)AfAm (>60 ml/min/1.73 sqM) Est GFR (CKD-EPI)NonAf (>60 ml/min/1.73 sqM) Glucose (74-99) mg/dL Plasma Lactic Acid Zeyad (0.7-2.0) mmol/L Calcium (8.4-10.2) mg/dL Phosphorus (2.5-4.5) mg/dL Magnesium (1.6-2.3) mg/dL Total Bilirubin (0.2-1.3) mg/dL AST (14-36) U/L ALT (9-52) U/L Alkaline Phosphatase (38-126) U/L Creatine Kinase (30-135) U/L Troponin I <0.012 (0.000-0.034) ng/mL NT-Pro-B Natriuret Pep 4830 pg/mL Total Protein (6.3-8.2) g/dL Albumin (3.5-5.0) g/dL TSH (0.465-4.680) mIU/L Urine Color Urine Appearance (Clear) Urine pH (5.0-8.0) Ur Specific [place] (1.001-1.035) Urine Protein (Negative) Urine Glucose (UA) (Negative) Urine Ketones (Negative) Urine Blood (Negative) Urine Nitrite (Negative) Urine Bilirubin (Negative) Urine Urobilinogen (<2.0) mg/dL Ur Leukocyte Esterase (Negative) Urine RBC (0-5) /hpf Urine WBC (0-5) /hpf Ur Squamous Epith Cells (0-4) /hpf Urine Mucus (None) /hpf 01/29/19 Range/Units 13:00 WBC (3.8-10.6) k/uL RBC (3.80-5.40) m/uL Hgb (11.4-16.0) gm/dL Hct (34.0-46.0) % MCV (80.0-100.0) fL MCH (25.0-35.0) pg MCHC (31.0-37.0) g/dL RDW (11.5-15.5) % Plt Count (150-450) k/uL Neutrophils % % Lymphocytes % % Monocytes % % Eosinophils % % Basophils % % Neutrophils # (1.3-7.7) k/uL Lymphocytes # (1.0-4.8) k/uL Monocytes # (0-1.0) k/uL Eosinophils # (0-0.7) k/uL Basophils # (0-0.2) k/uL PT (9.0-12.0) sec INR (<1.2) APTT (22.0-30.0) sec Sodium (137-145) mmol/L Potassium (3.5-5.1) mmol/L Chloride (98-107) mmol/L Carbon Dioxide (22-30) mmol/L Anion Gap mmol/L BUN (7-17) mg/dL Creatinine (0.52-1.04) mg/dL Est GFR (CKD-EPI)AfAm (>60 ml/min/1.73 sqM) Est GFR (CKD-EPI)NonAf (>60 ml/min/1.73 sqM) Glucose (74-99) mg/dL Plasma Lactic Acid Zeyad (0.7-2.0) mmol/L Calcium (8.4-10.2) mg/dL Phosphorus (2.5-4.5) mg/dL Magnesium (1.6-2.3) mg/dL Total Bilirubin (0.2-1.3) mg/dL AST (14-36) U/L ALT (9-52) U/L Alkaline Phosphatase (38-126) U/L Creatine Kinase (30-135) U/L Troponin I (0.000-0.034) ng/mL NT-Pro-B Natriuret Pep pg/mL Total Protein (6.3-8.2) g/dL Albumin (3.5-5.0) g/dL TSH (0.465-4.680) mIU/L Urine Color Yellow Urine Appearance Clear (Clear) Urine pH 6.0 (5.0-8.0) Ur Specific [place] 1.018 (1.001-1.035) Urine Protein 1+ H (Negative) Urine Glucose (UA) Negative (Negative) Urine Ketones Negative (Negative) Urine Blood Negative (Negative) Urine Nitrite Negative (Negative) Urine Bilirubin Negative (Negative) Urine Urobilinogen <2.0 (<2.0) mg/dL Ur Leukocyte Esterase Negative (Negative) Urine RBC 1 (0-5) /hpf Urine WBC 1 (0-5) /hpf Ur Squamous Epith Cells <1 (0-4) /hpf Urine Mucus Rare H (None) /hpf - EKG Data -: EKG Interpreted by Me (EKG shows atrial fibrillation rate of 86, QRS 80, QTC 459) - Radiology Data Radiology results: report reviewed (CT soft tissue neck negative for acute disease chest x-ray is positive for CHF and COPD), image reviewed Disposition Clinical Impression: Acute exacerbation of chronic obstructive airways disease, Dyspnea, CHF (congestive heart failure), Weakness Disposition: ADMITTED IP TO THIS HOSP Condition: Fair Is patient prescribed a controlled substance at d/c from ED?: No Referrals: Melchor Rider MD [Primary Care Provider] - 1-2 days
[2019-01-29 13:42] LABS: Basophils # (A) 0.1 k/uL (0-0.2); Basophils % (A) 1 %; Eosinophils # (A) 0.1 k/uL (0-0.7); Eosinophils % (A) 1 %; HCT 41.1 % (34.0-46.0); HGB 13.1 gm/dL (11.4-16.0); Lymphocytes # (A) 1.8 k/uL (1.0-4.8); Lymphocytes % (A) 19 %; MCHC 31.8 g/dL (31.0-37.0); MCV 97.4 fL (80.0-100.0); Mean Platelet Volume 8.4; Monocytes # (A) 0.6 k/uL (0-1.0); Monocytes % (A) 6 %; Neutrophils # (A) 6.8 k/uL (1.3-7.7); Neutrophils % (A) 72 %; Platelet Count 136 k/uL (150-450); RBC 4.22 m/uL (3.80-5.40); RDW 13.5 % (11.5-15.5); WBC 9.5 k/uL (3.8-10.6)
[2019-01-29 13:46] LABS: Appearance,Urine Clear (Clear); Bilirubin,Urine Negative (Negative); Blood,Urine Negative (Negative); Color,Urine Yellow; Glucose,Urine (UA) Negative (Negative); Ketones,Urine Negative (Negative); Leukocyte Esterase,Urine Negative (Negative); Mucus,Urine Rare /hpf; Nitrite,Urine Negative (Negative); Protein,Urine 1+ (Negative); RBC,Urine 1 /hpf (0-5); Specific Gravity,Urine 1.018 (1.001-1.035); Squamous Epithelial Cell,Urine <1 /hpf (0-4); Urobilinogen,Urine <2.0 mg/dL (<2.0); WBC,Urine 1 /hpf (0-5)
[2019-01-29] MEDS ORDERED: DEXAMETHASONE SOD PHOSPHATE 10 MG/ML 1 ML VIAL IV STA (13:50)
[2019-01-29 13:55] LABS: Partial Thromboplastin Time 23.7 sec (22.0-30.0); Prothrombin Time 10.8 sec (9.0-12.0)
[2019-01-29 14:01] LABS: Calcium 10.1 mg/dL (8.4-10.2); Magnesium 1.8 mg/dL (1.6-2.3); Phosphorus 3.6 mg/dL (2.5-4.5); Potassium 4.8 mmol/L (3.5-5.1); Total Bilirubin 0.8 mg/dL (0.2-1.3); Total Protein 7.3 g/dL (6.3-8.2)
--- NOTE | 2019-01-29 14:01 | XR ---
EXAMINATION TYPE: XR chest 2V DATE OF EXAM: 01/29/2019 COMPARISON: 12/12/2018 TECHNIQUE: PA and lateral views submitted. HISTORY: Shortness of breath FINDINGS: Atherosclerotic changes aorta with bilateral consolidation and pleural effusion. Diffuse interstitial pattern and mild cardiomegaly. Pulmonary arteries are prominent correlate for pulmonary arterial hyp ertension. Biapical pleural thickening with a somewhat nodular pattern bilaterally. Surgical clips in the epigastric area are noted. Severe compression deformity at the thoracolumbar junction is chronic . IMPRESSION: 1. Correlate for CHF superimposed on a background of COPD and interstitial lung disease. Otherwise co nsider pneumonia. 2. There is nodular biapical pleural thickening.
--- NOTE | 2019-01-29 14:34 | CT ---
EXAMINATION TYPE: CT soft tissue neck w con DATE OF EXAM: 01/29/2019 COMPARISON: HISTORY: neck pain CT DLP: 199.3 mGycm CONTRAST: Patient injected with 100 mL of Isovue 300. TECHNIQUE: Axial images at 3 mm thick sections. Reconstructed images in the coronal plane and sagitt al plane are reviewed. FINDINGS: Limited CT sections are obtained the lung apices. Bilateral apical thickening is present. On the right this may be changing from 12/20/2018. Consider PET CT for additional evaluation. CT neck: The torus tubarius and fossa of Rosenmuller are normal. Project Construction Assistant Manager spaces are normal. Para nasal sinuses and mastoid air cells are clear. Parotid glands appear normal and symmetrical. Submandibular glands, are normal. Parapharyngeal spac es are normal. No suspicious adenopathy is evident. There may be some subtle asymmetry within the hypopharynx with slightly full on right side compared t o the left. However, no suspicious underlying mass is identified. Vocal cord level appear symmetrical. Thyroid is poorly visualized. There are degenerative changes within the cervical spine. IMPRESSIONS: 1. Some apical thickening may be developing on the left. Recommend PET CT for additional evaluation. 2. Some subtle asymmetry within the right hypopharynx. Underlying suspicious abnormality is not ident ified
[2019-01-29] MEDS ORDERED: IPRATROPIUM-ALBUTEROL 3 ML NEB INHALATION STA (14:47)
[2019-01-29] MEDS ORDERED: methylPREDNISolone SOD SUCCI 125 MG/2 ML VIAL IV STA (14:47)
[2019-01-29] MEDS ORDERED: ENALAPRILAT 1.25 MG/ML 1 ML VIAL IVP STA (14:51)
[2019-01-29] MEDS: IPRATROPIUM-ALBUTEROL 3 ML NEB INHALATION SCH (19:35)
[2019-01-29] MEDS ORDERED: BENZONATATE 100 MG CAP PO PRN (20:15)
[2019-01-29] MEDS ORDERED: ONDANSETRON 4 MG/2 ML VIAL IVP PRN (20:28)
[2019-01-29] MEDS: FUROSEMIDE 10 MG/ML 4 ML VIAL IV SCH (21:33)
[2019-01-29] MEDS: methylPREDNISolone SOD SUCCI 125 MG/2 ML VIAL IV SCH (21:48)
[2019-01-29] MEDS: TRIAMCINOLONE 0.1% CREAM 80 GM TUBE TOPICAL SCH (21:48)
[2019-01-29] MEDS: FOLIC ACID 1 MG TAB PO SCH (21:48)
[2019-01-29] MEDS: PANTOPRAZOLE 40 MG TABLET PO SCH (21:48)
[2019-01-29] MEDS: ATENOLOL 50 MG TAB PO SCH (21:48)
[2019-01-29] MEDS: traZODone HCL 100 MG TAB PO SCH (21:48)
[2019-01-29] MEDS: ATORVASTATIN 40 MG TAB PO SCH (21:48)
[2019-01-29] MEDS: NYSTATIN 100,000 UNIT/ML SUSP 500,000 UNIT/5 ML CUP PO SCH (21:54)
[2019-01-29] MEDS: ACETAMINOPHEN TAB 325 MG TAB PO PRN (23:21)
[2019-01-30] MEDS: methylPREDNISolone SOD SUCCI 125 MG/2 ML VIAL IV SCH ×3 (01:14→11:56)
[2019-01-30] MEDS: FUROSEMIDE 10 MG/ML 4 ML VIAL IV SCH ×2 (06:18→17:37)
[2019-01-30] MEDS: LEVOTHYROXINE 75 MCG TAB PO SCH (06:19)
[2019-01-30] MEDS: ACETAMINOPHEN TAB 325 MG TAB PO PRN ×2 (06:24→16:01)
[2019-01-30] MEDS: IPRATROPIUM-ALBUTEROL 3 ML NEB INHALATION SCH ×4 (07:34→19:50)
--- NOTE | 2019-01-30 08:40 | P.CRDCN ---
History of Present Illness Consult date: 01/30/19 History of present illness: This is a 78-year-old female with history of chronic atrial fibrillation who is not being treated with anticoagulation therapy because of history of GI bleeding, intermittent nonobstructive coronary artery disease from cardiac catheterization in 2013 and preserved LV function by echocardiogram done in 2014, who came to the hospital with increasing shortness of breath. She is also complaining of nausea vomiting and weakness. No history of any chest pain or palpitations. Chest x-ray on admission showed chronic pulmonary disease with possible pneumonia and possible CHF. Her proBNP is elevated. Patient is known to have history of diastolic CHF with proBNP levels up to 4200 in the past. Patient has been on IV Lasix and seemed to feeling slightly better. Patient has some chronic ulceration and diffuse ecchymotic changes involving both legs. Patient is being followed by transit planning manager. Apparently patient had some staph infection. I will get an echocardiogram to reassess her LV function. May continue IV Lasix for one more day and changed to by mouth diuretics. She is also being treated with steroids and antibiotics Review of Systems As per the chart Past Medical History Past Medical History: Atrial Fibrillation, Asthma, Heart Failure, COPD, Eye Disorder, GERD/Reflux, GI Bleed, Hyperlipidemia, Hypertension, Osteoarthritis (OA), Pneumonia, Renal Disease, Respiratory Disorder, Rheumatoid Arthritis (RA), Sleep Apnea/CPAP/BIPAP, Thyroid Disorder Additional Past Medical History / Comment(s): Mycobacterium avium complex, bronchitis, lower GI bleed, denies past gastric ulcer, hiatal hernia, anemia with blood transfusions and iron infusions, pt has L kidney that is functioning/L kidney has atrophied, 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 Past Anesthesia/Blood Transfusion Reactions: No Reported Reaction Additional Past Anesthesia/Blood Transfusion Reaction / Comment(s): Pt has received blood in past without reaction. Past Psychological History: No Psychological Hx Reported Additional Psychological History / Comment(s): Pt resides at home. Her spouse is currently at [facility] receiving rehab post hip replacement. Normally pt's spouse manages her medications and drives her to app. She states she is currently managing her own medications or she doesn't take them. She states while her spouse is in rehab, she can get rides from her son or neighbors. She uses a wheeled walker to ambulate. Smoking Status: Former smoker Past Alcohol Use History: None Reported Additional Past Alcohol Use History / Comment(s): Pt started smoking in 1949 and quit in 2000. Past Drug Use History: None Reported - Past Family History Father Family Medical History: Cancer Additional Family Medical History / Comment(s): at age 68 from lung cancer Mother Family Medical History: Cancer Additional Family Medical History / Comment(s): at age 83 from lung cancer Brother(s) Family Medical History: Cancer Additional Family Medical History / Comment(s): at age 63 from lung cancer. Son(s) Additional Family Medical History / Comment(s): She has 2 sons with no major medical problems. Medications and Allergies Home Medications Medication Instructions Recorded Confirmed Type Atenolol 50 mg PO HS 12/22/16 01/29/19 History Brinzolamide/Brimonidine Tart 1 drop BOTH EYES QAM 12/22/16 01/29/19 History [Simbrinza 1%-0.2% Eye Drops] Folic Acid 1 mg PO BID 12/22/16 01/29/19 History Levothyroxine Sodium [Synthroid] 75 mcg PO DAILY 12/22/16 01/29/19 History Pantoprazole Sodium [Protonix] 40 mg PO BID 12/22/16 01/29/19 History Ascorbic Acid [Vitamin C] 500 mg PO DAILY 05/18/18 01/29/19 History Atorvastatin [Lipitor] 40 mg PO DAILY 12/29/18 01/29/19 History Baricitinib [Olumiant] 2 mg PO DAILY 12/29/18 01/29/19 History Biotin 5,000 mcg PO DAILY 12/29/18 01/29/19 History Cholecalciferol (Vitamin D3) 2,000 unit PO DAILY 12/29/18 01/29/19 History [Vitamin D3] rOPINIRole HCL [Requip] 0.5 mg PO TID 12/29/18 01/29/19 History Acetaminophen Tab [Tylenol Tab] 650 mg PO Q6H PRN 01/29/19 01/29/19 History Benzonatate [Tessalon Perles] 100 mg PO TID PRN 01/29/19 01/29/19 History Cephalexin [Keflex] 500 mg PO Q12HR 01/29/19 01/29/19 History Triamcinolone 0.1% Cream [Kenalog 1 applic TOPICAL DAILY 01/29/19 01/29/19 History 0.1% Cream] traZODone HCL 100 mg PO HS 01/29/19 01/29/19 History Allergies Allergy/AdvReac Type Severity Reaction Status Date / Time morphine AdvReac Severe Hallucinati Verified 01/29/19 11:57 ons Physical Exam Vitals: Vital Signs Temp Pulse Pulse Resp BP BP Pulse Ox 01/30/19 07:48 78 01/30/19 07:35 70 01/30/19 04:10 66 17 01/30/19 04:00 97.9 F 89 16 195/106 93 L 01/29/19 23:53 73 17 01/29/19 23:40 97.9 F 83 15 154/92 94 L 01/29/19 20:10 71 20 01/29/19 19:48 91 01/29/19 19:36 90 01/29/19 19:15 98.2 F 69 15 90/50 98 01/29/19 17:25 97.7 F 103 H 18 169/76 95 01/29/19 17:00 98.0 F 87 18 177/91 98 01/29/19 16:22 88 01/29/19 16:20 89 18 174/88 98 01/29/19 16:02 90 01/29/19 15:22 90 20 186/117 99 01/29/19 14:22 80 18 177/85 99 01/29/19 13:20 74 22 174/85 100 01/29/19 11:29 97.9 F 82 20 181/95 98 Intake and Output 01/29/19 01/30/19 01/30/19 22:59 06:59 14:59 Intake Total 250 Balance 250 Intake: IV 10 0.9 10 Oral 240 Other: Voiding Method Toilet Toilet # Voids 1 1 GENERAL EXAM: Patient is alert and oriented and doesn't appear to be in any acute distress HEENT: Normocephalic. Normal reaction of pupils, equal size, normal range of extraocular motion. No erythema or exudates in the throat. NECK: No masses, no nuchal rigidity. CHEST: No chest wall deformity. LUNGS: Rales at both bases HEART: S1 and S2 normal with no audible mumurs or gallops. Regular rhythm, femorals equal on both sides.. ABDOMEN: No hepatosplenomegaly, normal bowel sounds, no guarding or rigidity. SKIN: No rashes CENTRAL NERVOUS SYSTEM: No focal deficits. EXTREMITIES: No cyanosis, diffuse erythema and ulcerations. Mild edema Results 01/29/19 13:00 01/29/19 13:00 Cardiac Enzymes 01/29/19 01/29/19 Range/Units 13:00 13:00 AST 56 H (14-36) U/L Troponin I <0.012 (0.000-0.034) ng/mL Coagulation 01/29/19 Range/Units 13:00 PT 10.8 (9.0-12.0) sec APTT 23.7 (22.0-30.0) sec CBC 01/29/19 Range/Units 13:00 WBC 9.5 (3.8-10.6) k/uL RBC 4.22 (3.80-5.40) m/uL Hgb 13.1 (11.4-16.0) gm/dL Hct 41.1 (34.0-46.0) % Plt Count 136 L (150-450) k/uL Comprehensive Metabolic Panel 01/29/19 Range/Units 13:00 Sodium 138 (137-145) mmol/L Potassium 4.8 (3.5-5.1) mmol/L Chloride 105 (98-107) mmol/L Carbon Dioxide 22 (22-30) mmol/L BUN 18 H (7-17) mg/dL Creatinine 0.88 (0.52-1.04) mg/dL Glucose 94 (74-99) mg/dL Calcium 10.1 (8.4-10.2) mg/dL AST 56 H (14-36) U/L ALT 46 (9-52) U/L Alkaline Phosphatase 161 H (38-126) U/L Total Protein 7.3 (6.3-8.2) g/dL Albumin 4.0 (3.5-5.0) g/dL Current Medications Generic Name Dose Route Start Last Admin Trade Name Freq PRN Reason Stop Dose Admin Acetaminophen 650 mg 01/29/19 22:53 01/30/19 06:24 Tylenol Tab PO 650 mg Q6H PRN Administration Pain Albuterol/Ipratropium 3 ml 01/29/19 20:00 01/30/19 07:34 Duoneb 0.5 Mg-3 Mg/3 Ml Soln INHALATION 3 ml RT-QID SERGIO Administration Ascorbic Acid 500 mg 01/30/19 09:00 Vitamin C PO DAILY SERGIO Atenolol 50 mg 01/29/19 21:00 01/29/19 21:48 Tenormin PO 50 mg HS SERGIO Administration Atorvastatin Calcium 40 mg 01/29/19 21:00 01/29/19 21:48 Lipitor PO 40 mg DAILY SERGIO Administration Benzonatate 100 mg 01/29/19 20:15 Tessalon Perles PO TID PRN Cough Cholecalciferol 2,000 unit 01/30/19 09:00 Vitamin D3 (25 Mcg = 1000 Iu) PO DAILY [facility] Folic Acid 1 mg 01/29/19 21:00 01/29/19 21:48 Folic Acid PO 1 mg BID [facility] Administration Furosemide 40 mg 01/29/19 18:00 01/30/19 06:18 Lasix IV 40 mg Q12H SERGIO Administration Levothyroxine Sodium 75 mcg 01/30/19 06:30 01/30/19 06:19 Synthroid PO 75 mcg DAILY@0630 SERGIO Administration Methylprednisolone Sodium Succinate 60 mg 01/29/19 18:00 01/30/19 06:18 Solu-Medrol IV 60 mg Q6HR SERGIO Administration Non-Formulary Medication 2 mg 01/30/19 09:00 Baricitinib [Olumiant] PO DAILY [facility] Nystatin 500,000 unit 01/29/19 22:00 01/29/19 21:54 Mycostatin Oral Susp PO 500,000 unit QID [facility] Administration Ondansetron HCl 4 mg 01/29/19 20:28 Zofran IVP Q6HR PRN Nausea And Vomiting Pantoprazole Sodium 40 mg 01/29/19 21:00 01/29/19 21:48 Protonix PO 40 mg AC-BID SERGIO Administration Ropinirole HCl 0.5 mg 01/29/19 22:00 01/29/19 22:22 Requip PO 0.5 mg TID SERGIO Administration Trazodone HCl 100 mg 01/29/19 21:00 01/29/19 21:48 Desyrel PO 100 mg HS SERGIO Administration Triamcinolone Acetonide 1 applic 01/29/19 20:30 01/29/19 21:48 Kenalog TOPICAL 1 applic DAILY SERGIO Administration Intake and Output 01/29/19 01/30/19 01/30/19 22:59 06:59 14:59 Intake Total 250 Balance 250 Intake: IV 10 0.9 10 Oral 240 Other: Voiding Method Toilet Toilet # Voids 1 1 01/29/19 13:00 01/29/19 13:00 EKG Interpretations (text) Atrial fibrillation with controlled ventricular response Assessment and Plan (1) Chronic diastolic CHF (congestive heart failure) Current Visit: Yes Status: Acute Code(s): I50.32 - CHRONIC DIASTOLIC (CONGESTIVE) HEART FAILURE SNOMED Code(s): 184134774 (2) Acute exacerbation of chronic obstructive airways disease Current Visit: Yes Status: Acute Code(s): J44.1 - CHRONIC OBSTRUCTIVE PULMONARY DISEASE W (ACUTE) EXACERBATION SNOMED Code(s): 639123533 (3) Chronic atrial fibrillation Current Visit: Yes Status: Acute Code(s): I48.2 - CHRONIC ATRIAL FIBRILLATION SNOMED Code(s): 573905933 (4) Mild coronary artery disease Current Visit: Yes Status: Acute Code(s): I25.10 - ATHSCL HEART DISEASE OF [place] CORONARY ARTERY W/O ANG PCTRS SNOMED Code(s): 652256203 Plan: Continue with current medical therapy. Switch to by mouth Lasix after today. Get an echocardiogram. Continue rest of the management. Repeat chest x-ray and blood work tomorrow
[2019-01-30] MEDS: NYSTATIN 100,000 UNIT/ML SUSP 500,000 UNIT/5 ML CUP PO SCH ×4 (09:31→20:40)
[2019-01-30] MEDS: PANTOPRAZOLE 40 MG TABLET PO SCH ×2 (09:32→17:37)
[2019-01-30] MEDS: ATORVASTATIN 40 MG TAB PO SCH (09:32)
[2019-01-30] MEDS: FOLIC ACID 1 MG TAB PO SCH ×2 (09:32→20:40)
[2019-01-30] MEDS: ASCORBIC ACID 500 MG TAB PO SCH (09:32)
[2019-01-30] MEDS: CHOLECALCIFEROL 1,000 UNIT TAB PO SCH (09:33)
[2019-01-30] MEDS: TRIAMCINOLONE 0.1% CREAM 80 GM TUBE TOPICAL SCH (09:33)
[2019-01-30] MEDS: BARICITINIB 2 MG PO SCH (10:00)
--- NOTE | 2019-01-30 11:14 | ECHOF ---
Referral Reason:Chest pain and cardiomyopathy MEASUREMENTS -------- HEIGHT: 172.7 cm WEIGHT: 72.6 kg BP: 195/106 RVIDd: 3.4 cm (< 3.3) IVSd: 1.3 cm (0.6 - 1.1) LVIDd: 3.1 cm (3.9 - 5.3) LVPWd: 1.3 cm (0.6 - 1.1) IVSs: 1.7 cm LVIDs: 1.9 cm LVPWs: 1.9 cm LA Diam: 4.3 cm (2.7 - 3.8) LAESV Index (A-L): 32.06 ml/m Ao Diam: 2.6 cm (2.0 - 3.7) AV Cusp: 2.2 cm (1.5 - 2.6) MV EXCURSION: 17.614 mm (> 18.000) MV EF SLOPE: 142 mm/s (70 - 150) EPSS: 0.3 cm RAP: 15.00 mmHg RVSP: 57.15 mmHg FINDINGS -------- Atrial fibrillation. This was a technically good study. The left ventricular size is normal. There is mild concentric left ventricular hypertrophy. Left ventricular systolic function is hyperdynamic with an estimated EF of >70%. The right ventricle is normal in size. LA is midly dilated 29-33ml/m2. The right atrium is normal in size. Interatrial and interventricular septum intact. There is mild aortic valve sclerosis. There is mild aortic regurgitation. The mitral valve leaflets are mildly thickened. Mild mitral regurgitation is present. Moderate tricuspid regurgitation present. There is severe pulmonary hypertension. The right ventr icular systolic pressure, as measured by Doppler, is 57.15mmHg. Trace/mild (physiologic) pulmonic regurgitation. The aortic root size is normal. The inferior vena cava is dilated with no significant inspiratory collapse which is consistent estima stacy right atrial pressure of >20 mmHg. There is a trivial pericardial effusion present. CONCLUSIONS -------- 1. Atrial fibrillation. 2. This was a technically good study. 3. The left ventricular size is normal. 4. Left ventricular systolic function is hyperdynamic with an estimated EF of >70%. 5. The right ventricle is normal in size. 6. LA is midly dilated 29-33ml/m2. 7. The right atrium is normal in size. 8. Interatrial and interventricular septum intact. 9. There is mild aortic valve sclerosis. 10. There is mild aortic regurgitation. 11. The mitral valve leaflets are mildly thickened. 12. Mild mitral regurgitation is present. 13. Moderate tricuspid regurgitation present. 14. There is severe pulmonary hypertension. 15. The right ventricular systolic pressure, as measured by Doppler, is 57.15mmHg. 16. Trace/mild (physiologic) pulmonic regurgitation. 17. The aortic root size is normal. 18. The inferior vena cava is dilated with no significant inspiratory collapse which is consistent es timated right atrial pressure of >20 mmHg. 19. There is a trivial pericardial effusion present. TOMATO PULPER OPERATOR: Tere Wyman RDCS
--- NOTE | 2019-01-30 13:24 | P.CNPUL ---
History of Present Illness Consult date: 01/30/19 Requesting physician: Melchor Rider Reason for consult: dyspnea, other Chief complaint: Hypertension, shortness of breath, weakness, dizziness History of present illness: This is 70-year-old white female patient of Dr. Lee, past medical history of chronic lower lobe pulmonary fibrosis, history of atypical mycobacterial infections, paroxysmal atrial fibrillation on no anticoagulation, bronch iectasis, chronic anemia, rheumatoid arthritis, GERD/reflux, fixed hiatal hernia on Protonix, hypertension, and hypothyroidism. Patient has a history of rheumatoid arthritis, and she had been on immunosuppressive agents including prednisone, methotrexate and most recently on Olumiant. She follows with Dr. Tilley in the pulmonary clinic, and she had recently underwent a bronchoscopy with BAL, and the bronchoscope was cultures were negative with the exception of rare Bea albicans. Cytology was negative. Patient is an ex-smoker, quit smoking in 2000. Outpatient PFT showed FEV1 of 1.62 L or 70% of predicted, with FVC of 2.19 L or 71% of predicted, minimal obstruction. Patient has albuterol nebulized treatments at home on as-needed basis, and she is complaining of prednisone taper given to her by Dr. Lea. Patient presented to the hospital on 01/29/2019 with complaints of nausea, vomiting, and weakness. Patient states she has been on oral Keflex for lower extremity wounds with staph infection. Denied any fever or chills, she did have some limited cough, and some orthopnea, her cough is nonproductive. No complaints of chest pain, no lower extremity edema. She states she just felt weak, and dizzy. Patient has been pretty much housebound and she rarely leaves her home, she lives at home with her , she walks with a walker, she tires very easily, she states she has had a 50 pound weight loss in the last year. Chest x-ray was completed showing diffuse interstitial pattern and mild cardiomegaly on the background of COPD, nodular biapical pleural thickening. EKG showed A. fib with a controlled rate, without evidence of anterior infarct of undetermined age. Her BNP was elevated at 4830, troponin was negative 1, white blood cell count was 9.5, hemoglobin was 13.1, INR is 1.0, electrolytes and renal profile were unremarkable, LFTs all within normal limits, lactic acid was 1.9. Room air pulse ox is 96 percent, and patient's blood pressure is elevated with systolic between 170s to 180s, and diastolic in the 80s and 90s. Echocardiogram showing mild concentric left ventricular hypertrophy, hyperdynamic left ventricular systolic function with EF of greater than 70%, mild aortic regurgitation, mild mitral regurgitation, severe pulmonary hypertension with the right ventricular systolic pressure of 57.1 mmHg. The inferior vena cava is dilated with no significant inspiratory collapse which is consistent with the right atrial pressure of greater than 20, was a trivial pericardial effusion. Review of Systems All systems: negative Constitutional: Reports weakness, Denies chills, Denies fever Eyes: denies blurred vision, denies pain Ears, nose, mouth and throat: Denies headache, Denies sore throat Cardiovascular: Denies chest pain, Denies shortness of breath Respiratory: Reports dyspnea, Reports respiratory infections, Denies cough Gastrointestinal: Reports nausea, Reports vomiting, Denies abdominal pain, Denies diarrhea Genitourinary: Denies dysuria, Denies hematuria Musculoskeletal: Denies myalgias Integumentary: Denies pruritus, Denies rash Neurological: Denies numbness, Denies weakness Psychiatric: Denies anxiety, Denies depression Endocrine: Denies fatigue, Denies weight change Past Medical History Past Medical History: Atrial Fibrillation, Asthma, Heart Failure, COPD, Eye Disorder, GERD/Reflux, GI Bleed, Hyperlipidemia, Hypertension, Osteoarthritis (OA), Pneumonia, Renal Disease, Respiratory Disorder, Rheumatoid Arthritis (RA), Sleep Apnea/CPAP/BIPAP, Thyroid Disorder Additional Past Medical History / Comment(s): Mycobacterium avium complex, bronchitis, lower GI bleed, denies past gastric ulcer, hiatal hernia, anemia with blood transfusions and iron infusions, pt has L kidney that is functioning/L kidney has atrophied, 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 Past Anesthesia/Blood Transfusion Reactions: No Reported Reaction Additional Past Anesthesia/Blood Transfusion Reaction / Comment(s): Pt has received blood in past without reaction. Past Psychological History: No Psychological Hx Reported Additional Psychological History / Comment(s): Pt resides at home. Her spouse is currently at [facility] receiving rehab post hip replacement. Normally pt's spouse manages her medications and drives her to appts. She states she is currently managing her own medications or she doesn't take them. She states while her spouse is in rehab, she can get rides from her son or neighbors. She uses a wheeled walker to ambulate. Smoking Status: Former smoker Past Alcohol Use History: None Reported Additional Past Alcohol Use History / Comment(s): Pt started smoking in 1949 and quit in 2000. Past Drug Use History: None Reported - Past Family History Father Family Medical History: Cancer Additional Family Medical History / Comment(s): at age 68 from lung cancer Mother Family Medical History: Cancer Additional Family Medical History / Comment(s): at age 83 from lung cancer Brother(s) Family Medical History: Cancer Additional Family Medical History / Comment(s): at age 63 from lung cancer. Son(s) Additional Family Medical History / Comment(s): She has 2 sons with no major medical problems. Medications and Allergies Home Medications Medication Instructions Recorded Confirmed Type Atenolol 50 mg PO HS 12/22/16 01/29/19 History Brinzolamide/Brimonidine Tart 1 drop BOTH EYES QAM 12/22/16 01/29/19 History [Simbrinza 1%-0.2% Eye Drops] Folic Acid 1 mg PO BID 12/22/16 01/29/19 History Levothyroxine Sodium [Synthroid] 75 mcg PO DAILY 12/22/16 01/29/19 History Pantoprazole Sodium [Protonix] 40 mg PO BID 12/22/16 01/29/19 History Ascorbic Acid [Vitamin C] 500 mg PO DAILY 05/18/18 01/29/19 History Atorvastatin [Lipitor] 40 mg PO DAILY 12/29/18 01/29/19 History Baricitinib [Olumiant] 2 mg PO DAILY 12/29/18 01/29/19 History Biotin 5,000 mcg PO DAILY 12/29/18 01/29/19 History Cholecalciferol (Vitamin D3) 2,000 unit PO DAILY 12/29/18 01/29/19 History [Vitamin D3] rOPINIRole HCL [Requip] 0.5 mg PO TID 12/29/18 01/29/19 History Acetaminophen Tab [Tylenol Tab] 650 mg PO Q6H PRN 01/29/19 01/29/19 History Benzonatate [Tessalon Perles] 100 mg PO TID PRN 01/29/19 01/29/19 History Cephalexin [Keflex] 500 mg PO Q12HR 01/29/19 01/29/19 History Triamcinolone 0.1% Cream [Kenalog 1 applic TOPICAL DAILY 01/29/19 01/29/19 History 0.1% Cream] traZODone HCL 100 mg PO HS 01/29/19 01/29/19 History Allergies Allergy/AdvReac Type Severity Reaction Status Date / Time morphine AdvReac Severe Hallucinati Verified 01/29/19 11:57 ons Physical Exam Vitals: Vital Signs Temp Pulse Pulse Resp BP BP Pulse Ox 01/30/19 12:00 97.9 F 82 18 158/83 95 01/30/19 11:34 82 01/30/19 11:22 80 01/30/19 08:00 98.3 F 84 18 179/80 96 01/30/19 07:48 78 01/30/19 07:35 70 01/30/19 04:10 66 17 01/30/19 04:00 97.9 F 89 16 195/106 93 L 01/29/19 23:53 73 17 01/29/19 23:40 97.9 F 83 15 154/92 94 L 01/29/19 20:10 71 20 01/29/19 19:48 91 01/29/19 19:36 90 01/29/19 19:15 98.2 F 69 15 90/50 98 01/29/19 17:25 97.7 F 103 H 18 169/76 95 01/29/19 17:00 98.0 F 87 18 177/91 98 01/29/19 16:22 88 01/29/19 16:20 89 18 174/88 98 01/29/19 16:02 90 01/29/19 15:22 90 20 186/117 99 01/29/19 14:22 80 18 177/85 99 01/29/19 13:20 74 22 174/85 100 Intake and Output 01/29/19 01/30/19 01/30/19 22:59 06:59 14:59 Intake Total 250 10 Balance 250 10 Intake: IV 10 10 0.9 10 Invasive Line 1 10 Oral 240 Other: Voiding Method Toilet Toilet Toilet # Voids 1 1 GENERAL EXAM: Alert, pleasant, 78-year-old white female, on room air, with a pulse ox of 95% comfortable in no apparent distress. HEAD: Normocephalic/atraumatic. EYES: Normal reaction of pupils, equal size. Conjunctiva pink, sclera white. NOSE: Clear with pink turbinates. THROAT: No erythema or exudates. NECK: No masses, no JVD, no thyroid enlargement, no adenopathy. CHEST: No chest wall deformity. Symmetrical expansion. LUNGS: Equal air entry with basilar crackles bilaterally, no rhonchi, no wheezing CVS: Regular rate and rhythm, normal S1 and S2, no gallops, no murmurs, no rubs ABDOMEN: Soft, nontender. No hepatosplenomegaly, normal bowel sounds, no guarding or rigidity. EXTREMITIES: No clubbing, no edema, no cyanosis, 2+ pulses and upper and lower extremities. MUSCULOSKELETAL: Muscle strength and tone normal. SPINE: No scoliosis or deformity SKIN: Multiple areas of healing wounds circular shaped on bilateral lower extremities CENTRAL NERVOUS SYSTEM: Alert and oriented -3. No focal deficits, tone is normal in all 4 extremities. PSYCHIATRIC: Alert and oriented -3. Appropriate affect. Intact judgment and insight. Results - Laboratory Findings CBC and BMP: 01/29/19 13:00 01/29/19 13:00 PT/INR, D-dimer PT 10.8 sec (9.0-12.0) 01/29/19 13:00 INR 1.0 (<1.2) 01/29/19 13:00 Abnormal lab findings: Abnormal Labs 01/29/19 01/29/19 01/29/19 13:00 13:00 13:00 Plt Count 136 L BUN 18 H AST 56 H Alkaline Phosphatase 161 H Creatine Kinase 26 L Urine Protein 1+ H Urine Mucus Rare H - Diagnostic Findings Chest x-ray: report reviewed, image reviewed Additional studies: Results of the echocardiogram reviewed, EKG reviewed Assessment and Plan Plan: Assessment: #1. Acute exacerbation of congestive heart failure with diastolic dysfunction #2. Accelerated hypertension #3. Nausea, vomiting possibly related to oral antibiotics #4. History of mild coronary artery disease without intervention #5. Paroxysmal atrial fibrillation not on any anticoagulation related to history of GI bleeding, hemodynamically and A. fib #6. History of stage II COPD, with a baseline FEV1 of 1.62 L or 70% of predi cted, FVC stable #7. Chronic pulmonary fibrosis with chronic dyspnea, with most recent CT chest in November 2018 showing interval worsening in the scarring in the lower lobes, and biapical scarring remained unchanged #8. History of bronchiectasis related to history of pulmonary infections #9. History of atypical mycobacterial infection, patient had a recent bronchoscopy on 01/01/2019 and body wash cultures were negative, cytology was negative #10. Rheumatoid arthritis currently on Olumiant, patient had been on immunosuppressive therapy for years #11. GERD/reflux with fixed hiatal hernia #12. Recent oropharyngeal candidiasis, to have improved #13. History of essential hypertension #14. Bilateral lower extremity wounds, with cultures positive for staph currently on Keflex #15. History of abdominal aortic aneurysm with surgical repair Plan: Continue with IV diuretics, her COPD is relatively stable, patient is not significantly bronchospastic or congested, will continue with breathing treatments, will cut back IV steroids, patient is hypertensive. Continue nebulized bronchodilators. Her previous cultures from recent bronchoscopy were negative, patient is afebrile, no evidence of leukocytosis, no cough or congestion. Her Keflex is on hold, her nausea is subsiding. Asked x-ray was reviewed showing diffuse interstitial pattern and mild cardiomegaly, consistent with CHF. We'll continue to follow I performed a history & physical examination of the patient and discussed their management with my nurse practitioner, Marisela Dior. I reviewed the nurse practitioner's note and agree with the documented findings and plan of care. Lung sounds are positive for bibasilar crackles. The findings and the impression was discussed with the patient. I attest to the documentation by the nurse practitioner. Time with Patient: Greater than 30
--- NOTE | 2019-01-30 15:15 | P.HPIM ---
History of Present Illness H&P Date: 01/30/19 78-year-old female patient of Drs. Rider, Jarek and Zach with the past medical history of chronic atrial fibrillation not on oral anticoagulation due to history of GI bleed, intermediate nonobstructive coronary artery disease, chronic lower lobe pulmonary fibrosis, history of atypical mycobacterial infections followed by Dr. Tilley, bronchiectasis, chronic anemia, rheumatoid arthritis, gastroesophageal reflux disease, hypertension, hypothyroidism, rheumatoid arthritis on Olumiant. Patient gives history of increasing cough, generalized weakness. She states she woke up yesterday morning was unable to make coffee or toast for herself. She has history of recent antibiotic abhay atment for lower extremity cellulitis with Keflex and local wound care with triamcinolone follows with Dr. Pinto. She has completed a course of prednisone from Dr. Lea. Patient denies having any fever or chills. She does have a cough that is nonproductive. No chest pain. No lower extremity edema. Patient came into [facility] emergency center for evaluation. BMP was 4830, troponin negative, WBC 9.5, hemoglobin 13.1, electrolytes and renal function within normal limits, liver function tests within normal limits. Lactic acid 1.9. Echocardiogram reveals mild concentric left ventricular hypertrophy, preserved left ventricular systolic function with EF greater than 70%, mild aortic regurgitation, mild mitral regurgitation, severe pulmonary hypertension with a right ventricular systolic pressure of 57.1 mmHg. Inferior vena cava is dilated with no significant inspiratory collapse consistent with right atrial pressure greater than 20, trivial pericardial effusion. Patient was started on IV Lasix and admitted to the observation unit, cardiology and pulmonary consults requested. Patient has been seen by cardiology and IV Lasix changed to oral. At the time of this evaluation. Patient states that her appetite is good and her cough is improving and her stre ngth seems to be improved as well. Review of Systems Constitutional: Reports fatigue, Reports malaise, Reports poor appetite, Reports weakness, Reports weight loss, Denies chills, Denies fever Ears, nose, mouth and throat: Denies dental pain, Denies dysphagia, Denies mouth pain, Denies nasal congestion, Denies nasal discharge, Denies vertigo Cardiovascular: Reports decreased exercise tolerance, Reports dyspnea on exertion, Denies chest pain, Denies edema, Denies lightheadedness, Denies syncope Respiratory: Reports cough, Reports dyspnea, Denies cough with sputum, Denies excessive sputum, Denies home oxygen, Denies wheezing Gastrointestinal: Denies abdominal pain, Denies loss of appetite, Denies melena, Denies nausea, Denies vomiting Genitourinary: Denies dysuria, Denies hematuria, Denies urgency, Denies urinary frequency Musculoskeletal: Denies frequent falls, Denies gait dysfunction, Denies muscle weakness, Denies myalgias Integumentary: Denies pruritus, Denies rash, Denies wounds Neurological: Denies aphasia, Denies burning pain, Denies change in speech, Denies headaches, Denies seizures Psychiatric: Denies anxiety, Denies depression Endocrine: Denies fatigue, Denies weight change Past Medical History Past Medical History: Atrial Fibrillation, Asthma, Heart Failure, COPD, Eye Disorder, GERD/Reflux, GI Bleed, Hyperlipidemia, Hypertension, Osteoarthritis (OA), Pneumonia, Renal Disease, Respiratory Disorder, Rheumatoid Arthritis (RA), Sleep Apnea/CPAP/BIPAP, Thyroid Disorder Additional Past Medical History / Comment(s): Mycobacterium avium complex, bronchitis, lower GI bleed, denies past gastric ulcer, hiatal hernia, anemia with blood transfusions and iron infusions, pt has L kidney that is functioning/L kidney has atrophied, 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 Past Anesthesia/Blood Transfusion Reactions: No Reported Reaction Additional Past Anesthesia/Blood Transfusion Reaction / Comment(s): Pt has received blood in past without reaction. Past Psychological History: No Psychological Hx Reported Additional Psychological History / Comment(s): Pt resides at home. Her spouse is currently at [facility] receiving rehab post hip replacement. Normally pt's spouse manages her medications and drives her to [employer]. She states she is currently managing her own medications or she doesn't take them. She states while her spouse is in rehab, she can get rides from her son or neighbors. She uses a wheeled walker to ambulate. Smoking Status: Former smoker Past Alcohol Use History: None Reported Additional Past Alcohol Use History / Comment(s): The patient was a smoker one pack per day for 42 years and quit smoking and 2001. She drinks alcohol socially. She was at home with her . Past Drug Use History: None Reported - Past Family History Father Family Medical History: Cancer Additional Family Medical History / Comment(s): at age 68 from lung cancer Mother Family Medical History: Cancer Additional Family Medical History / Comment(s): at age 83 from lung cancer Brother(s) Family Medical History: Cancer Additional Family Medical History / Comment(s): at age 63 from lung cancer. Son(s) Additional Family Medical History / Comment(s): She has 2 sons with no major medical problems. Medications and Allergies Home Medications Medication Instructions Recorded Confirmed Type Atenolol 50 mg PO HS 12/22/16 01/29/19 History Brinzolamide/Brimonidine Tart 1 drop BOTH EYES QA 12/22/16 01/29/19 History [Simbrinza 1%-0.2% Eye Drops] Folic Acid 1 mg PO BID 12/22/16 01/29/19 History Levothyroxine Sodium [Synthroid] 75 mcg PO DAILY 12/22/16 01/29/19 History Pantoprazole Sodium [Protonix] 40 mg PO BID 12/22/16 01/29/19 History Ascorbic Acid [Vitamin C] 500 mg PO DAILY 05/18/18 01/29/19 History Atorvastatin [Lipitor] 40 mg PO DAILY 12/29/18 01/29/19 History Baricitinib [Olumiant] 2 mg PO DAILY 12/29/18 01/29/19 History Biotin 5,000 mcg PO DAILY 12/29/18 01/29/19 History Cholecalciferol (Vitamin D3) 2,000 unit PO DAILY 12/29/18 01/29/19 History [Vitamin D3] rOPINIRole HCL [Requip] 0.5 mg PO TID 12/29/18 01/29/19 History Acetaminophen Tab [Tylenol Tab] 650 mg PO Q6H PRN 01/29/19 01/29/19 History Benzonatate [Tessalon Perles] 100 mg PO TID PRN 01/29/19 01/29/19 History Cephalexin [Keflex] 500 mg PO Q12HR 01/29/19 01/29/19 History Triamcinolone 0.1% Cream [Kenalog 1 applic TOPICAL DAILY 01/29/19 01/29/19 Hist ory 0.1% Cream] traZODone HCL 100 mg PO HS 01/29/19 01/29/19 History Allergies Allergy/AdvReac Type Severity Reaction Status Date / Time morphine AdvReac Severe Hallucinati Verified 01/29/19 11:57 ons Physical Exam Vitals: Vital Signs Temp Pulse Pulse Resp BP BP Pulse Ox 01/30/19 11:34 82 01/30/19 11:22 80 01/30/19 08:00 98.3 F 84 18 179/80 96 01/30/19 07:48 78 01/30/19 07:35 70 01/30/19 04:10 66 17 01/30/19 04:00 97.9 F 89 16 195/106 93 L 01/29/19 23:53 73 17 01/29/19 23:40 97.9 F 83 15 154/92 94 L 01/29/19 20:10 71 20 01/29/19 19:48 91 01/29/19 19:36 90 01/29/19 19:15 98.2 F 69 15 90/50 98 01/29/19 17:25 97.7 F 103 H 18 169/76 95 01/29/19 17:00 98.0 F 87 18 177/91 98 01/29/19 16:22 88 01/29/19 16:20 89 18 174/88 98 01/29/19 16:02 90 01/29/19 15:22 90 20 186/117 99 01/29/19 14:22 80 18 177/85 99 01/29/19 13:20 74 22 174/85 100 Intake and Output 01/29/19 01/30/19 01/30/19 22:59 06:59 14:59 Intake Total 250 10 Balance 250 10 Intake: IV 10 10 0.9 10 Invasive Line 1 10 Oral 240 Other: Voiding Method Toilet Toilet Toilet # Voids 1 1 Gen: This is a 78-year-old female. Patient is resting on the edge of the bed and appears to be comfortable and in no acute distress. No respiratory distress is noted. Patient is able to speak in full sentences. HEENT: Head is atraumatic, normocephalic. Pupils equal, round. Sclerae is anicteric. NECK: Supple. No JVD. No lymphadenopathy. No thyromegaly. LUNGS: Bilateral crackles. No intercostal retractions. HEART: Regular rate and rhythm. No murmur. ABDOMEN: Soft. Bowel sounds are present. No masses. No tenderness. EXTREMITIES: No pedal edema. Healing wounds to the bilateral lower extremities without signs of infection. NEUROLOGICAL: Patient is awake, alert and oriented x3. Cranial nerves 2 through 12 are grossly intact. Results CBC & Chem 7: 01/29/19 13:00 01/29/19 13:00 Labs: Abnormal Lab Results - Last 24 Hours (Table) 01/29/19 01/29/19 01/29/19 Range/Units 13:00 13:00 13:00 Plt Count 136 L (150-450) k/uL BUN 18 H (7-17) mg/dL AST 56 H (14-36) U/L Alkaline Phosphatase 161 H (38-126) U/L Creatine Kinase 26 L (30-135) U/L Urine Protein 1+ H (Negative) Urine Mucus Rare H (None) /hpf Microbiology - Last 24 Hours (Table) 01/29/19 13:00 Urine Culture - Preliminary Urine,Voided Thrombosis Risk Factor Assmnt - DVT/VTE Prophylaxis DVT/VTE Prophylaxis: Pharmacologic Prophylaxis ordered - Choose All That Apply Any of the Below Risk Factors Present?: Yes Each Factor Represents 1 point: Abnormal pulmonary function (COPD) Each Risk Factor Represents 3 Points: Age 75 years or older Thrombosis Risk Factor Assessment Total Risk Factor Score: 4 Thrombosis Risk Factor Assessment Level: Moderate Risk Assessment and Plan Plan: 1. Acute on chronic systolic heart failure. Cardiology consult appreciated. Lasix 40 mg IV every 12 hours. Echocardiogram as above. Continue to monitor I&O and daily weights. 2. Accelerated hypertension. Continue atenolol 50 mg at bedtime, Lasix. 3. History of mild coronary artery disease. Continue atenolol and Lipitor. 4. Paroxysmal atrial fibrillation not currently on anticoagulation due to history of GI bleeding. Continue atenolol. 5. History of stage II COPD. Continue DuoNeb treatments 4 times daily, Tessalon Perles, Solu-Medrol 40 mg every 12 hours. Pelvic consult appreciated. 6. Chronic pulmonary fibrosis. 7. History of bronchiectasis related to history of pulmonary infections. 8. History of atypical mycobacterial infection with recent bronchoscopy on 01/01/2018, cytology and cultures negative. 9. Rheumatoid arthritis currently on Olumiant. 10. Gastroesophageal reflux disease, GI prophylaxis. Protonix. 11. Bilateral lower extremity wounds. Triamcinolone will be changed to Silvadene daily. 12. History of abdominal aortic aneurysm with repair. 13. DVT prophylaxis. Lovenox subcu. 14. Oral thrush. Continue nystatin 4 times daily. Patient will be admitted to the hospital for a minimum of 2 night stay. Discharge plan: Most likely return home. PT and OT will be added. Impression and plan of care have been directed as dictated by the signing physician. Marina Cervantes nurse practitioner acting as scribe for signing physician.
[2019-01-30] MEDS: SILVER sulfADIAZINE Cream 400 GM 1 APPLIC APPLIC TOPICAL SCH (15:51)
[2019-01-30] MEDS: methylPREDNISolone SOD SUCCI 40 MG/ML 1 ML VIAL IV SCH (20:39)
[2019-01-30] MEDS: traZODone HCL 100 MG TAB PO SCH (20:39)
[2019-01-30] MEDS: ATENOLOL 50 MG TAB PO SCH (20:39)
[2019-01-31] MEDS: LEVOTHYROXINE 75 MCG TAB PO SCH (05:37)
[2019-01-31] MEDS: FUROSEMIDE 10 MG/ML 4 ML VIAL IV SCH ×2 (05:37→17:51)
[2019-01-31] MEDS: ACETAMINOPHEN TAB 325 MG TAB PO PRN (08:05)
[2019-01-31] MEDS: ASCORBIC ACID 500 MG TAB PO SCH (08:07)
[2019-01-31] MEDS: FOLIC ACID 1 MG TAB PO SCH ×2 (08:07→21:50)
[2019-01-31] MEDS: ENOXAPARIN 40 MG/0.4 ML SYRINGE SQ SCH (08:07)
[2019-01-31] MEDS: PANTOPRAZOLE 40 MG TABLET PO SCH ×2 (08:07→17:51)
[2019-01-31] MEDS: CHOLECALCIFEROL 1,000 UNIT TAB PO SCH (08:07)
[2019-01-31] MEDS: ATORVASTATIN 40 MG TAB PO SCH (08:07)
[2019-01-31] MEDS: methylPREDNISolone SOD SUCCI 40 MG/ML 1 ML VIAL IV SCH ×2 (08:08→21:50)
[2019-01-31] MEDS: NYSTATIN 100,000 UNIT/ML SUSP 500,000 UNIT/5 ML CUP PO SCH ×4 (08:08→23:10)
[2019-01-31] MEDS: IPRATROPIUM-ALBUTEROL 3 ML NEB INHALATION SCH ×4 (08:23→21:10)
[2019-01-31] MEDS: BARICITINIB 2 MG PO SCH (09:56)
[2019-01-31 10:01] LABS: Calcium 10.4 mg/dL (8.4-10.2); Potassium 4.1 mmol/L (3.5-5.1)
--- NOTE | 2019-01-31 12:58 | P.PN ---
Subjective Progress Note Date: 01/31/19 78-year-old female patient of Drs. Rider, Jarek and Zach with the past medical history of chronic atrial fibrillation not on oral anticoagulation due to history of GI bleed, intermediate nonobstructive coronary artery disease, chronic lower lobe pulmonary fibrosis, history of atypical mycobacterial infections followed by Dr. Tilley, bronchiectasis, chronic anemia, rheumatoid arthritis, gastroesophageal reflux disease, hypertension, hypothyroidism, rheumatoid arthritis on Olumiant. Patient gives history of increasing cough, generalized weakness. She states she woke up yesterday morning was unable to make coffee or toast for herself. She has history of recent antibiotic treatment for lower extremity cellulitis with Keflex and local wound care with triamcinolone follows with Dr. Pinto. She has completed a course of prednisone from Dr. Lea. Patient denies having any fever or chills. She does have a cough that is nonproductive. No chest pain. No lower extremity edema. Patient came into [facility] emergency center for evaluation. BMP was 4830, troponin negative, WBC 9.5, hemoglobin 13.1, electrolytes and renal function within normal limits, liver function tests within normal limits. Lactic acid 1.9. Echocardiogram reveals mild concentric left ventricular hypertrophy, preserved left ventricular systolic function with EF greater than 70%, mild aortic regurgitation, mild mitral regurgitation, severe pulmonary hypertension with a right ventricular systolic pressure of 57.1 mmHg. Inferior vena cava is dilated with no significant inspiratory collapse consistent with right atrial pressure greater than 20, trivial pericardial effusion. Patient was started on IV Lasix and admitted to the observation unit, cardiology and pulmonary consults requested. Patient has been seen by cardiology and IV Lasix changed to oral. At the time of this evaluation. Patient states that her appetite is good and her cough is improving and her strength seems to be improved as well. 01/31 patient examined bedside is comparatively feeding better than yesterday. She denies shortness of breath at rest but does feel short of breath on exertion which is patient's baseline. Cardiology has evaluated the patient and switched Lasix to oral 40 mg daily. Vitals this morning suggests temperature 97.7 pulse 60 blood pressure 146/84 saturating at 94% on room air. Repeat BNP suggestive of 7660. Echocardiography suggesting feels an right ventricular pressure with pulmonary hypertension suggestive of pulmonary cause. Patient has significant weakness and he'll be evaluated by PT OT for possible rehab Objective - Vital Signs Vital signs: Vital Signs Temp 97.7 F 01/31/19 09:58 Pulse 84 01/31/19 11:45 Resp 14 01/31/19 09:58 BP 146/84 01/31/19 09:58 Pulse Ox 94 L 01/31/19 09:58 Intake & Output 01/30/19 01/31/19 01/31/19 18:59 06:59 18:59 Intake Total 452 30 250 Balance 452 30 250 Intake: IV 30 30 10 Invasive Line 1 30 30 10 Oral 422 240 Other: Voiding Method Toilet Toilet Toilet # Voids 1 - Exam - Constitutional General appearance: cooperative, no acute distress, thin - EENT Eyes: anicteric sclerae, PERRLA, normal appearance ENT: hearing grossly normal - Neck Neck: no lymphadenopathy, normal ROM, no other, no rigidity, no stridor, no thyromegaly - Respiratory Respiratory: Bilateral crackles worse on the left with good air entry bilaterally. No wheezing heard - Cardiovascular Rhythm: regular Heart sounds: normal: S1, S2 Abnormal Heart Sounds: no systolic murmur, no diastolic murmur, no rub, no S3 Gallop no added sounds - Gastrointestinal General gastrointestinal: normal bowel sounds, soft nontender - Integumentary Integumentary: Bilateral chronic dermatitis lower extremities with the open healing wounds on the anterior surface of the right gill - Neurologic Neurologic: CNII-XII intact - Musculoskeletal Musculoskeletal: gait unstable wide-based strength equal bilaterally - Psychiatric Psychiatric: A&O x's 3, appropriate affect - Labs CBC & Chem 7: 01/29/19 13:00 01/31/19 09:29 Labs: Abnormal Lab Results - Last 24 Hours (Table) 01/31/19 Range/Units 09:29 BUN 25 H (7-17) mg/dL Creatinine 1.08 H (0.52-1.04) mg/dL Glucose 122 H (74-99) mg/dL Calcium 10.4 H (8.4-10.2) mg/dL Microbiology - Last 24 Hours (Table) 01/29/19 13:00 Urine Culture - Final Urine,Voided Assessment and Plan Plan: 1. Acute on chronic diastolic heart failure with pulmonary hypertension. Cardiology consult appreciated. Lasix 40 mg IV switch to Lasix 40 mg by mouth daily Echocardiogram as above. Continue to monitor I&O and daily weights. 2. Accelerated hypertension. Continue atenolol 50 mg at bedtime, Lasix. 3. History of mild coronary artery disease. Continue atenolol and Lipitor. 4. Paroxysmal atrial fibrillation not currently on anticoagulation due to history of GI bleeding. Continue atenolol. 5. History of stage II COPD. Continue DuoNeb treatments 4 times daily, Tessalon Perles, Solu-Medrol 40 mg every 12 hours. Pulmonary consult appreciated. 6. Chronic pulmonary fibrosis with by vascular and biapical scarring. Follows Dr. Tilley as outpatient. 7. History of bronchiectasis related to history of pulmonary infections. 8. History of atypical mycobacterial infection with recent bronchoscopy on 01/01/2018, cytology and cultures negative. 9. Rheumatoid arthritis currently on Olumiant. 10. Gastroesophageal reflux disease, GI prophylaxis. Protonix. 11. Bilateral lower extremity wounds. Triamcinolone will be changed to Silvadene daily. Improvement in the wounds 12. History of abdominal aortic aneurysm with repair. 13. DVT prophylaxis. Lovenox subcu. 14. Oral thrush. Continue nystatin 4 times daily. 15. General debility PTOT consult use his walker as outpatient
[2019-01-31 15:42] VITALS: BMI 24.3
[2019-01-31] MEDS: SILVER sulfADIAZINE Cream 400 GM 1 APPLIC APPLIC TOPICAL SCH (16:02)
[2019-01-31] MEDS: traZODone HCL 100 MG TAB PO SCH (21:50)
[2019-01-31] MEDS: ATENOLOL 50 MG TAB PO SCH (21:50)
[2019-02-01] MEDS: ACETAMINOPHEN TAB 325 MG TAB PO PRN (00:10)
[2019-02-01] MEDS: LEVOTHYROXINE 75 MCG TAB PO SCH (05:39)
[2019-02-01] MEDS: FUROSEMIDE 10 MG/ML 4 ML VIAL IV SCH (05:39)
[2019-02-01 07:26] VITALS: BP 139/77; RESP 16; TEMP 98.2
[2019-02-01] MEDS: IPRATROPIUM-ALBUTEROL 3 ML NEB INHALATION SCH ×2 (07:57→13:55)
[2019-02-01 08:09] VITALS: PULSE 88
[2019-02-01] MEDS: CHOLECALCIFEROL 1,000 UNIT TAB PO SCH (09:44)
[2019-02-01] MEDS: methylPREDNISolone SOD SUCCI 40 MG/ML 1 ML VIAL IV SCH (09:45)
[2019-02-01] MEDS: ATORVASTATIN 40 MG TAB PO SCH (09:45)
[2019-02-01] MEDS: NYSTATIN 100,000 UNIT/ML SUSP 500,000 UNIT/5 ML CUP PO SCH ×2 (09:45→12:26)
[2019-02-01] MEDS: ENOXAPARIN 40 MG/0.4 ML SYRINGE SQ SCH (09:45)
[2019-02-01] MEDS: ASCORBIC ACID 500 MG TAB PO SCH (09:45)
[2019-02-01] MEDS: PANTOPRAZOLE 40 MG TABLET PO SCH (09:45)
[2019-02-01] MEDS: FOLIC ACID 1 MG TAB PO SCH (09:45)
[2019-02-01] MEDS: SILVER sulfADIAZINE Cream 400 GM 1 APPLIC APPLIC TOPICAL SCH (09:49)
[2019-02-01] MEDS: BARICITINIB 2 MG PO SCH (09:49)
--- NOTE | 2019-02-02 08:37 | P.DS ---
Providers Date of admission: 01/31/19 06:51 Expected date of discharge: 02/01/19 Attending physician: Eduardo Fleming Consults: 01/29/19 14:47 Consult Physician Routine Consulting Provider: Denice Tilley Consult Reason/Comments: copd Do you want consulting provider notified?: Yes Consult Physician Routine Consulting Provider: Kulwant Hobbs Consult Reason/Comments: chf Do you want consulting provider notified?: Yes Primary care physician: Melchor Rider MD Hospital Course: 78-year-old female patient of Drs. Rider, Jarek and Zach with the past medical history of chronic atrial fibrillation not on oral anticoagulation due to history of GI bleed, intermediate nonobstructive coronary artery disease, chronic lower lobe pulmonary fibrosis, history of atypical mycobacterial infections followed by Dr. Tilley, bronchiectasis, chronic anemia, rheumatoid arthritis, gastroesophageal reflux disease, hypertension, hypothyroidism, rheumatoid arthritis on Olumiant. Patient gives history of increasing cough, generalized weakness. She states she woke up yesterday morning was unable to make coffee or toast for herself. She has history of recent antibiotic tr eatment for lower extremity cellulitis with Keflex and local wound care with triamcinolone follows with Dr. Pinto. She has completed a course of prednisone from Dr. Lea. Patient denies having any fever or chills. She does have a cough that is nonproductive. No chest pain. No lower extremity edema. Patient came into [facility] emergency center for evaluation. BMP was 4830, troponin negative, WBC 9.5, hemoglobin 13.1, electrolytes and renal function within normal limits, liver function tests within normal limits. Lactic acid 1.9. Echocardiogram reveals mild concentric left ventricular hypertrophy, preserved left ventricular systolic function with EF greater than 70%, mild aortic regurgitation, mild mitral regurgitation, severe pulmonary hypertension with a right ventricular systolic pressure of 57.1 mmHg. Inferior vena cava is dilated with no significant inspiratory collapse consistent with right atrial pressure greater than 20, trivial pericardial effusion. Patient was started on IV Lasix and admitted to the observation unit, cardiology and pulmonary consults requested. Patient has been seen by cardiology and IV Lasix changed to oral. At the time of this evaluation. Patient states that her appetite is good and her cough is improving and her strength seems to be improved as well. 01/31 patient examined bedside is comparatively feeding better than yesterday. She denies shortness of breath at rest but does feel short of breath on exertion which is patient's baseline. Cardiology has evaluated the patient and switched Lasix to oral 40 mg daily. Vitals this morning suggests temperature 97.7 pulse 60 blood pressure 146/84 saturating at 94% on room air. Repeat BNP suggestive of 7660. Echocardiography suggesting feels an right ventricular pressure with pulmonary hypertension suggestive of pulmonary cause. Patient has significant weakness and he'll be evaluated by PT OT for possible rehab 02/01: Patient is complaining of feeling weak and tired. She states she refuses Lasix in the evening and she does not want be up all night urinating. She has requested to go to [facility] but fortunately, patient is doing very well with physical therapy and does not meet criteria. Patient is agreeable for discharge home. We will transition Solu-Medrol to prednisone and IV Lasix to oral. Patient will be discharged home today in stable condition. Discharge diagnoses: 1. Acute on chronic diastolic heart failure with pulmonary hypertension. 2. Accelerated hypertension. 3. History of mild coronary artery disease. 4. Paroxysmal atrial fibrillation not currently on anticoagulation due to history of GI bleeding. 5. History of stage II COPD. 6. Chronic pulmonary fibrosis with by vascular and biapical scarring. 7. History of bronchiectasis related to history of pulmonary infections. 8. History of atypical mycobacterial infection 9. Rheumatoid arthritis 10. Gastroesophageal reflux disease 11. Bilateral lower extremity wounds. 12. History of abdominal aortic aneurysm with repair. 13. Oral thrush. 14. General debility Discharge plan: Home Impression and plan of care have been directed as dictated by the signing physician. Marina Cervantes nurse practitioner acting as scribe for signing physician. Patient Condition at Discharge: Good Plan - Discharge Summary New Discharge Prescriptions: New Ipratropium-Albuterol Nebulize [Duoneb 0.5 mg-3 mg/3 ml Soln] 3 ml INHALATION RT-QID ampul.neb Furosemide [Lasix] 40 mg PO DAILY #30 tab Nystatin 100,000 Unit/ml Susp [Mycostatin Oral Susp] 500,000 unit PO QID #28 cup predniSONE 0 mg PO DIRECTED #30 tab SILVER sulfADIAZINE Cream [Silvadene 1% Cream] 1 applic TOPICAL DAILY #400 gm Continue Folic Acid 1 mg PO BID Brinzolamide/Brimonidine Tart [Simbrinza 1%-0.2% Eye Drops] 1 drop BOTH EYES QAM Pantoprazole Sodium [Protonix] 40 mg PO BID Levothyroxine Sodium [Synthroid] 75 mcg PO DAILY Atenolol 50 mg PO HS Ascorbic Acid [Vitamin C] 500 mg PO DAILY Cholecalciferol (Vitamin D3) [Vitamin D3] 2,000 unit PO DAILY rOPINIRole HCL [Requip] 0.5 mg PO TID Atorvastatin [Lipitor] 40 mg PO DAILY Baricitinib [Olumiant] 2 mg PO DAILY Biotin 5,000 mcg PO DAILY traZODone HCL 100 mg PO HS Benzonatate [Tessalon Perles] 100 mg PO TID PRN PRN Reason: Cough Acetaminophen Tab [Tylenol] 650 mg PO Q6H PRN PRN Reason: Pain Discontinued Cephalexin [Keflex] 500 mg PO Q12HR Triamcinolone 0.1% Cream [Kenalog 0.1% Cream] 1 applic TOPICAL DAILY Discharge Medication List Atenolol 50 mg PO HS 12/22/16 [History] Brinzolamide/Brimonidine Tart [Simbrinza 1%-0.2% Eye Drops] 1 drop BOTH EYES QAM 12/22/16 [History] Folic Acid 1 mg PO BID 12/22/16 [History] Levothyroxine Sodium [Synthroid] 75 mcg PO DAILY 12/22/16 [History] Pantoprazole Sodium [Protonix] 40 mg PO BID 12/22/16 [History] Ascorbic Acid [Vitamin C] 500 mg PO DAILY 05/18/18 [History] Atorvastatin [Lipitor] 40 mg PO DAILY 12/29/18 [History] Baricitinib [Olumiant] 2 mg PO DAILY 12/29/18 [History] Biotin 5,000 mcg PO DAILY 12/29/18 [History] Cholecalciferol (Vitamin D3) [Vitamin D3] 2,000 unit PO DAILY 12/29/18 [History] rOPINIRole HCL [Requip] 0.5 mg PO TID 12/29/18 [History] Acetaminophen Tab [Tylenol] 650 mg PO Q6H PRN 01/29/19 [History] Benzonatate [Tessalon Perles] 100 mg PO TID PRN 01/29/19 [History] traZODone HCL 100 mg PO HS 01/29/19 [History] Furosemide [Lasix] 40 mg PO DAILY #30 tab 02/01/19 [Rx] Ipratropium-Albuterol Nebulize [Duoneb 0.5 mg-3 mg/3 ml Soln] 3 ml INHALATION RT-QID ampul.neb 02/01/19 [Rx] Nystatin 100,000 Unit/ml Susp [Mycostatin Oral Susp] 500,000 unit PO QID #28 cup 02/01/19 [Rx] SILVER sulfADIAZINE Cream [Silvadene 1% Cream] 1 applic TOPICAL DAILY #400 gm 02/01/19 [Rx] predniSONE 0 mg PO DIRECTED #30 tab 02/01/19 [Rx] Follow up Appointment(s)/Referral(s): Melchor Rider MD [Primary Care Provider] - 1 Week (Office will call with appointment ) [facility], [NON-STAFF] - Patient Instructions/Handouts: Heart Failure (DC) Discharge Disposition: HOME WITH HOME HEALTH SERVICES
[2019-02-02] MEDS ORDERED: FUROSEMIDE 40 MG TAB PO SCH (09:00)
[2019-02-02] MEDS ORDERED: predniSONE 20 MG TAB PO SCH (09:00)
== END 2019-02-01 15:20 | disposition home health service (06) | DRG 292 ==
LOC: EC 11:15 → 1SOBS 14:47 → OBSVTOIN 01-31 06:51 → 4SSUR 01-31 09:45 → 4MS4W 01-31 20:39
PROVIDERS: ADMIT Internal Medicine; ATTEND Internal Medicine
DX: I11.0 Hypertensive heart disease with heart failure (principal); B37.0 Candidal stomatitis; J44.1 Chronic obstructive pulmonary disease with (acute) exacerbation; L97.929 Non-pressure chronic ulcer of unspecified part of left lower leg with unspecified severity; L97.919 Non-pressure chronic ulcer of unspecified part of right lower leg with unspecified severity; B95.8 Unspecified staphylococcus as the cause of diseases classified elsewhere; E03.9 Hypothyroidism, unspecified; E78.5 Hyperlipidemia, unspecified; G47.30 Sleep apnea, unspecified; H40.9 Unspecified glaucoma; I25.10 Atherosclerotic heart disease of native coronary artery without angina pectoris; I27.20 Pulmonary hypertension, unspecified; I48.2 Chronic atrial fibrillation; Z87.19 Personal history of other diseases of the digestive system; Z87.09 Personal history of other diseases of the respiratory system; I50.43 Acute on chronic combined systolic (congestive) and diastolic (congestive) heart failure; J84.10 Pulmonary fibrosis, unspecified; K21.9 Gastro-esophageal reflux disease without esophagitis; K44.9 Diaphragmatic hernia without obstruction or gangrene; M06.9 Rheumatoid arthritis, unspecified; Z79.890 Hormone replacement therapy; Z79.899 Other long term (current) drug therapy; Z80.1 Family history of malignant neoplasm of trachea, bronchus and lung; Z86.010 Personal history of colon polyps; Z86.79 Personal history of other diseases of the circulatory system; Z87.891 Personal history of nicotine dependence; Z90.710 Acquired absence of both cervix and uterus; Z98.42 Cataract extraction status, left eye; Z98.41 Cataract extraction status, right eye; Z96.1 Presence of intraocular lens; H54.62 Unqualified visual loss, left eye, normal vision right eye; Z96.653 Presence of artificial knee joint, bilateral; Z88.5 Allergy status to narcotic agent; Z87.440 Personal history of urinary (tract) infections; K57.90 Diverticulosis of intestine, part unspecified, without perforation or abscess without bleeding; R11.2 Nausea with vomiting, unspecified; T36.95XA Adverse effect of unspecified systemic antibiotic, initial encounter
CPT/HCPCS: 36415; 70491; 71046; 80048; 80053; 81001; 82550; 83605; 83735; 83880; 84100; 84443; 84484; 85025; 85610; 85730; 87086; 93005; 93306; 94640; 96361; 96374; 96375; 99285

== ENCOUNTER 2019-03-06 11:39 | Inpatient (IN) | payer MEDICARE ==
[2019-03-06] MEDS ORDERED: SODIUM CHLORIDE 0.9% 500 ML 500 ML IV STA (11:55)
--- NOTE | 2019-03-06 11:58 | ED ---
General Adult HPI - General Chief complaint: Shortness of Breath Stated complaint: NGHIA Time Seen by Provider: 03/06/19 11:40 Source: patient, EMS, RN notes reviewed Mode of arrival: EMS Limitations: no limitations - History of Present Illness Initial comments: This is a 78-year-old female who presents emergency Department complaining of difficulty breathing. Patient states she has a chronic lung infection indication she has problems breathing. Patient also states she's been nauseated since Tuesday has vomited multiple times. Patient states she just received something for nausea and the embolus and is only mildly nauseous at this time. Patient denies any chest pain. Patient denies any fever chills. Patient denies lightheadedness dizziness. Patient states she has no abdominal pain she has no vomiting or diarrhea. Patient has no dysuria hematuria urinary frequency. Patient states she has no oxygen at home and she normally oxygenates above 95% and often at 100% but she still feels short of breath. - Related Data Home Medications Medication Instructions Recorded Confirmed Atenolol 50 mg PO 12/22/16 03/06/19 Brinzolamide/Brimonidine Tart 1 drop BOTH EYES QAM 12/22/16 03/06/19 [Simbrinza 1%-0.2% Eye Drops] Folic Acid 1 mg PO BID 12/22/16 03/06/19 Levothyroxine Sodium [Synthroid] 75 mcg PO DAILY 12/22/16 03/06/19 Pantoprazole Sodium [Protonix] 40 mg PO BID 12/22/16 03/06/19 Ascorbic Acid [Vitamin C] 500 mg PO DAILY 05/18/18 03/06/19 Atorvastatin [Lipitor] 40 mg PO DAILY 12/29/18 03/06/19 Biotin 5,000 mcg PO DAILY 12/29/18 03/06/19 Cholecalciferol (Vitamin D3) 2,000 unit PO DAILY 12/29/18 03/06/19 [Vitamin D3] rOPINIRole HCL [Requip] 0.5 mg PO TID 12/29/18 03/06/19 Acetaminophen Tab [Tylenol] 650 mg PO Q6H PRN 01/29/19 03/06/19 Benzonatate [Tessalon Perles] 100 mg PO TID PRN 01/29/19 03/06/19 traZODone HCL 100 mg PO HS 01/29/19 03/06/19 Previous Rx's Medication Instructions Recorded Furosemide [Lasix] 40 mg PO DAILY #30 tab 02/01/19 Ipratropium-Albuterol Nebulize 3 ml INHALATION RT-QID ampul.neb 02/01/19 [Duoneb 0.5 mg-3 mg/3 ml Soln] Allergies Allergy/AdvReac Type Severity Reaction Status Date / Time morphine AdvReac Severe Hallucinati Verified 03/06/19 11:44 ons Review of Systems ROS Statement: Those systems with pertinent positive or pertinent negative responses have been documented in the HPI. ROS Other: All systems not noted in ROS Statement are negative. 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 Past Anesthesia/Blood Transfusion Reactions: No Reported Reaction Additional Past Anesthesia/Blood Transfusion Reaction / Comment(s): Pt has received blood in past without reaction. Past Psychological History: No Psychological Hx Reported Smoking Status: Former smoker Past Alcohol Use History: None Reported Past Drug Use History: None Reported - Past Family History Father Family Medical History: Cancer Additional Family Medical History / Comment(s): at age 68 from lung cancer Mother Family Medical History: Cancer Additional Family Medical History / Comment(s): at age 83 from lung cancer Brother(s) Family Medical History: Cancer Additional Family Medical History / Comment(s): at age 63 from lung cancer. Son(s) Additional Family Medical History / Comment(s): She has 2 sons with no major medical problems. General Exam - General Exam Comments Initial Comments: GENERAL: Patient is well-developed and well-nourished. Patient is nontoxic and well-hydr ated and is in mild distress. ENT: Neck is soft and supple. No significant lymphadenopathy is noted. Oropharynx is clear. Moist mucous membranes. Neck has full range of motion without eliciting any pain. EYES: The sclera were anicteric and conjunctiva were pink and moist. Extraocular movements were intact and pupils were equal round and reactive to light. Eyelids were unremarkable. PULMONARY: Crackles bilateral bases worse on the left CARDIOVASCULAR: There is a regular rate and rhythm without any murmurs gallops or rubs. ABDOMEN: Soft and nontender with normal bowel sounds. No palpable organomegaly was noted. There is no palpable pulsatile mass. SKIN: Skin is clear with no lesions or rashes and otherwise unremarkable. NEUROLOGIC: Patient is alert and oriented x3. Cranial nerves II through XII are grossly intact. Motor and sensory are also intact. Normal speech, volume and content. Symmetrical smile. MUSCULOSKELETAL: Normal extremities with adequate strength and full range of motion. 1+ edema LYMPHATICS: No significant lymphadenopathy is noted PSYCHIATRIC: Patient is anxious Limitations: no limitations Course Vital Signs 03/06/19 03/06/19 11:41 14:30 Temperature 97.8 F Pulse Rate 84 78 Respiratory 24 20 Rate Blood Pressure 181/91 186/113 O2 Sat by Pulse 100 96 Oximetry Medical Decision Making - Medical Decision Making EKG shows atrial fibrillation at 82 bpm QRS is 86 QT interval 374 QTC is 436 per patient's EKG shows no ST segment elevation or depression or T wave abnormalities are noted. Chest x-ray shows pulmonary edema. The patient Lasix and nitroglycerin. I spoke with Dr. Marie he agreed to admit the patient admitted the patient I wrote admitting orders to continue Nitropaste and Lasix on the floor. CT of the chest shows no pulmonary embolism. - Lab Data Result diagrams: 03/06/19 12:08 03/06/19 12:08 Lab Results 03/06/19 03/06/19 03/06/19 Range/Units 12:08 12:08 12:08 WBC 8.0 (3.8-10.6) k/uL RBC 4.09 (3.80-5.40) m/uL Hgb 12.8 (11.4-16.0) gm/dL Hct 40.4 (34.0-46.0) % MCV 98.9 (80.0-100.0) fL MCH 31.3 (25.0-35.0) pg MCHC 31.7 (31.0-37.0) g/dL RDW 15.1 (11.5-15.5) % Plt Count 181 (150-450) k/uL Neutrophils % 69 % Lymphocytes % 20 % Monocytes % 7 % Eosinophils % 2 % Basophils % 1 % Neutrophils # 5.5 (1.3-7.7) k/uL Lymphocytes # 1.6 (1.0-4.8) k/uL Monocytes # 0.6 (0-1.0) k/uL Eosinophils # 0.1 (0-0.7) k/uL Basophils # 0.1 (0-0.2) k/uL PT (9.0-12.0) sec INR (<1.2) APTT (22.0-30.0) sec D-Dimer (<0.60) mg/L FEU Sodium 139 (137-145) mmol/L Potassium 4.5 (3.5-5.1) mmol/L Chloride 109 H (98-107) mmol/L Carbon Dioxide 23 (22-30) mmol/L Anion Gap 7 mmol/L BUN 15 (7-17) mg/dL Creatinine 0.93 (0.52-1.04) mg/dL Est GFR (CKD-EPI)AfAm 69 (>60 ml/min/1.73 sqM) Est GFR (CKD-EPI)NonAf 60 (>60 ml/min/1.73 sqM) Glucose 81 (74-99) mg/dL Plasma Lactic Acid Zeyad 1.0 (0.7-2.0) mmol/L Calcium 9.7 (8.4-10.2) mg/dL Magnesium 1.8 (1.6-2.3) mg/dL Total Bilirubin 0.6 (0.2-1.3) mg/dL AST 74 H (14-36) U/L ALT 49 (9-52) U/L Alkaline Phosphatase 183 H (38-126) U/L Troponin I (0.000-0.034) ng/mL NT-Pro-B Natriuret Pep pg/mL Total Protein 6.8 (6.3-8.2) g/dL Albumin 3.7 (3.5-5.0) g/dL 03/06/19 03/06/19 03/06/19 Range/Units 12:08 12:08 12:08 WBC (3.8-10.6) k/uL RBC (3.80-5.40) m/uL Hgb (11.4-16.0) gm/dL Hct (34.0-46.0) % MCV (80.0-100.0) fL MCH (25.0-35.0) pg MCHC (31.0-37.0) g/dL RDW (11.5-15.5) % Plt Count (150-450) k/uL Neutrophils % % Lymphocytes % % Monocytes % % Eosinophils % % Basophils % % Neutrophils # (1.3-7.7) k/uL Lymphocytes # (1.0-4.8) k/uL Monocytes # (0-1.0) k/uL Eosinophils # (0-0.7) k/uL Basophils # (0-0.2) k/uL PT 10.5 (9.0-12.0) sec INR 1.0 (<1.2) APTT 19.1 L (22.0-30.0) sec D-Dimer 0.82 H (<0.60) mg/L FEU Sodium (137-145) mmol/L Potassium (3.5-5.1) mmol/L Chloride (98-107) mmol/L Carbon Dioxide (22-30) mmol/L Anion Gap mmol/L BUN (7-17) mg/dL Creatinine (0.52-1.04) mg/dL Est GFR (CKD-EPI)AfAm (>60 ml/min/1.73 sqM) Est GFR (CKD-EPI)NonAf (>60 ml/min/1.73 sqM) Glucose (74-99) mg/dL Plasma Lactic Acid Zeyad (0.7-2.0) mmol/L Calcium (8.4-10.2) mg/dL Magnesium (1.6-2.3) mg/dL Total Bilirubin (0.2-1.3) mg/dL AST (14-36) U/L ALT (9-52) U/L Alkaline Phosphatase (38-126) U/L Troponin I <0.012 (0.000-0.034) ng/mL NT-Pro-B Natriuret Pep 4870 pg/mL Total Protein (6.3-8.2) g/dL Albumin (3.5-5.0) g/dL Critical Care Time Critical Care Time: Yes Total Critical Care Time: 35 Disposition Clinical Impression: Acute pulmonary edema Disposition: ADMITTED IP TO THIS HOSP Referrals: Melchor Rider MD [Primary Care Provider] - 1-2 days Time of Disposition: 14:04
[2019-03-06 12:37] LABS: Basophils # (A) 0.1 k/uL (0-0.2); Basophils % (A) 1 %; Eosinophils # (A) 0.1 k/uL (0-0.7); Eosinophils % (A) 2 %; HCT 40.4 % (34.0-46.0); HGB 12.8 gm/dL (11.4-16.0); Lymphocytes # (A) 1.6 k/uL (1.0-4.8); Lymphocytes % (A) 20 %; MCH 31.3 pg (25.0-35.0); MCHC 31.7 g/dL (31.0-37.0); MCV 98.9 fL (80.0-100.0); Monocytes # (A) 0.6 k/uL (0-1.0); Monocytes % (A) 7 %; Neutrophils # (A) 5.5 k/uL (1.3-7.7); Neutrophils % (A) 69 %; Platelet Count 181 k/uL (150-450); RBC 4.09 m/uL (3.80-5.40); RDW 15.1 % (11.5-15.5)
[2019-03-06 12:47] LABS: Albumin 3.7 g/dL (3.5-5.0); Calcium 9.7 mg/dL (8.4-10.2); Magnesium 1.8 mg/dL (1.6-2.3); Potassium 4.5 mmol/L (3.5-5.1); Total Bilirubin 0.6 mg/dL (0.2-1.3); Total Protein 6.8 g/dL (6.3-8.2)
--- NOTE | 2019-03-06 12:54 | XR ---
EXAMINATION TYPE: XR chest 2V DATE OF EXAM: 03/06/2019 COMPARISON: Prior chest x-ray 01/29/2019 HISTORY: Difficulty breathing, shortness of breath TECHNIQUE: Frontal and lateral views of the chest are obtained. FINDINGS: There are prominent lung volumes with flattening the hemidiaphragms. Interstitium is increa sed. No evident pneumothorax. There is blunting the costophrenic angles. Aorta is dense possibly ecta tic. Heart is enlarged. Patient is rotated. There are overlying cardiac leads. Surgical clips present in the upper abdomen. Bone mineralization is reduced. There are coronary artery calcifications. IMPRESSION: Correlate for possible congestive heart failure with pleural effusions. Findings are sim ilar to prior exam.
[2019-03-06 13:02] LABS: Prothrombin Time 10.5 sec (9.0-12.0)
[2019-03-06 13:23] LABS: D-Dimer 0.82 mg/L FEU (<0.60); Partial Thromboplastin Time 19.1 sec (22.0-30.0)
[2019-03-06] MEDS ORDERED: FUROSEMIDE 10 MG/ML 4 ML VIAL IV STA (13:34)
[2019-03-06] MEDS ORDERED: NITROGLYCERIN OINT 1 INCH/GM PACKET TOPICAL STA (13:34)
--- NOTE | 2019-03-06 17:41 | CT ---
EXAMINATION TYPE: CT chest angio for PE with contrast and with 3-D reconstruction renderings DATE OF EXAM: 03/06/2019 COMPARISON: None HISTORY: difficulty breathing CT DLP: 213 mGycm Automated exposure control for dose reduction was used. CONTRAST: CT Chest for pulmonary embolism performed with with IV Contrast, patient injected with 80 m L of Isovue 370. FINDINGS: AIRWAYS AND LUNGS AND PLEURAL SPACES: Airways are clear. There is dependent groundglass opacity with bilateral septal lines at the parameter, suggesting interstitial phase pulmonary edema. There is a mo derate right pleural effusion and relatively small, partially-loculated left pleural effusion, with a ssociated bilateral passive atelectasis changes; concurrent bronchopneumonia can be excluded only on clinical grounds. MEDIASTINUM/ZEN: The pulmonary arterial tree is well-opacified and negative for filling defect to ward ggest pulmonary emboli. There are no acute aortic findings, but nonaneurysmal atherosclerotic intimal calcifications and to rtuosity noted. There is moderate cardiomegaly with panchamber enlargement. Prominent coronary calcifications are n oted. Only minimal pericardial effusion. No adenopathy. SKELETAL STRUCTURES: No focal lesions. OTHER: Small volume perihepatic ascites noted. IMPRESSION: 1. Negative for pulmonary embolism. 2. Positive for interstitial phase pulmonary edema, suspect cardiogenic etiology as above, with bilat eral pleural effusions greater on the right.
[2019-03-06] MEDS ORDERED: ATENOLOL 50 MG TAB PO STA (19:17)
[2019-03-06] MEDS: NITROGLYCERIN OINT 1 INCH/GM PACKET TOPICAL SCH (23:13)
[2019-03-06] MEDS ORDERED: traZODone HCL 100 MG TAB PO SCH ×2 (23:15→23:45)
[2019-03-06] MEDS ORDERED: BENZONATATE 100 MG CAP PO PRN (23:49)
[2019-03-07] MEDS: ACETAMINOPHEN TAB 325 MG TAB PO PRN ×2 (00:35→19:12)
[2019-03-07] MEDS: FUROSEMIDE 10 MG/ML 4 ML VIAL IV SCH ×2 (02:37→12:26)
[2019-03-07] MEDS: LEVOTHYROXINE 75 MCG TAB PO SCH (05:23)
[2019-03-07] MEDS: FUROSEMIDE 40 MG TAB PO SCH (08:58)
[2019-03-07] MEDS: PANTOPRAZOLE 40 MG TABLET PO SCH ×2 (08:59→19:42)
[2019-03-07] MEDS: CHOLECALCIFEROL 1,000 UNIT TAB PO SCH (08:59)
[2019-03-07] MEDS: NITROGLYCERIN OINT 1 INCH/GM PACKET TOPICAL SCH ×4 (08:59→19:41)
[2019-03-07] MEDS: ASCORBIC ACID 500 MG TAB PO SCH (08:59)
[2019-03-07] MEDS: FOLIC ACID 1 MG TAB PO SCH ×2 (08:59→19:42)
[2019-03-07] MEDS: Brinzolamide/Brimonidine Tart [Simbrinza 1%-0.2% Eye Drops] BOTH EYES SCH (08:59)
[2019-03-07] MEDS: ATORVASTATIN 40 MG TAB PO SCH (08:59)
[2019-03-07] MEDS ORDERED: NON-FORMULARY DRUG (Biotin [Biotin] 5,000 MCG) PO SCH (09:00)
[2019-03-07] MEDS: IPRATROPIUM-ALBUTEROL 3 ML NEB INHALATION SCH ×4 (09:38→19:29)
[2019-03-07 10:45] VITALS: BMI 22.3
--- NOTE | 2019-03-07 11:49 | P.CRDCN ---
History of Present Illness Consult date: 03/07/19 Chief complaint: Increasing shortness of breath History of present illness: This is a 78-year-old female patient who sees Dr. Serrano in the office on a regular basis with an extensive past medical history consistent off chronic diastolic congestive heart failure, chronic obstructive pulmonary disease, cor pulmonale, severe pulmonary hypertension, coronary artery disease, chronic persistent atrial fibrillation not on any oral anticoagulation in view of history of GI bleeding, hypertension, and dyslipidemia, presented to the hospital with increasing in the shortness of breath. For the last one week, she has been experiencing increasing in the shortness of breath even with minimal exertion. She did not have any orthopnea or paroxysmal not sure no dyspnea. She noticed also quite significant increasing in the lower extremities edema. T he patient stated that she gain weight as well. She did not have any symptoms of chest pain or chest discomfort, dizziness or lightheadedness, heart racing or fluttering, and no syncope. She stated that she was experiencing cough but seems to be dry without any sputum. No fever and no chills. The symptoms get worse in the last few days. Because of that she decided to come to the emergency room. The EKG revealed atrial fibrillation with controlled heart rates. This is not new to the patient. The chest x-ray showed findings consistent with pulmonary edema. The BNP came in to be elevated around 4000. The rest of her blood work overall came in to be unremarkable. The patient just was discharged from the hospital in January 2019 after she presented with congestive heart failure exacerbation related to diastole dysfunction. At that point, the echocardiogram revealed hyperdynamic left ventricle with evidence off hypertensive heart disease, mild mitral regurgitation, moderate tricuspid regurgitation, and severe pulmonary hypertension. She states clearly that she is not very compliant with her diet including low salt. Beside that, she stated that she is not quite sure if she is taking her diuretics every day and also she was confused within the last few weeks about the dose of atenolol. When the patient presented to the hospital she was hypertensive. Beside that she underwe nt a heart catheterization in 2013 and that revealed mild to moderate nonobstructive coronary artery disease. Currently the patient is on Lasix IV at 40 mg twice a day. She stated that she has she was admitted to the hospital yesterday, she diuresed quite well and her lower extremities edema has improved. Overall she is feeling better. The shortness of breath has improved as well. 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 Past Anesthesia/Blood Transfusion Reactions: No Reported Reaction Additional Past Anesthesia/Blood Transfusion Reaction / Comment(s): Pt has received blood in past without reaction. Smoking Status: Former smoker Additional Past Alcohol Use History / Comment(s): Pt resides at home. She uses a wheeled walker to ambulate. The patient was a smoker one pack per day for 42 years and quit smoking and 2000. She drinks alcohol socially. She was at home with her . Past Drug Use History: None Reported - Past Family History Father Family Medical History: Cancer Additional Family Medical History / Comment(s): at age 68 from lung cancer Mother Family Medical History: Cancer Additional Family Medical History / Comment(s): at age 83 from lung cancer Brother(s) Family Medical History: Cancer Additional Family Medical History / Comment(s): at age 63 from lung cancer. Son(s) Additional Family Medical History / Comment(s): She has 2 sons with no major m edical problems. Medications and Allergies Home Medications Medication Instructions Recorded Confirmed Type Atenolol 50 mg PO HS 12/22/16 03/06/19 History Brinzolamide/Brimonidine Tart 1 drop BOTH EYES QAM 12/22/16 03/06/19 History [Simbrinza 1%-0.2% Eye Drops] Folic Acid 1 mg PO BID 12/22/16 03/06/19 History Levothyroxine Sodium [Synthroid] 75 mcg PO DAILY 12/22/16 03/06/19 History Pantoprazole Sodium [Protonix] 40 mg PO BID 12/22/16 03/06/19 History Ascorbic Acid [Vitamin C] 500 mg PO DAILY 05/18/18 03/06/19 History Atorvastatin [Lipitor] 40 mg PO DAILY 12/29/18 03/06/19 History Biotin 5,000 mcg PO DAILY 12/29/18 03/06/19 History Cholecalciferol (Vitamin D3) 2,000 unit PO DAILY 12/29/18 03/06/19 History [Vitamin D3] rOPINIRole HCL [Requip] 0.5 mg PO TID 12/29/18 03/06/19 History Acetaminophen Tab [Tylenol] 650 mg PO Q6H PRN 01/29/19 03/06/19 History Benzonatate [Tessalon Perles] 100 mg PO TID PRN 01/29/19 03/06/19 History traZODone HCL 100 mg PO HS 01/29/19 03/06/19 History Furosemide [Lasix] 40 mg PO DAILY #30 tab 02/01/19 03/06/19 Rx Ipratropium-Albuterol Nebulize 3 ml INHALATION RT-QID ampul.neb 02/01/19 03/06/19 Rx [Duoneb 0.5 mg-3 mg/3 ml Soln] Allergies Allergy/AdvReac Type Severity Reaction Status Date / Time morphine AdvReac Severe Hallucinati Verified 03/06/19 11:44 ons Physical Exam Vitals: Vital Signs Temp Pulse Pulse Resp BP BP Pulse Ox 03/07/19 09:51 76 03/07/19 09:39 80 03/07/19 08:30 97.4 F L 97 20 153/83 97 03/07/19 03:25 98 F 89 18 128/72 96 03/06/19 23:52 90 20 148/72 95 03/06/19 21:02 98.1 F 93 22 161/105 94 L 03/06/19 20:30 80 20 160/79 95 03/06/19 20:00 97.5 F L 75 22 169/99 95 03/06/19 19:00 98 22 187/108 03/06/19 17:30 87 171/96 98 03/06/19 16:45 94 167/98 98 03/06/19 14:30 78 20 186/113 96 Intake and Output 03/06/19 03/07/19 03/07/19 22:59 06:59 14:59 Intake Total 240 Output Total 1999 -1999 240 Intake: Oral 240 Output: Urine 1999 Other: Voiding Method Bedpan Diaper # Voids 1 Weight 66.5 kg 66.5 kg - Constitutional General appearance: no acute distress - Respiratory Respiratory: bilateral: diminished - Cardiovascular Rhythm: irregularly irregular Heart sounds: normal: S1, S2 Abnormal Heart Sounds: systolic murmur Results 03/06/19 12:08 03/06/19 12:08 Cardiac Enzymes 03/06/19 03/06/19 Range/Units 12:08 12:08 AST 74 H (14-36) U/L Troponin I <0.012 (0.000-0.034) ng/mL Coagulation 03/06/19 Range/Units 12:08 PT 10.5 (9.0-12.0) sec APTT 19.1 L (22.0-30.0) sec CBC 03/06/19 Range/Units 12:08 WBC 8.0 (3.8-10.6) k/uL RBC 4.09 (3.80-5.40) m/uL Hgb 12.8 (11.4-16.0) gm/dL Hct 40.4 (34.0-46.0) % Plt Count 181 (150-450) k/uL Comprehensive Metabolic Panel 03/06/19 Range/Units 12:08 Sodium 139 (137-145) mmol/L Potassium 4.5 (3.5-5.1) mmol/L Chloride 109 H (98-107) mmol/L Carbon Dioxide 23 (22-30) mmol/L BUN 15 (7-17) mg/dL Creatinine 0.93 (0.52-1.04) mg/dL Glucose 81 (74-99) mg/dL Calcium 9.7 (8.4-10.2) mg/dL AST 74 H (14-36) U/L ALT 49 (9-52) U/L Alkaline Phosphatase 183 H (38-126) U/L Total Protein 6.8 (6.3-8.2) g/dL Albumin 3.7 (3.5-5.0) g/dL Current Medications Generic Name Dose Route Start Last Admin Trade Name Freq PRN Reason Stop Dose Admin Acetaminophen 650 mg 03/06/19 23:49 03/07/19 00:35 Tylenol Tab PO 650 mg Q6H PRN Administration Pain Albuterol/Ipratropium 3 ml 03/07/19 08:00 03/07/19 09:38 Duoneb 0.5 Mg-3 Mg/3 Ml Soln INHALATION 3 ml RT-QID SERGIO Administration Ascorbic Acid 500 mg 03/07/19 09:00 03/07/19 08:59 Vitamin C PO 500 mg DAILY [facility] Administration Atenolol 50 mg 03/07/19 21:00 Tenormin PO HS [facility] Atorvastatin Calcium 40 mg 03/07/19 09:00 03/07/19 08:59 Lipitor PO 40 mg DAILY [facility] Administration Benzonatate 100 mg 03/06/19 23:49 Tessalon Perles PO TID PRN Cough Cholecalciferol 2,000 unit 03/07/19 09:00 03/07/19 08:59 Vitamin D3 (25 Mcg = 1000 Iu) PO 2,000 unit DAILY [facility] Administration Folic Acid 1 mg 03/07/19 09:00 03/07/19 08:59 Folic Acid PO 1 mg BID [facility] Administration Furosemide 40 mg 03/07/19 02:00 03/07/19 02:37 Lasix IV 40 mg Q12H SERGIO Administration Furosemide 40 mg 03/07/19 09:00 03/07/19 08:58 Lasix PO Not Given DAILY [facility] Levothyroxine Sodium 75 mcg 03/07/19 06:30 03/07/19 05:23 Synthroid PO 75 mcg DAILY@0630 [facility] Administration Nitroglycerin 1 inch 03/06/19 22:00 03/07/19 08:59 Nitro-Bid Oint TOPICAL 1 inch QID [facility] Administration Brinzolamide/ 1 drop 03/07/19 09:00 03/07/19 08:59 Brimonidine Tart [ BOTH EYES Not Given Simbrinza 1%-0.2% QAM [facility] Eye Drops] Pantoprazole Sodium 40 mg 03/07/19 09:00 03/07/19 08:59 Protonix PO 40 mg BID SERG[facility] Administration Ropinirole HCl 0.5 mg 03/07/19 09:00 03/07/19 08:59 Requip PO 0.5 mg TID [facility] Administration Trazodone HCl 100 mg 03/06/19 23:15 03/06/19 23:13 Desyrel PO 100 mg HS SERGIO Administration Intake and Output 03/06/19 03/07/19 03/07/19 22:59 06:59 14:59 Intake Total 240 Output Total 1999 -1999 240 Intake: Oral 240 Output: Urine 1999 Other: Voiding Method Bedpan Diaper # Voids 1 Weight 66.5 kg 66.5 kg Patient Weight 03/08/19 06:59 Weight 66.5 kg 03/06/19 12:08 03/06/19 12:08 Assessment and Plan Assessment: Assessment #1 acute exacerbation of diastolic congestive heart failure. The patient does have evidence of right as well as left heart failure #2 diastolic congestive heart failure related to hypertensive heart disease #3 valvular heart disease with evidence of severe tricuspid regurgitation on recent echocardiogram #4 severe pulmonary hypertension. The pulmonary artery systolic pressure was almost 60 mmHg on recent echocardiogram #5 chronic obstructive pulmonary disease #6 intermediate nonobstructive coronary artery disease #7 chronic atrial fibrillation with controlled heart rate #8 noncompliance with medications as well as diet Plan #1 continue the patient on the current dose of Lasix IV #2 continue monitor the kidney function and electrolytes #3 aggressive blood pressure control. The patient does have hypertensive heart disease with hyperdynamic left ventricle. #4 no need to repeat the echocardiogram in view of recent echo showed the above findings #5 we'll continue monitor the blood pressure and adjust the medication accordingly #6 follow-up with the patient #7 she was educated about the diet #8 she was educated about compliance with medications Thank you for allowing us participate in her care and we will continue following up with the patient
--- NOTE | 2019-03-07 14:12 | P.HPIM ---
History of Present Illness H&P Date: 03/07/19 This is a 78-year-old female patient of Jarek Aguilar and Cassandra Serrano with the past medical history of chronic atrial fibrillation not on oral anticoagulation due to history of GI bleed, intermediate nonobstructive coronary artery disease, chronic diastolic heart failure, chronic lower lobe pulmonary fibrosis, severe pulmonary hypertension and chronic cor pulmonale, history of atypical mycobacterial infections followed by Dr. Tilley, bronchiectasis, chronic anemia, rheumatoid arthritis, gastroesophageal reflux disease, hypertension, hypothyroidism. She has history of recent antibiotic treatment for lower extremity cellulitis with Keflex and local wound care with triamcinolone follows with Dr. Pinto. Patient was recently hospitalized January 31 through February 01 which time she was treated for acute on chronic diastolic heart failure with pulmonary hypertension, accelerated hypertension. At that time, Echocardiogram revealed mild concentric left ventricular hypertrophy, preserved left ventricular systolic function with EF greater than 70%, mild aortic regurgitation, mild mitral regurgitation, severe pulmonary hypertension with a right ventricular systolic pressure of 57.1 mmHg. Inferior vena cava is dilated with no significant inspiratory collapse consistent with right atrial pressure greater than 20, trivial pericardial effusion. Patient states that she developed shortness of breath and was feeling dizzy and very weak when she had up in the morning. She also had nausea. She denies having any chest pain, no fever or chills. Patient is on home O2 dependent and checks her pulse ox at home which runs 95-100%. Patient came into [facility] emergency center for evaluation. CBC was unremarkable. Creatinine 0.93, lactic acid 1. Total bilirubin 0.6, AST 74, ALT 49 and alkaline phosphatase 183. ProBNP 4870, troponin negative, d- dimer 0.82. Chest x-ray reveals possible congestive heart failure with pleural effusions. CTA of the chest was negative for pulmonary embolism. Positive for interstitial phase pulmonary edema, suspect cardiogenic etiology as above with bilateral pleural effusions greater on the right. Patient was started on IV Lasix and admitted to the cardiac stepdown unit and consults requested with cardiology and Dr. Tilley. Review of Systems Constitutional: Reports fatigue, Reports weakness, Denies anorexia, Denies chills, Denies fever, Denies lethargy, Denies malaise Ears, nose, mouth and throat: Reports vertigo, Denies dysphagia, Denies nasal congestion, Denies nasal discharge Cardiovascular: Reports decreased exercise tolerance, Reports dyspnea on exertion, Reports edema, Reports leg edema, Reports shortness of breath, Denies lightheadedness, Denies syncope Respiratory: Reports dyspnea, Denies congestion, Denies cough, Denies excessive sputum, Denies hemoptysis, Denies home oxygen Gastrointestinal: Reports nausea, Denies abdominal pain, Denies diarrhea, Denies vomiting Genitourinary: Denies dysuria, Denies hematuria, Denies urgency, Denies urinary frequency Musculoskeletal: Reports muscle weakness, Denies frequent falls, Denies gait dysfunction, Denies myalgias Integumentary: Denies pruritus, Denies rash, Denies wounds Neurological: Denies aphasia, Denies change in mentation, Denies confusion, Denies gait dysfunction, Denies numbness, Denies seizures, Denies weakness Psychiatric: Denies anxiety, Denies depression Endocrine: Denies fatigue, Denies weight change Past Medical History Past Medical History: Atrial Fibrillation, Asthma, Heart Failure, COPD, Eye Disorder, GERD/Reflux, GI Bleed, Hyperlipidemia, Hypertension, Osteoarthritis (OA), Pneumonia, Renal Disease, Respiratory Disorder, Rheumatoid Arthritis (RA), Sleep Apnea/CPAP/BIPAP, Thyroid Disorder Additional Past Medical History / Comment(s): Mycobacterium avium complex, bronchitis, lower GI bleed, denies past gastric ulcer, hiatal hernia, anemia with blood transfusions and iron infusions, pt has L kidney that is functioning/L kidney has atrophied, 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 Past Anesthesia/Blood Transfusion Reactions: No Reported Reaction Additional Past Anesthesia/Blood Transfusion Reaction / Comment(s): Pt has received blood in past without reaction. Smoking Status: Former smoker Additional Past Alcohol Use History / Comment(s): Pt resides at home. She uses a wheeled walker to ambulate. The patient was a smoker one pack per day for 42 years and quit smoking and 2000. She drinks alcohol socially. She was at home with her . Past Drug Use History: None Reported - Past Family History Father Family Medical History: Cancer Additional Family Medical History / Comment(s): at age 68 from lung cancer Mother Family Medical History: Cancer Additional Family Medical History / Comment(s): at age 83 from lung cancer Brother(s) Family Medical History: Cancer Additional Family Medical History / Comment(s): at age 63 from lung cancer. Son(s) Additional Family Medical History / Comment(s): She has 2 sons with no major medical problems. Medications and Allergies Home Medications Medication Instructions Recorded Confirmed Type Atenolol 50 mg PO HS 12/22/16 03/06/19 History Brinzolamide/Brimonidine Tart 1 drop BOTH EYES QAM 12/22/16 03/06/19 History [Simbrinza 1%-0.2% Eye Drops] Folic Acid 1 mg PO BID 12/22/16 03/06/19 History Levothyroxine Sodium [Synthroid] 75 mcg PO DAILY 12/22/16 03/06/19 History Pantoprazole Sodium [Protonix] 40 mg PO BID 12/22/16 03/06/19 History Ascorbic Acid [Vitamin C] 500 mg PO DAILY 05/18/18 03/06/19 History Atorvastatin [Lipitor] 40 mg PO DAILY 12/29/18 03/06/19 History Biotin 5,000 mcg PO DAILY 12/29/18 03/06/19 History Cholecalciferol (Vitamin D3) 2,000 unit PO DAILY 12/29/18 03/06/19 History [Vitamin D3] rOPINIRole HCL [Requip] 0.5 mg PO TID 12/29/18 03/06/19 History Acetaminophen Tab [Tylenol] 650 mg PO Q6H PRN 01/29/19 03/06/19 History Benzonatate [Tessalon Perles] 100 mg PO TID PRN 01/29/19 03/06/19 History traZODone HCL 100 mg PO HS 01/29/19 03/06/19 History Furosemide [Lasix] 40 mg PO DAILY #30 tab 02/01/19 03/06/19 Rx Ipratropium-Albuterol Nebulize 3 ml INHALATION RT-QID ampul.neb 02/01/19 03/06/19 Rx [Duoneb 0.5 mg-3 mg/3 ml Soln] Allergies Allergy/AdvReac Type Severity Reaction Status Date / Time morphine AdvReac Severe Hallucinati Verified 03/06/19 11:44 ons Physical Exam Vitals: Vital Signs Temp Pulse Pulse Resp BP BP Pulse Ox 03/07/19 08:30 97.4 F L 97 20 153/83 97 03/07/19 03:25 98 F 89 18 128/72 96 03/06/19 23:52 90 20 148/72 95 03/06/19 21:02 98.1 F 93 22 161/105 94 L 03/06/19 20:30 80 20 160/79 95 03/06/19 20:00 97.5 F L 75 22 169/99 95 03/06/19 19:00 98 22 187/108 03/06/19 17:30 87 171/96 98 03/06/19 16:45 94 167/98 98 03/06/19 14:30 78 20 186/113 96 03/06/19 11:41 97.8 F 84 24 181/91 100 Intake and Output 03/06/19 03/07/19 03/07/19 22:59 06:59 14:59 Output Total 1999 Balance -1999 Output: Urine 1999 Other: Voiding Method Bedpan Diaper # Voids 1 Weight 66.5 kg Gen: This is a 78-year-old female. Patient is resting in bed and appears to be comfortable and in no acute distress. No respiratory distress is noted. Patient is able to speak in full sentences. HEENT: Head is atraumatic, normocephalic. Pupils equal, round. Sclerae is anicteric. NECK: Supple. No JVD. No lymphadenopathy. No thyromegaly. LUNGS: Bilateral crackles. No intercostal retractions. HEART: Irregularly irregular rhythm, systolic murmur. ABDOMEN: Soft. Bowel sounds are present. No masses. No tenderness. EXTREMITIES: No pedal edema. Healed chronic changes to the bilateral lower extremities without signs of infection. NEUROLOGICAL: Patient is awake, alert and oriented x3. Cranial nerves 2 through 12 are grossly intact. Results CBC & Chem 7: 03/06/19 12:08 03/06/19 12:08 Labs: Abnormal Lab Results - Last 24 Hours (Table) 03/06/19 03/06/19 Range/Units 12:08 12:08 APTT 19.1 L (22.0-30.0) sec D-Dimer 0.82 H (<0.60) mg/L FEU Chloride 109 H (98-107) mmol/L AST 74 H (14-36) U/L Alkaline Phosphatase 183 H (38-126) U/L Thrombosis Risk Factor Assmnt - DVT/VTE Prophylaxis DVT/VTE Prophylaxis: Pharmacologic Prophylaxis ordered - Choose All That Apply Any of the Below Risk Factors Present?: Yes Each Factor Represents 1 point: Abnormal pulmonary function (COPD), Medical pt on bed rest, Swollen legs (current) Other Risk Factors: Yes Each Risk Factor Represents 3 Points: Age 75 years or older Thrombosis Risk Factor Assessment Total Risk Factor Score: 6 Thrombosis Risk Factor Assessment Level: High Risk Assessment and Plan Plan: 1. Acute on chronic diastolic heart failure. Cardiology consult appreciated. Lasix 40 mg IV every 12 hours. Echocardiogram was recently obtained. Continue to monitor I&O and daily weights. 2. Hypertension, hypertensive cardiovascular disease. Continue atenolol 50 mg at bedtime, Lasix. 3. History of intermediate nonobstructive coronary artery disease. Continue atenolol and Lipitor. 4. Chronic atrial fibrillation not currently on anticoagulation due to history of GI bleeding. Continue atenolol. 5. History of stage II COPD, stable. Continue DuoNeb treatments 4 times daily, Tesmike Solorio. 6. Chronic pulmonary fibrosis. 7. History of bronchiectasis related to history of pulmonary infections. 8. History of atypical mycobacterial infection under the care Dr. Tilley. 9. Severe pulmonary hypertension and chronic cor pulmonale. 10. Rheumatoid arthritis. Patient is not currently on any medications. 11. Gastroesophageal reflux disease, GI prophylaxis. Protonix. 12. Hypothyroidism. Continue levothyroxine 75 g daily. Recent TSH 2.780. 12. Chronic skin changes to bilateral lower extremities, under the care of Dr. Pinto. Melvi. 12. History of abdominal aortic aneurysm with repair. 13. DVT prophylaxis. Lovenox subcu. Patient will be admitted to the hospital for a minimum of 2 night stay. Discharge plan: Most likely return home. PT and OT will be added. Impression and plan of care have been directed as dictated by the signing physician. Marina Convery nurse practitioner acting as scribe for signing physician.
--- NOTE | 2019-03-07 17:57 | P.CNPUL ---
History of Present Illness Consult date: 03/07/19 Reason for consult: dyspnea History of present illness: This 78-year-old female patient with known history of chronic atrial fibrillation, chronic right-sided heart failure with significant pulmonary hypertension and chronic lower extremity edema along with a component of diastolic heart failure and a preserved LV function who comes into the hospital because of worsening shortness of breath. In terms of her pulmonary status, the patient a remote history of atypical mycobacterial infection that was treated appropriately. She has also history of rheumatoid arthritis and she does not take any form of immunosuppressive agents for now. She has also hypertension and hypothyroidism. The patient has had several hospitalizations in the past. She was in the hospital recently back in January 2019. The patient had an echocardiogram at that time showed a hyperdynamic LV with an EF of around 70%. There was severe pulmonary hypertension with a PA pressure of 57 and there was no significant inspiratory collapse of the IVC consistent with elevated right atrial pressure. The patient is coming in today to the hospital because of worsening shortness of breath. She had exertional dyspnea and orthopnea along with lower extremity edema. CAT scan of the chest was done in the emergency department and the patient was found to have bilateral pleural effusion and pulmonary edema. There was no evidence of any pulmonary embolism. The patient was started on IV Lasix. She has diuresed significantly over the past few hours and the patient is feeling better. She is currently on room air oxygen. He continues to have increased edema in lower extremities. Note that her proBNP level was 4870 and troponins were negative and d-dimer was 0.82. The patient will be seen by cardiology. Her hemoglobin is at 12.8. Her white cell count is at 8. In terms of her pulmonary status, her last function test showed an FEV1 of 4.6 L which is 70% of predicted and she had an FVC of 31% of predicted. As mentioned she is off immunosuppressive agents. She is oxygen as needed and during sleep. Review of Systems Constitutional: Reports weakness, Denies chills, Denies fever Eyes: denies blurred vision, denies pain Ears, nose, mouth and throat: Denies headache, Denies sore throat Cardiovascular: Denies chest pain, the patient is orthopnea and exertional dyspnea and lower eczematous edema Respiratory: Reports dyspnea, Reports respiratory infections, Denies cough Gastrointestinal: Reports nausea, Reports vomiting, Denies abdominal pain, Denies diarrhea Genitourinary: Denies dysuria, Denies hematuria Musculoskeletal: Denies myalgias Integumentary: Denies pruritus, Denies rash, although she has chronic edema and ulceration lower extremities bilaterally without any open wounds. Neurological: Denies numbness, Denies weakness Psychiatric: Denies anxiety, Denies depression Endocrine: Denies fatigue, Denies weight change Past Medical History Past Medical History: Atrial Fibrillation, Asthma, Heart Failure, COPD, Eye Disorder, GERD/Reflux, GI Bleed, Hyperlipidemia, Hypertension, Osteoarthritis (OA), Pneumonia, Renal Disease, Respiratory Disorder, Rheumatoid Arthritis (RA), Sleep Apnea/CPAP/BIPAP, Thyroid Disorder Additional Past Medical History / Comment(s): Mycobacterium avium complex, bronchitis, lower GI bleed, denies past gastric ulcer, hiatal hernia, anemia with blood transfusions and iron infusions, pt has L kidney that is functioning/L kidney has atrophied, 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 Past Anesthesia/Blood Transfusion Reactions: No Reported Reaction Additional Past Anesthesia/Blood Transfusion Reaction / Comment(s): Pt has received blood in past without reaction. Smoking Status: Former smoker Additional Past Alcohol Use History / Comment(s): Pt resides at home. She uses a wheeled walker to ambulate. The patient was a smoker one pack per day for 42 years and quit smoking and 2000. She drinks alcohol socially. She was at home with her . Past Drug Use History: None Reported - Past Family History Father Family Medical History: Cancer Additional Family Medical History / Comment(s): at age 68 from lung cancer Mother Family Medical History: Cancer Additional Family Medical History / Comment(s): at age 83 from lung cancer Brother(s) Family Medical History: Cancer Additional Family Medical History / Comment(s): at age 63 from lung cancer. Son(s) Additional Family Medical History / Comment(s): She has 2 sons with no major medical problems. Medications and Allergies Home Medications Medication Instructions Recorded Confirmed Type Atenolol 50 mg PO HS 12/22/16 03/06/19 History Brinzolamide/Brimonidine Tart 1 drop BOTH EYES QAM 12/22/16 03/06/19 History [Simbrinza 1%-0.2% Eye Drops] Folic Acid 1 mg PO BID 12/22/16 03/06/19 History Levothyroxine Sodium [Synthroid] 75 mcg PO DAILY 12/22/16 03/06/19 History Pantoprazole Sodium [Protonix] 40 mg PO BID 12/22/16 03/06/19 History Ascorbic Acid [Vitamin C] 500 mg PO DAILY 05/18/18 03/06/19 History Atorvastatin [Lipitor] 40 mg PO DAILY 12/29/18 03/06/19 History Biotin 5,000 mcg PO DAILY 12/29/18 03/06/19 History Cholecalciferol (Vitamin D3) 2,000 unit PO DAILY 12/29/18 03/06/19 History [Vitamin D3] rOPINIRole HCL [Requip] 0.5 mg PO TID 12/29/18 03/06/19 History Acetaminophen Tab [Tylenol] 650 mg PO Q6H PRN 01/29/19 03/06/19 History Benzonatate [Tessalon Perles] 100 mg PO TID PRN 01/29/19 03/06/19 History traZODone HCL 100 mg PO HS 01/29/19 03/06/19 History Furosemide [Lasix] 40 mg PO DAILY #30 tab 02/01/19 03/06/19 Rx Ipratropium-Albuterol Nebulize 3 ml INHALATION RT-QID ampul.neb 02/01/19 03/06/19 Rx [Duoneb 0.5 mg-3 mg/3 ml Soln] Allergies Allergy/AdvReac Type Severity Reaction Status Date / Time morphine AdvReac Severe Hallucinati Verified 03/06/19 11:44 ons Physical Exam Vitals: Vital Signs Temp Pulse Pulse Resp BP BP Pulse Ox 03/07/19 16:09 82 03/07/19 16:01 80 03/07/19 16:00 97.7 F 89 20 135/61 98 03/07/19 13:31 80 03/07/19 13:22 84 03/07/19 12:00 84 20 158/87 93 L 03/07/19 09:51 76 03/07/19 09:39 80 03/07/19 08:30 97.4 F L 97 20 153/83 97 03/07/19 03:25 98 F 89 18 128/72 96 03/06/19 23:52 90 20 148/72 95 03/06/19 21:02 98.1 F 93 22 161/105 94 L 03/06/19 20:30 80 20 160/79 95 03/06/19 20:00 97.5 F L 75 22 169/99 95 03/06/19 19:00 98 22 187/108 Intake and Output 03/07/19 03/07/19 03/07/19 06:59 14:59 22:59 Intake Total 720 Balance 720 Intake: Oral 720 Other: Voiding Method Bedpan Diaper # Voids 1 4 Weight 66.5 kg 66.5 kg GENERAL EXAM: Alert, pleasant, 78-year-old white female, on room air, with a pulse ox of 95% comfortable in no apparent distress. HEAD: Normocephalic/atraumatic. EYES: Normal reaction of pupils, equal size. Conjunctiva pink, sclera white. NOSE: Clear with pink turbinates. THROAT: No erythema or exudates. NECK: No masses, no JVD, no thyroid enlargement, no adenopathy. CHEST: No chest wall deformity. Symmetrical expansion. LUNGS: Equal air entry with basilar crackles bilaterally, no rhonchi, no wheezing, and the patient diminished breath sounds in lung bases bilaterally CVS: Regular rate and rhythm, normal S1 and S2, no gallops, no murmurs, no rubs ABDOMEN: Soft, nontender. No hepatosplenomegaly, normal bowel sounds, no guarding or rigidity. EXTREMITIES: No clubbing, and there is increased bilateral edema, no cyanosis, 2+ pulses and upper and lower extremities. MUSCULOSKELETAL: Muscle strength and tone normal. SPINE: No scoliosis or deformity SKIN: Multiple areas of healing wounds circular shaped on bilateral lower extremities CENTRAL NERVOUS SYSTEM: Alert and oriented -3. No focal deficits, tone is normal in all 4 extremities. PSYCHIATRIC: Alert and oriented -3. Appropriate affect. Intact judgment and insight. Results - Laboratory Findings CBC and BMP: 03/06/19 12:08 03/06/19 12:08 PT/INR, D-dimer PT 10.5 sec (9.0-12.0) 03/06/19 12:08 INR 1.0 (<1.2) 03/06/19 12:08 D-Dimer 0.82 mg/L FEU (<0.60) H 03/06/19 12:08 Abnormal lab findings: Abnormal Labs 03/06/19 03/06/19 12:08 12:08 APTT 19.1 L D-Dimer 0.82 H Chloride 109 H AST 74 H Alkaline Phosphatase 183 H - Diagnostic Findings Chest x-ray: image reviewed CT scan - chest: image reviewed Assessment and Plan Plan: 1 acute decompensated heart failure with exertional dyspnea, orthopnea and paroxysmal nocturnal dyspnea along with elevated BNP level. The patient had developed bilateral pleural effusion. ProBNP level was also elevated. The patient has hyperdynamic LV with diastolic heart failure and severe pulmonary hypertension indicating right-sided failure. She is responded nicely to diuretics. 2 COPD, mild with an FEV1 of 1.6 L which is 70% of predicted 3 remote history of atypical mycobacterial infection treated and ecchymosis a bronchoscopy showed no ongoing bacterial growth 4 hypertension 5 mild nonocclusive coronary artery disease 6 paroxysmal atrial fibrillation 7 limited bronchiectasis involving the lungs with mild obstructive airway limitation 8 Rheumatoid arthritis treated with immunosuppressive agents including methotrexate and later on with Olumient\, currently none 9 Chronic pulmonary fibrosis with chronic dyspnea, with most recent CT chest in November 2018 showing interval worsening in the scarring in the lower lobes, and biapical scarring remained unchanged 10 lower extremity wounds, chronic, uninfected 11 hypothyroidism 12 history of diverticular disease Plan Continued IV Lasix. Clinically improving. Monitor fluid balance and electrolytes. We'll continue to follow.
[2019-03-07] MEDS: ATENOLOL 25 MG TAB PO SCH (19:42)
[2019-03-07] MEDS: ZOLPIDEM 5 MG TAB PO PRN (21:13)
[2019-03-08] MEDS: FUROSEMIDE 10 MG/ML 4 ML VIAL IV SCH (03:35)
[2019-03-08] MEDS: LEVOTHYROXINE 75 MCG TAB PO SCH (05:37)
[2019-03-08] MEDS: ATORVASTATIN 40 MG TAB PO SCH (08:06)
[2019-03-08] MEDS: NITROGLYCERIN OINT 1 INCH/GM PACKET TOPICAL SCH ×4 (08:07→19:35)
[2019-03-08] MEDS: ASCORBIC ACID 500 MG TAB PO SCH (08:07)
[2019-03-08] MEDS: FUROSEMIDE 40 MG TAB PO SCH ×2 (08:07→12:19)
[2019-03-08] MEDS: PANTOPRAZOLE 40 MG TABLET PO SCH ×2 (08:07→19:35)
[2019-03-08] MEDS: ENOXAPARIN 40 MG/0.4 ML SYRINGE SQ SCH (08:07)
[2019-03-08] MEDS: FOLIC ACID 1 MG TAB PO SCH ×2 (08:07→19:35)
[2019-03-08] MEDS: CHOLECALCIFEROL 1,000 UNIT TAB PO SCH (08:07)
[2019-03-08] MEDS: Brinzolamide/Brimonidine Tart [Simbrinza 1%-0.2% Eye Drops] BOTH EYES SCH (08:07)
[2019-03-08] MEDS: IPRATROPIUM-ALBUTEROL 3 ML NEB INHALATION SCH ×4 (09:08→19:45)
[2019-03-08] MEDS: ACETAMINOPHEN TAB 325 MG TAB PO PRN (10:19)
--- NOTE | 2019-03-08 11:51 | P.PN ---
Subjective Progress Note Date: 03/08/19 This is a 78-year-old female patient who sees Dr. Serrano in the office on a regular basis with an extensive past medical history consistent off chronic diastolic congestive heart failure, chronic obstructive pulmonary disease, cor pulmonale, severe pulmonary hypertension, coronary artery disease, chronic p ersistent atrial fibrillation not on any oral anticoagulation in view of history of GI bleeding, hypertension, and dyslipidemia, presented to the hospital with increasing in the shortness of breath. For the last one week, she has been experiencing increasing in the shortness of breath even with minimal exertion. She did not have any orthopnea or paroxysmal not sure no dyspnea. She noticed also quite significant increasing in the lower extremities edema. The patient stated that she gain weight as well. She did not have any symptoms of chest pain or chest discomfort, dizziness or lightheadedness, heart racing or fluttering, and no syncope. She stated that she was experiencing cough but s eems to be dry without any sputum. No fever and no chills. The symptoms get worse in the last few days. Because of that she decided to come to the emergency room. The EKG revealed atrial fibrillation with controlled heart rates. This is not new to the patient. The chest x-ray showed findings c onsistent with pulmonary edema. The BNP came in to be elevated around 4000. The rest of her blood work overall came in to be unremarkable. The patient just was discharged from the hospital in January 2019 after she presented with congestive heart failure exacerbation related to diastole dysfunction. At that point, the echocardiogram revealed hyperdynamic left ventricle with evidence off hypertensive heart disease, mild mitral regurgitation, moderate tricuspid regurgitation, and severe pulmonary hypertension. She states clearly that she is not very compliant with her diet including low salt. Beside that, she stated that she is not quite sure if she is taking her diuretics every day and also she was confused within the last few weeks about the dose of atenolol. When the patient presented to the hospital she was hypertensive. Beside that she underwent a heart catheterization in 2013 and that revealed mild to moderate nonobstructive coronary artery disease. Currently the patient is on Lasix IV at 40 mg twice a day. She stated that she has she was admitted to the hospital yesterday, she diuresed quite well and her lower extremities edema has improved. Overall she is feeling better. The shortness of breath has improved as well. 03/08/2019 Patient was seen and examined this morning, her breathing is overall improved from admission here, she is complaining this morning of feeling quite dizzy and earlier had a headache. Her Nitropaste was discontinued it seems as though her headache is better but patient still significantly dizzy when sitting up. Her weight is down 1 kg from yesterday. Labs are pending from this morning. Blood pressure 126/70 with a heart rate in the 80s, 97% on room air. Objective - Vital Signs Vital signs: Vital Signs Temp 98.1 F 03/08/19 08:00 Pulse 84 03/08/19 09:18 Resp 20 03/08/19 08:00 BP 126/72 03/08/19 08:00 Pulse Ox 97 03/08/19 08:00 Intake & Output 03/07/19 03/08/19 03/08/19 18:59 06:59 18:59 Intake Total 960 240 400 Balance 960 240 400 Weight 66.5 kg 65.1 kg Intake: Oral 960 240 400 Other: # Voids 4 2 - Exam GENERAL EXAM: Alert, pleasant, 78-year-old white female, on room air, with a pulse ox of 95% comfortable in no apparent distress. HEAD: Normocephalic/atraumatic. EYES: Normal reaction of pupils, equal size. Conjunctiva pink, sclera white. NOSE: Clear with pink turbinates. THROAT: No erythema or exudates. NECK: No masses, no JVD, no thyroid enlargement, no adenopathy. CHEST: No chest wall deformity. Symmetrical expansion. LUNGS: Equal air entry with basilar crackles bilaterally, no rhonchi, no wheezing, and the patient diminished breath sounds in lung bases bilaterally CVS: Regular rate and rhythm, normal S1 and S2, no gallops, no murmurs, no rubs ABDOMEN: Soft, nontender. No hepatosplenomegaly, normal bowel sounds, no guarding or rigidity. EXTREMITIES: No clubbing, and there is increased bilateral edema, no cyanosis, 2+ pulses and upper and lower extremities. MUSCULOSKELETAL: Muscle strength and tone normal. SPINE: No scoliosis or deformity SKIN: Multiple areas of healing wounds circular shaped on bilateral lower extremities CENTRAL NERVOUS SYSTEM: Alert and oriented -3. No focal deficits, tone is normal in all 4 extremities. PSYCHIATRIC: Alert and oriented -3. Appropriate affect. Intact judgment and insight. - Labs CBC & Chem 7: 03/06/19 12:08 03/06/19 12:08 Assessment and Plan Plan: Assessment #1 acute exacerbation of diastolic congestive heart failure. The patient does have evidence of right as well as left heart failure #2 diastolic congestive heart failure related to hypertensive heart disease #3 valvular heart disease with evidence of severe tricuspid regurgitation on recent echocardiogram #4 severe pulmonary hypertension. The pulmonary artery systolic pressure was almost 60 mmHg on recent echocardiogram #5 chronic obstructive pulmonary disease #6 intermediate nonobstructive coronary artery disease #7 chronic atrial fibrillation with controlled heart rate #8 noncompliance with medications as well as diet Plan We will continue current dose of IV Lasix, we will also check orthostatic blood pressure and heart rate every shift because of her symptoms of dizziness this morning. Monitor intake and output,check her lytes BUN and creatinine today and daily. DNP note has been reviewed, I agree with a documented findings and plan of care. Patient was seen and examined.
[2019-03-08] MEDS: DULoxetine HCL 30 MG CAPSULE.DR PO SCH (12:19)
[2019-03-08 12:35] LABS: Calcium 9.8 mg/dL (8.4-10.2); Potassium 4.6 mmol/L (3.5-5.1)
--- NOTE | 2019-03-08 15:11 | P.PN ---
Subjective Progress Note Date: 03/08/19 This is a 78-year-old female patient of Jarek Aguilar and Cassandra Serrano with the past medical history of chronic atrial fibrillation not on oral anticoagulation due to history of GI bleed, intermediate nonobstructive coronary artery disease, chronic diastolic heart failure, chronic lower lobe pulmonary fibrosis, severe pulmonary hypertension and chronic cor pulmonale, history of atypical mycobacterial infections followed by Dr. Tilley, bronchiectasis, chronic anemia, rheumatoid arthritis, gastroesophageal reflux disease, hypertension, hypothyroidism. She has history of recent antibiotic treatment for lower extremity cellulitis with Keflex and local wound care with triamcinolone follows with Dr. Pinto. Patient was recently hospitalized January 31 through February 01 which time she was treated for acute on chronic diastolic heart failure with pulmonary hypertension, accelerated hypertension. At that time, Echocardiogram revealed mild concentric left ventricular hypertrophy, preserved left ventricular systolic function with EF greater than 70%, mild aortic regurgitation, mild mitral regurgitation, severe pulmonary hypertension with a right ventricular systolic pressure of 57.1 mmHg. Inferior vena cava is dilated with no significant inspiratory collapse consistent with right atrial pressure greater than 20, trivial pericardial effusion. Patient states that she developed shortness of breath and was feeling dizzy and very weak when she had up in the morning. She also had nausea. She denies having any chest pain, no fever or chills. Patient is on home O2 dependent and checks her pulse ox at home which runs 95-100%. Patient came into [facility] emergency center for evaluation. CBC was unremarkable. Creatinine 0.93, lactic acid 1. Total bilirubin 0.6, AST 74, ALT 49 and alkaline phosphatase 183. ProBNP 4870, troponin negative, d- dimer 0.82. Chest x-ray reveals possible congestive heart failure with pleural effusions. CTA of the chest was negative for pulmonary embolism. Positive for interstitial phase pulmonary edema, suspect cardiogenic etiology as above with bilateral pleural effusions greater on the right. Patient was started on IV La six and admitted to the cardiac stepdown unit and consults requested with cardiology and Dr. Tilley. 03/08: Patient has been afebrile, blood pressure 158/81, pulse ox 92% on room air, heart rate 95. Repeat lab work reveals potassium 4.6, CO2 is 31, BUN 24 and creatinine 1.29. Weight is down almost 3 kg. Patient has been seen by both pulmonary medicine and cardiology. She is currently on Lasix 40 mg IV every 12 hours which we will transition to oral. Patient refuses to take afternoon Lasix and we have moved up to 1 PM and at this point, patient agrees. Patient did have some dizziness and cardiology took nitroglycerin off. Orthostatics to be checked today. Discussed depression with the patient and she states that she does feel that she is depressed as her is an alcoholic. Cymbalta 30 mg added. PHILIP hose added. Anticipate discharge home tomorrow. Objective - Vital Signs Vital signs: Vital Signs Temp 98.1 F 03/08/19 08:00 Pulse 95 03/08/19 11:50 Resp 20 03/08/19 11:50 BP 158/81 03/08/19 11:50 Pulse Ox 92 L 03/08/19 11:50 Intake & Output 03/07/19 03/08/19 03/08/19 18:59 06:59 18:59 Intake Total 960 240 400 Balance 960 240 400 Weight 66.5 kg 65.1 kg Intake: Oral 960 240 400 Other: Voiding Method Bedpan Diaper # Voids 4 2 2 - Exam Review of Systems Constitutional: Reports fatigue, Reports weakness, Denies anorexia, Denies chills, Denies fever, Denies lethargy, Denies malaise Ears, nose, mouth and throat: Reports vertigo, Denies dysphagia, Denies nasal congestion, Denies nasal discharge Cardiovascular: Reports decreased exercise tolerance, Reports dyspnea on exertion, Reports edema, Reports leg edema, Reports shortness of breath, Denies lightheadedness Respiratory: Reports dyspnea, Denies congestion, Denies cough, Denies excessive sputum, Denies hemoptysis, Denies home oxygen Gastrointestinal: Reports nausea, Denies abdominal pain, Denies diarrhea, Denies vomiting Genitourinary: Denies dysuria, Denies hematuria, Denies urgency, Denies urinary frequency Musculoskeletal: Reports muscle weakness, Denies frequent falls, Denies gait dysfunction, Denies myalgias Integumentary: Denies pruritus, Denies rash, Denies wounds Neurological: Denies aphasia, Denies change in mentation, Denies confusion, Denies gait dysfunction, Denies numbness, Denies seizures, Denies weakness Psychiatric: Denies anxiety, Denies depression Endocrine: Denies fatigue, Denies weight change Gen: This is a 78-year-old female. Patient is resting in bed and appears to be comfortable and in no acute distress. No respiratory distress is noted. Patient is able to speak in full sentences. HEENT: Head is atraumatic, normocephalic. Pupils equal, round. Sclerae is anicteric. NECK: Supple. No JVD. No lymphadenopathy. No thyromegaly. LUNGS: Diminished bilaterally. No intercostal retractions. HEART: Irregularly irregular rhythm, systolic murmur. ABDOMEN: Soft. Bowel sounds are present. No masses. No tenderness. EXTREMITIES: No pedal edema. Healed chronic changes to the bilateral lower extremities without signs of infection. NEUROLOGICAL: Patient is awake, alert and oriented x3. Cranial nerves 2 through 12 are grossly intact. - Labs CBC & Chem 7: 03/06/19 12:08 03/08/19 12:07 Labs: Abnormal Lab Results - Last 24 Hours (Table) 03/08/19 Range/Units 12:07 Carbon Dioxide 31 H (22-30) mmol/L BUN 24 H (7-17) mg/dL Creatinine 1.29 H (0.52-1.04) mg/dL Assessment and Plan Plan: 1. Acute on chronic diastolic heart failure. Cardiology consult appreciated. Lasix 40 mg IV every 12 hours transition to oral. Echocardiogram was recently obtained. Continue to monitor I&O and daily weights. 2. Hypertension, hypertensive cardiovascular disease. Continue atenolol 50 mg at bedtime, Lasix. 3. History of intermediate nonobstructive coronary artery disease. Continue atenolol and Lipitor. 4. Chronic atrial fibrillation not currently on anticoagulation due to history of GI bleeding. Continue atenolol. 5. History of stage II COPD, stable. Continue DuoNeb treatments 4 times daily, Tessalon Perles. 6. Chronic pulmonary fibrosis. 7. History of bronchiectasis related to history of pulmonary infections. 8. History of atypical mycobacterial infection under the care Dr. Tilley. 9. Severe pulmonary hypertension and chronic cor pulmonale. 10. Rheumatoid arthritis. Patient is not currently on any medications. 11. Gastroesophageal reflux disease, GI prophylaxis. Protonix. 12. Hypothyroidism. Continue levothyroxine 75 g daily. Recent TSH 2.780. 12. Chronic skin changes to bilateral lower extremities, under the care of Dr. Pinto. Stable. 12. History of abdominal aortic aneurysm with repair. 13. DVT prophylaxis. Lovenox subcu. Discharge plan: Home tomorrow. Impression and plan of care have been directed as dictated by the signing physician. Marina Cervantes nurse practitioner acting as scribe for signing physician.
--- NOTE | 2019-03-08 15:32 | P.PN ---
Subjective Progress Note Date: 03/08/19 Principal diagnosis: Acute exacerbation of diastolic congestive heart failure. This 78-year-old female patient with known history of chronic atrial fibrillation, chronic right-sided heart failure with significant pulmonary hypertension and chronic lower extremity edema along with a component of diastolic heart failure and a preserved LV function who comes into the hospital because of worsening shortness of breath. In terms of her pulmonary status, the patient a remote history of atypical mycobacterial infection that was treated appropriately. She has also history of rheumatoid arthritis and she does not take any form of immunosuppressive agents for now. She has also hypertension and hypothyroidism. The patient has had several hospitalizations in the past. She was in the hospital recently back in January 2019. The patient had an echocardiogram at that time showed a hyperdynamic LV with an EF of around 70%. There was severe pulmonary hypertension with a PA pressure of 57 and there was no significant inspiratory collapse of the IVC consistent with elevated right atrial pressure. The patient is coming in today to the hospital because of worsening shortness of breath. She had exertional dyspnea and orthopnea along with lower extremity edema. CAT scan of the chest was done in the emergency department and the patient was found to have bilateral pleural effusion and pulmonary edema. There was no evidence of any pulmonary embolism. The patient was started on IV Lasix. She has diuresed significantly over the past few hours and the patient is feeling better. She is currently on room air oxygen. He continues to have increased edema in lower extremities. Note that her proBNP level was 4870 and troponins were negative and d-dimer was 0.82. The patient will be seen by cardiology. Her hemoglobin is at 12.8. Her white cell count is at 8. In terms of her pulmonary status, her last function test showed an FEV1 of 4.6 L which is 70% of predicted and she had an FVC of 31% of predicted. As mentioned she is off immunosuppressive agents. She is oxygen as needed and during sleep. The patient is seen today 03/08/2019 in follow-up on the selective care unit. She is currently sitting up in a chair at the bedside. Awake and alert in no acute distress. Breathing a bit easier today as compared to yesterday. Maintaining O2 saturations in the low 90s on room air. She's afebrile. Sodium 137. Potassium 4.6. Creatinine 1.29. On oral Lasix 40 mg twice a day. Lovenox for DVT prophylaxis. Objective - Vital Signs Vital signs: Vital Signs Temp 98.1 F 03/08/19 08:00 Pulse 95 03/08/19 11:50 Resp 20 03/08/19 11:50 BP 155/67 03/08/19 14:05 Pulse Ox 92 L 03/08/19 11:50 Intake & Output 03/07/19 03/08/19 03/08/19 18:59 06:59 18:59 Intake Total 199 928 9198 Balance 260 707 4334 Weight 66.5 kg 65.1 kg Intake: Oral 902 232 6322 Other: Voiding Method Bedpan Diaper # Voids 4 2 2 - Exam GENERAL EXAM: Alert, pleasant, 78-year-old female, on room air, with a pulse ox of 92% comfortable in no apparent distress. HEAD: Normocephalic/atraumatic. EYES: Normal reaction of pupils, equal size. Conjunctiva pink, sclera white. NOSE: Clear with pink turbinates. THROAT: No erythema or exudates. NECK: No masses, no JVD, no thyroid enlargement, no adenopathy. CHEST: No chest wall deformity. Symmetrical expansion. LUNGS: Equal air entry with basilar crackles bilaterally, no rhonchi, no wheezing, and the patient diminished breath sounds in lung bases bilaterally CVS: Regular rate and rhythm, normal S1 and S2, no gallops, no murmurs, no rubs ABDOMEN: Soft, nontender. No hepatosplenomegaly, normal bowel sounds, no guarding or rigidity. EXTREMITIES: No clubbing, and there is increased bilateral edema, no cyanosis, 2+ pulses and upper and lower extremities. MUSCULOSKELETAL: Muscle strength and tone normal. SPINE: No scoliosis or deformity SKIN: Multiple areas of healing wounds circular shaped on bilateral lower extremities. CENTRAL NERVOUS SYSTEM: No focal deficits, tone is normal in all 4 extremities. PSYCHIATRIC: Alert and oriented -3. Appropriate affect. Intact judgment and insight. - Labs CBC & Chem 7: 03/06/19 12:08 03/08/19 12:07 Labs: Abnormal Lab Results - Last 24 Hours (Table) 03/08/19 Range/Units 12:07 Carbon Dioxide 31 H (22-30) mmol/L BUN 24 H (7-17) mg/dL Creatinine 1.29 H (0.52-1.04) mg/dL Assessment and Plan Assessment: Impression: 1 acute decompensated heart failure with exertional dyspnea, orthopnea and paroxysmal nocturnal dyspnea along with elevated BNP level. The patient had developed bilateral pleural effusion. ProBNP level was also elevated. The patient has hyperdynamic LV with diastolic heart failure and severe pulmonary hypertension indicating right-sided failure. She is responded nicely to di uretics. 2 COPD, mild with an FEV1 of 1.6 L which is 70% of predicted 3 remote history of atypical mycobacterial infection treated and ecchymosis a bronchoscopy showed no ongoing bacterial growth 4 hypertension 5 mild nonocclusive coronary artery disease 6 paroxysmal atrial fibrillation 7 limited bronchiectasis involving the lungs with mild obstructive airway limitation 8 Rheumatoid arthritis treated with immunosuppressive agents including methotrexate and later on with Olumient\, currently none 9 Chronic pulmonary fibrosis with chronic dyspnea, with most recent CT chest in November 2018 showing interval worsening in the scarring in the lower lobes, and biapical scarring remained unchanged 10 lower extremity wounds, chronic, uninfected 11 hypothyroidism 12 history of diverticular disease Plan: The patient was seen and evaluated by Dr. Tilley. She is currently improved from the pulmonary standpoint. Plan for probable discharge in the a.m. Increase her activity as tolerated. We will continue to follow. I, the cosigning physician, performed a history & physical examination of the patient. Lungs sounds with basilar crackles. Maintaining good O2 saturations in the 90s on room air. I discussed the assessment and plan of care with my nurse practitioner, Sylvia Ritchie. I attest to the above note as dictated by her.
[2019-03-08] MEDS: ATENOLOL 25 MG TAB PO SCH (19:35)
[2019-03-08] MEDS: ZOLPIDEM 5 MG TAB PO PRN (20:36)
[2019-03-09] MEDS: LEVOTHYROXINE 75 MCG TAB PO SCH (05:57)
--- NOTE | 2019-03-09 08:03 | P.DS ---
Providers Date of admission: 03/06/19 18:07 Expected date of discharge: 03/09/19 Attending physician: Virgil Marie Consults: 03/06/19 18:07 Consult Physician Routine Consulting Provider: [facility] Consult Reason/Comments: Acute pulmonary edema Do you want consulting provider notified?: Yes 03/07/19 11:13 Consult Physician Routine Consulting Provider: Denice Tilley Consult Reason/Comments: pulmonary edema Do you want consulting provider notified?: Yes Primary care physician: Melchor Rider MD Hospital Course: This is a 78-year-old female patient of Jarek Aguilar and Cassandra Serrano with the past medical history of chronic atrial fibrillation not on oral anticoagulation due to history of GI bleed, intermediate nonobstructive coronary artery disease, chronic diastolic heart failure, chronic lower lobe pulmonary fibrosis, severe pulmonary hypertension and chronic cor pulmonale, history of atypical mycobacterial infections followed by Dr. Tilley, bronchiectasis, chronic anemia, rheumatoid arthritis, gastroesophageal reflux disease, hypertension, hypothyroidism. She has history of recent antibiotic treatment for lower extremity cellulitis with Keflex and local wound care with triamcinolone follows with Dr. Pinto. Patient was recently hospitalized January 31 through February 01 which time she was treated for acute on chronic diastolic heart failure with pulmonary hypertension, accelerated hypertension. At that time, Echocardiogram revealed mild concentric left ventricular hypertrophy, preserved left ventricular systolic function with EF greater than 70%, mild aortic regurgitation, mild mitral regurgitation, severe pulmonary hypertension with a right ventricular systolic pressure of 57.1 mmHg. Inferior vena cava is dilated with no significant inspiratory collapse consistent with right atrial pressure greater than 20, trivial pericardial effusion. Patient states that she developed shortness of breath and was feeling dizzy and very weak when she had up in the morning. She also had nausea. She denies having any chest pain, no fever or chills. Patient is on home O2 dependent and checks her pulse ox at home which runs 95-100%. Patient came into [facility] emergency center for evaluation. CBC was unremarkable. Creatinine 0.93, lactic acid 1. Total bilirubin 0.6, AST 74, ALT 49 and alkaline phosphatase 183. ProBNP 4870, troponin negative, d- dimer 0.82. Chest x-ray reveals possible congestive heart failure with pleural effusions. CTA of the chest was negative for pulmonary embolism. Positive for interstitial phase pulmonary edema, suspect cardiogenic etiology as above with bilateral pleural effusions greater on the right. Patient was started on IV Lasix and admitted to the cardiac stepdown unit and consults requested with cardiology and Dr. Tilley. 03/08: Patient has been afebrile, blood pressure 158/81, pulse ox 92% on room air, heart rate 95. Repeat lab work reveals potassium 4.6, CO2 is 31, BUN 24 and creatinine 1.29. Weight is down almost 3 kg. Patient has been seen by both pulmonary medicine and cardiology. She is currently on Lasix 40 mg IV every 12 hours which we will transition to oral. Patient refuses to take afternoon Lasix and we have moved up to 1 PM and at this point, patient agrees. Patient did have some dizziness and cardiology took nitroglycerin off. Orthostatics to be checked today. Discussed depression with the patient and she states that she does feel that she is depressed as her is an alcoholic. Cymbalta 30 mg added. PHILIP hose added. Anticipate discharge home tomorrow. 03/09: Patient is breathing status is stable and at baseline. She is currently on oral Lasix which she has agreed to take in the morning and at 1 PM. Patient was scheduled for discharge to [facility] today but now she is contemplating going home instead. Patient is currently stable and will be discharged either [facility] or home in stable condition. Discharge diagnoses: 1. Acute on chronic diastolic heart failure. 2. Hypertension, hypertensive cardiovascular disease. 3. History of intermediate nonobstructive coronary artery disease. 4. Chronic atrial fibrillation not currently on anticoagulation due to history of GI bleeding. 5. History of stage II COPD, stable. 6. Chronic pulmonary fibrosis. 7. History of bronchiectasis related to history of pulmonary infections. 8. History of atypical mycobacterial infection under the care Dr. Tilley. 9. Severe pulmonary hypertension and chronic cor pulmonale. 10. Rheumatoid arthritis. 11. Gastroesophageal reflux disease 12. Hypothyroidism. 13. Chronic skin changes to bilateral lower extremities, under the care of Dr. Pinto. Stable. 14. History of abdominal aortic aneurysm with repair. 15. Depression, new diagnosis. Possibly situational but most likely chronic Discharge plan: [facility] Impression and plan of care have been directed as dictated by the signing physician. Marina Cervantes nurse practitioner acting as scribe for signing physician. Patient Condition at Discharge: Good Plan - Discharge Summary New Discharge Prescriptions: New Zolpidem [Ambien] 5 mg PO HS PRN tab PRN Reason: Insomnia DULoxetine HCL [Cymbalta] 30 mg PO DAILY #30 capsule. Furosemide [Lasix] 40 mg PO BID@0900,1300 #60 tab Continue Folic Acid 1 mg PO BID Brinzolamide/Brimonidine Tart [Simbrinza 1%-0.2% Eye Drops] 1 drop BOTH EYES QAM Pantoprazole Sodium [Protonix] 40 mg PO BID Levothyroxine Sodium [Synthroid] 75 mcg PO DAILY Atenolol 50 mg PO HS Ascorbic Acid [Vitamin C] 500 mg PO DAILY Cholecalciferol (Vitamin D3) [Vitamin D3] 2,000 unit PO DAILY rOPINIRole HCL [Requip] 0.5 mg PO TID Atorvastatin [Lipitor] 40 mg PO DAILY Biotin 5,000 mcg PO DAILY traZODone HCL 100 mg PO HS Benzonatate [Tessalon Perles] 100 mg PO TID PRN PRN Reason: Cough Acetaminophen Tab [Tylenol] 650 mg PO Q6H PRN PRN Reason: Pain Ipratropium-Albuterol Nebulize [Duoneb 0.5 mg-3 mg/3 ml Soln] 3 ml INHALATION RT-QID ampul.neb Discontinued Furosemide [Lasix] 40 mg PO DAILY #30 tab Discharge Medication List Atenolol 50 mg PO HS 12/22/16 [History] Brinzolamide/Brimonidine Tart [Simbrinza 1%-0.2% Eye Drops] 1 drop BOTH EYES QAM 12/22/16 [History] Folic Acid 1 mg PO BID 12/22/16 [History] Levothyroxine Sodium [Synthroid] 75 mcg PO DAILY 12/22/16 [History] Pantoprazole Sodium [Protonix] 40 mg PO BID 12/22/16 [History] Ascorbic Acid [Vitamin C] 500 mg PO DAILY 05/18/18 [History] Atorvastatin [Lipitor] 40 mg PO DAILY 12/29/18 [History] Biotin 5,000 mcg PO DAILY 12/29/18 [History] Cholecalciferol (Vitamin D3) [Vitamin D3] 2,000 unit PO DAILY 12/29/18 [History] rOPINIRole HCL [Requip] 0.5 mg PO TID 12/29/18 [History] Acetaminophen Tab [Tylenol] 650 mg PO Q6H PRN 01/29/19 [History] Benzonatate [Tessalon Perles] 100 mg PO TID PRN 01/29/19 [History] traZODone HCL 100 mg PO HS 01/29/19 [History] Ipratropium-Albuterol Nebulize [Duoneb 0.5 mg-3 mg/3 ml Soln] 3 ml INHALATION RT-QID ampul.neb 02/01/19 [Rx] DULoxetine HCL [Cymbalta] 30 mg PO DAILY #30 capsule. 03/09/19 [Rx] Furosemide [Lasix] 40 mg PO BID@0900,1300 #60 tab 03/09/19 [Rx] Zolpidem [Ambien] 5 mg PO HS PRN tab 03/09/19 [Rx] Follow up Appointment(s)/Referral(s): Melchor Rider MD [Primary Care Provider] - 1 Week Andrea Serrano MD [STAFF PHYSICIAN] - 1 Week Denice Tilley MD [STAFF PHYSICIAN] - 2 Weeks
[2019-03-09] MEDS: IPRATROPIUM-ALBUTEROL 3 ML NEB INHALATION SCH ×3 (08:17→16:44)
[2019-03-09 08:39] LABS: Albumin 3.6 g/dL (3.5-5.0); Calcium 9.2 mg/dL (8.4-10.2); Potassium 4.3 mmol/L (3.5-5.1); Total Bilirubin 0.6 mg/dL (0.2-1.3); Total Protein 6.7 g/dL (6.3-8.2)
[2019-03-09] MEDS: ASCORBIC ACID 500 MG TAB PO SCH (08:48)
[2019-03-09] MEDS: PANTOPRAZOLE 40 MG TABLET PO SCH (08:48)
[2019-03-09] MEDS: DULoxetine HCL 30 MG CAPSULE.DR PO SCH (08:48)
[2019-03-09] MEDS: FOLIC ACID 1 MG TAB PO SCH (08:48)
[2019-03-09] MEDS: NITROGLYCERIN OINT 1 INCH/GM PACKET TOPICAL SCH ×2 (08:48→12:23)
[2019-03-09] MEDS: ATORVASTATIN 40 MG TAB PO SCH (08:48)
[2019-03-09] MEDS: Brinzolamide/Brimonidine Tart [Simbrinza 1%-0.2% Eye Drops] BOTH EYES SCH (08:49)
[2019-03-09] MEDS: CHOLECALCIFEROL 1,000 UNIT TAB PO SCH (08:49)
[2019-03-09] MEDS: ENOXAPARIN 40 MG/0.4 ML SYRINGE SQ SCH (08:49)
[2019-03-09] MEDS: FUROSEMIDE 40 MG TAB PO SCH ×2 (08:49→12:23)
--- NOTE | 2019-03-09 12:50 | P.PN ---
Subjective Progress Note Date: 03/09/19 Principal diagnosis: Chronic diastolic congestive heart failure This is a pleasant 78-year-old female patient who sees Dr. Serrano in the office as an outpatient with history of chronic diastolic congestive heart failure, chronic persistent atrial fibrillation, hypertension, dyslipidemia, was admitted to the hospital with increasing shortness of breath and she was diagnosed with acute exacerbation of congestive heart failure secondary to diastolic dysfunction. On follow-up with her today, she seems to be feeling better in terms of shortness of breath. No chest pain or chest discomfort. She still have bilateral rhonchi. The patient would like to be discharged home. Objective - Vital Signs Vital signs: Vital Signs Temp 98.3 F 03/09/19 08:00 Pulse 84 03/09/19 08:32 Resp 20 03/09/19 08:00 BP 127/60 03/09/19 08:00 Pulse Ox 97 03/09/19 03:39 Intake & Output 03/08/19 03/09/19 03/09/19 18:59 06:59 18:59 Intake Total 1440 480 Balance 1440 480 Weight 66.6 kg Intake: Oral 1440 480 Other: Voiding Method Bedpan Toilet Diaper # Voids 2 1 - Constitutional General appearance: Present: no acute distress - Respiratory Respiratory: bilateral: rales - Cardiovascular Rhythm: irregularly irregular Heart sounds: normal: S1, S2 - Labs CBC & Chem 7: 03/06/19 12:08 03/09/19 07:50 Labs: Abnormal Lab Results - Last 24 Hours (Table) 03/09/19 Range/Units 07:50 Sodium 133 L (137-145) mmol/L BUN 18 H (7-17) mg/dL Creatinine 1.09 H (0.52-1.04) mg/dL Glucose 134 H (74-99) mg/dL Assessment and Plan Assessment: Assessment #1 acute exacerbation of diastolic congestive heart failure. The patient does have evidence of right as well as left heart failure #2 diastolic congestive heart failure related to hypertensive heart disease #3 valvular heart disease with evidence of severe tricuspid regurgitation on recent echocardiogram #4 severe pulmonary hypertension. The pulmonary artery systolic pressure was almost 60 mmHg on recent echocardiogram #5 chronic obstructive pulmonary disease #6 intermediate nonobstructive coronary artery disease #7 chronic atrial fibrillation with controlled heart rate #8 noncompliance with medications as well as diet Plan #1 continue the current medical regimen #2 the patient can be discharged home
--- NOTE | 2019-03-09 15:18 | P.PN ---
Subjective Progress Note Date: 03/09/19 Principal diagnosis: Acute exacerbation of diastolic congestive heart failure. This 78-year-old female patient with known history of chronic atrial fibrillation, chronic right-sided heart failure with significant pulmonary hypertension and chronic lower extremity edema along with a component of diastolic heart failure and a preserved LV function who comes into the hospital because of worsening shortness of breath. In terms of her pulmonary status, the patient a remote history of atypical mycobacterial infection that was treated appropriately. She has also history of rheumatoid arthritis and she does not take any form of immunosuppressive agents for now. She has also hypertension and hypothyroidism. The patient has had several hospitalizations in the past. She was in the hospital recently back in January 2019. The patient had an echocardiogram at that time showed a hyperdynamic LV with an EF of around 70%. There was severe pulmonary hypertension with a PA pressure of 57 and there was no significant inspiratory collapse of the IVC consistent with elevated right atrial pressure. The patient is coming in today to the hospital because of worsening shortness of breath. She had exertional dyspnea and orthopnea along with lower extremity edema. CAT scan of the chest was done in the emergency department and the patient was found to have bilateral pleural effusion and pulmonary edema. There was no evidence of any pulmonary embolism. The patient was started on IV Lasix. She has diuresed significantly over the past few hours and the patient is feeling better. She is currently on room air oxygen. He continues to have increased edema in lower extremities. Note that her proBNP level was 4870 and troponins were negative and d-dimer was 0.82. The patient will be seen by cardiology. Her hemoglobin is at 12.8. Her white cell count is at 8. In terms of her pulmonary status, her last function test showed an FEV1 of 4.6 L which is 70% of predicted and she had an FVC of 31% of predicted. As mentioned she is off immunosuppressive agents. She is oxygen as needed and during sleep. The patient is seen today 03/08/2019 in follow-up on the selective care unit. She is currently sitting up in a chair at the bedside. Awake and alert in no acute distress. Breathing a bit easier today as compared to yesterday. Maintaining O2 saturations in the low 90s on room air. She's afebrile. Sodium 137. Potassium 4.6. Creatinine 1.29. On oral Lasix 40 mg twice a day. Lovenox for DVT prophylaxis. Patient is seen today 03/09/2019 in follow-up on the selective care unit. She remains awake and alert in no acute distress. No worsening shortness of breath, cough or congestion. She is maintaining good O2 saturations in the mid 90s on room air. She's afebrile. Hemodynamically stable. Sodium 133. Potassium 4.3. Creatinine 1.09. Objective - Vital Signs Vital signs: Vital Signs Temp 98.3 F 03/09/19 08:00 Pulse 84 03/09/19 08:32 Resp 20 03/09/19 08:00 BP 127/60 03/09/19 08:00 Pulse Ox 97 03/09/19 03:39 Intake & Output 03/08/19 03/09/19 03/09/19 18:59 06:59 18:59 Intake Total 1440 924 Balance 1440 924 Weight 66.6 kg Intake: Oral 1440 924 Other: Voiding Method Bedpan Toilet Diaper # Voids 2 1 - Exam GENERAL EXAM: Alert, pleasant, 78-year-old female, on room air, with a pulse ox of 95% in no apparent distress. HEAD: Normocephalic/atraumatic. EYES: Normal reaction of pupils, equal size. Conjunctiva pink, sclera white. NOSE: Clear with pink turbinates. THROAT: No erythema or exudates. NECK: No masses, no JVD, no thyroid enlargement, no adenopathy. CHEST: No chest wall deformity. Symmetrical expansion. LUNGS: Equal air entry with no rhonchi, no wheezing, and the patient diminished breath sounds in lung bases bilaterally CVS: Regular rate and rhythm, normal S1 and S2, no gallops, no murmurs, no rubs ABDOMEN: Soft, nontender. No hepatosplenomegaly, normal bowel sounds, no guarding or rigidity. EXTREMITIES: No clubbing, and there is increased bilateral edema, no cyanosis, 2+ pulses and upper and lower extremities. MUSCULOSKELETAL: Muscle strength and tone normal. SPINE: No scoliosis or deformity SKIN: Multiple areas of healing wounds circular shaped on bilateral lower extremities. CENTRAL NERVOUS SYSTEM: No focal deficits, tone is normal in all 4 extremities. PSYCHIATRIC: Alert and oriented -3. Appropriate affect. Intact judgment and insight. - Labs CBC & Chem 7: 03/06/19 12:08 03/09/19 07:50 Labs: Abnormal Lab Results - Last 24 Hours (Table) 03/09/19 Range/Units 07:50 Sodium 133 L (137-145) mmol/L BUN 18 H (7-17) mg/dL Creatinine 1.09 H (0.52-1.04) mg/dL Glucose 134 H (74-99) mg/dL Assessment and Plan Assessment: Impression: 1 acute decompensated heart failure with exertional dyspnea, orthopnea and paroxysmal nocturnal dyspnea along with elevated BNP level. The patient had developed bilateral pleural effusion. ProBNP level was also elevated. The patient has hyperdynamic LV with diastolic heart failure and severe pulmonary hypertension indicating right-sided failure. She has responded nicely to diuretics. 2 COPD, mild with an FEV1 of 1.6 L which is 70% of predicted 3 remote history of atypical mycobacterial infection treated and ecchymosis a bronchoscopy showed no ongoing bacterial growth 4 hypertension 5 mild nonocclusive coronary artery disease 6 paroxysmal atrial fibrillation 7 limited bronchiectasis involving the lungs with mild obstructive airway limitation 8 Rheumatoid arthritis treated with immunosuppressive agents including methotrexate and later on with Olumient\, currently none 9 Chronic pulmonary fibrosis with chronic dyspnea, with most recent CT chest in November 2018 showing interval worsening in the scarring in the lower lobes, and biapical scarring remained unchanged 10 lower extremity wounds, chronic, uninfected 11 hypothyroidism 12 history of diverticular disease Plan: The patient was seen and evaluated by Dr. Tilley. She is currently improved from the pulmonary standpoint. She is cleared for discharge. Follow-up in our office in 1-2 weeks' time. She is encouraged to call sooner with any recurrence of symptoms or other questions or concerns. I, the cosigning physician, performed a history & physical examination of the patient. Lungs sounds with basilar crackles. Maintaining good O2 saturations in the 90s on room air. I discussed the assessment and plan of care with my nurse practitioner, Sylvia Ritchie. I attest to the above note as dictated by her.
[2019-03-09 15:19] VITALS: BP 143/89; PULSE 100; RESP 18; TEMP 98.6
== END 2019-03-09 16:48 | DRG 292 ==
LOC: EC 11:39 → OBSVTOIN 18:07 → 3SCARD 18:07
PROVIDERS: ADMIT Internal Medicine Geriatric Medicine; ATTEND Internal Medicine Geriatric Medicine
DX: I11.0 Hypertensive heart disease with heart failure (principal); I48.1 Persistent atrial fibrillation; E03.9 Hypothyroidism, unspecified; E78.5 Hyperlipidemia, unspecified; F17.210 Nicotine dependence, cigarettes, uncomplicated; F32.9 Major depressive disorder, single episode, unspecified; G47.30 Sleep apnea, unspecified; Z99.89 Dependence on other enabling machines and devices; H40.9 Unspecified glaucoma; I08.3 Combined rheumatic disorders of mitral, aortic and tricuspid valves; I25.10 Atherosclerotic heart disease of native coronary artery without angina pectoris; I27.29 Other secondary pulmonary hypertension; I27.81 Cor pulmonale (chronic); I48.2 Chronic atrial fibrillation; Z86.010 Personal history of colon polyps; I50.33 Acute on chronic diastolic (congestive) heart failure; Z87.01 Personal history of pneumonia (recurrent); Z87.440 Personal history of urinary (tract) infections; J44.9 Chronic obstructive pulmonary disease, unspecified; J84.10 Pulmonary fibrosis, unspecified; K21.9 Gastro-esophageal reflux disease without esophagitis; M06.9 Rheumatoid arthritis, unspecified; Z79.890 Hormone replacement therapy; Z79.899 Other long term (current) drug therapy; Z80.1 Family history of malignant neoplasm of trachea, bronchus and lung; Z86.79 Personal history of other diseases of the circulatory system; Z90.710 Acquired absence of both cervix and uterus; Z91.14 Patient's other noncompliance with medication regimen; Z98.41 Cataract extraction status, right eye; Z98.42 Cataract extraction status, left eye; Z96.653 Presence of artificial knee joint, bilateral; Z96.1 Presence of intraocular lens; Z99.81 Dependence on supplemental oxygen; Z91.11 Patient's noncompliance with dietary regimen; H54.62 Unqualified visual loss, left eye, normal vision right eye; Z88.5 Allergy status to narcotic agent; S81.802A Unspecified open wound, left lower leg, initial encounter; S81.801A Unspecified open wound, right lower leg, initial encounter
CPT/HCPCS: 36415; 71046; 71275; 80048; 80053; 83605; 83735; 83880; 84484; 85025; 85379; 85610; 85730; 93005; 94640; 94760; 96361; 96374; 99291

== ENCOUNTER 2019-05-28 11:18 | Inpatient (IN) | payer MEDICARE ==
[2019-05-28] MEDS ORDERED: MORPHINE SULFATE 2 MG/ML SYRINGE IVP STA (11:44)
[2019-05-28] MEDS ORDERED: HYDROmorphone 1 MG/ML 1 ML SYRINGE IVP STA ×2 (12:24→13:41)
--- NOTE | 2019-05-28 12:25 | ED ---
Fall HPI - General Chief Complaint: Fall Stated Complaint: Knee Pain Time Seen by Provider: 05/28/19 11:24 Source: EMS Mode of arrival: EMS - History of Present Illness Initial Comments: The patient is a 78-year-old female with multiple medical problems who presents to the emergency department after she sustained a fall. The patient reports that she is essentially bedbound. She will occasionally walk with a walker. She was ambulating back to her bed today she stopped to put several items in a bag. She states that when she did this, she lost her balance and fell forward. She landed on her left knee, just at the foot of her bed. She has a history of previous bilateral knee replacements. She was unable to ambulate. She is able to pull her phone from her bed called EMS. She refused pain medications upon transport. She does have obvious deformity and external rotation of the left leg. She denies any blunt head trauma. She is not on any anticoagulation. She does have previous bilateral knee replacements done by Dr. Plasencia. Last of which was done in August 2 years ago. She denies any numbness or tingling in her lower extremity. No pain in her foot or ankle. Denies any hip pain. There are no other alleviating, precipitating or modifying factors - Related Data Home Medications Medication Instructions Recorded Confirmed Atenolol 50 mg PO HS 12/22/16 05/28/19 Brinzolamide/Brimonidine Tart 1 drop BOTH EYES DAILY 12/22/16 05/28/19 [Simbrinza 1%-0.2% Eye Drops] Folic Acid 1 mg PO BID 12/22/16 05/28/19 Levothyroxine Sodium [Synthroid] 75 mcg PO DAILY 12/22/16 05/28/19 Pantoprazole Sodium [Protonix] 40 mg PO BID 12/22/16 05/28/19 Ascorbic Acid [Vitamin C] 500 mg PO DAILY 05/18/18 05/28/19 Atorvastatin [Lipitor] 40 mg PO DAILY 12/29/18 05/28/19 Cholecalciferol (Vitamin D3) 2,000 unit PO DAILY 12/29/18 05/28/19 [Vitamin D3] rOPINIRole HCL [Requip] 0.5 mg PO TID 12/29/18 05/28/19 Acetaminophen Tab [Tylenol] 325 mg PO Q6H PRN 01/29/19 05/28/19 Benzonatate [Tessalon Perles] 100 mg PO TID PRN 01/29/19 05/28/19 Ipratropium-Albuterol Nebulize 3 ml INHALATION RT-QID PRN 05/28/19 05/28/19 [Duoneb 0.5 mg-3 mg/3 ml Soln] Multivit-Min/Iron/Folic/Lutein 1 tab PO DAILY 05/28/19 05/28/19 [Centrum Silver Women Tablet] Previous Rx's Medication Instructions Recorded DULoxetine HCL [Cymbalta] 30 mg PO DAILY #30 capsule. 03/09/19 Furosemide [Lasix] 40 mg PO BID@0900,1300 #60 tab 03/09/19 Zolpidem [Ambien] 5 mg PO HS PRN #3 tab 05/31/19 Allergies Allergy/AdvReac Type Severity Reaction Status Date / Time morphine AdvReac Severe Hallucinati Verified 05/28/19 11:57 ons Review of Systems ROS Statement: Those systems with pertinent positive or pertinent negative responses have been documented in the HPI. ROS Other: All systems not noted in ROS Statement are negative. 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 Past Anesthesia/Blood Transfusion Reactions: No Reported Reaction Additional Past Anesthesia/Blood Transfusion Reaction / Comment(s): Pt has received blood in past without reaction. Past Psychological History: No Psychological Hx Reported Smoking Status: Former smoker - Past Family History Father Family Medical History: Cancer Additional Family Medical History / Comment(s): at age 68 from lung cancer Mother Family Medical History: Cancer Additional Family Medical History / Comment(s): at age 83 from lung cancer Brother(s) Family Medical History: Cancer Additional Family Medical History / Comment(s): at age 63 from lung cancer. Son(s) Additional Family Medical History / Comment(s): She has 2 sons with no major medical problems. General Exam Limitations: no limitations General appearance: alert, in no apparent distress Head exam: Present: atraumatic, normocephalic, normal inspection Eye exam: Present: normal appearance, PERRL, EOMI. Absent: scleral icterus, conjunctival injection, periorbital swelling ENT exam: Present: normal exam, mucous membranes moist Neck exam: Present: normal inspection. Absent: tenderness, meningismus, lymphadenopathy Respiratory exam: Present: normal lung sounds bilaterally. Absent: respiratory distress, wheezes, rales, rhonchi, stridor Cardiovascular Exam: Present: regular rate, normal rhythm, normal heart sounds. Absent: systolic murmur, diastolic murmur, rubs, gallop, clicks GI/Abdominal exam: Present: soft, normal bowel sounds. Absent: distended, tenderness, guarding, rebound, rigid Extremities exam: Present: tenderness (tenderness to palpation of the left knee up to the hip. Patient does not have pain with palpation of the pelvis. she will not flex or extend her left knee secondary to pain. Left leg is externally rotated. ), normal capillary refill. Absent: pedal edema, joint swelling, calf tenderness Back exam: Present: normal inspection Neurological exam: Present: alert, oriented X3, CN II-XII intact Psychiatric exam: Present: normal affect, normal mood Skin exam: Present: warm, dry, intact, normal color. Absent: rash Course Vital Signs 05/28/19 05/28/19 11:20 13:49 Temperature 98.2 F Pulse Rate 98 101 H Respiratory 16 22 Rate Blood Pressure 147/109 149/114 O2 Sat by Pulse 93 L 93 L Oximetry Medical Decision Making - Medical Decision Making Poni arrival the patient was placed into room 28. A thorough history and physical exam is performed. The patient does have obvious deformity of the left lower extremity. She does have palpable 2+ pulses. I did recommend a femur and knee x-ray. Left knee x-ray demonstrates acute obliquely oriented acute subcapital impaction fracture of the left femoral neck. No acute abnormality at the knee. I discussed this with the patient. The patient will need preop clearance and therefore I performed a chest x-ray, EKG and blood work. Chest x- ray demonstrates cardiomegaly with bilateral infiltrates and pleural effusions underlying interstitial lung disease. Twelve-lead EKG demonstrates A. fib for which the patient does have a history of. I called and discussed the case with Dr. Luna who accepted admission of the patient. I will put medicine on for clearance. The patient was originally given 2 mg of morphine for pain control as she was requesting to start small. This did not help her pain and therefore she was given a milligram of Dilaudid. Patient did have great improvement in her pain for approximately 2 hours after which she was given a subsequent dose of Dilaudid. Bridging orders were placed and the patient was transported to the floor in stable condition - Lab Data Result diagrams: 05/31/19 16:28 05/29/19 08:21 Lab Results 05/28/19 05/28/19 05/28/19 Range/Units 13:53 13:53 13:53 WBC 14.7 H (3.8-10.6) k/uL RBC 3.93 (3.80-5.40) m/uL Hgb 12.2 (11.4-16.0) gm/dL Hct 37.4 (34.0-46.0) % MCV 95.0 (80.0-100.0) fL MCH 31.1 (25.0-35.0) pg MCHC 32.7 (31.0-37.0) g/dL RDW 14.5 (11.5-15.5) % Plt Count 303 (150-450) k/uL Neutrophils % 84 % Lymphocytes % 10 % Monocytes % 3 % Eosinophils % 1 % Basophils % 0 % Neutrophils # 12.4 H (1.3-7.7) k/uL Lymphocytes # 1.5 (1.0-4.8) k/uL Monocytes # 0.5 (0-1.0) k/uL Eosinophils # 0.1 (0-0.7) k/uL Basophils # 0.0 (0-0.2) k/uL PT 10.6 (9.0-12.0) sec INR 1.0 (<1.2) APTT 23.3 (22.0-30.0) sec Sodium 137 (137-145) mmol/L Potassium 4.4 (3.5-5.1) mmol/L Chloride 105 (98-107) mmol/L Carbon Dioxide 25 (22-30) mmol/L Anion Gap 7 mmol/L BUN 14 (7-17) mg/dL Creatinine 0.86 (0.52-1.04) mg/dL Est GFR (CKD-EPI)AfAm 75 (>60 ml/min/1.73 sqM) Est GFR (CKD-EPI)NonAf 65 (>60 ml/min/1.73 sqM) Glucose 99 (74-99) mg/dL Calcium 9.8 (8.4-10.2) mg/dL Total Bilirubin 0.4 (0.2-1.3) mg/dL AST 39 H (14-36) U/L ALT 34 (9-52) U/L Alkaline Phosphatase 187 H (38-126) U/L Total Protein 7.2 (6.3-8.2) g/dL Albumin 3.6 (3.5-5.0) g/dL - EKG Data EKG Comments: EKG demonstrates atrial fibrillation with a rate of 117. QRS E4. QTC 468. No acute ST segment elevations or depressions concerning for ischemic changes. Patient does have history of A. fib Disposition Clinical Impression: Fall, Hip fracture, left Disposition: ADMITTED IP TO THIS HOSP Condition: Stable Is patient prescribed a controlled substance at d/c from ED?: No Decision to Admit Reason: Admit from EC Decision Date: 05/28/19 Decision Time: 14:15
--- NOTE | 2019-05-28 13:22 | XR ---
EXAMINATION TYPE: XR femur LT, XR knee limited LT DATE OF EXAM: 05/28/2019 CLINICAL HISTORY: Left hip and femur pain as well as knee pain after fall TECHNIQUE: Two views of the left femur are obtained. COMPARISON: None FINDINGS: There is an obliquely oriented acute subcapital impaction fracture of the left femoral neck with approximately 1.4 cm foreshortening and 2 cm lateral displacement of the distal fracture fragme nt. 3 mm fracture fragment is also displaced 5 mm cranially and laterally. Diffuse osseous deminerali zation is seen. Alignment of the left knee arthroplasty is present. No acute fracture of the left kne e. No suprapatellar joint effusion. Moderate atherosclerosis. IMPRESSION: 1. Acute impaction fracture of the left femoral subcapital foreshortening and lateral displacement. P unctate comminuted fragment is also noted. 2. No acute fracture or malalignment of the left knee arthroplasty.
--- NOTE | 2019-05-28 13:29 | XR ---
EXAMINATION TYPE: XR chest 1V DATE OF EXAM: 05/28/2019 COMPARISON: 04/30/2019 HISTORY: Shortness of breath TECHNIQUE: Single frontal view of the chest is obtained. FINDINGS: Heart is enlarged and there is bilateral pleural effusions and consolidation. Surgical cli ps in the epigastrium. Degenerative change of the spine. Coarsened interstitium. Biapical pleural thi ckening which is somewhat nodular on the left. Basilar subsegmental consolidation. IMPRESSION: 1. Cardiomegaly correlate for bilateral infiltrate and pleural effusion. Underlying interstitial lung disease with superimposed pneumonitis or venous congestion suspected. 2. Biapical pleural thickening with somewhat nodular appearance greater on the left. This appears pro gressed from the x-ray of 12/11/1918. Consider PET scan.
[2019-05-28] MEDS ORDERED: NALOXONE 0.4 MG/ML 1 ML VIAL IV PRN (14:16)
[2019-05-28 14:30] LABS: Basophils % (A) 0 %; Eosinophils # (A) 0.1 k/uL (0-0.7); Eosinophils % (A) 1 %; HCT 37.4 % (34.0-46.0); HGB 12.2 gm/dL (11.4-16.0); Lymphocytes # (A) 1.5 k/uL (1.0-4.8); Lymphocytes % (A) 10 %; MCH 31.1 pg (25.0-35.0); MCHC 32.7 g/dL (31.0-37.0); Mean Platelet Volume 6.5; Monocytes # (A) 0.5 k/uL (0-1.0); Monocytes % (A) 3 %; Neutrophils # (A) 12.4 k/uL (1.3-7.7); Neutrophils % (A) 84 %; Platelet Count 303 k/uL (150-450); RBC 3.93 m/uL (3.80-5.40); RDW 14.5 % (11.5-15.5); WBC 14.7 k/uL (3.8-10.6)
[2019-05-28 14:36] LABS: Albumin 3.6 g/dL (3.5-5.0); Calcium 9.8 mg/dL (8.4-10.2); Potassium 4.4 mmol/L (3.5-5.1); Total Bilirubin 0.4 mg/dL (0.2-1.3); Total Protein 7.2 g/dL (6.3-8.2)
[2019-05-28 14:37] LABS: Partial Thromboplastin Time 23.3 sec (22.0-30.0); Prothrombin Time 10.6 sec (9.0-12.0)
[2019-05-28] MEDS: HYDROmorphone 1 MG/ML 1 ML SYRINGE IVP PRN ×3 (15:39→22:38)
[2019-05-28] MEDS ORDERED: HYDROcodone/APAP 5-325MG 1 EACH TAB PO PRN (17:12)
[2019-05-28] MEDS ORDERED: BENZONATATE 100 MG CAP PO PRN (21:01)
[2019-05-28] MEDS ORDERED: IPRATROPIUM-ALBUTEROL 3 ML NEB INHALATION PRN (21:01)
[2019-05-29] MEDS: ZOLPIDEM 5 MG TAB PO PRN (01:21)
[2019-05-29] MEDS: HYDROmorphone 1 MG/ML 1 ML SYRINGE IVP PRN ×5 (05:03→23:47)
[2019-05-29] MEDS: LEVOTHYROXINE 75 MCG TAB PO SCH (05:39)
[2019-05-29] MEDS: DULoxetine HCL 30 MG CAPSULE.DR PO SCH (07:45)
[2019-05-29] MEDS: ATORVASTATIN 40 MG TAB PO SCH (07:45)
[2019-05-29] MEDS: PANTOPRAZOLE 40 MG TABLET PO SCH ×2 (07:45→20:08)
[2019-05-29] MEDS: FUROSEMIDE 40 MG TAB PO SCH ×2 (07:45→18:01)
[2019-05-29] MEDS: CHOLECALCIFEROL 1,000 UNIT TAB PO SCH (07:46)
[2019-05-29] MEDS: MULTIVITAMINS, THERA 1 EACH TAB PO SCH (07:46)
[2019-05-29] MEDS: FOLIC ACID 1 MG TAB PO SCH ×2 (07:46→20:08)
[2019-05-29] MEDS: ASCORBIC ACID 500 MG TAB PO SCH (07:46)
--- NOTE | 2019-05-29 08:39 | P.HPOR ---
History of Present Illness H&P Date: 05/29/19 This patient is a 78-year-old female with a past medical history of chronic atrial fibrillation not on oral anticoagulation, coronary artery disease, heart failure, rheumatoid arthritis, GERD, hypertension, hypothyroidism, bilateral total knee arthroplasties by Dr. Ney Plasencia that presented to the [facility] ER via EMS after a fall in the home. The patient states she is mostly bedridden, and she was up walking to the bathroom with her walker, which medical for walker to grab something from a shelf and lost her balance, fell directly onto the left hip. The patient states she explains immediate, severe pain in left hip and she was unable to get up on her own. Therefore, the patie nt called EMS. X-rays taken in the emergency department revealed a subcapital femoral neck fracture. Patient was admitted under the care of Dr. Luna for surgical intervention and treatment, with a consult placed to internal medicine for preoperative medical clearance. At the time exam, the patient is complaining of pain in the left hip. She states her pain is currently well-controlled, as she just received a dose of IV Dilaudid. She denies pain in her bilateral knees, ankles, or feet, or upper extremities. She states she is mostly bedridden at home, secondary to her breathing. She denies additional complaints currently. Vital signs stable. 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 Past Anesthesia/Blood Transfusion Reactions: No Reported Reaction Additional Past Anesthesia/Blood Transfusion Reaction / Comment(s): Pt has received blood in past without reaction. Past Psychological History: No Psychological Hx Reported Smoking Status: Former smoker - Past Family History Father Family Medical History: Cancer Additional Family Medical History / Comment(s): at age 68 from lung cancer Mother Family Medical History: Cancer Additional Family Medical History / Comment(s): at age 83 from lung cancer Brother(s) Family Medical History: Cancer Additional Family Medical History / Comment(s): at age 63 from lung cancer. Son(s) Additional Family Medical History / Comment(s): She has 2 sons with no major medical problems. Medications and Allergies Home Medications Medication Instructions Recorded Confirmed Type Atenolol 50 mg PO HS 12/22/16 05/28/19 History Brinzolamide/Brimonidine Tart 1 drop BOTH EYES DAILY 12/22/16 05/28/19 History [Simbrinza 1%-0.2% Eye Drops] Folic Acid 1 mg PO BID 12/22/16 05/28/19 History Levothyroxine Sodium [Synthroid] 75 mcg PO DAILY 12/22/16 05/28/19 History Pantoprazole Sodium [Protonix] 40 mg PO BID 12/22/16 05/28/19 History Ascorbic Acid [Vitamin C] 500 mg PO DAILY 05/18/18 05/28/19 History Atorvastatin [Lipitor] 40 mg PO DAILY 12/29/18 05/28/19 History Cholecalciferol (Vitamin D3) 2,000 unit PO DAILY 12/29/18 05/28/19 History [Vitamin D3] rOPINIRole HCL [Requip] 0.5 mg PO TID 12/29/18 05/28/19 History Acetaminophen Tab [Tylenol] 325 mg PO Q6H PRN 01/29/19 05/28/19 History Benzonatate [Tessalon Perles] 100 mg PO TID PRN 01/29/19 05/28/19 History DULoxetine HCL [Cymbalta] 30 mg PO DAILY #30 capsule. 03/09/19 05/28/19 Rx Furosemide [Lasix] 40 mg PO BID@0900,1300 #60 tab 03/09/19 05/28/19 Rx Zolpidem [Ambien] 5 mg PO HS PRN tab 03/09/19 05/28/19 Rx Ipratropium-Albuterol Nebulize 3 ml INHALATION RT-QID PRN 05/28/19 05/28/19 History [Duoneb 0.5 mg-3 mg/3 ml Soln] Multivit-Min/Iron/Folic/Lutein 1 tab PO DAILY 05/28/19 05/28/19 History [Centrum Silver Women Tablet] Allergies Allergy/AdvReac Type Severity Reaction Status Date / Time morphine AdvReac Severe Hallucinati Verified 05/28/19 11:57 ons Physical Examination On examination, the patient is sitting up in bed in mild distress. She is alert and orientated x3. Her head appears atraumatic and normocephalic. Her bilateral upper extremities show no obvious deformities. On inspection, the left lower extremity is externally rotated. There is severe pain on palpation of the left hip, PROM of the hip is not attempted. Mild pain on palpation of the left knee. No pain on palpation of the left tibia and fibula, ankle, foot. Patient has good range of motion of the left ankle and toes. Left lower extremity is warm and well perfused with brisk capillary refill of the toes. Motor and sensory function are intact of lower extremity. Left calf is soft and nontender to palpation. There is no pain on palpation of the right hip, knee, ankle, foot. No pain with passive range of motion of the right hip, knee, ankle, foot. The right lower extremity is warm and well-perfused. Right calf is soft and nontender to palpation. Results Left knee x-ray 05/28/19: No acute fracture or malalignment of the left total knee arthroplasty. Left hip x-ray 05/28/19: Left subcapital femoral neck fracture. - Labs Labs: Abnormal Lab Results - Last 24 Hours (Table) 05/28/19 05/28/19 Range/Units 13:53 13:53 WBC 14.7 H (3.8-10.6) k/uL Neutrophils # 12.4 H (1.3-7.7) k/uL AST 39 H (14-36) U/L Alkaline Phosphatase 187 H (38-126) U/L H & H 05/28/19 Range/Units 13:53 Hgb 12.2 (11.4-16.0) gm/dL Hct 37.4 (34.0-46.0) % Coagulation 05/28/19 Range/Units 13:53 INR 1.0 (<1.2) Result Diagrams: 05/28/19 13:53 05/28/19 13:53 Assessment and Plan Assessment: Left subcapital femoral neck fracture. Plan: - I discussed the clinical and x-ray findings with the patient. We will plan on a left hip hemiarthroplasty with Dr. Luna this afternoon, pending medical clearance and consent. - Strict non-weight bearing of the left lower extremity. Ice and elevate left hip for pain and swelling control. - Continue current pain management. - NPO diet. - Appreciate internal medicine consultation for medical management. - Patient discussed with Dr. Luna.
[2019-05-29] MEDS: Brinzolamide/Brimonidine Tart [Simbrinza 1%-0.2% Eye Drops] BOTH EYES SCH (09:39)
[2019-05-29 09:41] LABS: Basophils # (A) 0.1 k/uL (0-0.2); Basophils % (A) 1 %; Eosinophils # (A) 0.1 k/uL (0-0.7); Eosinophils % (A) 1 %; HCT 35.8 % (34.0-46.0); HGB 11.9 gm/dL (11.4-16.0); Lymphocytes # (A) 1.5 k/uL (1.0-4.8); Lymphocytes % (A) 12 %; MCH 31.6 pg (25.0-35.0); MCHC 33.2 g/dL (31.0-37.0); MCV 95.3 fL (80.0-100.0); Monocytes # (A) 0.7 k/uL (0-1.0); Monocytes % (A) 6 %; Neutrophils # (A) 9.4 k/uL (1.3-7.7); Neutrophils % (A) 80 %; Platelet Count 247 k/uL (150-450); RBC 3.75 m/uL (3.80-5.40); RDW 14.8 % (11.5-15.5); WBC 11.9 k/uL (3.8-10.6)
[2019-05-29 09:55] LABS: Calcium 9.9 mg/dL (8.4-10.2)
[2019-05-29 10:05] LABS: Potassium 5.2 mmol/L (3.5-5.1)
--- NOTE | 2019-05-29 13:45 | P.CONS ---
History of Present Illness - Reason for Consult Consult date: 05/28/19 Medical Management Requesting physician: Marlo Luna - Chief Complaint Left hip fracture post fall, A. fib, COPD, pulmonary fibrosis, recurrent pn - History of Present Illness 78-year-old female one of our office patient with past medical history of chronic atrophy fibrillation not on any anticoagulation since February this year approve by her bdc manager Dr. Ibarra also known to have history of active fibrillation, history of rheumatic long, rheumatoid arthritis, GERD, hypertension and hypothyroidism who was hospitalized last time for fluid overload and pulmonary edema in February end up going to [facility] on the [place] for 2 weeks and end up home. Patient seen Dr. Lee and Dr. Serrano on regular basis she apparently was ambulating back and to her bed when she stopped to put several items in the back and according to patient lost her balance and fell forward traumatize the left side fell on her hip and developed to have severe pain not been able to ambulate and walk did not have any other injury no head trauma. EMS was called to the scene and end up being transported to the emergency department at [facility] where was seen and evaluated was admitted to Dr. Luna service for possible hemiarthroplasty of the left hip for intratrochanteric fracture. Review of Systems CONSTITUTIONAL: Well-developed no acute respiratory distress. EYES: No icterus sclerae, no conjunctivitis. EARS, NOSE, MOUTH, THROAT, and FACE: No sore throat, lymphadenopathy, carotid bruits or deformity. RESPIRATORY: No SOB cough or wheezes. CARDIOVASCULAR: Positive mild PND orthopnea and palpitation with A. fib. GASTROINTESTINAL: No Abd pain, Nausea or vomiting, no Diarrhea or constipation, No GI Bleed, no distention or masses. GENITOURINARY: Negative for Hematuria or UTI, no kidney stones. INTEGUMENT/BREAST: Positive left hip pain and discomfort and multiple bruises all over the legs. HEMATOLOGIC/LYMPHATIC: Multiple ecchymosis and purpura with no active bleed. MUSCULOSKELTAL: Positive pain and discomfort in the left hip area in the entire leg. NEURLOGICAL: No LOC, Sz or syncope, blurred vision dizziness or abnormality.. BEHAVIORAL/PSYCH: Negative. ENDOCRINE: Negative. 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 Past Anesthesia/Blood Transfusion Reactions: No Reported Reaction Additional Past Anesthesia/Blood Transfusion Reaction / Comm: Pt has received blood in past without reaction. Past Psychological History: No Psychological Hx Reported Additional Psychological History / Comment(s): Pt resides at home. Her spouse is currently at [facility] receiving rehab post hip replacement. Normally pt's spouse manages her medications and drives her to appts. She states she is currently managing her own medications or she doesn't take them. She states while her spouse is in rehab, she can get rides from her son or neighbors. She uses a wheeled walker to ambulate. Smoking Status: Former smoker Past Alcohol Use History: None Reported Additional Past Alcohol Use History / Comment(s): Pt resides at home. She uses a wheeled walker to ambulate. The patient was a smoker one pack per day for 42 years and quit smoking and 2000. She drinks alcohol socially. She was at home with her . Past Drug Use History: None Reported Past Drug Use History: None Reported - Past Family History Father Family Medical History: Cancer Additional Family Medical History / Comment(s): at age 68 from lung cancer Mother Family Medical History: Cancer Additional Family Medical History / Comment(s): at age 83 from lung cancer Brother(s) Family Medical History: Cancer Additional Family Medical History / Comment(s): at age 63 from lung cancer. Son(s) Additional Family Medical History / Comment(s): She has 2 sons with no major medical problems. Medications and Allergies Home Medications Medication Instructions Recorded Confirmed Type Atenolol 50 mg PO HS 12/22/16 05/28/19 History Brinzolamide/Brimonidine Tart 1 drop BOTH EYES DAILY 12/22/16 05/28/19 History [Simbrinza 1%-0.2% Eye Drops] Folic Acid 1 mg PO BID 12/22/16 05/28/19 History Levothyroxine Sodium [Synthroid] 75 mcg PO DAILY 12/22/16 05/28/19 History Pantoprazole Sodium [Protonix] 40 mg PO BID 12/22/16 05/28/19 History Ascorbic Acid [Vitamin C] 500 mg PO DAILY 05/18/18 05/28/19 History Atorvastatin [Lipitor] 40 mg PO DAILY 12/29/18 05/28/19 History Cholecalciferol (Vitamin D3) 2,000 unit PO DAILY 12/29/18 05/28/19 History [Vitamin D3] rOPINIRole HCL [Requip] 0.5 mg PO TID 12/29/18 05/28/19 History Acetaminophen Tab [Tylenol] 325 mg PO Q6H PRN 01/29/19 05/28/19 History Benzonatate [Tessalon Perles] 100 mg PO TID PRN 01/29/19 05/28/19 History DULoxetine HCL [Cymbalta] 30 mg PO DAILY #30 capsule. 03/09/19 05/28/19 Rx Furosemide [Lasix] 40 mg PO BID@0900,1300 #60 tab 03/09/19 05/28/19 Rx Zolpidem [Ambien] 5 mg PO HS PRN tab 03/09/19 05/28/19 Rx Ipratropium-Albuterol Nebulize 3 ml INHALATION RT-QID PRN 05/28/19 05/28/19 History [Duoneb 0.5 mg-3 mg/3 ml Soln] Multivit-Min/Iron/Folic/Lutein 1 tab PO DAILY 05/28/19 05/28/19 History [Centrum Silver Women Tablet] Allergies Allergy/AdvReac Type Severity Reaction Status Date / Time morphine AdvReac Severe Hallucinati Verified 05/28/19 11:57 ons Physical Exam Vitals: Vital Signs Temp Pulse Pulse Resp BP BP Pulse Ox 05/28/19 15:16 97.6 F 108 H 20 160/93 94 L 05/28/19 13:49 101 H 22 149/114 93 L 05/28/19 11:20 98.2 F 98 16 147/109 93 L Intake and Output 05/28/19 05/28/19 05/28/19 06:59 14:59 22:59 Intake Total 540 Output Total 185 200 Balance -185 340 Intake: Oral 540 Output: Urine 185 200 Straight 185 Other: Voiding Method Indwelling Catheter Weight 63.503 kg General Appearance: Alert, cooperative, no distress, appears stated age. Neck HEENT: Supple, no lymphadenopathy, no thyroid enlargement, no carotid bruits. Lungs: Decreased breath some bilaterally with fine rhonchi mild expiratory wheezes no crackles. Chest Wall: Decrease expansion with deep inspiration no tenderness and no deformity was found on exam, no costochondral pain or discomfort. Heart: Irregular rhythm and rate S1-S2 positive history positive ejection murmur with no gallop Back: Symmetric, no curvature, ROM normal, no CVA tenderness. Abdomen: Soft, non-tender, bowel sounds active all four quadrants, no masses, no organomegaly. Extremities: Significant bruises over both side left leg is shorter with external rotation significant pain and discomfort in the groin area. Pulses: 2+ and symmetric. Skin: Skin color, texture, tugor normal, no rashes or lesions. Neurologic: Alert oriented x3 cranial nerves II through XII intact, no motor deficit, no abnormal balance or gait. Results CBC & Chem 7: 05/29/19 08:21 05/29/19 08:21 Labs: Abnormal Lab Results - Last 24 Hours (Table) 05/28/19 05/28/19 Range/Units 13:53 13:53 WBC 14.7 H (3.8-10.6) k/uL Neutrophils # 12.4 H (1.3-7.7) k/uL AST 39 H (14-36) U/L Alkaline Phosphatase 187 H (38-126) U/L Assessment and Plan Plan: 1 left intertrochanteric fracture: Patient will be going for hemiarthroplasty, patient had no absolute current indication for surgery her risk and complication from not doing surgery is much greater patient will be clear for surgery at this point, patient will be watch hemodynamically during and after surgery will control her pain continue to watch her pulse ox heart rate continue to watch for any abnormality and might require a short course of anticoagulation after surgery as well. 2 A. fib with RVR: Pulse rate is well-controlled, patient has an absolute contraindication for anticoagulation from this past year with anemia and bleedin g she is off Eliqust she still on atenolol pulse rates under control. 3 recurrent pulmonary edema and atherosclerotic heart disease: Patient is doing well on medical management still seeing cardiology on regular basis. 4 acute kidney injury: On the chronic kidney disease, will continue mild hydrat ion for now recheck BUN/creatinine in the next few days. 5 chronic diastolic congestive heart failure: Patient still on furosemide and atenolol. 6 COPD: Continue O2 if needed continue DuoNeb and Pulmicort. 7 chronic depression: Has been on Cymbalta 30 mg daily. 8 hypothyroidism: Still on levothyroxine 75 g daily. 9 hyperlipidemia: On atorvastatin 40 mg a day. 10 restless leg syndrome: Has been on ropinirole prole. 11 pulmonary fibrosis: Idiopathic has been doing well seen pulmonary regular basis. GI prophylaxis: Remain on pantoprazole. DVT prophylaxis: Patient will be on anticoagulation for [address] Luna thank you very much for the consult patient is clear for surgery there is no absolute contraindication she'll be watch hemodynamically carefully after surgery the can be any further help to please let me know.
[2019-05-29] MEDS ORDERED: SODIUM CHLORIDE 0.9% 1,000 ML IV ONE (13:50)
[2019-05-29] MEDS ORDERED: KETAMINE 10 MG/ML 20 ML VIAL ONE (14:54)
[2019-05-29] MEDS ORDERED: diphenhydrAMINE 50 MG/ML 1 ML VIAL ONE (14:54)
[2019-05-29] MEDS ORDERED: MIDAZOLAM 2 MG/2 ML VIAL ONE (14:54)
[2019-05-29] MEDS ORDERED: PHENYLEPHRINE-0.9% NACL SYG 1 MG/10 ML SYRINGE ONE (14:54)
[2019-05-29] MEDS ORDERED: ceFAZolin 3,000 MG in SODIUM CHLORIDE 0.9% IRRIGATIO 3,000 ML IRRIGATION ONE (15:37)
[2019-05-29] MEDS ORDERED: MAGNESIUM HYDROXIDE 2,400 MG/10 ML CUP PO PRN (17:03)
[2019-05-29] MEDS ORDERED: ONDANSETRON 4 MG/2 ML VIAL IVP PRN (17:03)
[2019-05-29] MEDS ORDERED: hydrOXYzine PAMOATE 25 MG CAP PO PRN (17:03)
--- NOTE | 2019-05-29 17:19 | P.OP ---
Date of Procedure: 05/29/19 Preoperative Diagnosis: 1. Displaced left femoral neck fracture 2. Atrial fibrillation 3. Pulmonary fibrosis 4. Hypertension 5. Osteoporosis 6. Heart failure 7. Rheumatoid arthritis Postoperative Diagnosis: Same Procedure(s) Performed: Left hip hemiarthroplasty Anesthesia: MAN Surgeon: Marlo Luna Network Engineering Advisor #1: Viola Castro Estimated Blood Loss (ml): 50 IV fluids (ml): 100 Pathology: other (Femoral head to pathology) Condition: stable Disposition: PACU Indications for Procedure: The patient is a very pleasant 70-year-old female with multiple medical problems who sustained a ground-level fall resulting in a displaced left femoral neck fracture. She was brought to our ER and was admitted under my care. She was seen by internal medicine and cleared for surgery. I met with the patient and her to discuss treatment options. Since he presented with a displaced femoral neck fracture we discussed the need for arthroplasty. My recommendation was to perform a hip hemiarthroplasty area and we discussed potential risks and complications of surgery including but not limited to risks from anesthesia, superficial infection, deep infection, delayed wound healing, damage to local blood vessels or nerves, intraoperative fracture, postoperative fracture, hip dislocation, leg length discrepancy, postoperative periprosthetic fracture, continued or worsened pain, and inability to regain preinjury level of function, DVT, PE, other medical complications, and possibly loss of life or limb. The patient and her acknowledge that while these of the most common complications other less common complications are possible. They provided their verbal and written consent to go forward with surgery. Description of Procedure: The patient's and verified in preoperative holding and the correct left leg was marked with my initials. I reviewed the consent form with the patient and her . All the request the patient was then brought back to the operating room. She was given a spinal anesthetic and preoperative antibiotics on her gurney. She was then transferred onto the OR table. She was positioned in the lateral decubitus position with the left side up and the unaffected right side down. She was secured to the or table with a Montral frame. All bony prominences were well-padded. An axillary roll was placed. The left leg was then prepped and draped in standard sterile fashion. Prior to starting surgery timeout was performed identifying the correct patient, operative extremity, and procedure. I began by outlining an incision for standard posterolateral approach to the hip. Skin incision was made with a scalpel and dissection was carried down to the subcu tenderness fat with electrocautery. The IT band was identified distally and was split in line with the skin incision up to the level of the tip of the greater trochanter at which point the fibers of the gluteus nika were split bluntly with my finger. Remnants of the trochanteric bursa were elevated off the posterior femur using electrocautery. A Charnley retractor was placed deep to the IT band. The leading edge of the piriformis tendon was identified and a medium Vargas elevator was placed in the interval between the piriformis and short external rotators and the posterior hip capsule. The piriformis and short external hip rotators were elevated off the posterior femur using electrocautery. The posterior capsule was teed. There was a large flor of blood consistent with the fracture. The femoral neck fracture was identified. A femoral neck cut was made with a reciprocating saw 1 thumb breadth superior to the lesser trochanter. The femoral head was then removed with a corkscrew, passed off to the back table, sized to 47 mm, and sent to pathology. Retractors were placed in the proximal femur was exposed. A box osteotome was used to gain entrance the proximal canal taking care to start laterally. A canal finder was placed on the central access of the femoral canal. I then sequentially reamed in 1 mm increments up to a size 14 mm taking care to lateralize. I then sequentially broached in 1 mm increments up to a size 14 mm broach which felt stable. A standard offset 47 mm head trial was placed and the hip was gently reduced. The hip was found to be stable through all arcs of motion. The hip was dislocated with a bone hook. All trial implants were removed. The proximal femur was irrigated using pulsatile lavage. A final 14 mm press-fit stem was dispensed and gently tapped into place until it had secure fit. A small fracture was noted at the posterior aspect femoral neck but did not extend distal to the lesser trochanter. Since it did not extend past the calcar elected to the the stem which felt stable. Again trialed with a standard offset 47 mm head which felt stable. The hip was once again carefully dislocated. The trunnion of the stem was cleaned with a lap sponge and the final femoral head was gently impacted in place to engage the Pappas taper. Hip was reduced a final time and brought through range of motion and found to be stable. The hip was thoroughly irrigated using pulsatile lavage. The posterior hip capsule was repaired using aggravate 0 Vicryl. The piriformis and short external rotators were repaired to the posterior femur through bone tunnels using #2 Ethibond and modified Darwin-Eduardo sutures. The IT band was reapproximated using a strata fix Quill suture. The deep fat was reapproximated using 0 Vicryl. The superficial subcu tenderness layer was reapproximated using 2-0 Vicryl. The skin was closed with a running subcuticular Monocryl stitch and was reinforced with Dermabond and a sterile dressing. The drapes were taken down carefully and a hip abduction pillow was applied. The patient was carefully transferred from the OR table onto her gurney and brought to recovery [place] of the procedure well. I verified that all instrument, sponge, and sharp counts were correct. In the recovery room postoperative x-rays showed a stable implant. Next Viola Castro PA-C was required as a skilled acute care assistant for patient positioning, surgical exposure, retraction, placement of implants, closure of wound, and apposition of dressing. Plan: The patient will receive 2 doses of postoperative antibiotics. She is to remain toe-touch weightbearing until her first postoperative visit. She'll fol low posterior hip precautions at all times. Appreciate internal medicine for their assistance in perioperative management. Due to the history of the patient having prior GI bleeds I will start her on Lovenox but will defer to internal medicine on the choice and duration of treatment for DVT prophylaxis. Discharge planning is pending and the family has voiced their preference for [facility] on the [place].
--- NOTE | 2019-05-29 17:22 | XR ---
EXAMINATION TYPE: XR Hip Limited LT DATE OF EXAM: 05/29/2019 COMPARISON: NONE HISTORY: Postop hip surgery TECHNIQUE: Single view FINDINGS: There is left hip prosthesis. Components are in anatomic position. IMPRESSION: No complicating process seen.
[2019-05-29] MEDS: ATENOLOL 50 MG TAB PO SCH (20:08)
[2019-05-29] MEDS: SENNOSIDES-DOCUSATE SODIUM 1 EACH TAB PO SCH (20:08)
[2019-05-29] MEDS: HYDROcodone/APAP 5-325MG 1 EACH TAB PO PRN (22:22)
[2019-05-30] MEDS: LEVOTHYROXINE 75 MCG TAB PO SCH (05:06)
[2019-05-30] MEDS: HYDROmorphone 1 MG/ML 1 ML SYRINGE IVP PRN (06:01)
[2019-05-30 07:53] LABS: Basophils % (A) 0 %; Eosinophils # (A) 0.2 k/uL (0-0.7); Eosinophils % (A) 1 %; HCT 35.3 % (34.0-46.0); HGB 11.3 gm/dL (11.4-16.0); Lymphocytes # (A) 0.8 k/uL (1.0-4.8); Lymphocytes % (A) 7 %; MCH 30.9 pg (25.0-35.0); MCHC 32.1 g/dL (31.0-37.0); MCV 96.2 fL (80.0-100.0); Mean Platelet Volume 6.7; Monocytes # (A) 0.6 k/uL (0-1.0); Monocytes % (A) 5 %; Neutrophils % (A) 85 %; Platelet Count 238 k/uL (150-450); RBC 3.67 m/uL (3.80-5.40); RDW 14.9 % (11.5-15.5); WBC 11.7 k/uL (3.8-10.6)
[2019-05-30] MEDS: Brinzolamide/Brimonidine Tart [Simbrinza 1%-0.2% Eye Drops] BOTH EYES SCH (08:28)
[2019-05-30] MEDS: CHOLECALCIFEROL 1,000 UNIT TAB PO SCH (08:29)
[2019-05-30] MEDS: ASCORBIC ACID 500 MG TAB PO SCH (08:29)
[2019-05-30] MEDS: ATORVASTATIN 40 MG TAB PO SCH (08:29)
[2019-05-30] MEDS: PANTOPRAZOLE 40 MG TABLET PO SCH ×2 (08:30→20:36)
[2019-05-30] MEDS: FUROSEMIDE 40 MG TAB PO SCH ×2 (08:30→13:46)
[2019-05-30] MEDS: HYDROcodone/APAP 5-325MG 1 EACH TAB PO PRN ×3 (08:30→18:44)
[2019-05-30] MEDS: FOLIC ACID 1 MG TAB PO SCH ×2 (08:30→20:36)
[2019-05-30] MEDS: MULTIVITAMINS, THERA 1 EACH TAB PO SCH (08:30)
[2019-05-30] MEDS: ENOXAPARIN 40 MG/0.4 ML SYRINGE SQ SCH (08:30)
--- NOTE | 2019-05-30 08:38 | P.PN ---
Subjective Progress Note Date: 05/30/19 This patient is a 78-year-old female with a past medical history of chronic atrial fibrillation not on oral anticoagulation, coronary artery disease, heart failure, rheumatoid arthritis, GERD, hypertension, hypothyroidism, bilateral total knee arthroplasties by Dr. Ney Plasencia that presented to the [facility] ER via EMS after a fall in the home. The patient states she is mostly bedridden, and she was up walking to the bathroom with her walker, which medical for walker to grab something from a shelf and lost her balance, fell directly onto the left hip. She was admitted under the care of Dr. Luna with a consult placed to internal medicine for estefania-operative medical management. The patient underwent a left hip hemiarthroplasty on 05/29/[address] Luna. Today is post-operative day #1. The patient states she is doing well this morning, her pain is currently well-controlled. She has been requiring IV diluadid and oral Brodnax for pain control. She has not yet been up with physical therapy. She has tolerated her diet well. She denies chest pain, shortness of breath, nausea, vomiting. She denies any new complaints today. Vital signs stable. Objective - Vital Signs Vital signs: Vital Signs Temp 98.2 F 05/30/19 07:35 Pulse 112 H 05/30/19 07:35 Resp 18 05/30/19 07:35 BP 122/83 05/30/19 07:35 Pulse Ox 98 05/30/19 07:35 Intake & Output 05/29/19 05/30/19 05/30/19 18:59 06:59 18:59 Intake Total 751 960 Output Total 800 400 Balance -49 560 Intake: IV 751 Oral 960 Output: Urine 750 400 Estimated Blood Loss 50 Other: Voiding Method Indwelling Catheter Indwelling Catheter # Voids 1 - Exam On exam, the patient is sitting up in bed in no acute distress. Patient is alert and oriented x3. Nasal cannula in place. On inspection of the left hip, there is a dressing in place which is clean, dry, and intact. Small 3cm skin tear of the medial, proximal calf. No surrounding erythema, warmth, no drainage. Abductor pillow in place, Mathews catheter in place. Lower extremity compression cuffs in place bilaterally, calves are soft and nontender bilaterally. Patient has full range of motion of the ankles and toes bilaterally. Neurovascular is intact of the left lower extremity. The left lower extremity is warm and well perfused. Ecchymosis of the dorsal left foot, non-tender to palpation. - Labs CBC & Chem 7: 05/30/19 07:25 05/29/19 08:21 Labs: Abnormal Lab Results - Last 24 Hours (Table) 05/29/19 05/29/19 05/30/19 Range/Units 08:21 08:21 07:25 WBC 11.9 H 11.7 H (3.8-10.6) k/uL RBC 3.75 L 3.67 L (3.80-5.40) m/uL Hgb 11.3 L (11.4-16.0) gm/dL Neutrophils # 9.4 H 10.0 H (1.3-7.7) k/uL Lymphocytes # 0.8 L (1.0-4.8) k/uL Sodium 135 L (137-145) mmol/L Potassium 5.2 H (3.5-5.1) mmol/L BUN 21 H (7-17) mg/dL Creatinine 1.11 H (0.52-1.04) mg/dL Glucose 110 H (74-99) mg/dL Assessment and Plan Assessment: Left subcapital femoral neck fracture status-post left hip hemiarthroplasty on 05/29/19. Post-operative day #1. Plan: -Toe-touch weightbearing of the left lower extremity. Ice and elevate the left lower extremity to decrease pain and swelling. - Physical therapy for gait and balance training. - Continue pain management. Decrease use of IV diluadid as tolerated. - Lovenox for DVT prophylaxis, although based on her history of GI bleeds, we will defer further recommendations on choice and duration of treatment to internal medicine. - 2 doses of postoperative antibiotics complete. - Appreciate internal medicine consultation for medical management. - Anticipate discharge to rehab within next 24-[address] Patient discussed with Dr. Luna.
[2019-05-30] MEDS: DULoxetine HCL 30 MG CAPSULE.DR PO SCH (11:07)
--- NOTE | 2019-05-30 17:27 | P.PN ---
Subjective Progress Note Date: 05/30/19 Principal diagnosis: Left hip fracture post fall, A. fib, COPD, pulmonary fibrosis, recurrent pn 78-year-old female one of our office patient with past medical history of chronic atrophy fibrillation not on any anticoagulation since February this year approve by her instructional consultant Dr. Ibarra also known to have history of active fibrillation, history of rheumatic long, rheumatoid arthritis, GERD, hypertension and hypothyroidism who was hospitalized last time for fluid ov erload and pulmonary edema in February end up going to [facility] on the [place] for 2 weeks and end up home. Patient seen Dr. Lee and Dr. Serrano on regular basis she apparently was ambulating back and to her bed when she stopped to put several items in the back and according to patient lost her balance and fell forward traumatize the left side fell on her hip and developed to have severe pain not been able to ambulate and walk did not have any other injury no head trauma. EMS was called to the scene and end up being transported to the emergency department at [facility] where was seen and evaluated was admitted to Dr. Luna service for possible hemiarthroplasty of the left hip for intratrochanteric fracture. 05/30: Patient has done very well after surgery she had hemiarthroplasty pain is under control no major anemia anticoagulation will be done with only aspirin no Eliquis. Patient be started on PTOT and possibly will be going to rehab in the next 24-48 hours. Objective - Vital Signs Vital signs: Vital Signs Temp 98.9 F 05/30/19 14:30 Pulse 84 05/30/19 14:30 Resp 16 05/30/19 14:30 BP 81/63 05/30/19 14:30 Pulse Ox 94 L 05/30/19 14:30 Intake & Output 05/29/19 05/30/19 05/30/19 18:59 06:59 18:59 Intake Total 751 960 100 Output Total 800 400 225 Balance -49 560 -125 Intake: IV 751 Oral 960 100 Output: Urine 750 400 225 Uretheral (Mathews) 225 Estimated Blood Loss 50 Other: Voiding Method Indwelling Catheter Indwelling Catheter # Voids 1 0 - Exam Review of Systems CONSTITUTIONAL: Well-developed no acute respiratory distress. EYES: No icterus sclerae, no conjunctivitis. EARS, NOSE, MOUTH, THROAT, and FACE: No sore throat, lymphadenopathy, carotid bruits or deformity. RESPIRATORY: No SOB cough or wheezes. CARDIOVASCULAR: Positive mild PND orthopnea and palpitation with A. fib. GASTROINTESTINAL: No Abd pain, Nausea or vomiting, no Diarrhea or constipation, No GI Bleed, no distention or masses. GENITOURINARY: Negative for Hematuria or UTI, no kidney stones. INTEGUMENT/BREAST: Positive left hip pain and discomfort and multiple bruises all over the legs. HEMATOLOGIC/LYMPHATIC: Multiple ecchymosis and purpura with no active bleed. MUSCULOSKELTAL: Positive pain and discomfort in the left hip area in the entire leg. NEURLOGICAL: No LOC, Sz or syncope, blurred vision dizziness or abnormality.. BEHAVIORAL/PSYCH: Negative. ENDOCRINE: Negative. Physical Exam General Appearance: Alert, cooperative, no distress, appears stated age. Neck HEENT: Supple, no lymphadenopathy, no thyroid enlargement, no carotid bruits. Lungs: Decreased breath some bilaterally with fine rhonchi mild expiratory wheezes no crackles. Chest Wall: Decrease expansion with deep inspiration no tenderness and no deformity was found on exam, no costochondral pain or discomfort. Heart: Irregular rhythm and rate S1-S2 positive history positive ejection murmur with no gallop Back: Symmetric, no curvature, ROM normal, no CVA tenderness. Abdomen: Soft, non-tender, bowel sounds active all four quadrants, no masses, no organomegaly. Extremities: Significant bruises over both side left leg is shorter with external rotation significant pain and discomfort in the groin area. Pulses: 2+ and symmetric. Skin: Skin color, texture, tugor normal, no rashes or lesions. Neurologic: Alert oriented x3 cranial nerves II through XII intact, no motor deficit, no abnormal balance or gait. - Labs CBC & Chem 7: 05/30/19 07:25 05/29/19 08:21 Labs: Abnormal Lab Results - Last 24 Hours (Table) 05/30/19 Range/Units 07:25 WBC 11.7 H (3.8-10.6) k/uL RBC 3.67 L (3.80-5.40) m/uL Hgb 11.3 L (11.4-16.0) gm/dL Neutrophils # 10.0 H (1.3-7.7) k/uL Lymphocytes # 0.8 L (1.0-4.8) k/uL Assessment and Plan Plan: 1 left intertrochanteric fracture: Patient had hemiarthroplasty yesterday successfully doing well will start and continue PTOT and prepare for rehab in the next day or 2. 2 A. fib with RVR: Pulse rate is well-controlled patient is not in any anticoagulation. 3 recurrent pulmonary edema and atherosclerotic heart disease: Patient is doing well on medical management still seeing cardiology on regular basis. 4 acute kidney injury: On the chronic kidney disease, will continue mild hydration for now recheck BUN/creatinine in the next few days. 5 chronic diastolic congestive heart failure: Patient still on furosemide and atenolol. 6 COPD: Continue O2 if needed continue DuoNeb and Pulmicort. 7 chronic depression: Has been on Cymbalta 30 mg daily. 8 hypothyroidism: Still on levothyroxine 75 g daily. 9 hyperlipidemia: On atorvastatin 40 mg a day. 10 restless leg syndrome: Has been on ropinirole prole. 11 pulmonary fibrosis: Idiopathic has been doing well seen pulmonary regular basis.
[2019-05-30] MEDS: ZOLPIDEM 5 MG TAB PO PRN (20:36)
[2019-05-30] MEDS: ATENOLOL 50 MG TAB PO SCH (20:36)
[2019-05-30] MEDS: SENNOSIDES-DOCUSATE SODIUM 1 EACH TAB PO SCH (20:36)
[2019-05-31] MEDS: LEVOTHYROXINE 75 MCG TAB PO SCH (05:49)
[2019-05-31] MEDS: ASCORBIC ACID 500 MG TAB PO SCH (09:12)
[2019-05-31] MEDS: PANTOPRAZOLE 40 MG TABLET PO SCH ×2 (09:12→20:07)
[2019-05-31] MEDS: FUROSEMIDE 40 MG TAB PO SCH ×2 (09:12→10:42)
[2019-05-31] MEDS: Brinzolamide/Brimonidine Tart [Simbrinza 1%-0.2% Eye Drops] BOTH EYES SCH (09:12)
[2019-05-31] MEDS: MULTIVITAMINS, THERA 1 EACH TAB PO SCH (09:12)
[2019-05-31] MEDS: FOLIC ACID 1 MG TAB PO SCH ×2 (09:12→20:07)
[2019-05-31] MEDS: CHOLECALCIFEROL 1,000 UNIT TAB PO SCH (09:12)
[2019-05-31] MEDS: ENOXAPARIN 40 MG/0.4 ML SYRINGE SQ SCH (09:12)
[2019-05-31] MEDS: DULoxetine HCL 30 MG CAPSULE.DR PO SCH (09:12)
[2019-05-31] MEDS: ATORVASTATIN 40 MG TAB PO SCH (09:12)
[2019-05-31] MEDS: HYDROcodone/APAP 5-325MG 1 EACH TAB PO PRN (11:07)
--- NOTE | 2019-05-31 14:06 | P.PN ---
Subjective Progress Note Date: 05/31/19 This patient is a 78-year-old female with a past medical history of chronic atrial fibrillation not on oral anticoagulation, coronary artery disease, heart failure, rheumatoid arthritis, GERD, hypertension, hypothyroidism, bilateral total knee arthroplasties by Dr. Ney Plasencia that presented to the [facility] ER via EMS after a fall in the home. The patient states she is mostly bedridden, and she was up walking to the bathroom with her walker, which medical for walker to grab something from a shelf and lost her balance, fell directly onto the left hip. She was admitted under the care of Dr. Luna with a consult placed to internal medicine for estefania-operative medical management. The patient underwent a left hip hemiarthroplasty on 05/29/[address] Luna. Today is post-operative day #2. The patient is examined bedside with Dr. Luna. She states she is doing well this morning, her pain is well- controlled. She has been up with physical therapy, and into the chair without significant issues or pain. She denies any new complaints today. Vital signs stable. Objective - Vital Signs Vital signs: Vital Signs Temp 97.6 F 05/31/19 13:49 Pulse 93 05/31/19 13:49 Resp 16 05/31/19 13:49 BP 117/73 05/31/19 13:49 Pulse Ox 95 05/31/19 13:49 Intake & Output 05/30/19 05/31/19 05/31/19 18:59 06:59 18:59 Intake Total 175 10 Output Total 225 Balance -50 10 Intake: Oral 175 10 Output: Urine 225 Uretheral (Mathews) 225 Other: # Voids 2 2 - Exam On exam, the patient is sitting up in the bedside chair in no apparent distress. Patient is alert and oriented x3. Nasal cannula in place. On inspection of the left hip, there is a dressing in place which is clean, dry, and intact. Small 3cm skin tear of the medial, proximal calf with overlying tegaderm. No surrounding erythema, warmth, no drainage. Lower extremity compression cuffs in place bilaterally, calves are soft and nontender bilaterally. Patient has full range of motion of the ankles and toes bilaterally. Neurovascular is intact of the left lower extremity. The left lower extremity is warm and well perfused. - Labs CBC & Chem 7: 05/30/19 07:25 05/29/19 08:21 Assessment and Plan Assessment: Left subcapital femoral neck fracture status-post left hip hemiarthroplasty on 05/29/19. Post-operative day #2. Plan: - Weight bearing as tolerated of the left lower extremity. Ice and elevate the left lower extremity to decrease pain and swelling. - Physical therapy for gait and balance training. - Continue posterior hip precautions at all times. - Continue pain management. Decrease use of IV diluadid as tolerated. - Lovenox for DVT prophylaxis. We will plan on 4 weeks of Lovenox on discharge, which has been verified with the internal medicine team. - 2 doses of postoperative antibiotics complete. - Appreciate internal medicine consultation for medical management. - Anticipate discharge to rehab within next [address] Patient discussed [address] Luna.
--- NOTE | 2019-05-31 15:46 | P.PN ---
Subjective Progress Note Date: 05/31/19 78-year-old female one of our office patient with past medical history of chronic atrophy fibrillation not on any anticoagulation since February this year approve by her gis mapping technician Dr. Ibarra also known to have history of active fibrillation, history of rheumatic long, rheumatoid arthritis, GERD, hypertension and hypothyroidism who was hospitalized last time for fluid overload and pulmonary edema in February end up going to [facility] on the [place] for 2 weeks and end up home. Patient seen Dr. Lee and Dr. Serrano on regular basis she apparently was ambulating back and to her bed when she stopped to put several items in the back and according to patient lost her balance and fell forward traumatize the left side fell on her hip and developed to have severe pain not been able to ambulate and walk did not have any other injury no head trauma. EMS was called to the scene and end up being transported to the emergency department at [facility] where was seen and evaluated was admitted to Dr. Luna service for possible hemiarthroplasty of the left hip for intratrochanteric fracture. 05/30: Patient has done very well after surgery she had hemiarthroplasty pain is under control no major anemia anticoagulation will be done with only aspirin no Eliquis. Patient be started on PTOT and possibly will be going to rehab in the next 24-48 hours. 05/31: Patient has been afebrile, heart rate 93, blood pressure 170/73, pulse ox 95% on room air. Patient had Mathews catheter removed this morning. She is scheduled for discharge to [facility] awaiting for bed to be available. We will review medication reconciliation anticipate discharge tomorrow. Objective - Vital Signs Vital signs: Vital Signs Temp 98.5 F 05/31/19 11:02 Pulse 93 05/31/19 11:02 Resp 16 05/31/19 12:55 BP 140/80 05/31/19 11:02 Pulse Ox 94 L 05/31/19 08:08 Intake & Output 05/30/19 05/31/19 05/31/19 18:59 06:59 18:59 Intake Total 175 10 Output Total 225 Balance -50 10 Intake: Oral 175 10 Output: Urine 225 Uretheral (Mathews) 225 Other: # Voids 2 2 - Exam Review of Systems CONSTITUTIONAL: Well-developed no acute respiratory distress. Denies fever, denies chills. EYES: No icterus sclerae, no conjunctivitis. EARS, NOSE, MOUTH, THROAT, and FACE: No sore throat, lymphadenopathy, carotid bruits or deformity. RESPIRATORY: No SOB cough or wheezes. CARDIOVASCULAR: Positive mild PND orthopnea and palpitation with A. fib. GASTROINTESTINAL: No Abd pain, Nausea or vomiting, no Diarrhea or constipation, No GI Bleed, no distention or masses. GENITOURINARY: Negative for Hematuria or UTI, no kidney stones. INTEGUMENT/BREAST: Positive left hip pain and discomfort and multiple bruises all over the legs. HEMATOLOGIC/LYMPHATIC: Multiple ecchymosis and purpura with no active bleed. MUSCULOSKELTAL: Positive pain and discomfort in the left hip area in the entire leg. NEURLOGICAL: No LOC, Sz or syncope, blurred vision dizziness or abnormality.. BEHAVIORAL/PSYCH: Negative. ENDOCRINE: Negative. Physical Exam General Appearance: Alert, cooperative, no distress, appears stated age. Patient is resting in recliner. Neck HEENT: Supple, no lymphadenopathy, no thyroid enlargement, no carotid bruits. Lungs: Decreased breath some bilaterally with fine rhonchi mild expiratory wheezes no crackles. Chest Wall: Decrease expansion with deep inspiration no tenderness and no deformity was found on exam, no costochondral pain or discomfort. Heart: Irregular rhythm and rate S1-S2 positive history positive ejection murmur with no gallop Back: Symmetric, no curvature, ROM normal, no CVA tenderness. Abdomen: Soft, non-tender, bowel sounds active all four quadrants, no masses, no organomegaly. Extremities: Significant bruises over both side left leg is shorter with externa l rotation significant pain and discomfort in the groin area. Pulses: 2+ and symmetric. Skin: Skin color, texture, tugor normal, no rashes or lesions. Neurologic: Alert oriented x3 cranial nerves II through XII intact, no motor deficit, no abnormal balance or gait. - Labs CBC & Chem 7: 05/30/19 07:25 05/29/19 08:21 Assessment and Plan Plan: 1 left intertrochanteric fracture: Patient had hemiarthroplasty yesterday successfully doing well will start and continue PTOT and prepare for rehab in the next day or 2. 2 chronic atrial fibrillation not on anticoagulation due to history of GI bleed. 3 atherosclerotic heart disease: Patient is doing well on medical management still seeing cardiology on regular basis. 4 acute kidney injury: On the chronic kidney disease stage II, will continue mild hydration for now recheck BUN/creatinine in the next few days. 5 chronic diastolic congestive heart failure: Patient still on furosemide and atenolol. 6 COPD: Continue O2 if needed continue DuoNeb and Pulmicort. 7. Recurrent depression: Has been on Cymbalta 30 mg daily. 8 hypothyroidism: Still on levothyroxine 75 g daily. 9 hyperlipidemia: On atorvastatin 40 mg a day. 10 restless leg syndrome: Has been on ropinirole prole. 11 pulmonary fibrosis: Idiopathic has been doing well seen pulmonary regular basis. Discharge plan: [facility] on Tuesday Impression and plan of care have been directed as dictated by the signing physician. Marina Cervantes nurse practitioner acting as scribe for signing sarha mills.
[2019-05-31 16:52] LABS: Basophils # (A) 0.1 k/uL (0-0.2); Basophils % (A) 1 %; Eosinophils # (A) 0.2 k/uL (0-0.7); Eosinophils % (A) 1 %; HCT 34.4 % (34.0-46.0); HGB 11.1 gm/dL (11.4-16.0); Lymphocytes # (A) 1.3 k/uL (1.0-4.8); Lymphocytes % (A) 11 %; MCH 30.9 pg (25.0-35.0); MCHC 32.4 g/dL (31.0-37.0); MCV 95.4 fL (80.0-100.0); Mean Platelet Volume 7.2; Monocytes # (A) 0.8 k/uL (0-1.0); Monocytes % (A) 6 %; Neutrophils % (A) 79 %; Platelet Count 250 k/uL (150-450); RDW 14.8 % (11.5-15.5); WBC 12.6 k/uL (3.8-10.6)
[2019-05-31] MEDS: ATENOLOL 50 MG TAB PO SCH (20:07)
[2019-05-31] MEDS: SENNOSIDES-DOCUSATE SODIUM 1 EACH TAB PO SCH (20:07)
[2019-05-31] MEDS: ZOLPIDEM 5 MG TAB PO PRN (20:07)
[2019-05-31] MEDS: ACETAMINOPHEN TAB 325 MG TAB PO PRN (20:07)
[2019-06-01] MEDS: ACETAMINOPHEN TAB 325 MG TAB PO PRN (05:40)
[2019-06-01] MEDS: LEVOTHYROXINE 75 MCG TAB PO SCH (05:40)
[2019-06-01] MEDS: ENOXAPARIN 40 MG/0.4 ML SYRINGE SQ SCH (08:20)
[2019-06-01] MEDS: FUROSEMIDE 40 MG TAB PO SCH (08:21)
[2019-06-01] MEDS: FOLIC ACID 1 MG TAB PO SCH (08:21)
[2019-06-01] MEDS: PANTOPRAZOLE 40 MG TABLET PO SCH (08:21)
[2019-06-01] MEDS: CHOLECALCIFEROL 1,000 UNIT TAB PO SCH (08:21)
[2019-06-01] MEDS: ASCORBIC ACID 500 MG TAB PO SCH (08:21)
[2019-06-01] MEDS: ATORVASTATIN 40 MG TAB PO SCH (08:21)
[2019-06-01] MEDS: DULoxetine HCL 30 MG CAPSULE.DR PO SCH (08:21)
[2019-06-01] MEDS: MULTIVITAMINS, THERA 1 EACH TAB PO SCH (08:22)
[2019-06-01] MEDS: Brinzolamide/Brimonidine Tart [Simbrinza 1%-0.2% Eye Drops] BOTH EYES SCH (08:22)
--- NOTE | 2019-06-01 08:32 | P.DS ---
Providers Date of admission: 05/28/19 14:16 Expected date of discharge: 06/01/19 Attending physician: Marlo Luna Consults: 05/28/19 14:16 Consult Physician Urgent Consulting Provider: Melchor Rider Consult Reason/Comments: pre-op clearance Do you want consulting provider notified?: Yes Primary care physician: Melchor Rider MD Hospital Course: This is an 78-year-old female with past medical history of chronic atrial fibrillation on anticoagulation due to history of GI bleed, coronary disease, heart failure, rheumatoid arthritis, GERD, hypertension, hypothyroidism, bilateral total knee arthroplasty who presented to [facility] ED on 05/28/19 after falling and sustaining injury to the left hip. On exam and x-ray in the emergency department she was found to have a left subcapital femoral neck fracture. The patient was admitted under the care of Dr. Luna for surgical intervention and care, with a consultation placed to internal medicine for perioperative medical management. The patient is taken to surgery for hemiarthroplasty of the left hip on 05/29/19. The procedure is performed without complication or sequelae. The patient is doing well postoperatively. Vital signs are stable on postop day #3. The patient was examined bedside this morning. Patient states her pain is very well-controlled and her left hip. She has not yet been up with physical therapy today, although she had minimal issue with transferring yesterday to the chair. She is tolerating her diet well. She has had a bowel movement postoperatively, she denies current abdominal pain. She overall feels well today. She denies chest pain, shortness breath, nausea, vomiting, fevers, chills. Vital signs stable. On examination, the patient is sitting up in bed in no apparent distress. She is alert and oriented 3. On inspection of the left hip, there is a clean, dry, intact dressing in place. There is no drainage through the dressing. On inspection of the left lower leg, there is a small 3 cm skin tear of the medial, proximal calf. There is no surrounding erythema, warmth, or drainage. There are no signs of infection. Left lower extremity is warm and well-perfused with brisk capillary refill. Neurovascular is intact of the left lower extremity. Patient has full range of motion of her ankle and toes. The calves are soft and non-tender to palpation bilaterally. The patient is discharged to inpatient rehab pending medical clearance today. Please refer [place] [facility] [place] accurate list of medications. Patient Condition at Discharge: Stable Plan - Discharge Summary Discharge Rx Participant: No New Discharge Prescriptions: New Docusate [Colace] 100 mg PO BID #60 capsule Hydrocodone/Acetaminophen [Henrietta 5-325] 1 tab PO Q6HR PRN #30 tab PRN Reason: Pain Enoxaparin [Lovenox] 40 mg SQ DAILY #28 syringe Continue Folic Acid 1 mg PO BID Brinzolamide/Brimonidine Tart [Simbrinza 1%-0.2% Eye Drops] 1 drop BOTH EYES DAILY Pantoprazole Sodium [Protonix] 40 mg PO BID Levothyroxine Sodium [Synthroid] 75 mcg PO DAILY Atenolol 50 mg PO HS Ascorbic Acid [Vitamin C] 500 mg PO DAILY Cholecalciferol (Vitamin D3) [Vitamin D3] 2,000 unit PO DAILY rOPINIRole HCL [Requip] 0.5 mg PO TID Atorvastatin [Lipitor] 40 mg PO DAILY Benzonatate [Tessalon Perles] 100 mg PO TID PRN PRN Reason: Cough Acetaminophen Tab [Tylenol] 325 mg PO Q6H PRN PRN Reason: Pain DULoxetine HCL [Cymbalta] 30 mg PO DAILY #30 capsule. Furosemide [Lasix] 40 mg PO BID@0900,1300 #60 tab Ipratropium-Albuterol Nebulize [Duoneb 0.5 mg-3 mg/3 ml Soln] 3 ml INHALATION RT-QID PRN PRN Reason: Shortness Of Breath Multivit-Min/Iron/Folic/Lutein [Centrum Silver Women Tablet] 1 tab PO DAILY Zolpidem [Ambien] 5 mg PO HS PRN #3 tab PRN Reason: Insomnia Discharge Medication List Atenolol 50 mg PO HS 12/22/16 [History] Brinzolamide/Brimonidine Tart [Simbrinza 1%-0.2% Eye Drops] 1 drop BOTH EYES DAILY 12/22/16 [History] Folic Acid 1 mg PO BID 12/22/16 [History] Levothyroxine Sodium [Synthroid] 75 mcg PO DAILY 12/22/16 [History] Pantoprazole Sodium [Protonix] 40 mg PO BID 12/22/16 [History] Ascorbic Acid [Vitamin C] 500 mg PO DAILY 05/18/18 [History] Atorvastatin [Lipitor] 40 mg PO DAILY 12/29/18 [History] Cholecalciferol (Vitamin D3) [Vitamin D3] 2,000 unit PO DAILY 12/29/18 [History] rOPINIRole HCL [Requip] 0.5 mg PO TID 12/29/18 [History] Acetaminophen Tab [Tylenol] 325 mg PO Q6H PRN 01/29/19 [History] Benzonatate [Tessalon Perles] 100 mg PO TID PRN 01/29/19 [History] DULoxetine HCL [Cymbalta] 30 mg PO DAILY #30 capsule. 03/09/19 [Rx] Furosemide [Lasix] 40 mg PO BID@0900,1300 #60 tab 03/09/19 [Rx] Ipratropium-Albuterol Nebulize [Duoneb 0.5 mg-3 mg/3 ml Soln] 3 ml INHALATION RT-QID PRN 05/28/19 [History] Multivit-Min/Iron/Folic/Lutein [Centrum Silver Women Tablet] 1 tab PO DAILY 05/28/19 [History] Zolpidem [Ambien] 5 mg PO HS PRN #3 tab 05/31/19 [Rx] Docusate [Colace] 100 mg PO BID #60 capsule 06/01/19 [Rx] Enoxaparin [Lovenox] 40 mg SQ DAILY #28 syringe 06/01/19 [Rx] Hydrocodone/Acetaminophen [Henrietta 5-325] 1 tab PO Q6HR PRN #30 tab 06/01/19 [Rx] Follow up Appointment(s)/Referral(s): Melchor Rider MD [Primary Care Provider] - 1 Week (after discharge from [facility]) Marlo Luna MD [Medical Doctor] - 2 Weeks Activity/Diet/Wound Care/Special Instructions: -Weight bearing as tolerated on your operative leg with a walker and assistance. -Continue posterior hip precautions. Continue physical therapy. -Take pain medications as prescribed. Take Colace as a stool softener. Take Lovenox as prescribed to prevent blood clots. Based on the patient's history of GI bleeds, our protocol of 4 weeks of Lovenox post-operatively for DVT prophylaxis was cleared by internal medicine. - You may remove surgical dressing 7 days after surgery. After dressing is removed, you may shower and get incision wet. After showering, pat dry with towel and keep incision covered with a bandage or gauze. Do no soak incision in a bath. - Follow-up with Dr. Luna in the office in two weeks. - Call the office with any questions or concerns, Discharge Disposition: TRANSFER TO SNF/ECF
[2019-06-01 08:47] LABS: Calcium 9.2 mg/dL (8.4-10.2); Potassium 3.4 mmol/L (3.5-5.1)
[2019-06-01 10:22] VITALS: BP 135/86; PULSE 96; RESP 17; TEMP 98.3
--- NOTE | 2019-06-01 12:07 | P.PN ---
Subjective Progress Note Date: 06/01/19 78-year-old female one of our office patient with past medical history of chronic atrophy fibrillation not on any anticoagulation since February this year approve by her director cpg Dr. Ibarra also known to have history of active fibrillation, history of rheumatic long, rheumatoid arthritis, GERD, hypertension and hypothyroidism who was hospitalized last time for fluid overload and pulmonary edema in February end up going to [facility] on the [place] for 2 weeks and end up home. Patient seen Dr. Lee and Dr. Serrano on regular basis she apparently was ambulating back and to her bed when she stopped to put several items in the back and according to patient lost her balance and fell forward traumatize the left side fell on her hip and developed to have severe pain not been able to ambulate and walk did not have any other injury no head trauma. EMS was called to the scene and end up being transported to the emergency department at [facility] where was seen and evaluated was admitted to Dr. Luna service for possible hemiarthroplasty of the left hip for intratrochanteric fracture. 05/30: Patient has done very well after surgery she had hemiarthroplasty pain is under control no major anemia anticoagulation will be done with only aspirin no Eliquis. Patient be started on PTOT and possibly will be going to rehab in the next 24-48 hours. 05/31: Patient has been afebrile, heart rate 93, blood pressure 170/73, pulse ox 95% on room air. Patient had Mathews catheter removed this morning. She is scheduled for discharge to [facility] awaiting for bed to be available. We will review medication reconciliation anticipate discharge tomorrow. 06/01: Patient has no new complaints. She has been afebrile, heart rate 96, blood pressure 135/86 and pulse ox 96% on room air. Medication reconciliation has been completed as of yesterday with no changes. Orthopedics is planning for discharge to [facility] today. Patient will be discharged and follow at [facility] with Dr. Fleming. Objective - Vital Signs Vital signs: Vital Signs Temp 98.3 F 06/01/19 10:07 Pulse 96 06/01/19 10:07 Resp 17 06/01/19 10:07 BP 135/86 06/01/19 10:07 Pulse Ox 96 06/01/19 10:07 Intake & Output 05/31/19 06/01/19 06/01/19 18:59 06:59 18:59 Intake Total 50 Balance 50 Intake: Oral 50 Other: Voiding Method Toilet Bedside Commode # Voids 1 1 1 # Bowel Movements 1 - Exam Review of Systems CONSTITUTIONAL: Well-developed no acute respiratory distress. Denies fever, denies chills. EYES: No icterus sclerae, no conjunctivitis. EARS, NOSE, MOUTH, THROAT, and FACE: No sore throat, lymphadenopathy, carotid bruits or deformity. RESPIRATORY: No SOB cough or wheezes. CARDIOVASCULAR: Positive mild PND orthopnea and palpitation with A. fib. GASTROINTESTINAL: No Abd pain, Nausea or vomiting, no Diarrhea or constipation, No GI Bleed, no distention or masses. GENITOURINARY: Negative for Hematuria or UTI, no kidney stones. INTEGUMENT/BREAST: Positive left hip pain and discomfort and multiple bruises all over the legs. HEMATOLOGIC/LYMPHATIC: Multiple ecchymosis and purpura with no active bleed. MUSCULOSKELTAL: Positive pain and discomfort in the left hip area in the entire leg. NEURLOGICAL: No LOC, Sz or syncope, blurred vision dizziness or abnormality.. BEHAVIORAL/PSYCH: Negative. ENDOCRINE: Negative. Physical Exam General Appearance: Alert, cooperative, no acutedistress, appears stated age. Patient is resting in recliner. Neck HEENT: Supple, no lymphadenopathy, no thyroid enlargement, no carotid bruits. Lungs: Decreased breath some bilaterally with fine rhonchi mild expiratory wheezes no crackles. Chest Wall: Decrease expansion with deep inspiration no tenderness and no deformity was found on exam, no costochondral pain or discomfort. Heart: Irregular rhythm and rate S1-S2 positive history positive ejection murmur with no gallop Back: Symmetric, no curvature, ROM normal, no CVA tenderness. Abdomen: Soft, non-tender, bowel sounds active all four quadrants, no masses, no organomegaly. Extremities: Significant bruises over both side left leg is shorter with exter nal rotation significant pain and discomfort in the groin area. Pulses: 2+ and symmetric. Skin: Skin color, texture, tugor normal, no rashes or lesions. Neurologic: Alert oriented x3 cranial nerves II through XII intact, no motor deficit, no abnormal balance or gait. - Labs CBC & Chem 7: 05/31/19 16:28 06/01/19 06:49 Labs: Abnormal Lab Results - Last 24 Hours (Table) 05/31/19 06/01/19 Range/Units 16:28 06:49 WBC 12.6 H (3.8-10.6) k/uL RBC 3.60 L (3.80-5.40) m/uL Hgb 11.1 L (11.4-16.0) gm/dL Neutrophils # 10.0 H (1.3-7.7) k/uL Sodium 136 L (137-145) mmol/L Potassium 3.4 L (3.5-5.1) mmol/L BUN 21 H (7-17) mg/dL Glucose 101 H (74-99) mg/dL Assessment and Plan Plan: 1 left intertrochanteric fracture: Patient had hemiarthroplasty 05/29, continue PTOT and prepare for rehab in the next day or 2. 2 chronic atrial fibrillation not on anticoagulation due to history of GI bleed. 3 atherosclerotic heart disease: Patient is doing well on medical management still seeing cardiology on regular basis. 4 acute kidney injury: On the chronic kidney disease stage II, will continue mild hydration for now recheck BUN/creatinine in the next few days. 5 chronic diastolic congestive heart failure: Patient still on furosemide and atenolol. 6 COPD: Continue O2 if needed continue DuoNeb and Pulmicort. 7. Recurrent depression: Has been on Cymbalta 30 mg daily. 8 hypothyroidism: Still on levothyroxine 75 g daily. 9 hyperlipidemia: On atorvastatin 40 mg a day. 10 restless leg syndrome: Has been on ropinirole prole. 11 pulmonary fibrosis: Idiopathic has been doing well seen pulmonary regular basis. Discharge plan: [facility] on Tuesday under the care of Dr. Fleming Impression and plan of care have been directed as dictated by the signing physician. Marina Cervantes nurse practitioner acting as scribe for signing sarah new
== END 2019-06-01 11:20 | DRG 470 ==
LOC: EC 11:18 → 4MS4W 14:16 → 4SSUR 05-29 17:19
PROVIDERS: ADMIT Orthopaedic Surgery; ATTEND Orthopaedic Surgery
PROC: 0SRS0JA Replacement of Left Hip Joint, Femoral Surface with Synthetic Substitute, Uncemented, Open Approach (ICD-10-PCS; principal; 2019-05-29 07:30)
DX: S72.012A Unspecified intracapsular fracture of left femur, initial encounter for closed fracture (principal); I48.20 Chronic atrial fibrillation, unspecified; N17.9 Acute kidney failure, unspecified; F33.9 Major depressive disorder, recurrent, unspecified; I50.32 Chronic diastolic (congestive) heart failure; I13.0 Hypertensive heart and chronic kidney disease with heart failure and stage 1 through stage 4 chronic kidney disease, or unspecified chronic kidney disease; E03.9 Hypothyroidism, unspecified; E78.5 Hyperlipidemia, unspecified; J44.9 Chronic obstructive pulmonary disease, unspecified; J84.10 Pulmonary fibrosis, unspecified; M06.9 Rheumatoid arthritis, unspecified; G47.33 Obstructive sleep apnea (adult) (pediatric); M81.0 Age-related osteoporosis without current pathological fracture; Z96.653 Presence of artificial knee joint, bilateral; Z96.1 Presence of intraocular lens; M19.90 Unspecified osteoarthritis, unspecified site; W18.39XA Other fall on same level, initial encounter; G25.81 Restless legs syndrome; N18.2 Chronic kidney disease, stage 2 (mild); I25.10 Atherosclerotic heart disease of native coronary artery without angina pectoris; H54.62 Unqualified visual loss, left eye, normal vision right eye; K21.9 Gastro-esophageal reflux disease without esophagitis; Z87.19 Personal history of other diseases of the digestive system; Z87.01 Personal history of pneumonia (recurrent); Z99.89 Dependence on other enabling machines and devices; Z86.19 Personal history of other infectious and parasitic diseases; Z86.010 Personal history of colon polyps; Z88.5 Allergy status to narcotic agent; Z79.890 Hormone replacement therapy; Z79.899 Other long term (current) drug therapy; Z79.01 Long term (current) use of anticoagulants; Z87.440 Personal history of urinary (tract) infections; Z90.710 Acquired absence of both cervix and uterus; Z98.890 Other specified postprocedural states; Z98.42 Cataract extraction status, left eye; Z98.41 Cataract extraction status, right eye; Z87.891 Personal history of nicotine dependence; Z80.1 Family history of malignant neoplasm of trachea, bronchus and lung; Z74.01 Bed confinement status; Y93.89 Activity, other specified; Y92.009 Unspecified place in unspecified non-institutional (private) residence as the place of occurrence of the external cause; Z86.79 Personal history of other diseases of the circulatory system
CPT/HCPCS: 71045; 73501; 80048; 80053; 85025; 85610; 85730; 86850; 86900; 86901; 88305; 88311; 93005; 96374; 96375; 96376; 99285

== ENCOUNTER 2019-08-21 12:00 | Emergency (ER) | payer MEDICARE ==
[2019-08-21] MEDS ORDERED: ONDANSETRON 4 MG/2 ML VIAL IVP STA (12:48)
[2019-08-21] MEDS ORDERED: SODIUM CHLORIDE 0.9% 500 ML 500 ML IV STA (12:48)
--- NOTE | 2019-08-21 12:52 | ED ---
General Adult HPI - General Chief complaint: Nausea/Vomiting/Diarrhea Stated complaint: diarrhea, abd pain Time Seen by Provider: 08/21/19 12:20 Source: patient, RN notes reviewed, old records reviewed Mode of arrival: ambulatory Limitations: no limitations - History of Present Illness Initial comments: This is a 78-year-old female who presents emergency Department complaining that she's had one day history of diarrhea. Patient states she's also little bit nauseated today but has not vomited. Patient states she has a little bit of lower abdominal pain starting late last night but she states it's not that bad. Patient denies any fever chills. Patient denies any chest pain difficulty breathing. Patient states she had a little bit of a dry cough. Patient denies any back pain. Patient denies any dysuria hematuria urinary frequency. - Related Data Home Medications Medication Instructions Recorded Confirmed Brinzolamide/Brimonidine Tart 1 drop BOTH EYES DAILY 12/22/16 08/21/19 [Simbrinza 1%-0.2% Eye Drops] Folic Acid 1 mg PO BID 12/22/16 08/21/19 Levothyroxine Sodium [Synthroid] 75 mcg PO DAILY 12/22/16 08/21/19 Pantoprazole Sodium [Protonix] 40 mg PO BID 12/22/16 08/21/19 Ascorbic Acid [Vitamin C] 500 mg PO DAILY 05/18/18 08/21/19 Atorvastatin [Lipitor] 40 mg PO HS 12/29/18 08/21/19 Cholecalciferol (Vitamin D3) 2,000 unit PO DAILY 12/29/18 08/21/19 [Vitamin D3] rOPINIRole HCL [Requip] 0.5 mg PO TID 12/29/18 08/21/19 Acetaminophen Tab [Tylenol] 325 mg PO Q6H PRN 01/29/19 08/21/19 Benzonatate [Tessalon Perles] 100 mg PO DAILY PRN 01/29/19 08/21/19 Ipratropium-Albuterol Nebulize 3 ml INHALATION RT-TID PRN 05/28/19 08/21/19 [Duoneb 0.5 mg-3 mg/3 ml Soln] Multivit-Min/Iron/Folic/Lutein 1 tab PO DAILY 05/28/19 08/21/19 [Centrum Silver Women Tablet] Atenolol [Tenormin] 50 mg PO HS 08/21/19 08/21/19 Cephalexin [Keflex] 500 mg PO BID 08/21/19 08/21/19 Furosemide [Lasix] 40 mg PO BID 08/21/19 08/21/19 Hydrocodone/Acetaminophen [[place] 1 tab PO TID PRN 08/21/19 08/21/19 5-325] Methotrexate Sodium [Methotrexate] 7.5 mg PO FR 08/21/19 08/21/19 Triamcinolone 0.1% Cream [Kenalog 1 applic TOPICAL HS 08/21/19 08/21/19 0.1% Cream] Zolpidem [Ambien] 10 mg PO HS PRN 08/21/19 08/21/19 Previous Rx's Medication Instructions Recorded DULoxetine HCL [Cymbalta] 30 mg PO DAILY #30 capsule. 03/09/19 Allergies Allergy/AdvReac Type Severity Reaction Status Date / Time morphine AdvReac Severe Hallucinati Verified 08/21/19 14:32 ons Review of Systems ROS Statement: Those systems with pertinent positive or pertinent negative responses have been documented in the HPI. ROS Other: All systems not noted in ROS Statement are negative. 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 Past Anesthesia/Blood Transfusion Reactions: No Reported Reaction Additional Past Anesthesia/Blood Transfusion Reaction / Comment(s): Pt has received blood in past without reaction. Past Psychological History: No Psychological Hx Reported Smoking Status: Former smoker - Past Family History Father Family Medical History: Cancer Additional Family Medical History / Comment(s): at age 68 from lung cancer Mother Family Medical History: Cancer Additional Family Medical History / Comment(s): at age 83 from lung cancer Brother(s) Family Medical History: Cancer Additional Family Medical History / Comment(s): at age 63 from lung cancer. Son(s) Additional Family Medical History / Comment(s): She has 2 sons with no major medical problems. General Exam - General Exam Comments Initial Comments: GENERAL: Patient is well-developed and well-nourished. Patient is nontoxic and well- hydrated and is in mild distress. ENT: Neck is soft and supple. No significant lymphadenopathy is noted. Oropharynx is clear. Moist mucous membranes. Neck has full range of motion without eliciting any pain. EYES: The sclera were anicteric and conjunctiva were pink and moist. Extraocular movements were intact and pupils were equal round and reactive to light. Eyelids were unremarkable. PULMONARY: Unlabored respirations. Good breath sounds bilaterally. No audible rales rhonchi or wheezing was noted. CARDIOVASCULAR: There is a regular rate and rhythm without any murmurs gallops or rubs. ABDOMEN: Patient is very minimal suprapubic tenderness SKIN: Skin is clear with no lesions or rashes and otherwise unremarkable. NEUROLOGIC: Patient is alert and oriented x3. Cranial nerves II through XII are grossly intact. Motor and sensory are also intact. Normal speech, volume and content. Symmetrical smile. MUSCULOSKELETAL: Normal extremities with adequate strength and full range of motion. No lower extremity swelling or edema. No calf tenderness. LYMPHATICS: No significant lymphadenopathy is noted PSYCHIATRIC: Normal psychiatric evaluation. Limitations: no limitations Course Vital Signs 08/21/19 12:21 Temperature 97.9 F Pulse Rate 55 L Respiratory 18 Rate Blood Pressure 147/72 O2 Sat by Pulse 98 Oximetry Medical Decision Making - Medical Decision Making Patient has not had any diarrhea while in the emergency department. Patient's CT showed no acute abnormality. I spoke with Dr. Adry Rider wanted the patient to follow-up as an outpatient on which she really has an appointment for. Patient is in agreement with this as is the . - Lab Data Result diagrams: 08/21/19 12:38 08/21/19 12:38 Lab Results 08/21/19 08/21/19 08/21/19 Range/Units 12:38 12:38 12:38 WBC 11.5 H (3.8-10.6) k/uL RBC 4.36 (3.80-5.40) m/uL Hgb 13.2 (11.4-16.0) gm/dL Hct 42.0 (34.0-46.0) % MCV 96.4 (80.0-100.0) fL MCH 30.3 (25.0-35.0) pg MCHC 31.4 (31.0-37.0) g/dL RDW 15.0 (11.5-15.5) % Plt Count 339 (150-450) k/uL Neutrophils % 79 % Lymphocytes % 12 % Monocytes % 5 % Eosinophils % 1 % Basophils % 1 % Neutrophils # 9.1 H (1.3-7.7) k/uL Lymphocytes # 1.4 (1.0-4.8) k/uL Monocytes # 0.6 (0-1.0) k/uL Eosinophils # 0.2 (0-0.7) k/uL Basophils # 0.1 (0-0.2) k/uL Sodium 135 L (137-145) mmol/L Potassium 4.6 (3.5-5.1) mmol/L Chloride 105 (98-107) mmol/L Carbon Dioxide 23 (22-30) mmol/L Anion Gap 7 mmol/L BUN 13 (7-17) mg/dL Creatinine 0.87 (0.52-1.04) mg/dL Est GFR (CKD-EPI)AfAm 74 (>60 ml/min/1.73 sqM) Est GFR (CKD-EPI)NonAf 64 (>60 ml/min/1.73 sqM) Glucose 91 (74-99) mg/dL Plasma Lactic Acid Zeyad 1.0 (0.7-2.0) mmol/L Calcium 10.0 (8.4-10.2) mg/dL Total Bilirubin 0.7 (0.2-1.3) mg/dL AST 32 (14-36) U/L ALT 17 (4-34) U/L Alkaline Phosphatase 143 H (38-126) U/L Total Protein 7.5 (6.3-8.2) g/dL Albumin 3.8 (3.5-5.0) g/dL Amylase 59 (30-110) U/L Lipase 129 (23-300) U/L Urine Color Urine Appearance (Clear) Urine pH (5.0-8.0) Ur Specific [place] (1.001-1.035) Urine Protein (Negative) Urine Glucose (UA) (Negative) Urine Ketones (Negative) Urine Blood (Negative) Urine Nitrite (Negative) Urine Bilirubin (Negative) Urine Urobilinogen (<2.0) mg/dL Ur Leukocyte Esterase (Negative) 08/21/19 Range/Units 13:55 WBC (3.8-10.6) k/uL RBC (3.80-5.40) m/uL Hgb (11.4-16.0) gm/dL Hct (34.0-46.0) % MCV (80.0-100.0) fL MCH (25.0-35.0) pg MCHC (31.0-37.0) g/dL RDW (11.5-15.5) % Plt Count (150-450) k/uL Neutrophils % % Lymphocytes % % Monocytes % % Eosinophils % % Basophils % % Neutrophils # (1.3-7.7) k/uL Lymphocytes # (1.0-4.8) k/uL Monocytes # (0-1.0) k/uL Eosinophils # (0-0.7) k/uL Basophils # (0-0.2) k/uL Sodium (137-145) mmol/L Potassium (3.5-5.1) mmol/L Chloride (98-107) mmol/L Carbon Dioxide (22-30) mmol/L Anion Gap mmol/L BUN (7-17) mg/dL Creatinine (0.52-1.04) mg/dL Est GFR (CKD-EPI)AfAm (>60 ml/min/1.73 sqM) Est GFR (CKD-EPI)NonAf (>60 ml/min/1.73 sqM) Glucose (74-99) mg/dL Plasma Lactic Acid Zeyad (0.7-2.0) mmol/L Calcium (8.4-10.2) mg/dL Total Bilirubin (0.2-1.3) mg/dL AST (14-36) U/L ALT (4-34) U/L Alkaline Phosphatase (38-126) U/L Total Protein (6.3-8.2) g/dL Albumin (3.5-5.0) g/dL Amylase (30-110) U/L Lipase (23-300) U/L Urine Color Yellow Urine Appearance Clear (Clear) Urine pH 6.0 (5.0-8.0) Ur Specific [place] 1.026 (1.001-1.035) Urine Protein Trace H (Negative) Urine Glucose (UA) Negative (Negative) Urine Ketones Negative (Negative) Urine Blood Negative (Negative) Urine Nitrite Negative (Negative) Urine Bilirubin Negative (Negative) Urine Urobilinogen 2.0 (<2.0) mg/dL Ur Leukocyte Esterase Negative (Negative) Disposition Clinical Impression: Acute diarrhea Disposition: HOME SELF-CARE Instructions (If sedation given, give patient instructions): Acute Diarrhea (ED) Is patient prescribed a controlled substance at d/c from ED?: No Referrals: Melchor Rider MD [Primary Care Provider] - 1-2 days Time of Disposition: 15:09
[2019-08-21 13:25] LABS: Albumin 3.8 g/dL (3.5-5.0); Potassium 4.6 mmol/L (3.5-5.1); Total Bilirubin 0.7 mg/dL (0.2-1.3); Total Protein 7.5 g/dL (6.3-8.2)
[2019-08-21 13:29] LABS: Basophils # (A) 0.1 k/uL (0-0.2); Basophils % (A) 1 %; Eosinophils # (A) 0.2 k/uL (0-0.7); Eosinophils % (A) 1 %; HGB 13.2 gm/dL (11.4-16.0); Lymphocytes # (A) 1.4 k/uL (1.0-4.8); Lymphocytes % (A) 12 %; MCH 30.3 pg (25.0-35.0); MCHC 31.4 g/dL (31.0-37.0); MCV 96.4 fL (80.0-100.0); Monocytes # (A) 0.6 k/uL (0-1.0); Monocytes % (A) 5 %; Neutrophils # (A) 9.1 k/uL (1.3-7.7); Neutrophils % (A) 79 %; Platelet Count 339 k/uL (150-450); RBC 4.36 m/uL (3.80-5.40); WBC 11.5 k/uL (3.8-10.6)
--- NOTE | 2019-08-21 13:33 | XR ---
EXAMINATION TYPE: XR chest 2V DATE OF EXAM: 08/21/2019 COMPARISON: 05/28/2019 HISTORY: Shortness of breath TECHNIQUE: Frontal and lateral views of the chest are obtained. FINDINGS: Scattered senescent parenchymal changes noted. Hyperinflation compatible with COPD. Chronic pulmonary venous decompensation. Suspect small effusions versus pleural thickening. No overt failure at this time. Heart size is stable. Mediastinal structures are stable and grossly unremarkable. No evidence for hilar prominence. Degenerative changes dorsal spine. IMPRESSION: 1. Chronic pulmonary venous decompensation. Suspect small effusions versus pleural thickening.
[2019-08-21] MEDS ORDERED: IOPAMIDOL CONTRAST (ORAL USE) VIAL PO PRN (13:44)
[2019-08-21 14:09] LABS: Appearance,Urine Clear (Clear); Bilirubin,Urine Negative (Negative); Blood,Urine Negative (Negative); Color,Urine Yellow; Glucose,Urine (UA) Negative (Negative); Ketones,Urine Negative (Negative); Leukocyte Esterase,Urine Negative (Negative); Nitrite,Urine Negative (Negative); Protein,Urine Trace (Negative); Specific Gravity,Urine 1.026 (1.001-1.035)
--- NOTE | 2019-08-21 14:27 | CT ---
EXAMINATION TYPE: CT abdomen pelvis wo con DATE OF EXAM: 08/21/2019 COMPARISON: 08/23/18 HISTORY: Discolored stool and generalized pain CT DLP: 528.5 mGycm Examination of the solid and hollow viscera is limited given the lack of contrast. GI contrast was ad ministered. FINDINGS: LUNG BASES: No evidence for nodule. No evidence for infiltrate. Small basilar effusions noted with ward bpleural fibrosis. LIVER/GB: The gallbladder is unremarkable. No space-occupying hepatic lesion. PANCREAS: No pancreatic mass identified. No inflammatory process seen. SPLEEN: No evidence for splenomegaly. No intrasplenic lesions seen. ADRENALS: No adrenal nodules identified. No evidence for thickening. KIDNEYS: Atrophic changes of the left kidney. Compensatory hypertrophy right kidney. No evidence for renal mass. No nephrolithiasis. No hydronephrosis. Moderate fixed hiatal hernia demonstrated. BOWEL: Appendix has a normal appearance. No evidence of bowel obstruction. No inflammatory process. Lymph nodes: No evidence for adenopathy greater than 1 cm. Abdominal aorta: Atheromatous changes seen. No evidence for aneurysm. Genital organs: No significant abnormality. Other: Stable severe compression fracture of L2. Severe multilevel degenerative disc disease and spon dylosis. Left hip prosthesis unchanged in appearance. Small amount of pelvic free fluid seen. IMPRESSION: 1. No evidence for acute intra-abdominal process. 2. Small basilar pleural effusions with subpleural fibrosis noted. 3. Atrophic changes of the left kidney.
[2019-08-21 15:38] VITALS: BP 152/89; PULSE 78; RESP 16; TEMP 97.3
== END 2019-08-21 15:36 | disposition home or self-care (01) ==
LOC: EC 12:00
DX: R19.7 Diarrhea, unspecified (principal); R11.0 Nausea; R10.30 Lower abdominal pain, unspecified; R05 Cough; J44.9 Chronic obstructive pulmonary disease, unspecified; I11.0 Hypertensive heart disease with heart failure; I50.9 Heart failure, unspecified; K21.9 Gastro-esophageal reflux disease without esophagitis; E78.5 Hyperlipidemia, unspecified; I10 Essential (primary) hypertension; M19.90 Unspecified osteoarthritis, unspecified site; M06.9 Rheumatoid arthritis, unspecified; E03.9 Hypothyroidism, unspecified; G47.30 Sleep apnea, unspecified; D64.9 Anemia, unspecified; H40.9 Unspecified glaucoma; H54.62 Unqualified visual loss, left eye, normal vision right eye; Z87.891 Personal history of nicotine dependence; Z88.5 Allergy status to narcotic agent; Z79.890 Hormone replacement therapy; Z79.899 Other long term (current) drug therapy; Z87.440 Personal history of urinary (tract) infections; Z96.653 Presence of artificial knee joint, bilateral; Z99.89 Dependence on other enabling machines and devices; Z80.1 Family history of malignant neoplasm of trachea, bronchus and lung
CPT/HCPCS: 36415; 80053; 82150; 83605; 83690; 85025; 81003; 71046; 74176; 99285; 96374; 96361; J2405

== ENCOUNTER 2019-09-08 10:26 | Inpatient (IN) | payer MEDICARE ==
--- NOTE | 2019-09-08 10:37 | ED ---
General Adult HPI - General Stated complaint: Altered Mental Time Seen by Provider: 09/08/19 10:26 Source: patient, EMS, RN notes reviewed, old records reviewed - History of Present Illness Initial comments: This is a 78-year-old female who presents emergency Department from the halfway. Patient is in the halfway because of a broken tib-fib. Patient states she has not had any surgery on that it's just immobilized. According to the halfway she has been coughing over the last few days it is chest x-ray showed pneumonia so they sent her on him. Patient supposedly had a fever at the halfway. Patient has also had decreased by mouth intake. Patient denies any chest pain or palpitations. Patient denies being short of breath. Patient denies any lightheadedness or dizziness. Patient denies headache. Patient denies abdominal pain patient denies nausea vomiting diarrhea. - Related Data Home Medications Medication Instructions Recorded Confirmed Brinzolamide/Brimonidine Tart 1 drop BOTH EYES DAILY 12/22/16 08/28/19 [Simbrinza 1%-0.2% Eye Drops] Folic Acid 1 mg PO SUMOTUWETHSA@,12/22/16 08/28/19 Levothyroxine Sodium [Synthroid] 75 mcg PO DAILY 12/22/16 08/28/19 Pantoprazole Sodium [Protonix] 40 mg PO BID 12/22/16 08/28/19 Ascorbic Acid [Vitamin C] 500 mg PO DAILY 05/18/18 08/28/19 Atorvastatin [Lipitor] 40 mg PO HS 12/29/18 08/28/19 Cholecalciferol (Vitamin D3) 2,000 unit PO DAILY 12/29/18 08/28/19 [Vitamin D3] rOPINIRole HCL [Requip] 0.5 mg PO TID 12/29/18 08/28/19 Acetaminophen Tab [Tylenol] 325 mg PO Q6H PRN 01/29/19 08/28/19 Ipratropium-Albuterol Nebulize 3 ml INHALATION RT-TID PRN 05/28/19 08/28/19 [Duoneb 0.5 mg-3 mg/3 ml Soln] Multivit-Min/Iron/Folic/Lutein 1 tab PO DAILY 05/28/19 08/28/19 [Centrum Silver Women Tablet] Atenolol [Tenormin] 50 mg PO HS 08/21/19 08/28/19 Methotrexate Sodium [Methotrexate] 7.5 mg PO FR 08/21/19 08/28/19 Triamcinolone 0.1% Cream [Kenalog 1 applic TOPICAL HS 08/21/19 08/28/19 0.1% Cream] Previous Rx's Medication Instructions Recorded DULoxetine HCL [Cymbalta] 30 mg PO DAILY #30 capsule. 03/09/19 HYDROcodone/APAP 5-325MG [[place] 1 - 2 each PO Q4-6H PRN #50 tab 08/29/19 5-325] Aspirin EC [Ecotrin Low Dose] 81 mg PO DAILY #30 tablet. 08/31/19 Cholestyramine (with Sugar) 4 gm PO BID@1000,1800 packet 08/31/19 [Questran Packet] Enoxaparin [Lovenox] 40 mg SQ DAILY #10 syringe 08/31/19 Zolpidem [Ambien] 10 mg PO HS #3 tab 08/31/19 Allergies Allergy/AdvReac Type Severity Reaction Status Date / Time morphine AdvReac Severe Hallucinati Verified 08/28/19 09:40 ons Review of Systems ROS Statement: Those systems with pertinent positive or pertinent negative responses have been documented in the HPI. ROS Other: All systems not noted in ROS Statement are negative. 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 Past Anesthesia/Blood Transfusion Reactions: No Reported Reaction Additional Past Anesthesia/Blood Transfusion Reaction / Comment(s): Pt has received blood in past without reaction. Past Psychological History: No Psychological Hx Reported Additional Psychological History / Comment(s): Pt resides at home. Her spouse is currently at [facility] receiving rehab post hip replacement. Normally pt's spouse manages her medications and drives her to appts. She states she is currently managing her own medications or she doesn't take them. She states while her spouse is in rehab, she can get rides from her son or neighbors. She uses a wheeled walker to ambulate. Smoking Status: Former smoker Past Alcohol Use History: None Reported Additional Past Alcohol Use History / Comment(s): Pt resides at home. She uses a wheeled walker to ambulate. The patient was a smoker one pack per day for 42 years and quit smoking and 2001. She drinks alcohol socially. She was at home with her . Past Drug Use History: None Reported Past Drug Use History: None Reported - Past Family History Father Family Medical History: Cancer Additional Family Medical History / Comment(s): at age 68 from lung cancer Mother Family Medical History: Cancer Additional Family Medical History / Comment(s): at age 83 from lung cancer Brother(s) Family Medical History: Cancer Additional Family Medical History / Comment(s): at age 63 from lung cancer. Son(s) Additional Family Medical History / Comment(s): She has 2 sons with no major medical problems. General Exam - General Exam Comments Initial Comments: GENERAL: Patient is well-developed and well-nourished. Patient is nontoxic and well- hydrated and is in mild distress. ENT: Neck is soft and supple. No significant lymphadenopathy is noted. Oropharynx is clear. Dry mucous membranes. Neck has full range of motion without eliciting any pain. EYES: The sclera were anicteric and conjunctiva were pink and moist. Extraocular movements were intact and pupils were equal round and reactive to light. Eyelids were unremarkable. PULMONARY: Unlabored respirations. Good breath sounds bilaterally. Patient has crackles in the left base. CARDIOVASCULAR: There is a regular rate and rhythm without any murmurs gallops or rubs. ABDOMEN: Soft and nontender with normal bowel sounds. SKIN: Skin is clear with no lesions or rashes and otherwise unremarkable. NEUROLOGIC: Patient is alert and oriented 2. Cranial nerves II through XII are grossly intact. Motor and sensory are also intact. Normal speech, volume and content. Symmetrical smile. MUSCULOSKELETAL: Normal extremities with adequate strength and full range of motion. LYMPHATICS: No significant lymphadenopathy is noted PSYCHIATRIC: Normal psychiatric evaluation. Course Vital Signs 09/08/19 10:42 Temperature 97.6 F Pulse Rate 99 Respiratory 24 Rate Blood Pressure 152/91 O2 Sat by Pulse 100 Oximetry Medical Decision Making - Medical Decision Making EKG shows atrial fibrillation at a rate of 98 bpm QRS is 90 QT interval is 354 QTC is 451. Patient's EKG shows no ST segment elevation or depression. Patient received a gram of Rocephin. Patient had a urinary tract infection. Patient's chest x-ray shows an infiltrate. I spoke with Dr. Marie he wanted to admit the patient admitted the patient wrote admitting orders. - Lab Data Result diagrams: 09/08/19 11:12 09/08/19 11:12 Lab Results 09/08/19 09/08/19 09/08/19 Range/Units 10:59 11:12 11:12 WBC 20.3 H (3.8-10.6) k/uL RBC 3.39 L (3.80-5.40) m/uL Hgb 10.2 L (11.4-16.0) gm/dL Hct 32.6 L (34.0-46.0) % MCV 96.3 (80.0-100.0) fL MCH 30.1 (25.0-35.0) pg MCHC 31.3 (31.0-37.0) g/dL RDW 14.8 (11.5-15.5) % Plt Count 627 H (150-450) k/uL Neutrophils % 90 % Lymphocytes % 6 % Monocytes % 2 % Eosinophils % 1 % Basophils % 0 % Neutrophils # 18.3 H (1.3-7.7) k/uL Lymphocytes # 1.2 (1.0-4.8) k/uL Monocytes # 0.4 (0-1.0) k/uL Eosinophils # 0.1 (0-0.7) k/uL Basophils # 0.1 (0-0.2) k/uL Hypochromasia Slight PT (9.0-12.0) sec INR (<1.2) APTT (22.0-30.0) sec Sodium 137 (137-145) mmol/L Potassium 4.5 (3.5-5.1) mmol/L Chloride 107 (98-107) mmol/L Carbon Dioxide 18 L (22-30) mmol/L Anion Gap 12 mmol/L BUN 14 (7-17) mg/dL Creatinine 0.69 (0.52-1.04) mg/dL Est GFR (CKD-EPI)AfAm >90 (>60 ml/min/1.73 sqM) Est GFR (CKD-EPI)NonAf 84 (>60 ml/min/1.73 sqM) Glucose 97 (74-99) mg/dL Plasma Lactic Acid Zeyad (0.7-2.0) mmol/L Calcium 9.8 (8.4-10.2) mg/dL Total Bilirubin 0.7 (0.2-1.3) mg/dL AST 30 (14-36) U/L ALT 13 (4-34) U/L Alkaline Phosphatase 230 H (38-126) U/L Troponin I (0.000-0.034) ng/mL Total Protein 6.7 (6.3-8.2) g/dL Albumin 3.0 L (3.5-5.0) g/dL Urine Color Urine Appearance (Clear) Urine pH (5.0-8.0) Ur Specific [place] (1.001-1.035) Urine Protein (Negative) Urine Glucose (UA) (Negative) Urine Ketones (Negative) Urine Blood (Negative) Urine Nitrite (Negative) Urine Bilirubin (Negative) Urine Urobilinogen (<2.0) mg/dL Ur Leukocyte Esterase (Negative) Urine RBC (0-5) /hpf Urine WBC (0-5) /hpf Ur Squamous Epith Cells (0-4) /hpf Urine Bacteria (None) /hpf Hyaline Casts (0-2) /lpf Urine Mucus (None) /hpf Influenza Type A RNA (Not Detectd) Influenza Type B (PCR) (Not Detectd) Blood Type B Positive Blood Type Recheck B Pos Bld Type Recheck Status No Antibody Screen NEGATIVE Spec Expiration Date 09/11/2019 - 235809/08/19 09/08/19 09/08/19 Range/Units 11:12 11:12 11:12 WBC (3.8-10.6) k/uL RBC (3.80-5.40) m/uL Hgb (11.4-16.0) gm/dL Hct (34.0-46.0) % MCV (80.0-100.0) fL MCH (25.0-35.0) pg MCHC (31.0-37.0) g/dL RDW (11.5-15.5) % Plt Count (150-450) k/uL Neutrophils % % Lymphocytes % % Monocytes % % Eosinophils % % Basophils % % Neutrophils # (1.3-7.7) k/uL Lymphocytes # (1.0-4.8) k/uL Monocytes # (0-1.0) k/uL Eosinophils # (0-0.7) k/uL Basophils # (0-0.2) k/uL Hypochromasia PT 11.5 (9.0-12.0) sec INR 1.1 (<1.2) APTT 25.3 (22.0-30.0) sec Sodium (137-145) mmol/L Potassium (3.5-5.1) mmol/L Chloride (98-107) mmol/L Carbon Dioxide (22-30) mmol/L Anion Gap mmol/L BUN (7-17) mg/dL Creatinine (0.52-1.04) mg/dL Est GFR (CKD-EPI)AfAm (>60 ml/min/1.73 sqM) Est GFR (CKD-EPI)NonAf (>60 ml/min/1.73 sqM) Glucose (74-99) mg/dL Plasma Lactic Acid Zeyad 1.6 (0.7-2.0) mmol/L Calcium (8.4-10.2) mg/dL Total Bilirubin (0.2-1.3) mg/dL AST (14-36) U/L ALT (4-34) U/L Alkaline Phosphatase (38-126) U/L Troponin I (0.000-0.034) ng/mL Total Protein (6.3-8.2) g/dL Albumin (3.5-5.0) g/dL Urine Color Urine Appearance (Clear) Urine pH (5.0-8.0) Ur Specific [place] (1.001-1.035) Urine Protein (Negative) Urine Glucose (UA) (Negative) Urine Ketones (Negative) Urine Blood (Negative) Urine Nitrite (Negative) Urine Bilirubin (Negative) Urine Urobilinogen (<2.0) mg/dL Ur Leukocyte Esterase (Negative) Urine RBC (0-5) /hpf Urine WBC (0-5) /hpf Ur Squamous Epith Cells (0-4) /hpf Urine Bacteria (None) /hpf Hyaline Casts (0-2) /lpf Urine Mucus (None) /hpf Influenza Type A RNA Not Detected (Not Detectd) Influenza Type B (PCR) Not Detected (Not Detectd) Blood Type Blood Type Recheck Bld Type Recheck Status Antibody Screen Spec Expiration Date 09/08/19 09/08/19 Range/Units 11:12 11:26 WBC (3.8-10.6) k/uL RBC (3.80-5.40) m/uL Hgb (11.4-16.0) gm/dL Hct (34.0-46.0) % MCV (80.0-100.0) fL MCH (25.0-35.0) pg MCHC (31.0-37.0) g/dL RDW (11.5-15.5) % Plt Count (150-450) k/uL Neutrophils % % Lymphocytes % % Monocytes % % Eosinophils % % Basophils % % Neutrophils # (1.3-7.7) k/uL Lymphocytes # (1.0-4.8) k/uL Monocytes # (0-1.0) k/uL Eosinophils # (0-0.7) k/uL Basophils # (0-0.2) k/uL Hypochromasia PT (9.0-12.0) sec INR (<1.2) APTT (22.0-30.0) sec Sodium (137-145) mmol/L Potassium (3.5-5.1) mmol/L Chloride (98-107) mmol/L Carbon Dioxide (22-30) mmol/L Anion Gap mmol/L BUN (7-17) mg/dL Creatinine (0.52-1.04) mg/dL Est GFR (CKD-EPI)AfAm (>60 ml/min/1.73 sqM) Est GFR (CKD-EPI)NonAf (>60 ml/min/1.73 sqM) Glucose (74-99) mg/dL Plasma Lactic Acid Zeyad (0.7-2.0) mmol/L Calcium (8.4-10.2) mg/dL Total Bilirubin (0.2-1.3) mg/dL AST (14-36) U/L ALT (4-34) U/L Alkaline Phosphatase (38-126) U/L Troponin I <0.012 (0.000-0.034) ng/mL Total Protein (6.3-8.2) g/dL Albumin (3.5-5.0) g/dL Urine Color Yellow Urine Appearance Clear (Clear) Urine pH 5.5 (5.0-8.0) Ur Specific [place] 1.025 (1.001-1.035) Urine Protein 1+ H (Negative) Urine Glucose (UA) Negative (Negative) Urine Ketones 1+ H (Negative) Urine Blood Negative (Negative) Urine Nitrite Positive H (Negative) Urine Bilirubin Negative (Negative) Urine Urobilinogen <2.0 (<2.0) mg/dL Ur Leukocyte Esterase Negative (Negative) Urine RBC 1 (0-5) /hpf Urine WBC 10 H (0-5) /hpf Ur Squamous Epith Cells <1 (0-4) /hpf Urine Bacteria Many H (None) /hpf Hyaline Casts 1 (0-2) /lpf Urine Mucus Few H (None) /hpf Influenza Type A RNA (Not Detectd) Influenza Type B (PCR) (Not Detectd) Blood Type Blood Type Recheck Bld Type Recheck Status Antibody Screen Spec Expiration Date Critical Care Time Critical Care Time: Yes Total Critical Care Time: 35 Disposition Clinical Impression: Urinary tract infection, Pneumonia, Sepsis, Pulmonary edema Disposition: ADMITTED IP TO THIS [facility] Time of Disposition: 12:00
[2019-09-08] MEDS: SODIUM CHLORIDE 0.9% 500 ML 500 ML IV SCH ×2 (11:31→13:19)
[2019-09-08 11:38] LABS: ALT 13 U/L (4-34); AST 30 U/L (14-36); African American GFR (CKD) >90 (>60 ml/min/1.73 sqM); Alkaline Phosphatase 230 U/L (38-126); Anion Gap 12 mmol/L; Blood Urea Nitrogen 14 mg/dL (7-17); Calcium 9.8 mg/dL (8.4-10.2); Carbon Dioxide 18 mmol/L (22-30); Chloride 107 mmol/L (98-107); Glucose 97 mg/dL (74-99); Non-African American GFR(CKD) 84 (>60 ml/min/1.73 sqM); Potassium 4.5 mmol/L (3.5-5.1); Sodium 137 mmol/L (137-145); Total Bilirubin 0.7 mg/dL (0.2-1.3); Total Protein 6.7 g/dL (6.3-8.2)
[2019-09-08 11:41] LABS: INR 1.1 (<1.2); Partial Thromboplastin Time 25.3 sec (22.0-30.0); Prothrombin Time 11.5 sec (9.0-12.0)
[2019-09-08 11:41] LABS: Appearance,Urine Clear (Clear); Bacteria,Urine Many /hpf; Bilirubin,Urine Negative (Negative); Blood,Urine Negative (Negative); Color,Urine Yellow; Glucose,Urine (UA) Negative (Negative); Hyaline Casts,Urine 1 /lpf (0-2); Ketones,Urine 1+ (Negative); Leukocyte Esterase,Urine Negative (Negative); Mucus,Urine Few /hpf; Nitrite,Urine Positive (Negative); PH, Urine 5.5 (5.0-8.0); Protein,Urine 1+ (Negative); RBC,Urine 1 /hpf (0-5); Specific Gravity,Urine 1.025 (1.001-1.035); Squamous Epithelial Cell,Urine <1 /hpf (0-4); Urobilinogen,Urine <2.0 mg/dL (<2.0); WBC,Urine 10 /hpf (0-5)
[2019-09-08 11:43] LABS: Basophils # (A) 0.1 k/uL (0-0.2); Basophils % (A) 0 %; Eosinophils # (A) 0.1 k/uL (0-0.7); Eosinophils % (A) 1 %; HCT 32.6 % (34.0-46.0); HGB 10.2 gm/dL (11.4-16.0); Hypochromasia Slight; Lymphocytes # (A) 1.2 k/uL (1.0-4.8); Lymphocytes % (A) 6 %; MCH 30.1 pg (25.0-35.0); MCHC 31.3 g/dL (31.0-37.0); MCV 96.3 fL (80.0-100.0); Mean Platelet Volume 7.8; Monocytes # (A) 0.4 k/uL (0-1.0); Monocytes % (A) 2 %; Neutrophils # (A) 18.3 k/uL (1.3-7.7); Neutrophils % (A) 90 %; Platelet Count 627 k/uL (150-450); RBC 3.39 m/uL (3.80-5.40); RDW 14.8 % (11.5-15.5); WBC 20.3 k/uL (3.8-10.6)
[2019-09-08] MEDS ORDERED: VANCOMYCIN IV PER PHARMACY 1 EACH MISC MISCELLANE PRN (12:00)
--- NOTE | 2019-09-08 12:06 | XR ---
EXAMINATION TYPE: XR chest 2V DATE OF EXAM: 09/08/2019 HISTORY: Fever. REFERENCE: Previous study dated 08/21/2019. FINDINGS: Lung volumes are prominent. Heart is mildly enlarged. There has developed vascular congesti on and interstitial edema. I suspect small, bilateral effusions. IMPRESSION: WORSENING CHANGES OF CONGESTIVE HEART FAILURE.
[2019-09-08] MEDS ORDERED: FUROSEMIDE 10 MG/ML 2 ML VIAL IV ONE (12:17)
[2019-09-08] MEDS ORDERED: VANCOMYCIN 1,250 MG in SODIUM CHLORIDE 0.9% 250 ML IVPB ONE (13:00)
[2019-09-08] MEDS ORDERED: HYDROcodone/APAP 5-325MG 1 EACH TAB PO PRN (13:48)
[2019-09-08] MEDS ORDERED: ACETAMINOPHEN TAB 325 MG TAB PO PRN (13:48)
[2019-09-08] MEDS ORDERED: IPRATROPIUM-ALBUTEROL 3 ML NEB INHALATION PRN (13:48)
--- NOTE | 2019-09-08 14:04 | P.HPIM ---
History of Present Illness H&P Date: 09/08/19 Chief Complaint: Sepsis, aspiration pneumonia, urinary tract infection and s epsis, COPD, A. 78-year-old female one of Dr. Fine patient seen Dr. Tilley in and Dr. Serrano with multiple medical problem known to have history of COPD, A. fib, history of GI bleed, nonobstructive coronary artery disease, who was in the hospital and 08-28-2019 4 from left tibial fracture and knee immobilizer who had recent history of left hip intratrochanteric fracture post hemiarthroplasty who has been in and out of rehab. Patient left the hospital after her last injury and fall on the seventh end up at [facility] on the [place] for physical therapy seen Dr. Fleming. Patient was seen apparently yesterday and complaining of fever or chills mild confusion along with change mental status decreased mobility cough productive Dr. Lucia along with worsening symptoms ended up having a chest x-ray and lab result came back with significant leukocytosis, abnormal UA and bilateral pneumonia. Patient was hypoxic has been having hypotension and tachycardia with concern of sepsis ended up being sent to the emergency department at [facility] where was evaluated and seen chest x-ray showed in filtrate with heart failure, UA was positive, her wrap WBC were over 20,000 left shifted with sign and symptom of sepsis. Patient was started on vancomycin and Rocephin after culture was done kept on oxygen updraft treatment will admit patient to the hospital for the above problem. Review of Systems CONSTITUTIONAL: Well-developed no acute respiratory distress. Looks older her age, mild tachypnea EYES: No icterus sclerae, no conjunctivitis. EARS, NOSE, MOUTH, THROAT, and FACE: No sore throat, lymphadenopathy, carotid bruits or deformity. RESPIRATORY: Positive shortness of breath cough. CARDIOVASCULAR: Positive palpitation with PND orthopnea GASTROINTESTINAL: No Abd pain, mild nausea no vomiting positive diarrhea, No GI Bleed, no distention or masses. GENITOURINARY: Positive urinary tract infection along with recurrent incontinence and worsening symptoms. INTEGUMENT/BREAST: Negative for any muscular injury with mild osteoarthritis.. HEMATOLOGIC/LYMPHATIC: Negative for bleed or purpura. MUSCULOSKELTAL: Still have a brace on the left leg area with limited we ightbearing currently. NEURLOGICAL: Slight altered mental status with worsening confusion BEHAVIORAL/PSYCH: Negative. ENDOCRINE: Negative. 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 Past Anesthesia/Blood Transfusion Reactions: No Reported Reaction Additional Past Anesthesia/Blood Transfusion Reaction / Comment(s): Pt has received blood in past without reaction. Past Psychological History: No Psychological Hx Reported Additional Psychological History / Comment(s): PT is admitted from rehab at [facility]. Normally home with spouse. Smoking Status: Former smoker Past Alcohol Use History: None Reported Additional Past Alcohol Use History / Comment(s): The patient was a smoker one pack per day for 42 years and quit smoking and 2000. Past Drug Use History: None Reported Past Drug Use History: None Reported - Past Family History Father Family Medical History: Cancer Additional Family Medical History / Comment(s): at age 68 from lung cancer Mother Family Medical History: Cancer Additional Family Medical History / Comment(s): at age 83 from lung cancer Brother(s) Family Medical History: Cancer Additional Family Medical History / Comment(s): at age 63 from lung cancer. Son(s) Additional Family Medical History / Comment(s): She has 2 sons with no major medical problems. Medications and Allergies Home Medications Medication Instructions Recorded Confirmed Type Brinzolamide/Brimonidine Tart 1 drop BOTH EYES DAILY@0900 12/22/16 09/08/19 History [Simbrinza 1%-0.2% Eye Drops] Folic Acid 1 mg PO SUMOTUWETHSA@209912/22/16 09/08/19 History Levothyroxine Sodium [Synthroid] 75 mcg PO DAILY@0612/22/16 09/08/19 History Pantoprazole Sodium [Protonix] 40 mg PO BID@0900,2100 12/22/16 09/08/19 History Ascorbic Acid [Vitamin C] 500 mg PO DAILY@0900 05/18/18 09/08/19 History Atorvastatin [Lipitor] 40 mg PO HS@209912/29/18 09/08/19 History Cholecalciferol (Vitamin D3) 2,000 unit PO DAILY@0912/29/18 09/08/19 History [Vitamin D3] rOPINIRole HCL [Requip] 0.5 mg PO TID@0600,1400,2200 12/29/18 09/08/19 History Acetaminophen Tab [Tylenol] 325 mg PO Q6H PRN 01/29/19 09/08/19 History Ipratropium-Albuterol Nebulize 3 ml INHALATION RT-TID PRN 05/28/19 09/08/19 History [Duoneb 0.5 mg-3 mg/3 ml Soln] Multivit-Min/Iron/Folic/Lutein 1 tab PO DAILY@0900 05/28/19 09/08/19 History [Centrum Silver Women Tablet] Atenolol [Tenormin] 50 mg PO HS@209908/21/19 09/08/19 History Methotrexate Sodium [Methotrexate] 7.5 mg PO FR 08/21/19 09/08/19 History Cholestyramine (with Sugar) 4 gm PO BID@1000,1800 packet 08/31/19 09/08/19 Rx [Questran Packet] Aspirin EC [Ecotrin Low Dose] 81 mg PO DAILY@0900 09/08/19 09/08/19 History Benzonatate [Tessalon Perles] 100 mg PO TID PRN 09/08/19 09/08/19 History DULoxetine HCL [Cymbalta] 30 mg PO DAILY@0900 09/08/19 09/08/19 History Enoxaparin [Lovenox] 40 mg SQ DAILY@89909/08/19 09/08/19 History HYDROcodone/APAP 5-325MG [[place] 1 - 2 tab PO Q4H PRN 09/08/19 09/08/19 History 5-325] Sennosides/Docusate Sodium [Senna 1 tab PO BID@0900,2100 09/08/19 09/08/19 History Plus 8.6-50 mg Tablet] Zolpidem [Ambien] 10 mg PO HS@2100 09/08/19 09/08/19 History Allergies Allergy/AdvReac Type Severity Reaction Status Date / Time morphine AdvReac Severe Hallucinati Verified 09/08/19 13:09 ons Physical Exam Vitals: Vital Signs Temp Pulse Pulse Resp BP BP Pulse Ox 09/08/19 13:50 97.9 F 73 18 159/67 91 L 09/08/19 13:30 97.6 F 91 22 138/88 97 09/08/19 12:30 91 22 138/88 97 09/08/19 12:00 93 19 158/85 99 09/08/19 11:30 78 21 09/08/19 11:00 84 20 152/91 97 09/08/19 10:42 97.6 F 99 24 152/91 100 09/08/19 10:39 87 21 100 Intake and Output 09/07/19 09/08/19 09/08/19 22:59 06:59 14:59 Other: # Voids 2 Weight 63.503 kg General Appearance: Alert, cooperative, no distress, eappears older than her age Neck HEENT: Supple, no lymphadenopathy, no thyroid enlargement, no carotid bruits. Lungs: Decreased breath sound bilaterally with fine rhonchi positive mild crackles in the bases positive mild inspiratory expiratory wheezes. Chest Wall: Decrease expansion with deep inspiration no tenderness and no deformity was found on exam, no costochondral pain or discomfort. Heart: Irregular rate and rhythm, S1, S2 positive S3 positive systolic murmur. Back: Symmetric, no curvature, ROM normal, no CVA tenderness. Abdomen: Soft, non-tender, bowel sounds active all four quadrants, no masses, no organomegaly. Extremities: Multiple scar tissue in both lower extremity, left leg still in a brace currently with multiple bruises in the upper and lower extremity from coagulopathy.. Pulses: 2+ and symmetric. Skin: Skin color, texture, tugor normal, no rashes or lesions. Neurologic: Alert oriented with slight confusion moving all her 4 [place] generalized weakness no focal deficit. Memory slightly bit down and slight confusion still. Results CBC & Chem 7: 09/08/19 11:12 09/08/19 11:12 Labs: Abnormal Lab Results - Last 24 Hours (Table) 09/08/19 09/08/19 09/08/19 Range/Units 11:12 11:12 11:26 WBC 20.3 H (3.8-10.6) k/uL RBC 3.39 L (3.80-5.40) m/uL Hgb 10.2 L (11.4-16.0) gm/dL Hct 32.6 L (34.0-46.0) % Plt Count 627 H (150-450) k/uL Neutrophils # 18.3 H (1.3-7.7) k/uL Carbon Dioxide 18 L (22-30) mmol/L Alkaline Phosphatase 230 H (38-126) U/L Albumin 3.0 L (3.5-5.0) g/dL Urine Protein 1+ H (Negative) Urine Ketones 1+ H (Negative) Urine Nitrite Positive H (Negative) Urine WBC 10 H (0-5) /hpf Urine Bacteria Many H (None) /hpf Urine Mucus Few H (None) /hpf Thrombosis Risk Factor Assmnt - DVT/VTE Prophylaxis DVT/VTE Prophylaxis: Pharmacologic Prophylaxis ordered, Mechanical Prophylaxis ordered - Choose All That Apply Any of the Below Risk Factors Present?: Yes Each Factor Represents 1 point: Abnormal pulmonary function (COPD), Medical pt on bed rest, Sepsis (< 1month), Serious lung disease incl. pneumonia (< 1month) Other Risk Factors: Yes Each Risk Factor Represents 3 Points: Age 75 years or older Each Risk Factor Represents 5 Points: Hip, pelvis, or leg fracture (< 1 month) Thrombosis Risk Factor Assessment Total Risk Factor Score: 12 Thrombosis Risk Factor Assessment Level: High Risk Assessment and Plan Plan: 1 sepsis: Combination of aspiration pneumonia along with urinary tract infection with sepsis, patient will continue's Vanco and ceftriaxone, watching for final culture, will consult infectious disease at this point. 2 bilateral pneumonia: Most likely aspiration, we will treat patient and the continue coverage for gram-negative as well, we'll consult pulmonary continue to watch for any hazard of aspiration and if needed we'll consult speech. 3 UTI and sepsis: Most likely gram-negative as well awaiting for the final culture patient is cover with Vanco and Rocephin for now change antibiotics according to the final culture. 4 recent tibial fracture and recent right hip intratrochanteric fracture secondary to fall with multiple falls continue post surgical care at this point. 5 A. fib with RVR: Pulse rates under control currently on atenolol patient is not on a liquid's at this point but remain on Lovenox 40 mg subcutaneous daily. 6 COPD: Patient will be on went up and Pulmicort continue O2. 7 congestive heart failure: Systolic dysfunction chronic with acute component continue diuretics chest x-ray showed early pulmonary edema will continue furosemide 20 mg IV twice a day keep watching urine output and daily weight. 8 hypothyroidism: Continue levothyroxine. 9 chronic depression: Has been on duloxetine 30 mg a day. 10 hyperlipidemia: On atorvastatin 40 mg daily. 11 rheumatoid arthritis: Patient will be off methotrexate at this point until she is out of the hospital. 12 GI prophylaxis: Remain on pantoprazole 40 mg twice a day. 13 DVT prophylaxis: Knee-high PHILIP hose and Lovenox subcutaneous daily. CODE STATUS: Full code. Admit patient to inpatient status for more than 2 nights.
[2019-09-08] MEDS: CHOLESTYRAMINE (WITH SUGAR) 4 GM PACKET PO SCH (17:26)
[2019-09-08] MEDS: ATORVASTATIN 40 MG TAB PO SCH (21:59)
[2019-09-08] MEDS: SENNOSIDES-DOCUSATE SODIUM 1 EACH TAB PO SCH (21:59)
[2019-09-08] MEDS: PANTOPRAZOLE 40 MG TABLET PO SCH (21:59)
[2019-09-08] MEDS: ATENOLOL 50 MG TAB PO SCH (21:59)
[2019-09-08] MEDS: FOLIC ACID 1 MG TAB PO SCH (21:59)
[2019-09-08] MEDS: FUROSEMIDE 10 MG/ML 2 ML VIAL IV SCH (22:00)
[2019-09-08] MEDS: ZOLPIDEM 10 MG TAB PO SCH (22:02)
--- NOTE | 2019-09-08 23:42 | P.CONS ---
History of Present Illness - Reason for Consult Consult date: 09/08/19 sepsis/aspiration pneumonia Requesting physician: Virgil Marie - Chief Complaint fever and cough x 1 day - History of Present Illness Patient is a 78-year-old female with a recent history of right hip fracture repair subsequently did have left tibial fracture currently in immobilizer and is [place] [facility] resident patient has been sent to the ER at [facility] for fever cough and decreased oral intake on arrival to the ER patient was noticed to be afebrile with a temperature 97.6 he did have a white count of 20,000 patient UA negative influenza serology was negative patient did have a chest x-ray worsening changes of congestive heart failure the patient was started on Rocephin and vancomycin admitted to hospital infectious was consulted for further recommendation about antibiotic therapy most information has been obtained from review the chart and talking nursing staff as the patient is pleasantly confused and is unable to provide any history. Review of Systems Positive point has been mentioned in HPI rest of the system could not be done because of underlying mental status Past Medical History Past Medical History: Atrial Fibrillation, Asthma, Heart Failure, COPD, Eye Disorder, GERD/Reflux, GI Bleed, Hyperlipidemia, Hypertension, Osteoarthritis (OA), Pneumonia, Renal Disease, Respiratory Disorder, Rheumatoid Arthritis (RA), Sleep Apnea/CPAP/BIPAP, Thyroid Disorder Additional Past Medical History / Comment(s): Mycobacterium avium complex, bronchitis, lower GI bleed, denies past gastric ulcer, hiatal hernia, anemia with blood transfusions and iron infusions, pt has L kidney that is functioning/L kidney has atrophied, 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 Past Anesthesia/Blood Transfusion Reactions: No Reported Reaction Additional Past Anesthesia/Blood Transfusion Reaction / Comm: Pt has received blood in past without reaction. Past Psychological History: No Psychological Hx Reported Additional Psychological History / Comment(s): PT is admitted from rehab at [facility]. Normally home with spouse. Smoking Status: Former smoker Past Alcohol Use History: None Reported Additional Past Alcohol Use History / Comment(s): The patient was a smoker one pack per day for 42 years and quit smoking and 2000. Past Drug Use History: None Reported Past Drug Use History: None Reported - Past Family History Father Family Medical History: Cancer Additional Family Medical History / Comment(s): at age 68 from lung cancer Mother Family Medical History: Cancer Additional Family Medical History / Comment(s): at age 83 from lung cancer Brother(s) Family Medical History: Cancer Additional Family Medical History / Comment(s): at age 63 from lung cancer. Son(s) Additional Family Medical History / Comment(s): She has 2 sons with no major medical problems. Medications and Allergies Home Medications Medication Instructions Recorded Confirmed Type Brinzolamide/Brimonidine Tart 1 drop BOTH EYES DAILY@0912/22/16 09/08/19 History [Simbrinza 1%-0.2% Eye Drops] Folic Acid 1 mg PO SUMOTUWETHSA@209912/22/16 09/08/19 History Levothyroxine Sodium [Synthroid] 75 mcg PO DAILY@0612/22/16 09/08/19 History Pantoprazole Sodium [Protonix] 40 mg PO BID@09,209912/22/16 09/08/19 History Ascorbic Acid [Vitamin C] 500 mg PO DAILY@0900 05/18/18 09/08/19 History Atorvastatin [Lipitor] 40 mg PO HS@209912/29/18 09/08/19 History Cholecalciferol (Vitamin D3) 2,000 unit PO DAILY@0912/29/18 09/08/19 History [Vitamin D3] rOPINIRole HCL [Requip] 0.5 mg PO TID@0600,1400,2200 12/29/18 09/08/19 History Acetaminophen Tab [Tylenol] 325 mg PO Q6H PRN 01/29/19 09/08/19 History Ipratropium-Albuterol Nebulize 3 ml INHALATION RT-TID PRN 05/28/19 09/08/19 History [Duoneb 0.5 mg-3 mg/3 ml Soln] Multivit-Min/Iron/Folic/Lutein 1 tab PO DAILY@0900 05/28/19 09/08/19 History [Centrum Silver Women Tablet] Atenolol [Tenormin] 50 mg PO HS@209908/21/19 09/08/19 History Methotrexate Sodium [Methotrexate] 7.5 mg PO FR 08/21/19 09/08/19 History Cholestyramine (with Sugar) 4 gm PO BID@1000,1800 packet 08/31/19 09/08/19 Rx [Questran Packet] Aspirin EC [Ecotrin Low Dose] 81 mg PO DAILY@0900 09/08/19 09/08/19 History Benzonatate [Tessalon Perles] 100 mg PO TID PRN 09/08/19 09/08/19 History DULoxetine HCL [Cymbalta] 30 mg PO DAILY@0900 09/08/19 09/08/19 History Enoxaparin [Lovenox] 40 mg SQ DAILY@0900 09/08/19 09/08/19 History HYDROcodone/APAP 5-325MG [[place] 1 - 2 tab PO Q4H PRN 09/08/19 09/08/19 History 5-325] Sennosides/Docusate Sodium [Senna 1 tab PO BID@0900,2100 09/08/19 09/08/19 History Plus 8.6-50 mg Tablet] Zolpidem [Ambien] 10 mg PO HS@209909/08/19 09/08/19 History Allergies Allergy/AdvReac Type Severity Reaction Status Date / Time morphine AdvReac Severe Hallucinati Verified 09/08/19 13:09 ons Physical Exam Vitals: Vital Signs Temp Pulse Pulse Resp BP BP Pulse Ox 09/08/19 13:50 97.9 F 94 16 95/54 100 09/08/19 13:30 97.6 F 91 22 138/88 97 09/08/19 12:30 91 22 138/88 97 09/08/19 12:00 93 19 158/85 99 09/08/19 11:30 78 21 09/08/19 11:00 84 20 152/91 97 09/08/19 10:42 97.6 F 99 24 152/91 100 09/08/19 10:39 87 21 100 Intake and Output 09/07/19 09/08/19 09/08/19 22:59 06:59 14:59 Other: # Voids 2 Weight 63.503 kg GENERAL DESCRIPTION: Elderly female lying in bed, no distress. No tachypnea or accessory muscle of respiration use. HEENT: Shows Pallor , no scleral icterus. Oral mucous membrane is dry. NECK: Trachea central, no thyromegaly. LUNGS: Unlabored breathing. Decreased breath sound at bases . No wheeze or crackle. HEART: S1, S2, regular rate and rhythm. ABDOMEN: Soft, no tenderness , guarding or rigidity EXTREMITIES: No edema of feet. SKIN: No rash, no masses palpable. NEUROLOGICAL: The patient is awake,though pleasantly confused orientation could not be determined Results CBC & Chem 7: 09/08/19 11:12 09/08/19 11:12 Labs: Abnormal Lab Results - Last 24 Hours (Table) 09/08/19 09/08/19 09/08/19 Range/Units 11:12 11:12 11:26 WBC 20.3 H (3.8-10.6) k/uL RBC 3.39 L (3.80-5.40) m/uL Hgb 10.2 L (11.4-16.0) gm/dL Hct 32.6 L (34.0-46.0) % Plt Count 627 H (150-450) k/uL Neutrophils # 18.3 H (1.3-7.7) k/uL Carbon Dioxide 18 L (22-30) mmol/L Alkaline Phosphatase 230 H (38-126) U/L Albumin 3.0 L (3.5-5.0) g/dL Urine Protein 1+ H (Negative) Urine Ketones 1+ H (Negative) Urine Nitrite Positive H (Negative) Urine WBC 10 H (0-5) /hpf Urine Bacteria Many H (None) /hpf Urine Mucus Few H (None) /hpf Assessment and Plan Assessment: Patient admitted to the hospital with fever at the [place] [facility] decreased oral intakes and a congested cough with concern for possible pneumonia possible aspiration etiology in this patient is a [place] [facility] resident will need to cover for the present to vomit with likely pathogen less likely MRSA (1) Pneumonia Current Visit: Yes Status: Acute Code(s): J18.9 - PNEUMONIA, UNSPECIFIED ORGANISM SNOMED Code(s): 247236352 Plan: 1-we will try to bring a sputum for Gram stain and culture 2-discontinue Rocephin and vancomycin 3-add Zosyn 3.375 g every 8 hour 4-aspiration precaution We will follow on clinical condition and cultures to further adjust medication if needed thank you for this consultation we will follow this patient along with you
[2019-09-09] MEDS ORDERED: VANCOMYCIN 1,250 MG in SODIUM CHLORIDE 0.9% 250 ML IVPB SCH ×2
[2019-09-09] MEDS: PIPERACILLIN-TAZOBACTAM 3.375 GM in SODIUM CHLORIDE 0.9% 100 ML IVPB SCH ×3 (00:36→15:26)
[2019-09-09] MEDS: LEVOTHYROXINE 75 MCG TAB PO SCH (05:37)
[2019-09-09 08:26] LABS: Calcium 9.4 mg/dL (8.4-10.2); Potassium 4.3 mmol/L (3.5-5.1); Total Bilirubin 0.8 mg/dL (0.2-1.3); Total Protein 6.6 g/dL (6.3-8.2)
[2019-09-09 08:31] LABS: HCT 33.8 % (34.0-46.0); HGB 10.4 gm/dL (11.4-16.0); Hypochromasia Slight; MCH 29.6 pg (25.0-35.0); MCHC 30.7 g/dL (31.0-37.0); MCV 96.3 fL (80.0-100.0); Mean Platelet Volume 10.1; Platelet Count 494 k/uL (150-450); RBC 3.51 m/uL (3.80-5.40); RDW 14.7 % (11.5-15.5); WBC 20.7 k/uL (3.8-10.6)
[2019-09-09] MEDS: CHOLESTYRAMINE (WITH SUGAR) 4 GM PACKET PO SCH ×2 (08:33→17:49)
[2019-09-09] MEDS: FUROSEMIDE 10 MG/ML 2 ML VIAL IV SCH ×2 (08:34→22:51)
[2019-09-09] MEDS: ENOXAPARIN 40 MG/0.4 ML SYRINGE SQ SCH (08:34)
[2019-09-09] MEDS: CHOLECALCIFEROL 1,000 UNIT TAB PO SCH (08:34)
[2019-09-09] MEDS: ASPIRIN 81 MG PO SCH (08:34)
[2019-09-09] MEDS: DULoxetine HCL 30 MG CAPSULE.DR PO SCH (08:34)
[2019-09-09] MEDS: ASCORBIC ACID 500 MG TAB PO SCH (08:34)
[2019-09-09] MEDS: MULTIVITAMINS, THERA 1 EACH TAB PO SCH (08:34)
[2019-09-09] MEDS: SENNOSIDES-DOCUSATE SODIUM 1 EACH TAB PO SCH ×2 (08:34→22:52)
[2019-09-09] MEDS: PANTOPRAZOLE 40 MG TABLET PO SCH ×2 (08:34→22:52)
[2019-09-09] MEDS: BRIMONIDINE TARTRATE 0.2% DROPS 5 ML BTL BOTH EYES SCH (08:35)
[2019-09-09] MEDS: DORZOLAMIDE HCL 2% DROPS 10 ML BTL BOTH EYES SCH (08:35)
[2019-09-09 09:33] LABS: Neutrophils # (M) 16.56 k/uL (1.3-7.7); Neutrophils % (M) 80 %
[2019-09-09 09:34] LABS: Lymphocytes # (M) 2.28 k/uL (1.0-4.8); Monocytes # (M) 1.86 k/uL (0-1.0); Nucleated Red Blood Cells 0 /100 WBC (0-0); Total Cells Counted 100
[2019-09-09] MEDS ORDERED: BENZONATATE 100 MG CAP PO PRN (11:38)
--- NOTE | 2019-09-09 13:17 | P.PN ---
Subjective Progress Note Date: 09/09/19 Principal diagnosis: Sepsis, aspiration pneumonia, urinary tract infection and sepsis, COPD, A. fib. 78-year-old female one of Dr. Rider's patient seen Dr. Tilley in and Dr. Serrano with multiple medical problem known to have history of COPD, A. fib, history of GI bleed, nonobstructive coronary artery disease, who was in the hospital and 08-28-2019 4 from left tibial fracture and knee immobilizer who had recent history of left hip intratrochanteric fracture post hemiarthroplasty who has been in and out of rehab. Patient left the hospital after her last injury and fall on the seventh end up at [facility] on the [place] for physical therapy seen Dr. Fleming. Patient was seen apparently yesterday and complaining of fever or chills mild confusion along with change mental status decreased mobility cough productive phlegm along with worsening symptoms ended up having a chest x-ray and lab result came back with significant leukocytosis, abnormal UA and bilateral pneumonia. Patient was hypoxic has been having hypotension and tachycardia with concern of sepsis ended up being sent to the emergency department at [facility] where was evaluated and seen chest x-ray showed infiltrate with heart failure, UA was positive, her wrap WBC were over 20,000 left shifted with sign and symptom of sepsis. Patient was started on vancomycin and Rocephin after culture was done kept on oxygen updraft treatment will admit patient to the hospital for the above problem. 09/09: Patient was seen by ID and pulmonary agree with the current plan continue nebulizer treatment along with IV antibiotics, has been complaining of severe constipation Fleet enema will be done today as well. Patient culture is not final yet in the meanwhile continue current broad-spectrum IV antibiotic man agement continue steroid Objective - Vital Signs Vital signs: Vital Signs Temp 97.1 F L 09/09/19 04:59 Pulse 86 09/09/19 04:59 Resp 22 09/09/19 04:59 BP 159/78 09/09/19 04:59 Pulse Ox 98 09/09/19 04:59 Intake & Output 09/08/19 09/09/19 09/09/19 18:59 06:59 18:59 Weight 63.503 kg Other: Voiding Method Incontinent # Voids 2 3 # Bowel Movements 1 - Exam Review of Systems CONSTITUTIONAL: Well-developed no acute respiratory distress. Looks older her age, mild tachypnea EYES: No icterus sclerae, no conjunctivitis. EARS, NOSE, MOUTH, THROAT, and FACE: No sore throat, lymphadenopathy, carotid bruits or deformity. RESPIRATORY: Positive shortness of breath cough. CARDIOVASCULAR: Positive palpitation with PND orthopnea GASTROINTESTINAL: No Abd pain, mild nausea no vomiting positive diarrhea, No GI Bleed, no distention or masses. GENITOURINARY: Positive urinary tract infection along with recurrent incontinence and worsening symptoms. INTEGUMENT/BREAST: Negative for any muscular injury with mild osteoarthritis.. HEMATOLOGIC/LYMPHATIC: Negative for bleed or purpura. MUSCULOSKELTAL: Still have a brace on the left leg area with limited weightbearing currently. NEURLOGICAL: Slight altered mental status with worsening confusion BEHAVIORAL/PSYCH: Negative. ENDOCRINE: Negative. Physical Exam Vitals: Vital Signs Temp Pulse Pulse Resp BP BP Pulse Ox 09/08/19 13:50 97.9 F 73 18 159/67 91 L 09/08/19 13:30 97.6 F 91 22 138/88 97 09/08/19 12:30 91 22 138/88 97 09/08/19 12:00 93 19 158/85 99 09/08/19 11:30 78 21 09/08/19 11:00 84 20 152/91 97 09/08/19 10:42 97.6 F 99 24 152/91 100 09/08/19 10:39 87 21 100 Intake and Output 09/07/19 09/08/19 09/08/19 22:59 06:59 14:59 Other: # Voids 2 Weight 63.503 kg General Appearance: Alert, cooperative, no distress, eappears older than her age Neck HEENT: Supple, no lymphadenopathy, no thyroid enlargement, no carotid bruits. Lungs: Decreased breath sound bilaterally with fine rhonchi positive mild crackles in the bases positive mild inspiratory expiratory wheezes. Chest Wall: Decrease expansion with deep inspiration no tenderness and no deformity was found on exam, no costochondral pain or discomfort. Heart: Irregular rate and rhythm, S1, S2 positive S3 positive systolic murmur. Back: Symmetric, no curvature, ROM normal, no CVA tenderness. Abdomen: Soft, non-tender, bowel sounds active all four quadrants, no masses, no organomegaly. Extremities: Multiple scar tissue in both lower extremity, left leg still in a brace currently with multiple bruises in the upper and lower extremity from coagulopathy.. Pulses: 2+ and symmetric. Skin: Skin color, texture, tugor normal, no rashes or lesions. Neurologic: Alert oriented with slight confusion moving all her 4 [place] generalized weakness no focal deficit. Memory slightly bit down and slight confusion still. - Labs CBC & Chem 7: 09/09/19 06:55 09/09/19 06:55 Labs: Abnormal Lab Results - Last 24 Hours (Table) 09/09/19 09/09/19 Range/Units 06:55 06:55 WBC 20.7 H (3.8-10.6) k/uL RBC 3.51 L (3.80-5.40) m/uL Hgb 10.4 L (11.4-16.0) gm/dL Hct 33.8 L (34.0-46.0) % MCHC 30.7 L (31.0-37.0) g/dL Plt Count 494 H (150-450) k/uL Neutrophils # (Manual) 16.56 H (1.3-7.7) k/uL Monocytes # (Manual) 1.86 H (0-1.0) k/uL Carbon Dioxide 19 L (22-30) mmol/L Alkaline Phosphatase 210 H (38-126) U/L Albumin 3.0 L (3.5-5.0) g/dL Microbiology - Last 24 Hours (Table) 09/08/19 11:26 Urine Culture - Preliminary Urine,Voided Assessment and Plan Plan: 1 sepsis: Combination of aspiration pneumonia along with urinary tract infection with sepsis, patient will continue's Vanco and ceftriaxone, watching for final culture, will consult infectious disease at this point. 2 bilateral pneumonia: Most likely aspiration, we will treat patient and the continue coverage for gram-negative as well, we'll consult pulmonary continue to watch for any hazard of aspiration and if needed we'll consult speech. 3 UTI and sepsis: Most likely gram-negative as well awaiting for the final culture patient is cover with Vanco and Rocephin for now change antibiotics according to the final culture. 4 recent tibial fracture and recent right hip intratrochanteric fracture secondary to fall with multiple falls continue post surgical care at this point. 5 A. fib with RVR: Pulse rates under control currently on atenolol patient is not on a liquid's at this point but remain on Lovenox 40 mg subcutaneous daily. 6 COPD: Patient will be on went up and Pulmicort continue O2. 7 congestive heart failure: Systolic dysfunction chronic with acute component continue diuretics chest x-ray showed early pulmonary edema will continue furosemide 20 mg IV twice a day keep watching urine output and daily weight. 8 hypothyroidism: Continue levothyroxine. 9 chronic depression: Has been on duloxetine 30 mg a day. 10 hyperlipidemia: On atorvastatin 40 mg daily. 11 rheumatoid arthritis: Patient will be off methotrexate at this point until she is out of the hospital. 12 GI prophylaxis: Remain on pantoprazole 40 mg twice a day. Patient is doing much better today continue current treatment management waiting finalize final culture to changes antibiotic accordingly the meanwhile will add physical therapy and social work job titles service.
--- NOTE | 2019-09-09 14:02 | CONS ---
CONSULTATION PULMONARY/CRITICAL CARE CONSULTATION: DATE OF CONSULTATION: September 09, 2019 REASON FOR CONSULTATION: Mental status changes, and congestive heart failure. This is a 78-year-old female who I have not seen for some time. She apparently resides at the [facility] on the [facility]. She is here because of a recent broken tibia and fibula. She apparently did not have any surgery on the leg but just required mobilization. [facility], she had been coughing over the last couple of days. Her chest x-ray was apparently done and they suggest the possibility of pneumonia. She apparently also had an episode of fever at the prison. She also was not taking much by mouth. She apparently denied any chest pain or palpitations. She denies being short of breath. Denies any lightheadedness or dizziness. Denies any headache. She apparently denied any abdominal pain, nausea, vomiting, diarrhea or genitourinary complaints. The problem is that she is very disoriented and not a particularly good historian, so I do not know if any of this can be trusted. I am not sure where the history was obtained. When I went into see her, she was very confused. She was speaking and saying things that did make any sense at all. She was obviously very confused. She did even recognized me and I have been taking care of her for many years. Her was in the room. When we came into the room physical therapy was there as well and they were trying to get her to set up for stand at the bedside. The patient looks much older than as I remember her. She has multiple skin tears. She is very cachectic and thin. She looks very chronically ill. Her chest x-ray in my opinion shows evidence of heart failure. There was no N terminal proBNP done so I ordered one and it was elevated at 13,400. LONG TERM MEDICATIONS: As listed include eye drops, folic acid, Synthroid, Protonix, vitamin C, Lipitor, vitamin D3, Requip, Tylenol, updrafts, multivitamins, Tenormin, methotrexate, Kenalog cream, Cymbalta, [place], aspirin, Questran, Lovenox, and Ambien. ALLERGIES: MORPHINE. MEDICAL HISTORY: Reviewed. She has a history of atrial fibrillation, mild asthma, CHF, COPD, GERD, GI bleed, hyperlipidemia, hypertension, DJD, pneumonia, rheumatoid arthritis, sleep apnea syndrome, and hypothyroidism. Other medical problems include Mycobacterium avium complex infection, hiatal hernia, blindness in the left eye, colon polyps, multiple UTIs, among other things. SURGICAL HISTORY: Also quite extensive and includes breast surgery, hysterectomy, AAA repair, bilateral knee replacements, right arm wound with surgical repair, EGD, colonoscopy, polypectomy, breast augmentation, bilateral cataract removal and lens implant. SOCIAL HISTORY: Apparently positive for previous tobacco use. No alcohol use. No illicit drug use. Prior tobacco use was one pack a day for 42 years. She quit smoking in 2000. She apparently drinks socially. No illicit drug use. FAMILY HISTORY: Positive for father who at age 68 from lung cancer, a mother who at age 83 from lung cancer, a brother who at age 63 with lung cancer and 2 sons with no major medical problems. REVIEW OF SYSTEMS: CONSTITUTIONAL: Confusion, disorientation. NEUROLOGIC: As above. HEENT: Negative. CARDIOVASCULAR: Negative. PULMONARY: Cough, shortness of breath. GI: Negative. : Negative. RHEUMATOLOGIC: Negative. IMMUNOLOGIC: Negative. ENDOCRINOLOGIC: Negative. DERMATOLOGIC: Negative. PHYSICAL EXAMINATION: Current vital signs are reviewed. Temperature is 97.1, heart rate 86 and irregular, respiratory rate 22, blood pressure 159/78 mean 105, room air saturation 98%. Appears in no acute distress. HEENT: Examination is grossly unremarkable. NECK: Supple, full range of motion. No adenopathy. Neck veins are flat. CARDIOVASCULAR: Examination reveals regular rhythm and rate. Heart sounds are distant. S1, S2 normal. LUNGS: Reveal bibasilar crackles. No wheezes or rhonchi. ABDOMEN: Soft. EXTREMITIES are intact. No edema. The left leg is in a leg immobilizer. There are multiple skin tears throughout the body. SKIN is otherwise without rash. NEUROLOGIC: Examination is difficult to assess. She does move all 4 extremities, but she moves very slowly. She is very garbled in her speech. Much of what she says does not make sense. Chest x-ray is consistent with congestive heart failure. LAB DATA: Reviewed. White count 6.7, hemoglobin 10.4, hematocrit 33.8, platelet count 494,000. PT/INR PTT all normal. Sodium 137, potassium 4.3, chloride 104, CO2 19, anion gap is 14. BUN and creatinine were 17 and 0.8. Rest of the labs look okay. Alkaline phosphatase is elevated at 210. N terminal proBNP 13,400. Albumin is 3. Urine is evaluated. There is 1+ protein, 1+ ketones, nitrite positive, leukocyte esterase negative, 1 RBC, 10 WBCs, many bacteria. Influenza studies were negative. Medications are reviewed. She is currently on updrafts with DuoNeb and Zosyn. The other medications are reviewed. Assessment. MENTAL: 1. Mental status changes, which may relate to metabolic encephalopathy, and/or infection. 2. Congestive heart failure based on patient's chest x-ray and N terminal proBNP. 3. History of atrial fibrillation. 4. Asthma/chronic obstructive pulmonary disease, mild. 5. History of gastroesophageal reflux disease. 6. History of gastrointestinal bleed. 7. History of hyperlipidemia. 8. History of hypertension. 9. Degenerative joint disease. 10.Prior history of pneumonia. 11.History of rheumatoid arthritis. 12.History of sleep apnea syndrome. 13.Hypothyroidism. 14.Prior history of mycobacterium avium infection. 15.Multiple other medical problems and comorbidities. 16.Possible urinary tract infection. PLAN: The patient's medications are reviewed. She has been seen by Infectious Disease. She is on updrafts as needed. She is also on antibiotics. We will continue to follow. She primarily needs treatment for the fluid overload, i.e. Lasix. We will continue to follow. N terminal proBNP was quite high at 13,400. Her mental status is a concern and code status should certainly be addressed. MMODL / IJN: [id number] / MTDD
[2019-09-09] MEDS: NA PHOS,M-B/NA PHOS,DI-BA 133 ML ENEMA RECTAL ONE ×2 (15:25→15:29)
[2019-09-09] MEDS ORDERED: NA PHOS,M-B/NA PHOS,DI-BA 133 ML ENEMA RECTAL PRN (15:27)
[2019-09-09] MEDS: IPRATROPIUM-ALBUTEROL 3 ML NEB INHALATION SCH ×4 (15:40→23:50)
--- NOTE | 2019-09-09 22:40 | PN ---
PROGRESS NOTE DATE OF SERVICE: 09/09/2019. REASON FOR FOLLOWUP: Pneumonia. INTERVAL HISTORY: The patient is currently afebrile. She is breathing slightly comfortably. The patient continues to have a cough but is unable to bring up any sputum. No nausea or vomiting. No abdominal pain. No diarrhea. PHYSICAL EXAMINATION: Blood pressure 128/74 with a pulse of 96. Temperature 97.3. She is 99% on room air. General description is a middle-aged female lying in bed in no distress. Respiratory system: Unlabored breathing. Decreased breath sounds in the bases. No wheeze. Heart S1, S2. Regular rate and rhythm. ABDOMEN: Soft, no tenderness. LABS: White count up to 20.7. Urine showing gram-negative. Blood culture so far pending. Sputum not collected. DIAGNOSTIC IMPRESSION AND PLAN: Patient admitted to the hospital with mental status changes which is likely multifactorial in this patient who did have a respiratory distress and cough with concern for pneumonia, possible Gram-negative. She is currently covered with Zosyn. We will try to obtain a sputum to narrow down antibiotics and continue supportive care. MMODL / IJN: [id number] /
[2019-09-09] MEDS: ATORVASTATIN 40 MG TAB PO SCH (22:51)
[2019-09-09] MEDS: ZOLPIDEM 10 MG TAB PO SCH (22:51)
[2019-09-09] MEDS: ATENOLOL 50 MG TAB PO SCH (22:51)
[2019-09-09] MEDS: FOLIC ACID 1 MG TAB PO SCH (22:52)
[2019-09-10] MEDS: PIPERACILLIN-TAZOBACTAM 3.375 GM in SODIUM CHLORIDE 0.9% 100 ML IVPB SCH ×4 (00:54→23:34)
[2019-09-10] MEDS: IPRATROPIUM-ALBUTEROL 3 ML NEB INHALATION SCH ×5 (03:35→23:41)
[2019-09-10] MEDS: LEVOTHYROXINE 75 MCG TAB PO SCH (06:29)
[2019-09-10] MEDS: ENOXAPARIN 40 MG/0.4 ML SYRINGE SQ SCH (08:46)
[2019-09-10] MEDS: FUROSEMIDE 10 MG/ML 2 ML VIAL IV SCH ×2 (08:46→21:07)
[2019-09-10] MEDS: ASCORBIC ACID 500 MG TAB PO SCH (08:47)
[2019-09-10] MEDS: DULoxetine HCL 30 MG CAPSULE.DR PO SCH (08:47)
[2019-09-10] MEDS: MULTIVITAMINS, THERA 1 EACH TAB PO SCH (08:47)
[2019-09-10] MEDS: CHOLESTYRAMINE (WITH SUGAR) 4 GM PACKET PO SCH ×2 (08:47→16:08)
[2019-09-10] MEDS: CHOLECALCIFEROL 1,000 UNIT TAB PO SCH (08:47)
[2019-09-10] MEDS: ASPIRIN 81 MG PO SCH (08:47)
[2019-09-10] MEDS: PANTOPRAZOLE 40 MG TABLET PO SCH ×2 (08:47→21:08)
[2019-09-10] MEDS: SENNOSIDES-DOCUSATE SODIUM 1 EACH TAB PO SCH ×2 (08:47→21:08)
[2019-09-10] MEDS: DORZOLAMIDE HCL 2% DROPS 10 ML BTL BOTH EYES SCH (08:48)
[2019-09-10] MEDS: BRIMONIDINE TARTRATE 0.2% DROPS 5 ML BTL BOTH EYES SCH (08:48)
[2019-09-10 09:49] LABS: ALT 16 U/L (4-34); African American GFR (CKD) >90 (>60 ml/min/1.73 sqM); Anion Gap 13 mmol/L; Blood Urea Nitrogen 15 mg/dL (7-17); Calcium 9.1 mg/dL (8.4-10.2); Carbon Dioxide 23 mmol/L (22-30); Chloride 100 mmol/L (98-107); Glucose 97 mg/dL (74-99); Non-African American GFR(CKD) 85 (>60 ml/min/1.73 sqM); Sodium 136 mmol/L (137-145); Total Bilirubin 1.1 mg/dL (0.2-1.3)
[2019-09-10 09:58] LABS: AST 51 U/L (14-36); Albumin 3.2 g/dL (3.5-5.0); Alkaline Phosphatase 200 U/L (38-126); Total Protein 7.1 g/dL (6.3-8.2)
[2019-09-10 10:06] LABS: Basophils % (A) 0 %; Eosinophils % (A) 0 %; HCT 29.6 % (34.0-46.0); Lymphocytes # (A) 0.6 k/uL (1.0-4.8); Lymphocytes % (A) 5 %; MCH 23.5 pg (25.0-35.0); MCHC 25.3 g/dL (31.0-37.0); Mean Platelet Volume 8.3; Monocytes # (A) 0.4 k/uL (0-1.0); Monocytes % (A) 4 %; Neutrophils # (A) 9.4 k/uL (1.3-7.7); Neutrophils % (A) 90 %; Platelet Count 315 k/uL (150-450); RBC 3.18 m/uL (3.80-5.40); RDW 14.9 % (11.5-15.5); WBC 10.5 k/uL (3.8-10.6)
[2019-09-10 10:36] LABS: HGB 7.5 gm/dL (11.4-16.0)
[2019-09-10 10:38] LABS: Poikilocytosis (M) Present; Toxic Granulation Present
--- NOTE | 2019-09-10 11:37 | P.PN ---
Subjective Progress Note Date: 09/10/19 78-year-old female one of Dr. Rider's patient seen Dr. Tilley in and Dr. Serrano with multiple medical problem known to have history of COPD, A. fib, history of GI bleed, nonobstructive coronary artery disease, who was in the hospital and 08-28-2019 4 from left tibial fracture and knee immobilizer who had recent history of left hip intratrochanteric fracture post hemiarthroplasty who has been in and out of rehab. Patient left the hospital after her last injury and fall on the seventh end up at [facility] on the [place] for physical therapy seen Dr. Fleming. Patient was seen apparently yesterday and complaining of fever or chills mild confusion along with change mental status decreased mobility cough productive phlegm along with worsening symptoms ended up having a chest x-ray and lab result came back with significant leukocytosis, abnormal UA and bilateral pneumonia. Patient was hypoxic has been having hypotension and tachycardia with concern of sepsis ended up being sent to the emergency department at [facility] where was evaluated and seen chest x-ray showed infiltrate with heart failure, UA was positive, her wrap WBC were over 20,000 left shifted with sign and symptom of sepsis. Patient was started on vancomycin and Rocephin after culture was done kept on oxygen updraft treatment will admit patient to the hospital for the above problem. 09/09: Patient was seen by ID and pulmonary agree with the current plan continue nebulizer treatment along with IV antibiotics, has been complaining of severe constipation Fleet enema will be done today as well. Patient culture is not final yet in the meanwhile continue current broad-spectrum IV antibiotic management continue steroid 09/10: Patient remains afebrile, heart rate 96, blood pressure 149/92, pulse ox 95% on room air. Influenza testing was negative. Urine culture is in progress showing gram-negative bacilli. Blood culture no growth at 24 hours. Patient has been seen by Dr. Florentino and started on Zosyn. Sputum cultures on collected. Pro-calcitonin pending. Patient continues to have confusion. Objective - Vital Signs Vital signs: Vital Signs Temp 98.2 F 09/10/19 04:30 Pulse 96 09/10/19 04:30 Resp 20 09/10/19 04:30 BP 149/92 09/10/19 04:30 Pulse Ox 95 09/10/19 04:30 Intake & Output 09/09/19 09/10/19 09/10/19 18:59 06:59 18:59 Intake Total 540 600 Output Total 3 Balance 540 597 Intake: Oral 540 600 Output: Urine/Stool Mix 3 Other: Voiding Method Incontinent Incontinent # Voids 3 1 1 # Bowel Movements 1 1 - Exam Review Of Systems: Constitutional: No fever, no chills, no night sweats. No weight change. No weakness, fatigue or lethargy. No daytime sleepiness. EENT: No headache. No blurred vision or double vision, no loss of vision. No loss of Hearing, no ringing in the ears, no dizziness. No nasal drainage or congestion. No epistaxis. No sore throat. Lungs: No shortness of breath, cough, no sputum production. No wheezing. Cardiovascular: No chest pain, no lower extremity edema. No palpitations. No paroxysmal nocturnal dyspnea. No orthopnea. No lightheadedness or dizziness. No syncopal episodes. Abdominal: No abdominal pain. No nausea, vomiting. No diarrhea. No constipation. No bloody or tarry stools.. No loss of appetite. Genitourinary: No dysuria, increased frequency, urgency. No urinary retention. Musculoskeletal: No myalgias. No muscle weakness, no gait dysfunction, no frequent falls. No back pain. No neck pain. Integumentary: No wounds, no lesions. No rash or pruritus. No unusual b ruising. No change in hair or nails. Neurologic: No aphasia. No facial droop. No change in mentation. No head injury. No headache. No paralysis. No paresthesia. Psychiatric: No depression. No anxiety. No mood swings. Endocrine: No abnormal blood sugars. No weight change. No excessive sweating o r thirst. No cold intolerance. Gen: This is a 78-year-old female. Patient is resting in bed and appears to be comfortable and in no acute distress. HEENT: Head is atraumatic, normocephalic. Pupils equal, round. Sclerae is anicteric. NECK: Supple. No JVD. No lymphadenopathy. No thyromegaly. LUNGS: Clear to auscultation. No wheezes or rhonchi. No intercostal retractions. HEART: Irregular rate and rhythm. Systolic murmur. ABDOMEN: Soft. Bowel sounds are present. No masses. No tenderness. EXTREMITIES: No pedal edema. No calf tenderness. Brace left leg NEUROLOGICAL: Patient is awake, alert and oriented to person only. Generalized weakness - Labs CBC & Chem 7: 09/10/19 07:45 09/10/19 07:45 Labs: Microbiology - Last 24 Hours (Table) 09/08/19 11:26 Urine Culture - Preliminary Urine,Voided Gram Neg Bacilli 09/08/19 10:59 Blood Culture - Preliminary Blood No Growth after 24 hours Assessment and Plan Plan: 1. Metabolic encephalopathy secondary to sepsis and aspiration pneumonia and urinary tract infection. Consult with Dr. Rubin calderón. 2. Aspiration pneumonia. Continue DuoNeb treatments every 4 hours and as needed, Zosyn. Consult with pulmonary medicine. 3. Acute urinary tract infection. Urine culture is in progress. Blood culture no growth at 24 hours. Continue Zosyn. 4. Left tibial fracture. Knee immobilizer, nonweightbearing. PT and OT. 5. History of recent left intertrochanteric fracture status post hemiarthroplasty. Patient completed course of rehab at [facility]. 6. Acute on chronic diastolic heart failure, stable. Continue Lasix 20 mg IV every 12 hours. 7. Hypertension, hypertensive cardiovascular disease. Continue atenolol 50 mg at bedtime. 8. History of intermediate nonobstructive coronary artery disease. Continue atenolol, aspirin and Lipitor. 9. Chronic atrial fibrillation not currently on anticoagulation due to history of GI bleeding. Continue atenolol. 10. History of stage II COPD, stable. Continue DuoNeb treatments 3 times daily as needed. 11. Chronic pulmonary fibrosis. 12. History of bronchiectasis related to history of pulmonary infections. 13. History of atypical mycobacterial infection under the care Dr. Tilley. 14. Severe pulmonary hypertension and chronic cor pulmonale. 15. Rheumatoid arthritis. Continue methotrexate on Fridays. 16. Gastroesophageal reflux disease, GI prophylaxis. Protonix. 17. Hypothyroidism. Continue levothyroxine 75 g daily. 18. Underlying dementia. 19. History of abdominal aortic aneurysm with repair. 20. Chronic kidney disease stage II, stable. 21. Restless leg syndrome. Continue Requip. 19. Diarrhea, improved. C. difficile toxin negative. Questran. 20. DVT prophylaxis. Lovenox subcu. Discharge plan: [facility]. Impression and plan of care have been directed as dictated by the signing physician. Marina Cervantes nurse practitioner acting as scribe for signing physician.
--- NOTE | 2019-09-10 12:47 | P.PN ---
Subjective Progress Note Date: 09/10/19 This patient is being seen in follow-up. She came in yesterday because of an altered mental status. The patient also had a recent left hip fracture post- hemiarthroplasty and she has been in and out of rehabilitation. She left the hospital after her last injury and she fell again on August 31 and she ended up in [facility] [place]. She was having some episodic fever and chills and altered mentation. She came into the hospital. She was found to be hypotensive and tachycardic and slightly hypoxic. Chest x-ray showed chronic findings more consistent with CHF. UA was positive for any underlying infection. Her white cell count was 20,000. She was started on a combination of Rocephin and vanc omycin. She is already feeling better for now. Pulse ox on room air is 95%. Influenza screen is been negative. Urine cultures showing gram-negative bacillus. ID is on the case. No hemoptysis. No pleurisy. Objective - Vital Signs Vital signs: Vital Signs Temp 98.2 F 09/10/19 04:30 Pulse 92 09/10/19 09:55 Resp 20 09/10/19 04:30 BP 149/92 09/10/19 04:30 Pulse Ox 95 09/10/19 04:30 Intake & Output 09/09/19 09/10/19 09/10/19 18:59 06:59 18:59 Intake Total 540 600 Output Total 3 Balance 540 597 Intake: Oral 540 600 Output: Urine/Stool Mix 3 Other: Voiding Method Incontinent Incontinent # Voids 3 1 2 # Bowel Movements 1 1 - Exam Gen: This is a 78-year-old female. Patient is resting in bed and chantelle ears to be comfortable and in no acute distress. HEENT: Head is atraumatic, normocephalic. Pupils equal, round. Sclerae is anicteric. NECK: Supple. No JVD. No lymphadenopathy. No thyromegaly. LUNGS: Clear to auscultation. No wheezes or rhonchi. No intercostal retractions. HEART: Irregular rate and rhythm. Systolic murmur. ABDOMEN: Soft. Bowel sounds are present. No masses. No tenderness. EXTREMITIES: No pedal edema. No calf tenderness. Brace left leg NEUROLOGICAL: Patient is awake, alert and oriented to person only. Generalized weakness - Labs CBC & Chem 7: 09/10/19 07:45 09/10/19 07:45 Labs: Abnormal Lab Results - Last 24 Hours (Table) 09/09/19 09/10/19 09/10/19 Range/Units 06:55 07:45 07:45 RBC 3.18 L (3.80-5.40) m/uL Hgb 7.5 L D (11.4-16.0) gm/dL Hct 29.6 L (34.0-46.0) % MCH 23.5 L (25.0-35.0) pg MCHC 25.3 L (31.0-37.0) g/dL Neutrophils # 9.4 H (1.3-7.7) k/uL Lymphocytes # 0.6 L (1.0-4.8) k/uL Sodium 136 L (137-145) mmol/L AST 51 H (14-36) U/L Alkaline Phosphatase 200 H (38-126) U/L Albumin 3.2 L (3.5-5.0) g/dL Procalcitonin 0.23 H (0.02-0.09) ng/mL Microbiology - Last 24 Hours (Table) 09/08/19 11:26 Urine Culture - Preliminary Urine,Voided Gram Neg Bacilli 09/08/19 10:59 Blood Culture - Preliminary Blood No Growth after 24 hours Assessment and Plan Plan: 1 Altered mental status, likely on the basis of underlying UTI, gram-negative, improving 2 gram-negative UTI currently on IV Zosyn 3 leukocytosis, improving, secondary to above chronic right-sided congestive heart failure, The echo has shown PAP of 57 and the patient has a preserved LVEF. The patient was admitted to the hospital with exertional dyspnea, orthopnea and paroxysmal nocturnal dyspnea along with elevated BNP level. The patient had developed bilateral pleural effusion. ProBNP level was also elevated. The patient has hyperdynamic LV with diastolic heart failure and severe pulmonary hypertension indicating right-sided failure. She has responded nicely to diuretics. 4 chronic fibrosis of lung, chronic lower lobe pulmonary fibrosis, with interval worsening of shortness of breath. repeat CAT scan shows some interval worsening in the scarring and some limited areas of groundglass changes. The biapical scarring remains unchanged. Based on her history of atypical mycobacterial infection and based on history of immunosuppressant treatment, I'm going to await the final cultures regarding the TB or mycobacterial growth. The viral cultures are negative for now. Bacterial cultures are all negative. Bronchospastic evaluation FEV1 is compared was in the order of 70-72% . The patient has been extremely sensitive towards immunosuppressive agents. Her pulmonary fibrosis is stable for now. 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 8 bronchiectasis, the above-mentioned discussion 9 chronic anemia, hemoglobin dropped significantly down to 7.5 without signs of any acute GI bleed 10 rheumatoid arthritis, Currently off Olumiant , and her sed rate has been low and the CRP has been low. 11 acid reflux, with a fixed hiatal hernia and the patient is receiving Protonix 12 edema of lower extremity, 13 chronic insomnia, patient has chronic insomnia related to her multiple comorbidities Plan Watch for any signs of GI bleeding and monitor the hemoglobin obtain another hemoglobin in p.m. Continue IV Zosyn Pulmonary status is stable Mental status improved We'll continue to follow
[2019-09-10] MEDS: BENZONATATE 100 MG CAP PO SCH ×2 (13:52→21:08)
[2019-09-10] MEDS: ATORVASTATIN 40 MG TAB PO SCH (21:08)
[2019-09-10] MEDS: ATENOLOL 50 MG TAB PO SCH (21:08)
[2019-09-10] MEDS: FOLIC ACID 1 MG TAB PO SCH (21:08)
[2019-09-10] MEDS: ZOLPIDEM 10 MG TAB PO SCH (21:08)
[2019-09-11] MEDS: IPRATROPIUM-ALBUTEROL 3 ML NEB INHALATION SCH ×4 (00:23→10:57)
--- NOTE | 2019-09-11 05:38 | PN ---
PROGRESS NOTE DATE OF SERVICE: 09/10/2019 REASON FOR FOLLOWUP: Pneumonia, possible aspiration or gram-negative. INTERVAL HISTORY: The patient is currently afebrile. The patient remains to be pleasantly confused, though no agitation. The patient denies having any chest pain. She did have some cough, not bringing up any sputum. No vomiting. No diarrhea. PHYSICAL EXAMINATION: Blood pressure 175/88 with a pulse of 98, temperature 98.6. She is 99% on room air. General description is an elderly female lying in bed in no distress. RESPIRATORY SYSTEM: Unlabored breathing, decreased breath sounds at the bases. No wheeze. HEART: S1, S2. Regular rate and rhythm. ABDOMEN: Soft, no tenderness. LABS: Hemoglobin 7.5, white count 10.5 BUN of 15, creatinine 0.67. Urine showing a Klebsiella, sensitive pathogen. DIAGNOSTIC IMPRESSION AND PLAN: Patient admitted to the hospital with mental status changes with concern for possible pneumonia and urinary tract infection. The patient is currently on Zosyn. The patient white count has normalized. We will follow the patient closely and keep the patient on Zosyn in patient, hopefully finish therapy with oral antibiotics. Continue with supportive care. MMODL / IJN: [id number] /
[2019-09-11 06:05] VITALS: RESP 20; TEMP 97.9
[2019-09-11] MEDS: LEVOTHYROXINE 75 MCG TAB PO SCH (06:11)
[2019-09-11 08:13] VITALS: BP 152/83; PULSE 99
[2019-09-11] MEDS: PIPERACILLIN-TAZOBACTAM 3.375 GM in SODIUM CHLORIDE 0.9% 100 ML IVPB SCH (08:13)
[2019-09-11] MEDS: FUROSEMIDE 10 MG/ML 2 ML VIAL IV SCH (08:14)
[2019-09-11] MEDS: DULoxetine HCL 30 MG CAPSULE.DR PO SCH (08:14)
[2019-09-11] MEDS: PANTOPRAZOLE 40 MG TABLET PO SCH (08:14)
[2019-09-11] MEDS: ASPIRIN 81 MG PO SCH (08:14)
[2019-09-11] MEDS: MULTIVITAMINS, THERA 1 EACH TAB PO SCH (08:14)
[2019-09-11] MEDS: ASCORBIC ACID 500 MG TAB PO SCH (08:14)
[2019-09-11] MEDS: CHOLECALCIFEROL 1,000 UNIT TAB PO SCH (08:15)
[2019-09-11] MEDS: ENOXAPARIN 40 MG/0.4 ML SYRINGE SQ SCH (08:15)
[2019-09-11] MEDS: BENZONATATE 100 MG CAP PO SCH (08:15)
[2019-09-11] MEDS: DORZOLAMIDE HCL 2% DROPS 10 ML BTL BOTH EYES SCH (08:15)
[2019-09-11] MEDS: BRIMONIDINE TARTRATE 0.2% DROPS 5 ML BTL BOTH EYES SCH (08:15)
[2019-09-11] MEDS: SENNOSIDES-DOCUSATE SODIUM 1 EACH TAB PO SCH (08:25)
[2019-09-11 09:22] LABS: HCT 34.4 % (34.0-46.0); MCHC 33.1 g/dL (31.0-37.0); MCV 93.7 fL (80.0-100.0); Mean Platelet Volume 7.5; RBC 3.67 m/uL (3.80-5.40); RDW 14.8 % (11.5-15.5)
[2019-09-11 09:30] LABS: HGB 11.4 gm/dL (11.4-16.0); Platelet Count 739 k/uL (150-450)
--- NOTE | 2019-09-11 09:50 | P.DS ---
Providers Date of admission: 09/08/19 12:02 Expected date of discharge: 09/11/19 Attending physician: Virgil Marie Consults: 09/08/19 13:50 Consult Physician Routine Consulting Provider: Glenn Santiago Consult Reason/Comments: SOB, COPD and Aspiration, Do you want consulting provider notified?: Yes 09/08/19 13:52 Consult Physician Routine Consulting Provider: Shankar Conklin Consult Reason/Comments: Sepsis Do you want consulting provider notified?: Yes Primary care physician: Eduardo Fleming Hospital Course: 78-year-old female one of Dr. Rider's patient seen Dr. Tilley in and Dr. Serrano with multiple medical problem known to have history of COPD, A. fib, history of GI bleed, nonobstructive coronary artery disease, who was in the hospital and 08-28-2019 4 from left tibial fracture and knee immobilizer who had recent history of left hip intratrochanteric fracture post hemiarthroplasty who has been in and out of rehab. Patient left the hospital after her last injury and fall on the seventh end up at [facility] on the [place] for physical therapy seen Dr. Fleming. Patient was seen apparently yesterday and complaining of fever or chills mild confusion along with change mental status decreased mobility cough productive phlegm along with worsening symptoms ended up having a chest x-ray and lab result came back with significant leukocytosis, abnormal UA and bilater al pneumonia. Patient was hypoxic has been having hypotension and tachycardia with concern of sepsis ended up being sent to the emergency department at [facility] where was evaluated and seen chest x-ray showed infiltrate with heart failure, UA was positive, her wrap WBC were over 20,000 left shifted with sign and symptom of sepsis. Patient was started on vancomycin and Rocephin after culture was done kept on oxygen updraft treatment will admit patient to the hospital for the above problem. 09/09: Patient was seen by ID and pulmonary agree with the current plan continue nebulizer treatment along with IV antibiotics, has been complaining of severe constipation Fleet enema will be done today as well. Patient culture is not final yet in the meanwhile continue current broad-spectrum IV antibiotic management continue steroid 09/10: Patient remains afebrile, heart rate 96, blood pressure 149/92, pulse ox 95% on room air. Influenza testing was negative. Urine culture is in progress showing gram-negative bacilli. Blood culture no growth at 24 hours. Patient has been seen by Dr. Florentino and started on Zosyn. Sputum cultures on collected. Pro-calcitonin pending. Patient continues to have confusion. 09/11: Patient has been on Zosyn for urinary tract infection and urine cultures positive for Klebsiella pneumonia. Antibiotics will be transitioned to Ceftin. Patient continues to have some mild confusion which is improved from yesterday. Noted the WBC count is slowly improving today at 19. We will plan for repeat CBC in 3 days. classroom monitor has been atrial fibrillation with controlled rate. Patient has been eating poorly usually less than 50% for all meals. Patient will be discharge back to [facility] today in stable condition to complete her course of rehab. Discharge diagnoses: 1. Metabolic encephalopathy secondary to sepsis and urinary tract infection. 2. Aspiration pneumonia ruled out by pulmonary medicine. 3. Acute urinary tract infection. 4. Left tibial fracture. 5. History of recent left intertrochanteric fracture status post hemiarthroplasty. 6. Acute on chronic diastolic heart failure, stable with bilateral pleural ef fusions. 7. Hypertension, hypertensive cardiovascular disease. 8. History of intermediate nonobstructive coronary artery disease. 9. Chronic atrial fibrillation not currently on anticoagulation due to history of GI bleeding. 10. History of stage II COPD, stable. 11. Chronic pulmonary fibrosis. 12. History of bronchiectasis related to history of pulmonary infections. 13. History of atypical mycobacterial infection under the care Dr. Tilley. 14. Severe pulmonary hypertension and chronic cor pulmonale. 15. Rheumatoid arthritis. 16. Gastroesophageal reflux disease 17. Hypothyroidism. 18. Underlying dementia. 19. History of abdominal aortic aneurysm with repair. 20. Chronic kidney disease stage II, stable. 21. Restless leg syndrome. 22. Diarrhea, improved. 23. Mild calorie protein malnutrition Discharge plan: [facility]. Impression and plan of care have been directed as dictated by the signing physician. Marina Cervantes nurse practitioner acting as scribe for signing physician. Patient Condition at Discharge: Good Plan - Discharge Summary Discharge Rx Participant: No New Discharge Prescriptions: New Cefuroxime [Ceftin] 250 mg PO BID #8 tablet Furosemide [Lasix] 20 mg PO DAILY #30 tab Continue Folic Acid 1 mg PO SUMOTUWETHSA@2100 Brinzolamide/Brimonidine Tart [Simbrinza 1%-0.2% Eye Drops] 1 drop BOTH EYES DAILY@0900 Pantoprazole Sodium [Protonix] 40 mg PO BID@0900,2100 Levothyroxine Sodium [Synthroid] 75 mcg PO DAILY@0600 Ascorbic Acid [Vitamin C] 500 mg PO DAILY@0900 Cholecalciferol (Vitamin D3) [Vitamin D3] 2,000 unit PO DAILY@0900 rOPINIRole HCL [Requip] 0.5 mg PO TID@0600,1400,2200 Atorvastatin [Lipitor] 40 mg PO HS@2100 Acetaminophen Tab [Tylenol] 325 mg PO Q6H PRN PRN Reason: Pain Ipratropium-Albuterol Nebulize [Duoneb 0.5 mg-3 mg/3 ml Soln] 3 ml INHALATION RT-TID PRN PRN Reason: Shortness Of Breath Multivit-Min/Iron/Folic/Lutein [Centrum Silver Women Tablet] 1 tab PO DAILY@0900 Methotrexate Sodium [Methotrexate] 7.5 mg PO FR Atenolol [Tenormin] 50 mg PO HS@2100 Cholestyramine (with Sugar) [Questran Packet] 4 gm PO BID@1000,1800 packet Sennosides/Docusate Sodium [Senna Plus 8.6-50 mg Tablet] 1 tab PO BID@0900,2100 Enoxaparin [Lovenox] 40 mg SQ DAILY@0900 DULoxetine HCL [Cymbalta] 30 mg PO DAILY@0900 Aspirin EC [Ecotrin Low Dose] 81 mg PO DAILY@0900 Zolpidem [Ambien] 10 mg PO HS@2100 #3 tab Changed HYDROcodone/APAP 5-325MG [Bedford 5-325] 1 tab PO Q4H PRN #18 tab PRN Reason: Pain Discontinued Benzonatate [Tessalon Perles] 100 mg PO TID PRN PRN Reason: Cough Discharge Medication List Brinzolamide/Brimonidine Tart [Simbrinza 1%-0.2% Eye Drops] 1 drop BOTH EYES DAILY@0900 12/22/16 [History] Folic Acid 1 mg PO SUMOTUWETHSA@2100 12/22/16 [History] Levothyroxine Sodium [Synthroid] 75 mcg PO DAILY@0600 12/22/16 [History] Pantoprazole Sodium [Protonix] 40 mg PO BID@0900,2100 12/22/16 [History] Ascorbic Acid [Vitamin C] 500 mg PO DAILY@0900 05/18/18 [History] Atorvastatin [Lipitor] 40 mg PO HS@209912/29/18 [History] Cholecalciferol (Vitamin D3) [Vitamin D3] 2,000 unit PO DAILY@0900 12/29/18 [History] rOPINIRole HCL [Requip] 0.5 mg PO TID@0600,1400,2200 12/29/18 [History] Acetaminophen Tab [Tylenol] 325 mg PO Q6H PRN 01/29/19 [History] Ipratropium-Albuterol Nebulize [Duoneb 0.5 mg-3 mg/3 ml Soln] 3 ml INHALATION RT-TID PRN 05/28/19 [History] Multivit-Min/Iron/Folic/Lutein [Centrum Silver Women Tablet] 1 tab PO DAILY@0900 05/28/19 [History] Atenolol [Tenormin] 50 mg PO HS@209908/21/19 [History] Methotrexate Sodium [Methotrexate] 7.5 mg PO FR 08/21/19 [History] Cholestyramine (with Sugar) [Questran Packet] 4 gm PO BID@1000,1800 packet 08/31/19 [Rx] Aspirin EC [Ecotrin Low Dose] 81 mg PO DAILY@0900 09/08/19 [History] DULoxetine HCL [Cymbalta] 30 mg PO DAILY@0900 09/08/19 [History] Enoxaparin [Lovenox] 40 mg SQ DAILY@89909/08/19 [History] Sennosides/Docusate Sodium [Senna Plus 8.6-50 mg Tablet] 1 tab PO BID@0900,209909/08/19 [History] Cefuroxime [Ceftin] 250 mg PO BID #8 tablet 09/11/19 [Rx] Furosemide [Lasix] 20 mg PO DAILY #30 tab 09/11/19 [Rx] HYDROcodone/APAP 5-325MG [Bedford 5-325] 1 tab PO Q4H PRN #18 tab 09/11/19 [Rx] Zolpidem [Ambien] 10 mg PO HS@2099 #3 tab 09/11/19 [Rx] Follow up Appointment(s)/Referral(s): Eduardo Fleming MD [Primary Care Provider] - 1 Week (at [facility]) Ambulatory/Diagnostic Orders: Complete Blood Count w/diff [LAB.AMB] Location: None Selected Discharge Disposition: TRANSFER TO SNF/ECF
[2019-09-11] MEDS: CHOLESTYRAMINE (WITH SUGAR) 4 GM PACKET PO SCH (10:02)
--- NOTE | 2019-09-11 10:33 | P.PN ---
Subjective Progress Note Date: 09/11/19 Principal diagnosis: Altered mental status, likely on the basis of underlying UTI, due to Klebsiella pneumonia, improving On 09/11/2019 patient seen in follow-up on a general medical floor. She is alert and oriented 3, however patient feels that she is intermittently confused , and hallucinates at times but feels that it is getting better, no worsening shortness of breath, room air pulse ox is 96%, hemodynamically stable, afebrile. The cough has subsided, patient remains on Zosyn for urinary tract infection and possibility of pulmonary infection. Doing better, she states she would like to get up out of bed however she remains nonweightbearing on her left lower extremity, remains in the immobilizer. No fever or chills. No significant wheezing or congestion, lung sounds reveal coarse inspiratory crackles at bilateral bases consistent with history of pulmonary scarring. Objective - Vital Signs Vital signs: Vital Signs Temp 97.9 F 09/11/19 06:03 Pulse 99 09/11/19 08:12 Resp 20 09/11/19 06:03 BP 152/83 09/11/19 08:12 Pulse Ox 96 09/11/19 06:03 Intake & Output 09/10/19 09/11/19 09/11/19 18:59 06:59 18:59 Intake Total 100 Balance 100 Intake: IV 100 Piperacillin-Tazobactam 3 100 .375 gm In Sodium Chloride 0.9% 100 ml @ 25 mls/hr IVPB Q8HR [facility] Rx# :[id number] Other: Voiding Method Incontinent Incontinent # Voids 1 4 1 # Bowel Movements 1 2 1 - Exam GENERAL EXAM: Alert, very pleasant, thin, 78-year-old white female, on room air with a pulse ox of 96% comfortable in no apparent distress. HEAD: Normocephalic/atraumatic. EYES: Normal reaction of pupils, equal size. Conjunctiva pink, sclera white. NOSE: Clear with pink turbinates. THROAT: No erythema or exudates. NECK: No masses, no JVD, no thyroid enlargement, no adenopathy. CHEST: No chest wall deformity. Symmetrical expansion. bruises on the anterior left upper chest from ECG leads LUNGS: Equal air entry with worsening Velcro-like crackles at bilateral posterior bases, no wheezing, no rhonchi CVS: Regular rate and rhythm, normal S1 and S2, no gallops, no murmurs, no rubs ABDOMEN: Soft, nontender. No hepatosplenomegaly, normal bowel sounds, no guarding or rigidity. EXTREMITIES: No clubbing, no edema, no cyanosis, 2+ pulses and upper and lower extremities. MUSCULOSKELETAL: Muscle strength and tone normal. left leg is in the immobilizer related to history of recent ankle and knee surgery SPINE: No scoliosis or deformity SKIN: No rashes, bruising involving left upper arm CENTRAL NERVOUS SYSTEM: Alert and oriented -3. No focal deficits, tone is normal in all 4 extremities. PSYCHIATRIC: Alert and oriented -3. Appropriate affect. Intact judgment and insight. - Labs CBC & Chem 7: 09/11/19 08:04 09/10/19 07:45 Labs: Abnormal Lab Results - Last 24 Hours (Table) 09/09/19 09/10/19 09/11/19 Range/Units 06:55 07:45 08:04 WBC 19.0 H (3.8-10.6) k/uL RBC 3.18 L 3.67 L (3.80-5.40) m/uL Hgb 7.5 L D (11.4-16.0) gm/dL Hct 29.6 L (34.0-46.0) % MCH 23.5 L (25.0-35.0) pg MCHC 25.3 L (31.0-37.0) g/dL Plt Count 739 H D (150-450) k/uL Neutrophils # 9.4 H (1.3-7.7) k/uL Lymphocytes # 0.6 L (1.0-4.8) k/uL Procalcitonin 0.23 H (0.02-0.09) ng/mL Microbiology - Last 24 Hours (Table) 09/08/19 11:26 Urine Culture - Final Urine,Voided Klebsiella pneumoniae 09/08/19 10:59 Blood Culture - Preliminary Blood No Growth after 48 hours Assessment and Plan Plan: assessment: 1 Altered mental status, likely on the basis of underlying UTI, due to Klebsiella pneumonia, improving 2 gram-negative UTI currently on IV Zosyn, urine culture showed Klebsiella pne umonia 3 leukocytosis, improving, secondary to above chronic right-sided congestive heart failure, The echo has shown PAP of 57 and the patient has a preserved LVEF. The patient was admitted to the hospital with exertional dyspnea, orthopnea and paroxysmal nocturnal dyspnea along with elevated BNP level. The patient had developed bilateral pleural effusion. ProBNP level was also elevated. The patient has hyperdynamic LV with diastolic heart failure and severe pulmonary hypertension indicating right-sided failure. She has responded nicely to diuretics. 4 chronic fibrosis of lung, chronic lower lobe pulmonary fibrosis, with interval worsening of shortness of breath. repeat CAT scan shows some interval worsening in the scarring and some limited areas of groundglass changes. The biapical scarring remains unchanged. Based on her history of atypical mycobacterial infection and based on history of immunosuppressant treatment, I'm going to await the final cultures regarding the TB or mycobacterial growth. The viral cultures are negative for now. Bacterial cultures are all negative. Bronchosp astic evaluation FEV1 is compared was in the order of 70-72% . The patient has been extremely sensitive towards immunosuppressive agents. Her pulmonary fibrosis is stable for now. 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 8 bronchiectasis, the above-mentioned discussion 9 chronic anemia, hemoglobin dropped significantly down to 7.5 without signs of any acute GI bleed 10 rheumatoid arthritis, Currently off Olumiant , and her sed rate has been low and the CRP has been low. 11 acid reflux, with a fixed hiatal hernia and the patient is receiving Protonix 12 edema of lower extremity, 13 chronic insomnia, patient has chronic insomnia related to her multiple comorbidities Plan: Clinically patient is stable, no worsening dyspnea, no fever or chills, she remains on Zosyn for urinary tract infection with urine cultures positive for Klebsiella pneumonia. mentation has improved although at times patient still feels that she is confused. Physical therapy evaluation, increase activity according to the weightbearing recommendation on the left lower extremity. No acute events overnight. continue breathing treatments, continue antibiotics per ID service recommendations, discharge planning is in progress for transfer to [facility] possibly this afternoon. I performed a history & physical examination of the patient and discussed their management with my nurse practitioner, Marisela Dior. I reviewed the nurse practitioner's note and agree with the documented findings and plan of care. Lung sounds are positive for coarse Velcro-like crackles over left and right bases. The findings and the impression was discussed with the patient. I attest to the documentation by the nurse practitioner. Time with Patient: Less than 30
--- NOTE | 2019-09-12 11:41 | CDI ---
Documentation Clarification Form Date: 09/12/19 From: Maricel Salinas Phone: If you have a question about this query, please contact Lea Overton, Assistant Manager/Embalmer at [phone] between 8am and 5pm. Admit Date: 09/08/19 Discharge Date:09/11/19 Patient Name: Alejandra Aaron Visit Number: [id number] ATTENTION: The Clinical Documentation Specialists (CDI) and [facility] Coding Staff appreciate your assistance in clarifying documentation. Please respond to the clarification below the line at the bottom and electronically sign. The CDI & [facility] Coding staff will review the response and follow-up if needed. Please note: Queries are made part of the Legal Health Record. If you have any questions, please contact the author of this message via ITS. Dear Dr. Marie Conflicting documentation has been found in the medical record: Diastolic heart failure is documented in the discharge summary, Marina Cervantes's 09/[address] Tilley's 09/10 & progress notes. Congestive heart failure: systolic function is documented in the H&P and your 09/09 progress note. History/Risk Factors: CAD, hypertension cardiovascular disease, CHF Clinical Indicators: Pulmonary edema, shortness of breath VS/Pulse Ox: T. 97.6, P. 87, R. 21, BP 152/91, Pulse Ox., 100 BNP: 13,400 Echo: Not done Chest X-ray: Worsening changes of congestive heart failure. Treatment: IV Lasix 20 mg q12 In your opinion, what is the most clinically appropriate diagnosis for this patient? CHF Systolic Diastolic Combined Systolic and Diastolic Other explanation of clinical findings Unable to determine (no explanation for clinical findings) See documentation. MTDD
== END 2019-09-11 11:50 | DRG 871 ==
LOC: EC 10:26 → 6NMEDSUR 12:02
PROVIDERS: ADMIT Internal Medicine Geriatric Medicine; ATTEND Internal Medicine Geriatric Medicine
DX: A41.59 Other Gram-negative sepsis (principal); G93.41 Metabolic encephalopathy; I50.33 Acute on chronic diastolic (congestive) heart failure; E44.1 Mild protein-calorie malnutrition; I13.0 Hypertensive heart and chronic kidney disease with heart failure and stage 1 through stage 4 chronic kidney disease, or unspecified chronic kidney disease; N39.0 Urinary tract infection, site not specified; R64 Cachexia; R65.20 Severe sepsis without septic shock; I27.29 Other secondary pulmonary hypertension; I50.82 Biventricular heart failure; F03.90 Unspecified dementia, unspecified severity, without behavioral disturbance, psychotic disturbance, mood disturbance, and anxiety; D64.9 Anemia, unspecified; E03.9 Hypothyroidism, unspecified; E78.5 Hyperlipidemia, unspecified; F32.9 Major depressive disorder, single episode, unspecified; F51.04 Psychophysiologic insomnia; G25.81 Restless legs syndrome; H54.62 Unqualified visual loss, left eye, normal vision right eye; I25.10 Atherosclerotic heart disease of native coronary artery without angina pectoris; I48.0 Paroxysmal atrial fibrillation; K21.9 Gastro-esophageal reflux disease without esophagitis; K44.9 Diaphragmatic hernia without obstruction or gangrene; K59.00 Constipation, unspecified; M06.9 Rheumatoid arthritis, unspecified; N18.2 Chronic kidney disease, stage 2 (mild); G47.30 Sleep apnea, unspecified; H40.9 Unspecified glaucoma; K57.90 Diverticulosis of intestine, part unspecified, without perforation or abscess without bleeding; M19.90 Unspecified osteoarthritis, unspecified site; R29.6 Repeated falls; R06.03 Acute respiratory distress; R19.7 Diarrhea, unspecified; N26.1 Atrophy of kidney (terminal); J44.9 Chronic obstructive pulmonary disease, unspecified; R32 Unspecified urinary incontinence; S82.202D Unspecified fracture of shaft of left tibia, subsequent encounter for closed fracture with routine healing; Z68.24 Body mass index [BMI] 24.0-24.9, adult; Z79.82 Long term (current) use of aspirin; Z79.890 Hormone replacement therapy; Z79.899 Other long term (current) drug therapy; Z86.79 Personal history of other diseases of the circulatory system; Z90.710 Acquired absence of both cervix and uterus; Z96.653 Presence of artificial knee joint, bilateral; Z98.42 Cataract extraction status, left eye; Z98.41 Cataract extraction status, right eye; Z96.1 Presence of intraocular lens; Z88.5 Allergy status to narcotic agent; Z86.010 Personal history of colon polyps; Z87.440 Personal history of urinary (tract) infections; Z87.01 Personal history of pneumonia (recurrent); Z87.891 Personal history of nicotine dependence; Z80.1 Family history of malignant neoplasm of trachea, bronchus and lung
CPT/HCPCS: 36415; 71046; 80053; 81001; 83605; 83880; 84145; 84484; 85025; 85027; 85610; 85730; 86850; 86900; 86901; 87040; 87077; 87086; 87186; 87502; 93005; 94640; 94760; 96365; 96366; 96368; 96375; 99291

== ENCOUNTER 2019-10-01 | Emergency (ER) | payer MEDICARE | END 2019-10-01 19:55 | disposition other institution (70) | CPT/HCPCS: 31500; 99291; 96375 ×3; 96374; 96376; 96361 ×2; 36415; 36600; 93005; 80053; 82805; 84484; 85025; 85610; 85730; 81001; 71045; 70450; 70496; 70498; J0330; J2310; J0696; J2250; J2704; Q9967; 94002 ==